=== PATIENT | female | born 1945 | race Hispanic/Latino ===

== ENCOUNTER 2019-02-17 17:47 | Emergency (ER) | payer OTHER ==
[2019-02-17] MEDS ORDERED: ALBUTEROL 2.5 MG/3 ML NEB SOL ONE (18:38)
[2019-02-17] MEDS ORDERED: IPRATROPIUM BROM 0.5MG/2.5ML ONE (18:38)
--- NOTE | 2019-02-17 19:00 | RAD REPORT ---
EXAM DESCRIPTION: RAD - Chest Single View - 02/17/2019 6:52 pm CLINICAL HISTORY: SOB Chest pain. COMPARISON: Chest Pa And Lat (2 Views) dated 06/15/2018; Chest Single View dated 06/13/2018; Chest Sin gle View dated 06/11/2018; Chest Single View dated 02/28/2017 FINDINGS: Portable technique limits examination quality. Mild interstitial pulmonary edema. The heart is moderately enlarged with a multilead pacer/defibrilla tor device present. Portion of the left lower lung field is obscured by the pacer device. IMPRESSION: Mild CHF.
[2019-02-17 19:04] LABS: Protime INR 1.02
[2019-02-17 19:06] LABS: Absolute Lymphocytes (CBC) 1.5 K/uL (0.7-4.9); Absolute Monocytes 0.5 K/uL (0.1-1.3); Absolute Neutrophil 4.6 K/uL (1.8-8.0); Basophils % 1.5 % (0-1.3); Eosinophils % 1.6 % (0-4.4); Hematocrit 36.5 % (36.0-45.0); Lymphocytes % 21.5 % (15.3-44.8); MPV 8.5 fL (7.6-11.3); Monocytes % 7.2 % (3.3-12.3); RBC Red Blood Cell Count 4.17 M/uL (3.86-4.86)
[2019-02-17 19:11] LABS: ALT/SGPT 10 U/L (12-78); AST/SGOT 17 U/L (15-37); Albumin 3.5 g/dL (3.4-5.0); Alkaline Phosphatase 69 U/L (45-117); BUN Blood Urea Nitrogen 19 mg/dL (7-18); Bicarbonate 29 mmol/L (21-32); Bilirubin Direct 0.2 mg/dL (0-0.2); Bilirubin Total 0.4 mg/dL (0.2-1.0); Glucose Level 126 mg/dL (74-106); NT PRO-BNP 19981 pg/mL (<450); Potassium 3.7 mmol/L (3.5-5.1); Protein, Total 7.3 g/dL (6.4-8.2); Sodium Level 140 mmol/L (136-145); Troponin (Emerg Dept Use Only) < 0.02 ng/mL (0.0-0.045)
[2019-02-17] MEDS ORDERED: ASPIRIN 81 MG CHEWABLE TABLET ONE (19:11)
[2019-02-17 19:13] LABS: Magnesium 1.3 mg/dL (1.8-2.4)
--- NOTE | 2019-02-17 19:22 | RAD REPORT ---
EXAM DESCRIPTION: US - Extrem Venous W Compress Charles - 02/17/2019 7:16 pm CLINICAL HISTORY: SWELLING Bilateral leg edema and swelling. COMPARISON: EXT VENOUS UNI LTD dated 10/04/2015 TECHNIQUE: Real-time sonographic interrogation of the left and right lower extremity deep venous sys tems was performed. FINDINGS: Normal compressibility, flow augmentation, phasic flow and spontaneous flow is identified in both the left and right lower extremity deep venous systems. IMPRESSION: No sonographic evidence of left or right lower extremity deep venous thrombosis.
[2019-02-17 19:41] LABS: Blood Morphology Comment NOT SEEN (NOT SEEN); Platelet Estimate ADEQ; Urine White Blood Cell Casts OK
[2019-02-17] MEDS ORDERED: KETOROLAC 30 MG/ML INJ ONE (19:41)
[2019-02-17] MEDS ORDERED: Magnesium Sulfate 2gm IVPB 2 G/50 ML BAG IV ONE (19:41)
[2019-02-17] MEDS ORDERED: FUROSEMIDE 40 MG/4 ML VIAL ONE (19:57)
--- NOTE | 2019-02-17 20:55 | EDPHYS ---
Physician Documentation [facility] Name: Leatha Galeana Age: 73 yrs Sex: Female : 1945 Arrival Date: 02/17/2019 Time: 17:50 Bed 6 Private MD: ED Physician Raymond Lyons HPI: 02/17 18:10 This 73 yrs old Female presents to ER via Ambulatory with complaints of cp Shortness Of Breath, Leg Swelling. 18:10 The patient has shortness of breath at rest, with light activity. Onset: The cp symptoms/episode began/occurred last night. Duration: The symptoms are continuous, and are steadily getting worse. 18:10 The patient's shortness of breath is aggravated by light activity. Associated signs and cp symptoms: Pertinent negatives: chest pain, productive cough, diaphoresis, dizziness, fever, hemoptysis. 18:10 Severity of symptoms: in the emergency department the symptoms are unchanged despite cp home interventions. Historical: - Allergies: 17:54 No Known Allergies; sg - PMHx: 17:54 CHF; CVA; Diabetes - NIDDM; Hypothyroidism; Myocardial infarction; sg - PSHx: 17:54 pacemaker; sg - Immunization history:: Adult Immunizations up to date. - Social history:: Smoking status: Patient/guardian denies using tobacco. - Ebola Screening: : Patient negative for fever greater than or equal to 101.5 degrees Fahrenheit, and additional compatible Ebola Virus Disease symptoms Patient denies exposure to infectious person Patient denies travel to an Ebola-affected area in the 21 days before illness onset No symptoms or risks identified at this time. ROS: 18:15 Constitutional: Negative for body aches, chills, fever, poor PO intake. cp 18:15 Eyes: Negative for injury, pain, redness, and discharge. cp 18:15 ENT: Negative for drainage from ear(s), ear pain, sore throat, difficulty swallowing, difficulty handling secretions. 18:15 Cardiovascular: Positive for edema, Negative for chest pain, palpitations. 18:15 Respiratory: Positive for shortness of breath, on exertion. Negative for hemoptysis, wheezing. 18:15 Abdomen/GI: Negative for abdominal pain, nausea, vomiting, and diarrhea, black/tarry stool, rectal bleeding. 18:15 Back: Negative for pain at rest, pain with movement. 18:15 Skin: Negative for rash. 18:15 Neuro: Negative for altered mental status, headache, syncope, weakness. 18:15 All other systems are negative. Exam: 18:20 Constitutional: The patient appears in no acute distress, alert, awake, cp non-diaphoretic, non-toxic, well developed, well nourished. 18:20 Head/Face: Normocephalic, atraumatic. cp 18:20 Eyes: Periorbital structures: appear normal, Conjunctiva: normal, no exudate, no injection, Sclera: no appreciated abnormality, Lids and lashes: appear normal, bilaterally. 18:20 ENT: External ear(s): are unremarkable, Nose: is normal, Mouth: Lips: moist, Oral mucosa: pink and intact, moist, Posterior pharynx: is normal, airway is patent, no erythema, no exudate. 18:20 Neck: ROM/movement: is normal, is supple, without pain, no range of motions limitations, no nuchal rigidity. 18:20 Chest/axilla: Inspection: normal, Palpation: is normal, no crepitus, no tenderness. 18:20 Cardiovascular: Rate: normal, Rhythm: regular, Edema: ankle edema, that is mild, JVD: is not appreciated. 18:20 Respiratory: the patient does not display signs of respiratory distress, Respirations: labored breathing, is not present, accessory muscle usage, is absent, intercostal retractions, are absent, Breath sounds: rales, that are mild, are located in both bases, decreased breath sounds, are not appreciated, stridor, is not appreciated. 18:20 Abdomen/GI: Inspection: abdomen appears normal, Palpation: abdomen is soft and non-tender, in all quadrants. 18:20 Skin: no rash present. 18:20 Neuro: Orientation: to person, place \T\ time. Mentation: is normal, Cerebellar function: is grossly normal, Motor: is normal. Vital Signs: 17:53 BP 142 / 75; Pulse 89 MON; Resp 19 S; Temp 98.7; Pulse Ox 97% on R/A; sg 19:08 BP 132 / 62; Pulse 88; Resp 17; Pulse Ox 100% on R/A; sg 19:10 BP 132 / 65; Pulse 72; Resp 17; Temp 97.5; Pulse Ox 99% on R/A; Pain 6/10; rr5 20:00 BP 129 / 70; Pulse 73; Resp 18; Pulse Ox 99% on R/A; rr5 20:30 BP 126 / 66; Pulse 67; Resp 15; Temp 97.5; Pulse Ox 99% ; rr5 21:20 BP 133 / 60; Pulse 71; Resp 17; Temp 97.7; Pulse Ox 99% on R/A; rr5 MDM: 18:04 Patient medically screened. cp 18:30 Differential diagnosis: CHF exacerbation, Chronic Obstructive Pulmonary Disease cp Myocardial Infarction pneumonia, Pneumothorax pulmonary edema, Pulmonary Embolism Sepsis Unstable Angina. 20:52 Data reviewed: vital signs, nurses notes, lab test result(s), EKG, radiologic studies, cp plain films. 20:52 Test interpretation: by ED physician or midlevel provider: ECG, plain radiologic cp studies. Counseling: I had a detailed discussion with the patient and/or guardian regarding: the historical points, exam findings, and any diagnostic results supporting the discharge/admit diagnosis, lab results, radiology results, the need for outpatient follow up, a family practitioner, to return to the emergency department if symptoms worsen or persist or if there are any questions or concerns that arise at home. Response to treatment: the patient's symptoms have markedly improved after treatment, VSS. Patient reports symptoms improved after breathing treatment and IV Lasix. No signs of respiratory distress noted. Recommend increasing Lasix to bid for five days and f/u with PCP. 02/17 18:11 Order name: Basic Metabolic Panel; Complete Time: 19:14 02/17 19:20 Interpretation: Normal except: GLUC 126; BUN 19; GFR 43. 02/17 18:11 Order name: CBC with Diff; Complete Time: 20:43 02/17 19:37 Interpretation: Normal except: HGB 11.7; BASO% 1.5. 02/17 18:11 Order name: LFT's; Complete Time: 19:14 02/17 20:42 Interpretation: Normal except: ALT 10; GLOB 3.8; A/G 0.9. 02/17 18:11 Order name: Magnesium; Complete Time: 19:14 02/17 18:11 Order name: NT PRO-BNP; Complete Time: 19:14 02/17 19:14 Interpretation: Abnormal: NT PRO-BNP . cp 02/17 18:11 Order name: PT-INR; Complete Time: 19:14 cp 02/17 18:11 Order name: Troponin (emerg Dept Use Only); Complete Time: 19:14 cp 02/17 18:11 Order name: XRAY Chest (1 view); Complete Time: 19:14 cp 02/17 18:16 Order name: US Extremity Venous W Compression Charles; Complete Time: 19:24 cp 02/17 19:24 Interpretation: Report reviewed. 02/17 19:19 Order name: CBC Smear Scan; Complete Time: 20:43 EDMS 02/17 18:11 Order name: EKG; Complete Time: 18:13 cp 02/17 18:11 Order name: Cardiac monitoring; Complete Time: 19:38 cp 02/17 18:11 Order name: EKG - Nurse/Tech; Complete Time: 19:39 cp 02/17 18:11 Order name: IV Saline Lock; Complete Time: 19:39 cp 02/17 18:11 Order name: Labs collected and sent; Complete Time: 19:39 cp 02/17 18:11 Order name: O2 Per Protocol; Complete Time: 19:39 cp 02/17 18:12 Order name: O2 Sat Monitoring; Complete Time: 19:39 cp Administered Medications: 19:30 Drug: Aspirin Chewable Tablet 324 mg Route: PO; rr5 20:30 Follow up: Response: No adverse reaction rr5 19:35 Drug: Magnesium Sulfate 2 grams Route: IVPB; Infused Over: 2 hrs; Site: left forearm; rr5 21:15 Follow up: Response: No adverse reaction; IV Status: Completed infusion; IV Intake: [id number] 19:35 Drug: TORadol - Ketorolac 15 mg Route: IVP; Site: left forearm; rr5 20:35 Follow up: Response: No adverse reaction rr5 19:36 Drug: Albuterol - atroVENT (3:1) (2.5 mg - 0.5 mg) 3 ml Route: Nebulizer; rr5 20:40 Follow up: Response: No adverse reaction rr5 19:55 Drug: Lasix 40 mg Route: IVP; Site: left forearm; rr5 21:00 Follow up: Response: No adverse reaction rr5 Disposition: 02/17/19 20:54 Discharged to Home. Impression: Unspecified combined systolic (congestive) and diastolic (congestive) heart failure, Hypomagnesemia. - Condition is Stable. - Discharge Instructions: Heart Failure, Hypomagnesemia, Pulmonary Edema, Dobd-Qd-Updr. - Prescriptions for magnesium - take 400 milligram by ORAL route once daily for 5 days; 5 tablet. - Medication Reconciliation Form, Thank You Letter, Antibiotic Education, Prescription Opioid Use form. - Follow up: Private Physician; When: 2 - 3 days; Reason: Recheck today's complaints. - Problem is an acute exacerbation. - Symptoms have improved. - Notes: Increase Lasix to 20 mg twice daily for 5 days and follow-up with primary physician Addendum: 02/20/2019 08:40 Co-signature as Attending Physician, Raymond Lyons MD I agree with the assessment and c moore plan of care. Signatures: Dispatcher [employer] EDPb Lemus, RN RN Raymond Decker MD MD cha Page, Corey, PA PA Ritchie Doherty RN RN rr5 Corrections: (The following items were deleted from the chart) 02/17 19:38 19:37 Normal except: HGB 11.7. cp cp 21:35 20:54 02/17/2019 20:54 Discharged to Home. Impression: Unspecified combined systolic rr5 (congestive) and diastolic (congestive) heart failure; Hypomagnesemia. Condition is Stable. Forms are Medication Reconciliation Form, Thank You Letter, Antibiotic Education, Prescription Opioid Use. Follow up: Private Physician; When: 2 - 3 days; Reason: Recheck today's complaints. Problem is an acute exacerbation. Symptoms have improved. cp
--- NOTE | 2019-02-17 20:55 | ER ---
Nurse's Notes [facility] Name: Leatha Galeana Age: 73 yrs Sex: Female : 1945 Arrival Date: 02/17/2019 Time: 17:50 Bed 6 Private MD: Diagnosis: Unspecified combined systolic (congestive) and diastolic (congestive) heart failure;Hypomagnesemia Presentation: 02/17 17:51 Presenting complaint: Patient states: Swelling to the BLE, reports having shortness of sg breath at home worsening with ambulation and ADL's reports having had o2 at home but has not recently needed it, so I dont use it. Transition of care: patient was not received from another setting of care. Onset of symptoms was February 17, 2019. Risk Assessment: Do you want to hurt yourself or someone else? Patient reports no desire to harm self or others. Initial Sepsis Screen: Does the patient meet any 2 criteria? No. Patient's initial sepsis screen is negative. Does the patient have a suspected source of infection? No. Patient's initial sepsis screen is negative. Care prior to arrival: None. 17:51 Method Of Arrival: Ambulatory sg 17:51 Acuity: TYRELL 3 sg Historical: - Allergies: 17:54 No Known Allergies; sg - PMHx: 17:54 CHF; CVA; Diabetes - NIDDM; Hypothyroidism; Myocardial infarction; sg - PSHx: 17:54 pacemaker; sg - Immunization history:: Adult Immunizations up to date. - Social history:: Smoking status: Patient/guardian denies using tobacco. - Ebola Screening: : Patient negative for fever greater than or equal to 101.5 degrees Fahrenheit, and additional compatible Ebola Virus Disease symptoms Patient denies exposure to infectious person Patient denies travel to an Ebola-affected area in the 21 days before illness onset No symptoms or risks identified at this time. Screenin:10 Abuse screen: Denies threats or abuse. Denies injuries from another. Nutritional sg screening: No deficits noted. Tuberculosis screening: No symptoms or risk factors identified. Never had TB. Fall Risk None identified. Assessment: 18:10 General: Appears in no apparent distress. well groomed, well developed, well nourished, sg Behavior is calm, cooperative, appropriate for age. Pain: Complains of pain in right leg. Neuro: Level of Consciousness is awake, alert, obeys commands, Oriented to person, place, time, Training Officer are equal bilaterally Moves all extremities. Full function Speech is normal, Facial symmetry appears normal, Pupils are PERRLA. Cardiovascular: Patient's skin is warm and dry. Edema is 2+ to left midcalf, left ankle, left foot, left toes, right midcalf, right ankle, right foot and right toes. Respiratory: Airway is patent Respiratory effort is even, unlabored, Respiratory pattern is regular, symmetrical. GI: Abdomen is flat, non-distended, Bowel sounds present X 4 quads. Reports tolerance of fluids, tolerance of food. : No signs and/or symptoms were reported regarding the genitourinary system. EENT: No signs and/or symptoms were reported regarding the EENT system. Derm: Skin is pale. Musculoskeletal: Circulation, motion, and sensation intact. Range of motion: intact in all extremities. 19:05 General: Appears in no apparent distress. uncomfortable, well groomed, well developed, rr5 Behavior is calm, cooperative, appropriate for age. Pain: Complains of pain in tail bone Pain does not radiate. Pain currently is 6 out of 10 on a pain scale. Quality of pain is described as aching, Pain began gradually, Is intermittent. Neuro: Level of Consciousness is awake, alert, obeys commands, Oriented to person, place, time, situation, Appropriate for age. Cardiovascular: Capillary refill < 3 seconds Patient's skin is warm and dry. edema lower extremities. Respiratory: Reports shortness of breath Airway is patent Respiratory effort is even, unlabored, Respiratory pattern is regular, symmetrical. GI: Abdomen is non-distended. : No signs and/or symptoms were reported regarding the genitourinary system. EENT: No signs and/or symptoms were reported regarding the EENT system. 19:05 Musculoskeletal: Circulation, motion, and sensation intact. Capillary refill < 3 rr5 seconds, Range of motion: intact in all extremities. 20:00 Reassessment: Patient appears in no apparent distress at this time. Patient is alert, rr5 oriented x 3, equal unlabored respirations, skin warm/dry/pink. ongoing magnesium sulfate IV no complaints made. awaiting for result. 21:00 Reassessment: Patient appears in no apparent distress at this time. Patient and/or rr5 family updated on plan of care and expected duration. Pain level reassessed. Patient is alert, oriented x 3, equal unlabored respirations, skin warm/dry/pink. 21:30 Reassessment: Patient appears in no apparent distress at this time. Patient is alert, rr5 oriented x 3, equal unlabored respirations, skin warm/dry/pink. 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 Vital Signs: 17:53 BP 142 / 75; Pulse 89 MON; Resp 19 S; Temp 98.7; Pulse Ox 97% on R/A; sg 19:08 BP 132 / 62; Pulse 88; Resp 17; Pulse Ox 100% on R/A; sg 19:10 BP 132 / 65; Pulse 72; Resp 17; Temp 97.5; Pulse Ox 99% on R/A; Pain 6/10; rr5 20:00 BP 129 / 70; Pulse 73; Resp 18; Pulse Ox 99% on R/A; rr5 20:30 BP 126 / 66; Pulse 67; Resp 15; Temp 97.5; Pulse Ox 99% ; rr5 21:20 BP 133 / 60; Pulse 71; Resp 17; Temp 97.7; Pulse Ox 99% on R/A; rr5 ED Course: 17:50 Patient arrived in ED. iw 17:53 Triage completed. sg 17:53 Arm band placed on. sg 17:56 Pb Ceja, RN is Primary Nurse. sg 18:04 Raymond Graham PA is PHCP. cp 18:04 Raymond Lyons MD is Attending Physician. cp 18:10 No provider procedures requiring assistance completed. sg 18:54 XRAY Chest (1 view) In Process Unspecified. EDMS 19:14 Ultrasound completed. Patient tolerated well. sg3 19:16 US Extremity Venous W Compression Charles In Process Unspecified. EDMS 21:30 Patient has correct armband on for positive identification. Placed in gown. Bed in low rr5 position. Call light in reach. Side rails up X2. Adult w/ patient. environmental monitoring technician on. Pulse ox on. NIBP on. 21:30 IV discontinued, intact, bleeding controlled, No redness/swelling at site. Pressure rr5 dressing applied. Administered Medications: 19:30 Drug: Aspirin Chewable Tablet 324 mg Route: PO; rr5 20:30 Follow up: Response: No adverse reaction rr5 19:35 Drug: Magnesium Sulfate 2 grams Route: IVPB; Infused Over: 2 hrs; Site: left forearm; rr5 21:15 Follow up: Response: No adverse reaction; IV Status: Completed infusion; IV Intake: [id number] 19:35 Drug: TORadol - Ketorolac 15 mg Route: IVP; Site: left forearm; rr5 20:35 Follow up: Response: No adverse reaction rr5 19:36 Drug: Albuterol - atroVENT (3:1) (2.5 mg - 0.5 mg) 3 ml Route: Nebulizer; rr5 20:40 Follow up: Response: No adverse reaction rr5 19:55 Drug: Lasix 40 mg Route: IVP; Site: left forearm; rr5 21:00 Follow up: Response: No adverse reaction rr5 Outcome: 20:54 Discharge ordered by MD. cp 21:30 Discharged to home via wheelchair, with family. rr5 21:30 Condition: stable rr5 21:30 Discharge instructions given to patient, family, Instructed on discharge instructions, follow up and referral plans. medication usage, Demonstrated understanding of instructions, follow-up care, medications, Prescriptions given X 1. 21:35 Patient left the ED. rr5 Signatures: Dispatcher [employer] EDMS Pb Ceja RN RN sg Williams, Irene RN Raymond Alexandre PA PA cp Godinez, Sarah sg3 Ritchie Wynn RN RN rr5
[2019-02-17 21:43] VITALS: O2SAT 99
[2019-02-17 21:47] VITALS: BP 133/60; TEMP 97.7
--- NOTE | 2019-02-18 10:07 | EKG ---
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
== END 2019-02-17 21:35 | disposition home or self-care (01) ==
LOC: ER 17:47
DX: I50.40 Unspecified combined systolic (congestive) and diastolic (congestive) heart failure (principal); E83.42 Hypomagnesemia; E11.9 Type 2 diabetes mellitus without complications; E03.9 Hypothyroidism, unspecified; I25.2 Old myocardial infarction; Z86.73 Personal history of transient ischemic attack (TIA), and cerebral infarction without residual deficits
CPT/HCPCS: 96365; 93005; 85025; 80048; 36415; 83735; 85610; 80076; 84484; 83880; 71045; 93970; 94640; 96375; 99285; 96366; J1940; J3475

== ENCOUNTER 2019-05-11 14:50 | Emergency (ER) | payer OTHER ==
[2019-05-11 15:21] LABS: Absolute Lymphocytes (CBC) 0.9 K/uL (0.7-4.9); Basophils % 0.9 % (0-1.3); Hematocrit 35.3 % (36.0-45.0); Lymphocytes % 16.4 % (15.3-44.8); MPV 8.1 fL (7.6-11.3); RBC Red Blood Cell Count 4.02 M/uL (3.86-4.86)
[2019-05-11 15:22] LABS: Protime INR 1.01
[2019-05-11 15:37] LABS: Magnesium 1.9 mg/dL (1.8-2.4); Potassium 3.7 mmol/L (3.5-5.1); Troponin (Emerg Dept Use Only) 0.03 ng/mL (0.0-0.045)
--- NOTE | 2019-05-11 15:39 | RAD REPORT ---
EXAM DESCRIPTION: RAD - Chest Single View - 05/11/2019 3:32 pm CLINICAL HISTORY: SWELLING Chest pain. COMPARISON: Chest Single View dated 02/17/2019; Chest Pa And Lat (2 Views) dated 06/15/2018; Chest Sin gle View dated 06/13/2018; Chest Single View dated 06/11/2018 FINDINGS: Portable technique limits examination quality. The lungs are grossly clear. The heart is moderately enlarged with multilead pacer/defibrillator jeffrey ce present. No displaced fractures. IMPRESSION: No acute intrathoracic process suspected.
--- NOTE | 2019-05-11 15:44 | RAD REPORT ---
EXAM DESCRIPTION: RAD - Pelvis - 05/11/2019 3:34 pm CLINICAL HISTORY: TRAUMA COMPARISON: Head C Spine Mpr Wo Con dated 12/18/2016Pelvis dated 06/11/2018 FINDINGS: Diffuse osteopenia is seen. Moderate degenerative changes are present along the superior m argin in both hips. No acute fracture or dislocation. Atherosclerosis is present. IMPRESSION: Moderate degenerative change without acute fracture.
--- NOTE | 2019-05-11 15:45 | RAD REPORT ---
EXAM DESCRIPTION: RAD - Sacrum And Coccyx - 05/11/2019 3:39 pm CLINICAL HISTORY: PAIN COMPARISON: No comparisons FINDINGS: 13 mm degenerative anterolisthesis is present of L4 on 5. No acute fracture or subluxation . Diffuse osteopenia. IMPRESSION: No acute fracture seen.
[2019-05-11] MEDS ORDERED: TRAMADOL HCL 50 MG TAB ONE (16:14)
[2019-05-11] MEDS ORDERED: FUROSEMIDE 40 MG/4 ML VIAL ONE (16:14)
[2019-05-11 17:25] LABS: Urine Blood TRACE (NEG); Urine Glucose NEGATIVE (NEG); Urine Protein 2+ (NEG); Urine Specific Gravity 1.015 (1.005-1.030); Urine pH 5.5 (5.0-7.0)
[2019-05-11 17:45] LABS: Urine Bacteria >50 /HPF (<20); Urine Culture Reflex Order NOT NEEDED; Urine RBC <5 /HPF (NONE SEEN)
--- NOTE | 2019-05-11 17:51 | ER ---
Nurse's Notes [facility] Name: Leatha Galeana Age: 74 yrs Sex: Female : 1945 Arrival Date: 05/11/2019 Time: 14:51 Bed 23 Private MD: Diagnosis: Fall on same level from slipping, tripping and stumbling;Urinary tract infection, site not specified;Combined systolic (congestive) and diastolic (congestive) heart failure;Low back pain Presentation: 05/11 14:52 Presenting complaint: Patient states: was using her walker, trying to sit in her chair, iw her legs gave out and she fell to her bottom, now c/o pain to lower back, had a fall earlier in the week, similar to how she fell today. Care prior to arrival: None. Mechanism of Injury: Fall from standing position. Trauma event details: Injury occurred in the [facility], Injury occurred: at home. 14:52 Acuity: TYRELL 3 iw 14:52 Method Of Arrival: EMS: [facility] iw 14:53 Transition of care: patient was not received from another setting of care. Onset of iw symptoms was May 11, 2019. Risk Assessment: Do you want to hurt yourself or someone else? Patient reports no desire to harm self or others. Initial Sepsis Screen: Does the patient meet any 2 criteria? No. Patient's initial sepsis screen is negative. Does the patient have a suspected source of infection? No. Patient's initial sepsis screen is negative. Trauma Activation: Not Applicable Physician: ED Physician; Name: ; Notified At: ; Arrived At: Physician: General Surgeon; Name: ; Notified At: ; Arrived At: Physician: Radiology; Name: ; Notified At: ; Arrived At: Physician: Respiratory; Name: ; Notified At: ; Arrived At: Physician: Lab; Name: ; Notified At: ; Arrived At: Historical: - Allergies: 14:55 No Known Allergies; iw - Home Meds: 14:55 [place] Thyroid 15 mg Oral tab daily [Active]; atorvastatin 10 mg Oral tab 1 tab once iw daily [Active]; carvedilol 12.5 mg Oral tab 1 tab 2 times per day [Active]; enalapril maleate 20 mg Oral tab 1 tab once daily [Active]; escitalopram oxalate 10 mg Oral tab 1 tab once daily [Active]; glipizide 5 mg Oral tab 1 tab once daily [Active]; Lasix 20 mg Oral tab 1 tab once daily [Active]; omeprazole 20 mg Oral cpDR 1 cap once daily [Active]; pantoprazole 40 mg Oral TbEC 1 tab once daily [Active]; - PMHx: 14:55 CHF; CVA; Diabetes - NIDDM; Hypothyroidism; Myocardial infarction; iw - PSHx: 14:55 pacemaker; iw - Immunization history:: Adult Immunizations up to date. - Social history:: Smoking status: Patient/guardian denies using tobacco. - Immunization history: Last tetanus immunization: unknown. - Ebola Screening: : Patient negative for fever greater than or equal to 101.5 degrees Fahrenheit, and additional compatible Ebola Virus Disease symptoms Patient denies exposure to infectious person Patient denies travel to an Ebola-affected area in the 21 days before illness onset No symptoms or risks identified at this time. Screenin:59 Abuse screen: Denies threats or abuse. Denies injuries from another. Tuberculosis iw screening: No symptoms or risk factors identified. 15:30 Nutritional screening: No deficits noted. Fall Risk No fall in past 12 months (0 pts). ph No secondary diagnosis (0 pts). IV access (20 points). Ambulatory Aid- Crutches/Cane/Walker (15 pts). Gait- Weak (10 pts.). Mental Status- Oriented to own ability (0 pts). Total [place] Fall Scale indicates High Risk Score (45 or more points). Fall prevention measures have been instituted. Side Rails Up X 2 Placed Close to Nursing Station Frequent Obs/Assessments Occuring Family Present and informed to notify staff if the need to leave the bedside As available patient and family educated on Fall Prevention Program and Strategies. Primary Survey: 14:59 NO uncontrolled hemorrhage observed. A: Airway: patent. Breathing/Chest: Respiratory iw pattern: regular. Circulation: Cardiac rhythm: Heart tones present. Disability Alert. Exposure/Environment: All clothing and personal items were removed. Forensic evidence collection is not deemed to be indicated at this time. Items placed in patient belonging bag. 18:00 Reassessment Airway Airway Patent Breathing/Chest Respiratory pattern Regular ph Respiratory effort Spontaneous Unlabored Circulation Disability Alert. Assessment: 15:30 General: Appears in no apparent distress. uncomfortable, Behavior is calm, cooperative, ph appropriate for age, Denies fever. Pain: Complains of pain in sacrum. Neuro: Level of Consciousness is awake, alert, obeys commands, Oriented to person, place, time, situation. Cardiovascular: Denies chest pain, nausea, shortness of breath, Capillary refill < 3 seconds in bilateral fingers Patient's skin is warm and dry. Edema is 2+ to right ankle, right foot and right toes is 3+ to left ankle and left foot. Respiratory: Airway is patent Respiratory effort is even, unlabored, Denies shortness of breath. Derm: Skin is intact, is fragile, is thin, Skin is pink, warm \T\ dry. Musculoskeletal: Circulation, motion, and sensation intact. Range of motion: intact in all extremities. 16:30 Reassessment: Patient appears in no apparent distress at this time. Patient and/or ph family updated on plan of care and expected duration. Pain level reassessed. Patient is alert, oriented x 3, equal unlabored respirations, skin warm/dry/pink. 17:30 Reassessment: Patient appears in no apparent distress at this time. Patient and/or ph family updated on plan of care and expected duration. Pain level reassessed. Patient is alert, oriented x 3, equal unlabored respirations, skin warm/dry/pink. 18:20 Reassessment: Patient appears in no apparent distress at this time. Patient and/or ph family updated on plan of care and expected duration. Pain level reassessed. Patient is alert, oriented x 3, equal unlabored respirations, skin warm/dry/pink. Pt d/c home w/ son. Vital Signs: 14:54 BP 133 / 87; Pulse 72; Resp 16; Temp 98.2; Pulse Ox 96% on R/A; iw 15:45 BP 141 / 55; Pulse 69; Resp 18; Pulse Ox 98% on R/A; ph 16:41 BP 157 / 73; Pulse 77; Resp 18; Pulse Ox 99% on R/A; ph 17:45 BP 144 / 62; Pulse 74; Resp 20; Temp 97.8; Pulse Ox 97% on R/A; ph [place] Coma Score: 15:45 Eye Response: spontaneous(4). Verbal Response: oriented(5). Motor Response: obeys commands(6). Total: 15. 16:41 Eye Response: spontaneous(4). Verbal Response: oriented(5). Motor Response: obeys ph commands(6). Total: 15. 17:45 Eye Response: spontaneous(4). Verbal Response: oriented(5). Motor Response: obeys ph commands(6). Total: 15. Trauma Score (Adult): 15:45 Eye Response: spontaneous(1); Verbal Response: oriented(1); Motor Response: obeys ph commands(2); Systolic BP: > 89 mm Hg(4); Respiratory Rate: 10 to 29 per min(4); [place] Score: 15; Trauma Score: 12 16:41 Eye Response: spontaneous(1); Verbal Response: oriented(1); Motor Response: obeys ph commands(2); Systolic BP: > 89 mm Hg(4); Respiratory Rate: 10 to 29 per min(4); [place] Score: 15; Trauma Score: 12 17:45 Eye Response: spontaneous(1); Verbal Response: oriented(1); Motor Response: obeys ph commands(2); Systolic BP: > 89 mm Hg(4); Respiratory Rate: 10 to 29 per min(4); [place] Score: 15; Trauma Score: 12 ED Course: 14:51 Patient arrived in ED. iw 14:53 Triage completed. iw 14:56 Sima Teresa FNP-C is [facility]. kb 14:56 Joselo Blanchard MD is Attending Physician. kb 14:59 Arm band placed on. iw 15:00 Patient has correct armband on for positive identification. Bed in low position. Call iw light in reach. Side rails up X2. 15:00 Patient maintains SpO2 saturation greater than 95% on room air. Thermoregulation: warm iw blanket given to patient. 15:13 Inserted saline lock: 20 gauge in left antecubital area, using aseptic technique. Blood rv collected. 15:13 Initial lab(s) drawn, by me, sent to lab. rv 15:33 XRAY Chest (1 view) In Process Unspecified. EDMS 15:34 Vika Damico, RN is Primary Nurse. ph 15:35 Sacrum And Coccyx XRAY In Process Unspecified. EDMS 15:35 Pelvis XRAY In Process Unspecified. EDMS 15:54 EKG done, by database technician. reviewed by Sima FERNANDEZ. sm3 18:20 No provider procedures requiring assistance completed. IV discontinued, intact, ph bleeding controlled, No redness/swelling at site. Pressure dressing applied. Administered Medications: 16:41 Drug: Lasix 40 mg Route: IVP; Site: left forearm; ph 17:57 Follow up: Urine output 425 ml; Response: No adverse reaction ph 16:41 Drug: traMADol 25 mg {Note: RASS 0.} Route: PO; ph 17:57 Follow up: Response: No adverse reaction; Pain is decreased ph 18:27 Drug: Bactrim (160 mg-800 mg (DS) 1 tablet Route: PO; ph Intake: 16:41 PO: 0ml; Total: 0ml. ph 17:45 PO: 0ml; Total: 0ml. ph Output: 16:41 Urine: 0ml; Total: 0ml. ph 17:45 Urine: 550ml (Voided); Total: 550ml. ph 17:57 Urine: 425ml; Total: 975ml. ph Outcome: 17:51 Discharge ordered by MD. kb 18:27 Patient left the ED. ph 18:27 Discharged to assisted into vehicle by nurse and tech ph 18:27 Condition: good 18:27 Discharge instructions given to patient, family, Instructed on discharge instructions, follow up and referral plans. medication usage, Demonstrated understanding of instructions, follow-up care, medications, Prescriptions given X 2. Addendum: 05/13/2019 12:36 Addendum: Culture Results: Positive urine culture. No further action required. Bacteria s s sensitive to prescribed antibiotic. Signatures: Dispatcher [employer] EDSima Donaldson, REBECCA LOUIEP-Katherine Diaz, ARIES CHRIS Su Pollard RN RN Vika Damico RN RN Jeanette Aragon [facility] Boby Mcguire, RN RN rv
--- NOTE | 2019-05-11 17:52 | EDPHYS ---
Physician Documentation [facility] Name: Leatha Galeana Age: 74 yrs Sex: Female : 1945 Arrival Date: 05/11/2019 Time: 14:51 Bed 23 Private MD: ED Physician Joselo Blanchard HPI: 05/11 17:49 This 74 yrs old Female presents to ER via EMS with complaints of Fall Injury. kb 17:49 Details of fall: The patient fell from an upright position. Onset: The symptoms/episode kb began/occurred just prior to arrival. Associated injuries: The patient sustained injury to the low back, pain, pain with movement. Severity of symptoms: At their worst the symptoms were moderate, in the emergency department the symptoms are unchanged. The patient has not experienced similar symptoms in the past. The patient has not recently seen a physician. Pt stood up and her feet gave out causing her to fall to her buttocks. Reports pain to coccyx. Also reports swelling to bilateral feet for 1-2 weeks and decreased appetite for 3 days. Historical: - Allergies: 14:55 No Known Allergies; iw - Home Meds: 14:55 [place] Thyroid 15 mg Oral tab daily [Active]; atorvastatin 10 mg Oral tab 1 tab once iw daily [Active]; carvedilol 12.5 mg Oral tab 1 tab 2 times per day [Active]; enalapril maleate 20 mg Oral tab 1 tab once daily [Active]; escitalopram oxalate 10 mg Oral tab 1 tab once daily [Active]; glipizide 5 mg Oral tab 1 tab once daily [Active]; Lasix 20 mg Oral tab 1 tab once daily [Active]; omeprazole 20 mg Oral cpDR 1 cap once daily [Active]; pantoprazole 40 mg Oral TbEC 1 tab once daily [Active]; - PMHx: 14:55 CHF; CVA; Diabetes - NIDDM; Hypothyroidism; Myocardial infarction; iw - PSHx: 14:55 pacemaker; iw - Immunization history:: Adult Immunizations up to date. - Social history:: Smoking status: Patient/guardian denies using tobacco. - Immunization history: Last tetanus immunization: unknown. - Ebola Screening: : Patient negative for fever greater than or equal to 101.5 degrees Fahrenheit, and additional compatible Ebola Virus Disease symptoms Patient denies exposure to infectious person Patient denies travel to an Ebola-affected area in the 21 days before illness onset No symptoms or risks identified at this time. ROS: 17:47 Constitutional: Negative for fever, chills, and weight loss, Cardiovascular: Negative kb for chest pain, palpitations. +pedal edema Respiratory: Negative for shortness of breath, cough, wheezing, and pleuritic chest pain, Abdomen/GI: Negative for abdominal pain, nausea, vomiting, diarrhea, and constipation. +decreased appetite : Negative for injury, bleeding, discharge, and swelling, MS/Extremity: Negative for injury and deformity, Skin: Negative for injury, rash, and discoloration, Neuro: Negative for headache, weakness, numbness, tingling, and seizure. 17:47 Back: Positive for pain at rest, pain with movement, of the sacrum. Exam: 17:47 Constitutional: This is a well developed, well nourished patient who is awake, alert, kb and in no acute distress. Head/Face: Normocephalic, atraumatic. ENT: Nares patent. No nasal discharge, no septal abnormalities noted. Tympanic membranes are normal and external auditory canals are clear. Oropharynx with no redness, swelling, or masses, exudates, or evidence of obstruction, uvula midline. Mucous membranes moist. Neck: Trachea midline, no thyromegaly or masses palpated, and no cervical lymphadenopathy. Supple, full range of motion without nuchal rigidity, or vertebral point tenderness. No Meningismus. Chest/axilla: Normal chest wall appearance and motion. Nontender with no deformity. No lesions are appreciated. Cardiovascular: Regular rate and rhythm with a normal S1 and S2. No gallops, murmurs, or rubs. Normal PMI, no JVD. No pulse deficits. Respiratory: Lungs have equal breath sounds bilaterally, clear to auscultation and percussion. No rales, rhonchi or wheezes noted. No increased work of breathing, no retractions or nasal flaring. Abdomen/GI: Soft, non-tender, with normal bowel sounds. No distension or tympany. No guarding or rebound. No evidence of tenderness throughout. Skin: Warm, dry with normal turgor. Normal color with no rashes, no lesions, and no evidence of cellulitis. MS/ Extremity: Pulses equal, no cyanosis. Neurovascular intact. Full, normal range of motion. Neuro: Awake and alert, GCS 15, oriented to person, place, time, and situation. Cranial nerves II-XII grossly intact. Motor strength 5/5 in all extremities. Sensory grossly intact. Cerebellar exam normal. Normal gait. 17:47 Cardiovascular: Edema: pedal edema, that is mild, that is moderate. 17:47 Back: pain, that is moderate, of the sacrum, ROM is painful, with all movement, normal spinal alignment noted. Vital Signs: 14:54 BP 133 / 87; Pulse 72; Resp 16; Temp 98.2; Pulse Ox 96% on R/A; iw 15:45 BP 141 / 55; Pulse 69; Resp 18; Pulse Ox 98% on R/A; ph 16:41 BP 157 / 73; Pulse 77; Resp 18; Pulse Ox 99% on R/A; ph 17:45 BP 144 / 62; Pulse 74; Resp 20; Temp 97.8; Pulse Ox 97% on R/A; ph [place] Coma Score: 15:45 Eye Response: spontaneous(4). Verbal Response: oriented(5). Motor Response: obeys ph commands(6). Total: 15. 16:41 Eye Response: spontaneous(4). Verbal Response: oriented(5). Motor Response: obeys ph commands(6). Total: 15. 17:45 Eye Response: spontaneous(4). Verbal Response: oriented(5). Motor Response: obeys ph commands(6). Total: 15. Trauma Score (Adult): 15:45 Eye Response: spontaneous(1); Verbal Response: oriented(1); Motor Response: obeys ph commands(2); Systolic BP: > 89 mm Hg(4); Respiratory Rate: 10 to 29 per min(4); [place] Score: 15; Trauma Score: 12 16:41 Eye Response: spontaneous(1); Verbal Response: oriented(1); Motor Response: obeys ph commands(2); Systolic BP: > 89 mm Hg(4); Respiratory Rate: 10 to 29 per min(4); [place] Score: 15; Trauma Score: 12 17:45 Eye Response: spontaneous(1); Verbal Response: oriented(1); Motor Response: obeys ph commands(2); Systolic BP: > 89 mm Hg(4); Respiratory Rate: 10 to 29 per min(4); [place] Score: 15; Trauma Score: 12 MDM: 14:57 Patient medically screened. kb 17:46 Data reviewed: vital signs, nurses notes. Data interpreted: Pulse oximetry: on room air kb is 99 %. Interpretation: normal. Counseling: I had a detailed discussion with the patient and/or guardian regarding: the historical points, exam findings, and any diagnostic results supporting the discharge/admit diagnosis, lab results, radiology results, the need for outpatient follow up, a family practitioner, to return to the emergency department if symptoms worsen or persist or if there are any questions or concerns that arise at home. 05/11 15:04 Order name: Basic Metabolic Panel; Complete Time: 15:41 kb 05/11 15:04 Order name: CBC with Diff; Complete Time: 15:26 kb 05/11 15:04 Order name: Magnesium; Complete Time: 15:41 kb 05/11 15:04 Order name: NT PRO-BNP; Complete Time: 15:41 kb 05/11 15:04 Order name: PT-INR; Complete Time: 15:39 kb 05/11 15:04 Order name: Troponin (emerg Dept Use Only); Complete Time: 15:41 kb 05/11 15:04 Order name: XRAY Chest (1 view); Complete Time: 15:41 kb 05/11 15:04 Order name: Sacrum And Coccyx XRAY; Complete Time: 15:51 kb 05/11 15:04 Order name: Pelvis XRAY; Complete Time: 15:51 kb 05/11 17:20 Order name: Urine Culture iw 05/11 17:20 Order name: Urine Microscopic Only; Complete Time: 17:46 iw 05/11 17:22 Order name: Urine Dipstick--Ancillary (enter results); Complete Time: 17:26 eb 05/11 15:04 Order name: EKG; Complete Time: 15:05 kb 05/11 15:04 Order name: Cardiac monitoring; Complete Time: 15:50 kb 05/11 15:04 Order name: EKG - Nurse/Tech; Complete Time: 15:50 kb 05/11 15:04 Order name: IV Saline Lock; Complete Time: 15:40 kb 05/11 15:04 Order name: Labs collected and sent; Complete Time: 15:40 kb 05/11 15:04 Order name: O2 Per Protocol; Complete Time: 15:41 kb 05/11 15:04 Order name: O2 Sat Monitoring; Complete Time: 15:41 kb 05/11 16:09 Order name: Urine Dipstick-Ancillary (obtain specimen); Complete Time: 17:21 kb Administered Medications: 16:41 Drug: Lasix 40 mg Route: IVP; Site: left forearm; ph 17:57 Follow up: Urine output 425 ml; Response: No adverse reaction ph 16:41 Drug: traMADol 25 mg {Note: RASS 0.} Route: PO; ph 17:57 Follow up: Response: No adverse reaction; Pain is decreased ph 18:27 Drug: Bactrim (160 mg-800 mg (DS) 1 tablet Route: PO; ph Disposition: 18:51 Co-signature as Attending Physician, Joselo Blanchard MD. rn Disposition: 05/11/19 17:51 Discharged to Home. Impression: Fall on same level from slipping, tripping and stumbling, Urinary tract infection, site not specified, Combined systolic (congestive) and diastolic (congestive) heart failure, Low back pain. - Condition is Stable. - Discharge Instructions: Urinary Tract Infection, Adult, [id number], Back Pain, Adult, [id number], Fall Prevention in the Home, [id number]. - Prescriptions for Tramadol 50 mg Oral Tablet - take 1 tablet by ORAL route every 8 hours as needed; 12 tablet. Bactrim DS 800- 160 mg Oral Tablet - take 1 tablet by ORAL route every 12 hours for 7 days; 14 tablet. - Medication Reconciliation Form, Thank You Letter, Antibiotic Education, Prescription Opioid Use form. - Follow up: Private Physician; When: 2 - 3 days; Reason: Recheck today's complaints, Continuance of care, Re-evaluation by your physician. Follow up: Emergency Department; When: As needed; Reason: Worsening of condition. Signatures: Dispatcher [employer] Sima Whitehead, REBECCA DENNY-Katherine Diaz RN RN iw Nieto, Roman, MD MD rn Hall, Patricia, RN RN ph Corrections: (The following items were deleted from the chart) 18:27 17:51 05/11/2019 17:51 Discharged to Home. Impression: Fall on same level from ph slipping, tripping and stumbling; Urinary tract infection, site not specified; Combined systolic (congestive) and diastolic (congestive) heart failure; Low back pain. Condition is Stable. Forms are Medication Reconciliation Form, Thank You Letter, Antibiotic Education, Prescription Opioid Use. Follow up: Private Physician; When: 2 - 3 days; Reason: Recheck today's complaints, Continuance of care, Re-evaluation by your physician. Follow up: Emergency Department; When: As needed; Reason: Worsening of condition. kb
[2019-05-11] MEDS ORDERED: SMZ./TMP. 800/160 MG TABLET ONE (18:02)
[2019-05-11 18:51] VITALS: TEMP 98.2
[2019-05-11 18:54] VITALS: BP 157/73; O2SAT 99
--- NOTE | 2019-05-12 09:09 | EKG ---
Test Date: 2019-05-11 Test Time: 15:48:46 Professional Advisor: KARO MEASUREMENT RESULTS: Intervals: Rate: 80 PA: 114 QRSD: 192 QT: 464 QTc: 535 [place]: P: 57 PA: 114 QRS: -50 T: 100 INTERPRETIVE STATEMENTS: Electronic ventricular pacemaker Compared to ECG 02/17/2019 17:57:28 No significant changes Electronically Signed On 05-12-19 09:07:58 CDT by Andrew Jordan
== END 2019-05-11 18:27 | disposition home or self-care (01) ==
LOC: ER 14:50
DX: N39.0 Urinary tract infection, site not specified (principal); I50.40 Unspecified combined systolic (congestive) and diastolic (congestive) heart failure; W01.0XXA Fall on same level from slipping, tripping and stumbling without subsequent striking against object, initial encounter; Y93.9 Activity, unspecified; Y92.9 Unspecified place or not applicable; Z86.73 Personal history of transient ischemic attack (TIA), and cerebral infarction without residual deficits; Z95.0 Presence of cardiac pacemaker; I25.2 Old myocardial infarction; E03.9 Hypothyroidism, unspecified; E11.9 Type 2 diabetes mellitus without complications
CPT/HCPCS: 93005; 87088; 85025; 87086; 80048; 36415; 83735; 85610; 87077; 87186; 84484; 83880; 71045; 72220; 72170; 96374; 99285; J1940; 81003; 81015

== ENCOUNTER 2019-10-19 11:44 | Inpatient (IN) | payer OTHER ==
[2019-10-19 12:26] LABS: Absolute Lymphocytes (CBC) 0.8 K/uL (0.7-4.9); Basophils % 0.9 % (0-1.3); Hematocrit 33.3 % (36.0-45.0); Lymphocytes % 12.1 % (15.3-44.8); MPV 7.8 fL (7.6-11.3); RBC Red Blood Cell Count 4.14 M/uL (3.86-4.86)
[2019-10-19 12:29] LABS: Protime INR 1.03
[2019-10-19 12:45] LABS: Troponin (Emerg Dept Use Only) 0.02 ng/mL (0.0-0.045)
[2019-10-19 12:49] LABS: Albumin 3.1 g/dL (3.4-5.0); Bilirubin Direct 0.3 mg/dL (0-0.2); Bilirubin Total 0.6 mg/dL (0.2-1.0); Magnesium 1.7 mg/dL (1.8-2.4); Potassium 3.6 mmol/L (3.5-5.1); Protein, Total 6.8 g/dL (6.4-8.2)
--- NOTE | 2019-10-19 13:03 | RAD REPORT ---
EXAM DESCRIPTION: RAD - Chest Single View - 10/19/2019 12:58 pm CLINICAL HISTORY: lower extremity edema COMPARISON: Chest Single View dated 05/11/2019; Chest Single View dated 02/17/2019 TECHNIQUE: AP portable chest image was obtained 10/19/2019 12:58 pm . FINDINGS: Lungs are underinflated. No peripheral mass or consolidation. Defibrillator battery pack o bscures a portion of the mid left lung field. Cardiomegaly is present increased over comparison. Cent ral vasculature is prominent. Interstitial pattern overall is prominent. No large pleural effusions s een. No pneumothorax. No acute bony abnormality seen. No acute aortic findings suspected. IMPRESSION: Mild CHF/volume overload pattern.
--- NOTE | 2019-10-19 13:04 | RAD REPORT ---
EXAM DESCRIPTION: RAD - Pelvis - 10/19/2019 12:58 pm CLINICAL HISTORY: fall, bilateral weakness COMPARISON: Pelvis dated 05/11/2019 TECHNIQUE: AP imaging of the pelvis was obtained. FINDINGS: Lower lumbar degenerative changes are present only partially imaged. Sacral ala are partia lly obscured by bowel and osteopenic change. Body habitus limits assessment as well. No gross abnorma lity of the sacral ala. Mild to moderate SI joint degenerative changes are present. The SI joint and sacral ala findings match the comparison. Hip joint degenerative changes are present. No dislocation is present. No fracture of either proximal femur identifiable. Arterial tree calcifications are present. IMPRESSION: Degenerative changes are present as detailed. No fracture or acute finding seen.
--- NOTE | 2019-10-19 13:05 | RAD REPORT ---
EXAM DESCRIPTION: RAD - Hip Left 2 View - 10/19/2019 12:58 pm CLINICAL HISTORY: Fall, leg weakness COMPARISON: Left hip May 2018 FINDINGS: AP and frogleg views of the left hip were obtained. There is no fracture or dislocation. N o acute or destructive process suspected. Exam has significant limitation due to the amount of overly ing soft tissue. Joint space narrowing is probably present. Arterial calcifications are seen. No acute soft tissue finding. No foreign body identified. IMPRESSION: Cm was limited by body habitus. However, no fracture or acute finding seen. Hip joint degenerative changes are present.
--- NOTE | 2019-10-19 14:10 | RAD REPORT ---
EXAM DESCRIPTION: CT - Head C Spine Cap Wo Con - 10/19/2019 1:52 pm CLINICAL HISTORY: Trauma, head and neck injury. Chest, abdomen and pelvis pain. fall, left side pain COMPARISON: No comparisons TECHNIQUE: CT head without contrast. CT cervical spine without contrast with coronal and sagittal reformatted images. CT chest, abdomen and pelvis without contrast with coronal and sagittal reformatted images of the [facility] ne. All CT scans are performed using dose optimization technique as appropriate and may include automated exposure control or mA/KV adjustment according to patient size. FINDINGS: CT HEAD WITHOUT CONTRAST: No intracranial hemorrhage, hydrocephalus or extra-axial fluid collection. Mild to moderate generaliz ed brain atrophy is present with mild periventricular and deep white matter chronic microvascular isc hemic changes. No areas of brain edema or midline shift. Near complete opacification right maxillary antrum is seen. Paranasal sinuses and mastoids are otherw ise clear. The calvarium is intact. CT CERVICAL SPINE WITHOUT CONTRAST: No fracture or subluxation. The prevertebral soft tissues are normal in thickness. CT CHEST, ABDOMEN, PELVIS WITHOUT CONTRAST: NOTE: Lack of contrast is a significant limitation in the assessment of trauma related findings. Spec ifically, solid organ, vascular and bowel evaluation is significantly limited. The lungs are emphysematous but clear.No pneumothorax or pericardial/pleural fluid. No evidence of intra-abdominal visceral injury, free fluid or free air is seen within the above detai led limitations. Chronic grade 1 anterolisthesis of L4 on 5 noted. No acute fracture is seen. IMPRESSION: Negative for acute traumatic findings within the above detailed limitations.
[2019-10-19 14:20] LABS: Urine Blood NEGATIVE (NEG); Urine Glucose NEGATIVE (NEG); Urine Protein 1+ (NEG)
--- NOTE | 2019-10-19 14:30 | EKG ---
Test Date: 2019-10-19 Test Time: 12:45:06 Warehouse Material Handler: CONCHIS MEASUREMENT RESULTS: Intervals: Rate: 77 GA: 124 QRSD: 194 QT: 478 QTc: 540 Albert: P: 55 GA: 124 QRS: -64 T: 93 INTERPRETIVE STATEMENTS: Atrial-sensed ventricular-paced rhythm tracking sinus rhythm Compared to ECG 05/11/2019 15:48:46 No significant changes Electronically Signed On 10-19-19 14:29:12 COMMUNITY HEALTH SPECIALIST by Kevin Kimbrough
--- NOTE | 2019-10-19 14:32 | ER ---
Nurse's Notes [facility] Name: Leatha Galeana Age: 74 yrs Sex: Female : 1945 Arrival Date: 10/19/2019 Time: 11:57 Bed 13 Private MD: Diagnosis: Weakness-general;Urinary tract infection, site not specified;Fall on same level from slipping, tripping and stumbling;Chronic combined systolic (congestive) and diastolic (congestive) heart failure Presentation: 10/19 11:44 Presenting complaint: EMS states: pt from home c/o weakness for over a week now, pt has tw2 fallen 3 times and remembers each time, walks normally with walker, she fell this morning, vs stable, she also is complaining of B/L LE swelling that is not normal for her, it is swollen to the point of blisters and a few blisters have popped. she does report taking her lasix yesterday. Transition of care: patient was not received from another setting of care. Onset of symptoms was October 19, 2019. Risk Assessment: Do you want to hurt yourself or someone else? Patient reports no desire to harm self or others. Initial Sepsis Screen: Does the patient meet any 2 criteria? No. Patient's initial sepsis screen is negative. Does the patient have a suspected source of infection? No. Patient's initial sepsis screen is negative. Care prior to arrival: None. 11:44 Method Of Arrival: EMS: [facility] tw2 11:44 Acuity: TYRELL 3 tw2 Triage Assessment: 12:29 General: Appears in no apparent distress. Behavior is calm, cooperative, appropriate tw2 for age. Pain: Complains of pain in right leg and left leg. Cardiovascular: Edema is 4+ to left knee, left midcalf, left ankle, left foot, right knee, right midcalf, right ankle and right foot. Historical: - Allergies: 12:37 No Known Allergies; tw2 - Home Meds: 12:37 [place] Thyroid 15 mg Oral tab daily [Active]; carvedilol 12.5 mg Oral tab 1 tab 2 times tw2 per day [Active]; escitalopram oxalate 10 mg Oral tab 1 tab once daily [Active]; pantoprazole 40 mg Oral TbEC 1 tab once daily [Active]; glipizide 5 mg Oral tab 1 tab once daily [Active]; Lasix 20 mg Oral tab 1 tab once daily, as needed [Active]; hydrocodone-acetaminophen 10-750 mg Oral tab 1 tab every 4-6 hours [Active]; aspirin 81 mg Oral chew 1 tab once daily [Active]; albuterol sulfate 2.5 mg /3 mL (0.083 %) Inhl nebu [Active]; vitamin B complex oral cap [Active]; - PMHx: 12:37 CVA; CHF; Hypothyroidism; Diabetes - NIDDM; Myocardial infarction; tw2 - PSHx: 12:37 pacemaker; tw2 - Immunization history:: Adult Immunizations. - Social history:: Smoking status: . - Ebola Screening: : Patient denies travel to an Ebola-affected area in the 21 days before illness onset. Screenin:00 Abuse screen: Denies threats or abuse. Denies injuries from another. Nutritional aj1 screening: No deficits noted. Tuberculosis screening: No symptoms or risk factors identified. Assessment: 12:00 General: Appears in no apparent distress. uncomfortable, Behavior is calm, cooperative, aj1 appropriate for age. Pain: Complains of pain in right leg and left leg. Neuro: Level of Consciousness is awake, alert, obeys commands, Oriented to person, place, time, situation, Senior Business Development Manager are weak on right Patient has right sided weakness from previous CVA. Speech is normal, Facial symmetry appears normal, Reports generalized weakness, frequent falls at home. Cardiovascular: Denies chest pain, shortness of breath, Heart tones S1 S2 present Patient's skin is warm and dry. Edema is 3+ to left midcalf, left ankle, left foot, left toes, right midcalf, right ankle, right foot and right toes Rhythm is regular. Respiratory: Airway is patent Respiratory effort is even, unlabored, Respiratory pattern is regular, symmetrical. GI: No signs and/or symptoms were reported involving the gastrointestinal system. : No signs and/or symptoms were reported regarding the genitourinary system. EENT: No signs and/or symptoms were reported regarding the EENT system. Derm: No signs and/or symptoms reported regarding the dermatologic system. Skin is pink, warm \T\ dry. normal. Musculoskeletal: No signs and/or symptoms reported regarding the musculoskeletal system. Circulation, motion, and sensation intact. 13:00 Reassessment: Patient appears in no apparent distress at this time. No changes from aj1 previously documented assessment. Patient and/or family updated on plan of care and expected duration. Pain level reassessed. Patient is alert, oriented x 3, equal unlabored respirations, skin warm/dry/pink. 14:00 Reassessment: Patient and/or family updated on plan of care and expected duration. Pain aj1 level reassessed. General: Appears in no apparent distress. uncomfortable, Behavior is calm, cooperative, appropriate for age. Pain: Complains of pain in right leg and left leg. Neuro: Level of Consciousness is awake, alert, obeys commands. Cardiovascular: Patient's skin is warm and dry. Respiratory: Airway is patent Respiratory effort is even, unlabored, Respiratory pattern is regular, symmetrical. Derm: Skin is pink, warm \T\ dry. normal. Musculoskeletal: No signs and/or symptoms reported regarding the musculoskeletal system. Circulation, motion, and sensation intact. 15:00 Reassessment: Patient appears in no apparent distress at this time. No changes from aj1 previously documented assessment. Patient and/or family updated on plan of care and expected duration. Pain level reassessed. Patient is alert, oriented x 3, equal unlabored respirations, skin warm/dry/pink. 16:10 Reassessment: Attempted to call report to floor, receiving nurse unavailable at this hb time. Vital Signs: 12:00 BP 140 / 53; Pulse 66; Resp 18; Pulse Ox 100% on R/A; aj1 12:29 BP 145 / 80; Pulse 85; Resp 17; Temp 97.9(O); Pulse Ox 99% on R/A; Weight 86.18 kg (R); tw2 Height 5 ft. 1 in. (154.94 cm); Pain 8/10; 13:45 BP 130 / 65; Pulse 79; Resp 18; Pulse Ox 100% on R/A; aj1 14:45 BP 144 / 55; Pulse 66; Resp 18; Pulse Ox 100% on R/A; aj1 15:38 BP 135 / 58; Pulse 77; Resp 24; Pulse Ox 99% on R/A; aj1 12:29 Body Mass Index 35.90 (86.18 kg, 154.94 cm) tw2 ED Course: 11:57 Patient arrived in ED. tw2 11:57 Raymond Graham PA is PHCP. cp 11:57 Prateek Christian MD is Attending Physician. cp 12:00 No provider procedures requiring assistance completed. aj1 12:00 Patient has correct armband on for positive identification. aj1 12:17 Mishel Tam, RN is Primary Nurse. aj1 12:17 Initial lab(s) drawn, by ga, sent to lab. Inserted saline lock: 20 gauge in left aj1 antecubital area, using aseptic technique. Blood collected. 12:29 Triage completed. tw2 12:29 Arm band placed on. tw2 12:57 EKG done, by chemical laboratory technician. reviewed by Prateek Christian MD. tc 12:58 XRAY Chest (1 view) In Process Unspecified. EDMS 12:58 XRAY Pelvis In Process Unspecified. EDMS 12:58 XRAY Hip LEFT 2 view In Process Unspecified. EDMS 13:30 Straight cath inserted, using sterile technique, Returned clear yellow urine. Patient dh3 tolerated well. 15Fr. 13:54 CT Traumagram (Head C Spine CAP wo con) In Process Unspecified. EDMS 14:31 Anjali Jimenez MD is Hospitalizing Provider. cp 16:22 Patient admitted, IV remains in place. hb Administered Medications: 15:42 Drug: Rocephin 1 grams Route: IV; Rate: calculated rate; Site: left antecubital; hb 15:43 Follow up: IV Status: Completed infusion; IV Intake: 10ml hb 16:11 Follow up: Response: No adverse reaction hb 15:42 Drug: Magnesium 400 mg Route: PO; hb 16:17 Follow up: Response: No adverse reaction hb 15:42 Drug: Lasix 40 mg Route: IVP; Site: left antecubital; hb 16:10 Follow up: Response: No adverse reaction hb Intake: 15:43 IV: 10ml; Total: 10ml. hb Outcome: 14:31 Decision to Hospitalize by Provider. cp 16:21 Admitted to Tele accompanied by tech, via stretcher, room 419, with chart, Report hb called to Colin CHRIS 16:21 Condition: stable 16:21 Instructed on the need for admit, Demonstrated understanding of instructions. 16:31 Patient left the ED. hb Signatures: Dispatcher [employer] EDMS Mishel Tam, RN RN aj1 Darshana Durán, hospital cleaner EKG Ttc Raymond Graham PA PA cp Baxter, Heather, RN RN hb Suzan Chappell RN RN tw2 Judy Garcia 3
[2019-10-19] MEDS ORDERED: ACETAMINOPHEN 500 MG TAB PO PRN (14:33)
[2019-10-19] MEDS ORDERED: ONDANSETRON 4 MG/2 ML VIAL IV PRN (14:33)
--- NOTE | 2019-10-19 14:33 | EDPHYS ---
Physician Documentation [facility] Name: Leatha Galeana Age: 74 yrs Sex: Female : 1945 Arrival Date: 10/19/2019 Time: 11:57 Bed 13 Private MD: ED Physician Prateek Christian HPI: 10/19 12:05 This 74 yrs old Female presents to ER via EMS with complaints of fall, general cp weakness. 12:05 Details of fall: The patient fell from an upright position, while walking. Onset: The cp symptoms/episode began/occurred today. Associated injuries: The patient sustained left abdomen and left hip, painful injury. 12:05 Patient lives at home alone and reports increasing general weakness and swelling of cp legs for over 1 week. Patient reports falling 3 times with last fall this morning. Patient reports having to crawl to phone to contact niece who called EMS. Historical: - Allergies: 12:37 No Known Allergies; tw2 - Home Meds: 12:37 [place] Thyroid 15 mg Oral tab daily [Active]; carvedilol 12.5 mg Oral tab 1 tab 2 times tw2 per day [Active]; escitalopram oxalate 10 mg Oral tab 1 tab once daily [Active]; pantoprazole 40 mg Oral TbEC 1 tab once daily [Active]; glipizide 5 mg Oral tab 1 tab once daily [Active]; Lasix 20 mg Oral tab 1 tab once daily, as needed [Active]; hydrocodone-acetaminophen 10-750 mg Oral tab 1 tab every 4-6 hours [Active]; aspirin 81 mg Oral chew 1 tab once daily [Active]; albuterol sulfate 2.5 mg /3 mL (0.083 %) Inhl nebu [Active]; vitamin B complex oral cap [Active]; - PMHx: 12:37 CVA; CHF; Hypothyroidism; Diabetes - NIDDM; Myocardial infarction; tw2 - PSHx: 12:37 pacemaker; tw2 - Immunization history:: Adult Immunizations. - Social history:: Smoking status: . - Ebola Screening: : Patient denies travel to an Ebola-affected area in the 21 days before illness onset. ROS: 12:10 Constitutional: Negative for body aches, chills, fever, poor PO intake. cp 12:10 Eyes: Negative for injury, pain, redness, and discharge. cp 12:10 ENT: Negative for drainage from ear(s), ear pain, sore throat, difficulty swallowing, difficulty handling secretions. 12:10 Cardiovascular: Positive for edema, Negative for chest pain, palpitations. 12:10 Respiratory: Negative for cough, shortness of breath, wheezing. 12:10 Abdomen/GI: Negative for abdominal pain, nausea, vomiting, and diarrhea, constipation, anorexia, black/tarry stool, rectal bleeding. 12:10 : Negative for urinary symptoms. 12:10 Skin: Negative for cellulitis, rash. 12:10 Neuro: Positive for weakness, Negative for altered mental status, headache, loss of consciousness, syncope. 12:10 All other systems are negative. Exam: 12:15 Constitutional: The patient appears in no acute distress, alert, awake, cp non-diaphoretic, non-toxic, well developed, well nourished. 12:15 Head/Face: Normocephalic, atraumatic. cp 12:15 Eyes: Periorbital structures: appear normal, Pupils: equal, round, and reactive to light and accomodation, Extraocular movements: intact throughout, Conjunctiva: normal, no exudate, no injection, Sclera: no appreciated abnormality, Lids and lashes: appear normal, bilaterally. 12:15 ENT: External ear(s): are unremarkable, Nose: is normal, Mouth: Lips: moist, Oral mucosa: pink and intact, moist, Posterior pharynx: is normal, airway is patent, no erythema, no exudate, Voice: is normal. 12:15 Neck: C-spine: vertebral tenderness, is not appreciated, crepitus, is not appreciated. 12:15 Chest/axilla: Inspection: normal, Palpation: is normal, no crepitus, no tenderness. 12:15 Cardiovascular: Rate: normal, Rhythm: regular, Edema: 4+ edema to level of left lower leg to left foot and right lower leg to right foot, JVD: is not appreciated. 12:15 Respiratory: the patient does not display signs of respiratory distress, Respirations: labored breathing, is not present, intercostal retractions, are absent, splinting, is not noted, tachypnea, is not appreciated, Breath sounds: decreased breath sounds, that are mild, are located in both bases, stridor, is not appreciated, wheezing: is not appreciated. 12:15 Abdomen/GI: Inspection: abdomen appears normal, Bowel sounds: active, all quadrants, Palpation: abdomen is soft and non-tender, in all quadrants. 12:15 Back: vertebral tenderness, is not appreciated. 12:15 Musculoskeletal/extremity: Extremities: grossly normal except: noted in the left upper pelvis and left hip: pain, tenderness. 12:15 Skin: cellulitis, is not appreciated, no rash present. 12:15 Neuro: Orientation: to person, place \T\ time. Mentation: is normal, Motor: moves all fours, general weakness w/o focal deficits, Sensation: no obvious gross deficits. Vital Signs: 12:00 BP 140 / 53; Pulse 66; Resp 18; Pulse Ox 100% on R/A; aj1 12:29 BP 145 / 80; Pulse 85; Resp 17; Temp 97.9(O); Pulse Ox 99% on R/A; Weight 86.18 kg (R); tw2 Height 5 ft. 1 in. (154.94 cm); Pain 8/10; 13:45 BP 130 / 65; Pulse 79; Resp 18; Pulse Ox 100% on R/A; aj1 14:45 BP 144 / 55; Pulse 66; Resp 18; Pulse Ox 100% on R/A; aj1 15:38 BP 135 / 58; Pulse 77; Resp 24; Pulse Ox 99% on R/A; aj1 12:29 Body Mass Index 35.90 (86.18 kg, 154.94 cm) tw2 MDM: 12:00 Patient medically screened. cp 12:40 Differential diagnosis: closed head injury, fracture, multiple trauma, sepsis, UTI, CHF cp exacerbation. 14:30 Data reviewed: vital signs, nurses notes, lab test result(s), EKG, radiologic studies, cp CT scan, plain films. 14:30 Test interpretation: by ED physician or midlevel provider: ECG, plain radiologic cp studies. Counseling: I had a detailed discussion with the patient and/or guardian regarding: the historical points, exam findings, and any diagnostic results supporting the discharge/admit diagnosis, lab results, radiology results, the need for further work-up and treatment in the hospital. Physician consultation: Anjali Jimenez MD was called at 14:25, was contacted at 14:25, regarding admission, to the telemetry unit. patient's condition. 10/19 11:59 Order name: Basic Metabolic Panel; Complete Time: 13:02 cp 10/19 13:02 Interpretation: Normal except: CL 109; GLUC 152; BUN 40; CRE 1.40; GFR 37. cp 10/19 11:59 Order name: CBC with Diff; Complete Time: 13:02 cp 10/19 13:02 Interpretation: Normal except: HGB 10.5; HCT 33.3; MCV 80.5; MCH 25.3; MCHC 31.4; RDW cp 17.6; TERRI% 75.3; LYM% 12.1. 10/19 11:59 Order name: LFT's; Complete Time: 13:02 cp 10/19 13:02 Interpretation: Normal except: BILID 0.3; ALB 3.1; GLOB 3.7; A/G 0.8. cp 10/19 11:59 Order name: Magnesium; Complete Time: 13:02 cp 10/19 11:59 Order name: NT PRO-BNP; Complete Time: 13:02 cp 10/19 11:59 Order name: PT-INR; Complete Time: 13:02 cp 10/19 11:59 Order name: Troponin (emerg Dept Use Only); Complete Time: 13:02 cp 10/19 11:59 Order name: Urine Microscopic Only 10/19 11:59 Order name: CK; Complete Time: 13:02 cp 10/19 13:47 Order name: Urine Dipstick--Ancillary (enter results); Complete Time: 14:24 eb 10/19 14:24 Order name: Urine Culture 10/19 14:41 Order name: Basic Metabolic Panel EDCT 10/19 14:41 Order name: Basic Metabolic Panel EDCT 10/19 14:41 Order name: Basic Metabolic Panel EDCT 10/19 11:59 Order name: XRAY Chest (1 view); Complete Time: 13:07 cp 10/19 13:07 Interpretation: Report review. 10/19 14:41 Order name: Basic Metabolic Panel EDMS 10/19 14:41 Order name: CBC with Automated Diff EDMS 10/19 14:41 Order name: CBC with Automated Diff EDMS 10/19 14:41 Order name: CBC with Automated Diff EDMS 10/19 14:41 Order name: CBC with Automated Diff EDMS 10/19 14:41 Order name: Lipid Profile EDMS 10/19 14:41 Order name: Lipid Profile EDMS 10/19 14:41 Order name: Magnesium EDMS 10/19 14:41 Order name: Magnesium EDMS 10/19 14:41 Order name: Magnesium EDMS 10/19 14:41 Order name: Magnesium EDMS 10/19 14:41 Order name: Troponin I EDMS 10/19 14:41 Order name: Troponin I EDCT 10/19 14:41 Order name: Troponin I EDCT 10/19 14:41 Order name: Troponin I EDCT 10/19 11:59 Order name: EKG; Complete Time: 12:00 cp 10/19 11:59 Order name: Cardiac monitoring; Complete Time: 12:18 cp 10/19 11:59 Order name: EKG - Nurse/Tech; Complete Time: 13:09 cp 10/19 11:59 Order name: IV Saline Lock; Complete Time: 12:17 cp 10/19 11:59 Order name: Labs collected and sent; Complete Time: 12:17 cp 10/19 11:59 Order name: O2 Per Protocol; Complete Time: 12:17 cp 10/19 11:59 Order name: O2 Sat Monitoring; Complete Time: 12:17 cp 10/19 11:59 Order name: Urine Dipstick-Ancillary (obtain specimen); Complete Time: 13:38 cp 10/19 11:59 Order name: Cath; Complete Time: 13:38 cp 10/19 12:01 Order name: XRAY Pelvis; Complete Time: 13:07 cp 10/19 13:07 Interpretation: Report reviewed. 10/19 12:01 Order name: XRAY Hip LEFT 2 view; Complete Time: 13:10 cp 10/19 13:23 Order name: CT Traumagram (Head C Spine CAP wo con); Complete Time: 14:24 cp 10/19 14:41 Order name: Echo with Doppler EDMS EC:04 Rate is 77 beats/min. Rhythm is regular, Paced with No ectopy. Clinical impression: No kdr evidence of ischemia and paced Rhythym. Administered Medications: 15:42 Drug: Rocephin 1 grams Route: IV; Rate: calculated rate; Site: left antecubital; hb 15:43 Follow up: IV Status: Completed infusion; IV Intake: 10ml hb 16:11 Follow up: Response: No adverse reaction hb 15:42 Drug: Magnesium 400 mg Route: PO; hb 16:17 Follow up: Response: No adverse reaction hb 15:42 Drug: Lasix 40 mg Route: IVP; Site: left antecubital; hb 16:10 Follow up: Response: No adverse reaction hb Disposition: 10/20 02:45 Co-signature as Attending Physician, Prateek Christian MD I agree with the assessment and kdr plan of care. Disposition: 10/19/19 14:31 Hospitalization ordered by Anjali Jimenez for Inpatient Admission. Preliminary diagnosis are Weakness - general, Urinary tract infection, site not specified, Fall on same level from slipping, tripping and stumbling, Chronic combined systolic (congestive) and diastolic (congestive) heart failure. - Bed requested for Telemetry/MedSurg (Inpatient). - Status is Inpatient Admission. hb - Condition is Stable. - Problem is new. - Symptoms have improved. UTI on Admission? Yes Signatures: Dispatcher [employer] [facility] Prateek Christian MD MD [facility] Raymond Graham PA PA cp Moon Giraldo RN RN Suzan Chappell RN RN 2 Maia Trujillo Corrections: (The following items were deleted from the chart) 10/19 14:33 14:31 Hospitalization Ordered by Anjali Jimenez MD for Inpatient Admission. Preliminary cp diagnosis is Weakness - general; Urinary tract infection, site not specified; Fall on same level from slipping, tripping and stumbling. Bed requested for Telemetry/MedSurg (Inpatient). Status is Inpatient Admission. Condition is Stable. Problem is new. Symptoms have improved. UTI on Admission? Yes. cp 14:44 14:41 [facility] ordered. [facility] EDCT 14:50 14:33 10/19/2019 14:31 Hospitalization Ordered by Anjali Jimenez MD for Inpatient eb Admission. Preliminary diagnosis is Weakness - general; Urinary tract infection, site not specified; Fall on same level from slipping, tripping and stumbling; Chronic combined systolic (congestive) and diastolic (congestive) heart failure. Bed requested for Telemetry/MedSurg (Inpatient). Status is Inpatient Admission. Condition is Stable. Problem is new. Symptoms have improved. UTI on Admission? Yes. cp 15:23 14:50 10/19/2019 14:31 Hospitalization Ordered by Anjali Jimenez MD for Inpatient eb Admission. Preliminary diagnosis is Weakness - general; Urinary tract infection, site not specified; Fall on same level from slipping, tripping and stumbling; Chronic combined systolic (congestive) and diastolic (congestive) heart failure. Bed requested for Telemetry/MedSurg (Inpatient). Status is Inpatient Admission. Condition is Stable. Problem is new. Symptoms have improved. UTI on Admission? Yes. 16:31 15:23 10/19/2019 14:31 Hospitalization Ordered by Anjali Jimenez MD for Inpatient hb Admission. Preliminary diagnosis is Weakness - general; Urinary tract infection, site not specified; Fall on same level from slipping, tripping and stumbling; Chronic combined systolic (congestive) and diastolic (congestive) heart failure. Bed requested for Telemetry/MedSurg (Inpatient). Status is Inpatient Admission. Condition is Stable. Problem is new. Symptoms have improved. UTI on Admission? Yes. 23:19 12:05 This 74 yrs old Female presents to ER via EMS with complaints of general cp weakness. cp
--- NOTE | 2019-10-19 14:40 | P.HP ---
Certification for Inpatient With expected LOS: >2 Midnights Patient will require the following post-hospital care: Home Health Services Practitioner: I am a practitioner with admitting privileges, knowledge of patient current condition, hospital course, and medical plan of care. Services: Services provided to patient in accordance with Admission requirements found in Title 42 Section 412.3 of the Code of Federal Regulations Patient History Date of Service: 10/19/19 Reason for admission: Fall History of Present Illness: Ms. Galeana is 74-year-old female with a history of diabetes mellitus, hypothyroidism, coronary artery disease, congestive heart failure who presented to the ER after a fall. Patient reports that her right lower extremity gave out on her as she was walking to her bathroom. She fell on her buttocks and was unable to get back all. Patient pulled herself on the floor to the telephone and called her family. She denies any pain. She reports progressive bilateral lower extremity swelling with associated shortness of breath on exertion. She reports pain to the RLE. She denies any chest pain or orthopnea. She reports compliant with her medications and fluid restrictions. Patient however has had a lot of salt intake as she eats packaged pot pie and canned soup. Allergies No Known Allergies Allergy (Verified 06/11/18 15:56) Home Medications: Atorvastatin Calcium [Lipitor*] 10 mg PO DAILY 06/11/18 Escitalopram [Lexapro*] 10 mg PO DAILY 06/11/18 Glipizide [Glipizide Xl] 5 mg PO DAILY 06/11/18 Pantoprazole Sodium 40 mg PO DAILY 06/11/18 Thyroid Tab [[place] Thyroid*] 15 mg PO DAILY 06/11/18 Aspirin [Aspirin EC 81 MG] 81 mg PO DAILY #30 tablet. 06/17/18 Furosemide [Lasix*] 20 mg PO DAILYPRN PRN #30 tab 06/17/18 Albuterol Sulfate [Proair Digihaler] 2 puff IH Q6H PRN 10/19/19 B-Complex with Vitamin C [Vitamin B-Complex with Vit C] 1 tab PO DAILY 10/19/19 Hydrocodone Bit/Acetaminophen [Hydrocodon-Acetaminophn 10-325] 1 tab PO Q6H PRN 10/19/19 Turmeric Root Extract [Turmeric] 1 tab PO DAILY 10/19/19 carvediloL [Coreg*] 12.5 mg PO BID 6AM 6PM 10/19/19 - Past Medical/Surgical History Diabetic: Yes -: Diabetes mellitus type 2 -: Hypothyroidism -: HTN -: History of CVA with residual right upper extremity weakness -: Coronary artery disease -: Obesity -: Depression with anxiety -: Hyperlipidemia -: Pacemaker -: Cholecystectomy -: Back sx -: Hysterectomy -: Cataract surgery -: pacemaker (10/01/2015) Psychosocial/ Personal History: Patient is a . She has children. She does not work. - Family History Brother -: Heart disease Mother -: Diabetes - Social History Alcohol use: No CD- Drugs: No Caffeine use: Yes Review of Systems General: Weakness, As per HPI Eyes: Unremarkable ENT: Unremarkable Respiratory: SOB with Excertion Cardiovascular: Edema, As per HPI Genitourinary: As per HPI Musculoskeletal: Leg Pain, Pedal edema Integumentary: As per HPI Neurological: As per HPI Physical Examination - Physical Exam General: Alert, In no apparent distress HEENT: Atraumatic, PERRLA, Other (Dry MMM), EOMI, Sclerae nonicteric Neck: Supple, 2+ carotid pulse no bruit, No LAD, Without JVD or thyroid abnormality Respiratory: Clear to auscultation bilaterally, Diminished, Crackles/rales (Mild ) Cardiovascular: Regular rate/rhythm, Normal S1 S2, Edema (3+ bilateral), Systolic murmur (4/6) Gastrointestinal: Normal bowel sounds, No tenderness Musculoskeletal: Swelling, Tenderness Integumentary: No rashes Neurological: Normal speech, Normal affect Lymphatics: No axilla or inguinal lymphadenopathy - Studies Laboratory Data (last 24 hrs) 10/19/19 12:16: PT 12.1, INR 1.03 10/19/19 12:16: WBC 6.3, Hgb 10.5 L, Hct 33.3 L, Plt Count 314 10/19/19 12:16: Sodium 143, Potassium 3.6, BUN 40 H, Creatinine 1.40 H, Glucose 152 H, Magnesium 1.7 L, Total Bilirubin 0.6, AST 21, ALT 13, Alkaline Phosphatase 96 Imagings Data: IMPRESSION: Mild CHF/volume overload pattern. Assessment and Plan - Plan Ms Galeana a 74-year-old female who presented after a fall. N #Fall-mechanical due to low bilateral lower extremity edema. Patient denied any prodrome. There was no loss of consciousness. -PT/OT #Acute decompensated CHF-echocardiogram in 2018 with preserved EF. Chest x-ray with mild pulmonary vascular congestion. Patient with significant Bilateral lower extremity edema. BNP also elevated. Decompensated heart failure likely secondary to increased salt intake. Will rule out other etiology. -trend troponins. EKG with paced rhythm. -low-salt diet, strict Is & Os, fluid restriction. -Lasix 40 mg IV b.i.d.. -Repeat echocardiogram. -Will consider cardiology consult pending work up # diabetes mellitus-check hemoglobin A1c. -BG AC and HS and cover with insulin sliding scale. #Acute kidney injury-creatinine currently at 1.4. Patient with no prior history of chronic kidney disease. Prerenal azotemia due to decompensated heart failure. Avoid/minimize nephrotoxins. Trend Cr closely as patient is on lasix. #UTI- symptomatic with frequent urination. UA is strongly positive. -initiated IV ceftriaxone. -follow urine culture. #Bilateral lower extremity edema-though likely secondary to decompensated heart failure, right lower extremity is very tender. Rule out DVT with venous Doppler. -patient has risk factors. #Hypertension- resume antihypertensives #H/o CAD- trend troponin. -Continue optimized medical therapy. DVT ppx- Lovenox Disposition- inpatient admission. - Advance Directives Does patient have a Living Will: No Does patient have a Durable POA for Healthcare: Yes
[2019-10-19 14:51] LABS: Urine Bacteria >50 /HPF (<20); Urine Culture Reflex Order REFLEXED; Urine RBC <5 /HPF (NONE SEEN)
--- NOTE | 2019-10-19 15:33 | ECHO ---
HEIGHT: 5 ft 0 in WEIGHT: 150 lb oz DATE OF STUDY: 10/19/[address]: Anjali Jimenez 2-DIMENSIONAL: YES M.MODE: YES DOPPLER: YES COLOR FLOW: YES TDS: NO PORTABLE: NO DEFINITY: NO BUBBLE STUDY: NO DIAGNOSIS: CONGESTIVE HEART FAILURE CARDIAC HISTORY: CATHERIZATION: NO SURGERY: NO PROSTHETIC VALVE: NO PACEMAKER: YES MEASUREMENTS (cm) DIASTOLIC (NORMALS) SYSTOLIC (NORMALS) IVSd 1.1 (0.6-1.2) LA Diam 5.1 (1.9-4.0) LVEF 30% LVIDd 6.6 (3.5-5.7) LVIDs 4.0 (2.0-3.5) %FS % LVPWd 1.3 (0.6-1.2) Ao Diam 2.7 (2.0-3.7) 2 DIMENSIONAL ASSESSMENT: RIGHT ATRIUM: DILATED LEFT ATRIUM: DILATED RIGHT VENTRICLE: DILATED, PACEMAKER CATHETER LEFT VENTRICLE: DILATED TRICUSPID VALVE: NORMAL MITRAL VALVE: NORMAL PULMONIC VALVE: NORMAL AORTIC VALVE: NORMAL PERICARDIAL EFFUSION: NONE AORTIC ROOT: NORMAL LEFT VENTRICULAR WALL MOTION: GLOBAL HYPOKINESIS. DOPPLER/COLOR FLOW: MILD TO MODERATE MITRAL AND TRICUSPID REGURGITATION. SEVERE PULMONARY HYPERTENSION, ESTIMATED RIGHT VENTRICULAR SYSTOLIC PRESSURE 60-65mmHg. COMMENTS: FOUR CHAMBER DILATATION DEPRESSED LEFT VENTRICULAR EJECTION FRACTION. MILD TO MODERATE AORTIC, MITRAL AND TRICUSPID REGURGITATION. SEVERE PULMONARY HYPERTENSION. PACEMAKER IN RIGHT VENTRICUAR APEX. TECHNOLOGIST: BRODERICK VICENTE
[2019-10-19] MEDS ORDERED: CEFTRIAXONE/SWI 1gm 1 GM/10 ML SYR ONE (15:40)
[2019-10-19] MEDS ORDERED: MAGNESIUM OXIDE 400 MG TAB ONE (15:40)
[2019-10-19] MEDS: IPRATROPIUM BROM 0.5MG/2.5ML NEB SCH ×2 (16:00→22:00)
[2019-10-19] MEDS ORDERED: D50W 25 GM/50 ML SYRINGE/VIAL IV PRN (16:20)
[2019-10-19] MEDS ORDERED: GLUCAGON 1 MG/VIAL IM PRN (16:20)
[2019-10-19] MEDS: INSULIN -REGULAR HUMAN 50 UNIT/0.5 ML ML SQ SCH ×2 (16:30→21:28)
[2019-10-19] MEDS ORDERED: FUROSEMIDE 40 MG/4 ML VIAL IV SCH (17:00)
[2019-10-19] MEDS: carvediloL 6.25 MG TAB PO SCH (18:12)
--- NOTE | 2019-10-19 20:20 | RAD REPORT ---
EXAM DESCRIPTION: US - Extremity Venous Uni Ltd - 10/19/2019 8:10 pm CLINICAL HISTORY: Right leg pain and swelling COMPARISON: None. TECHNIQUE: Real-time sonographic evaluation of the right lower extremity deep venous systems was per formed. FINDINGS: Normal compressibility, flow augmentation, phasic flow and spontaneous flow are identified in the right lower extremity common femoral, superficial femoral, popliteal and posterior tibial vei ns. No intraluminal filling defects seen. IMPRESSION: No DVT in the right lower extremity.
[2019-10-19] MEDS ORDERED: POTASSIUM CL SA 10 MEQ TAB PO ONE (21:00)
[2019-10-19] MEDS: ALBUTEROL 2.5 MG/3 ML NEB SOL NEB SCH (22:00)
[2019-10-20] MEDS: HYDROCODONE/APAP 10/325 TAB PO PRN ×4 (00:32→23:37)
[2019-10-20] MEDS: ALBUTEROL 2.5 MG/3 ML NEB SOL NEB SCH ×4 (02:30→20:30)
[2019-10-20] MEDS: IPRATROPIUM BROM 0.5MG/2.5ML NEB SCH ×3 (02:30→09:05)
[2019-10-20 04:51] LABS: Basophils % 0.9 % (0-1.3); Hematocrit 30.6 % (36.0-45.0); Lymphocytes % 18.7 % (15.3-44.8); MPV 8.1 fL (7.6-11.3); RBC Red Blood Cell Count 3.85 M/uL (3.86-4.86)
[2019-10-20 05:01] LABS: Magnesium 1.5 mg/dL (1.8-2.4); Potassium 3.8 mmol/L (3.5-5.1)
[2019-10-20] MEDS: carvediloL 6.25 MG TAB PO SCH ×2 (06:34→17:06)
[2019-10-20] MEDS: INSULIN -REGULAR HUMAN 50 UNIT/0.5 ML ML SQ SCH ×4 (07:30→19:33)
[2019-10-20] MEDS: ENOXAPARIN 30 MG/0.3 ML SQ SCH (08:50)
[2019-10-20] MEDS: ASPIRIN EC 81 MG TAB PO SCH (08:51)
[2019-10-20] MEDS: ATORVASTATIN 10 MG TAB PO SCH (08:51)
[2019-10-20] MEDS: ESCITALOPRAM 20 MG TAB PO SCH (08:51)
[2019-10-20] MEDS: FUROSEMIDE 40 MG/4 ML VIAL IV SCH ×2 (08:51→17:05)
[2019-10-20] MEDS: PANTOPRAZOLE 40MG TABLET PO SCH (08:51)
[2019-10-20] MEDS: THYROID 30 MG TAB PO SCH (08:52)
[2019-10-20] MEDS ORDERED: POTASSIUM 25 MEQ EFFERV TAB PO ONE (09:00)
[2019-10-20] MEDS ORDERED: CEFTRIAXONE/SWI 1gm 1 GM/10 ML SYR IVP SCH (09:00)
[2019-10-20] MEDS ORDERED: ENOXAPARIN 40 MG/0.4 ML SQ SCH (09:00)
[2019-10-20] MEDS ORDERED: Magnesium Sulfate 2gm IVPB 2 G/50 ML BAG IV ONE (09:00)
--- NOTE | 2019-10-20 10:24 | P.PN ---
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 no new complaints now) Review of Systems Unremarkable Physical Examination - Vital Signs Temperature: 98.8 F Blood Pressure: 143/71 Pulse: 91 Respirations: 18 Pulse Ox (%): 98 - Physical Exam General: Alert, In no apparent distress, Oriented x3 HEENT: Atraumatic Neck: Supple Respiratory: Clear to auscultation bilaterally Cardiovascular: No edema, Regular rate/rhythm - Studies Laboratory Data (last 24 hrs) 10/19/19 12:16: PT 12.1, INR 1.03 10/19/19 12:16: WBC 6.3, Hgb 10.5 L, Hct 33.3 L, Plt Count 314 10/19/19 12:16: Sodium 143, Potassium 3.6, BUN 40 H, Creatinine 1.40 H, Glucose 152 H, Magnesium 1.7 L, Total Bilirubin 0.6, AST 21, ALT 13, Alkaline Phosphatase 96 Assessment & Plan - Problems (Diagnosis) (1) CHF (congestive heart failure) Onset Date: 02/28/17 Current Visit: No Status: Acute Plan: Patient is 74 years of age admitted with shortness of breath, weakness and a fall BNP elevated chronic renal insufficiency feels that the Lasix is not adequate will increase the dose to 40 mg to ambulate vital signs satisfactory oxygenation stable patient denies any symptoms or urinary tract infection Dc antibiotics Discharge Plan: Home
--- NOTE | 2019-10-20 10:28 | P.DS ---
Admission Date: 10/19/19 Discharge Date: 10/20/19 Disposition: ROUTINE DISCHARGE Discharge Condition: GOOD Reason for Admission: Fall - Problems (1) CHF (congestive heart failure) Onset Date: 02/28/17 Current Visit: No Status: Acute Brief History of Present Illness: Patient admitted with weakness and shortness of breath elevated BNP Hospital Course: Patient did well with diuretics views in mild failure the time of discharge patient was alert oriented responsive cooperative see my progress note to be discharged on 40 mg of Lasix with fluid and salt restriction denies any symptoms of UTI Dc antibiotics to follow up with cardiology Vital Signs/Physical Exam: Temp Pulse Resp BP Pulse Ox 98.8 F 91 H 18 143/71 H 98 10/20/19 10:26 10/20/19 10:26 10/20/19 10:26 10/20/19 10:26 10/20/19 10:26 Laboratory Data at Discharge: WBC 5.6 K/uL (4.3-10.9) 10/20/19 04:34 Hgb 9.9 g/dL (12.0-15.0) L 10/20/19 04:34 Hct 30.6 % (36.0-45.0) L 10/20/19 04:34 Plt Count 293 K/uL (152-406) 10/20/19 04:34 PT 12.1 SECONDS (9.5-12.5) 10/19/19 12:16 INR 1.03 10/19/19 12:16 Sodium 145 mmol/L (136-145) 10/20/19 04:34 Potassium 3.8 mmol/L (3.5-5.1) 10/20/19 04:34 BUN 37 mg/dL (7-18) H 10/20/19 04:34 Creatinine 1.19 mg/dL (0.55-1.3) 10/20/19 04:34 Glucose 149 mg/dL (74-106) H 10/20/19 04:34 Magnesium 1.5 mg/dL (1.8-2.4) L 10/20/19 04:34 Total Bilirubin 0.6 mg/dL (0.2-1.0) 10/19/19 12:16 AST 21 U/L (15-37) 10/19/19 12:16 ALT 13 U/L (12-78) 10/19/19 12:16 Alkaline Phosphatase 96 U/L (45-117) 10/19/19 12:16 Troponin I 0.03 ng/mL (0.0-0.045) 10/20/19 04:34 Triglycerides 66 mg/dL (<150) 10/20/19 04:34 Cholesterol 121 mg/dL (<200) 10/20/19 04:34 HDL Cholesterol 57 mg/dL (40-60) 10/20/19 04:34 Cholesterol/HDL Ratio 2.12 10/20/19 04:34 Home Medications: Atorvastatin Calcium [Lipitor*] 10 mg PO DAILY 06/11/18 Escitalopram [Lexapro*] 10 mg PO DAILY 06/11/18 Glipizide [Glipizide Xl] 5 mg PO DAILY 06/11/18 Pantoprazole Sodium 40 mg PO DAILY 06/11/18 Thyroid Tab [[place] Thyroid*] 15 mg PO DAILY 06/11/18 Aspirin [Aspirin EC 81 MG] 81 mg PO DAILY #30 tablet. 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
[2019-10-21] MEDS: ALBUTEROL 2.5 MG/3 ML NEB SOL NEB SCH ×4 (01:35→20:40)
[2019-10-21] MEDS: carvediloL 6.25 MG TAB PO SCH ×2 (05:07→17:13)
[2019-10-21] MEDS: HYDROCODONE/APAP 10/325 TAB PO PRN ×3 (05:09→22:06)
[2019-10-21 06:13] LABS: Hematocrit 30.5 % (36.0-45.0); Lymphocytes % 18.5 % (15.3-44.8); MPV 8.3 fL (7.6-11.3); RBC Red Blood Cell Count 3.82 M/uL (3.86-4.86)
[2019-10-21 06:28] LABS: Magnesium 1.6 mg/dL (1.8-2.4); Potassium 3.8 mmol/L (3.5-5.1)
[2019-10-21] MEDS ORDERED: MAGNESIUM SULFATE 1 gm IVPB 1 GM/100 ML BAG IV ONE (06:29)
[2019-10-21] MEDS: INSULIN -REGULAR HUMAN 50 UNIT/0.5 ML ML SQ SCH ×4 (07:30→20:52)
[2019-10-21] MEDS: PANTOPRAZOLE 40MG TABLET PO SCH (08:25)
[2019-10-21] MEDS: ENOXAPARIN 30 MG/0.3 ML SQ SCH (08:26)
[2019-10-21] MEDS: ATORVASTATIN 10 MG TAB PO SCH (08:26)
[2019-10-21] MEDS: FUROSEMIDE 40 MG/4 ML VIAL IV SCH (08:26)
[2019-10-21] MEDS: ESCITALOPRAM 20 MG TAB PO SCH (08:26)
[2019-10-21] MEDS: THYROID 30 MG TAB PO SCH (08:27)
[2019-10-21] MEDS: ASPIRIN EC 81 MG TAB PO SCH (08:27)
[2019-10-21] MEDS ORDERED: POTASSIUM 25 MEQ EFFERV TAB PO ONE (09:00)
--- NOTE | 2019-10-21 10:37 | P.PN ---
Subjective Date of Service: 10/21/19 Chief Complaint: Weakness in EES BAL in the urine Patient is weak unable to participate in therapy recommend evaluation for a sniff unit in addition patient has ESBL in the urine asymptomatic denies any shortness of breath Review of Systems Unremarkable General: Weakness Physical Examination - Vital Signs Temperature: 97.7 F Blood Pressure: 140/70 Pulse: 69 Respirations: 18 Pulse Ox (%): 96 - Physical Exam General: Alert, In no apparent distress, Oriented x3 Respiratory: Clear to auscultation bilaterally Cardiovascular: Regular rate/rhythm, Normal S1 S2 Gastrointestinal: Normal bowel sounds Musculoskeletal: No clubbing, No swelling - Studies Microbiology Data (last 24 hrs): 10/19/19 13:30 Catheterized Urine [place] Count - Final >100,000 CFU/ML. 10/19/19 13:30 Catheterized Urine - Final Escherichia Coli Esbl Assessment & Plan - Problems (Diagnosis) (1) CHF (congestive heart failure) Onset Date: 02/28/17 Current Visit: No Status: Acute Plan: Doing well no complaints vital signs oxygenation satisfactory change to p.o. Lasix labs reviewed she problem needs to go home on Lasix 40 mg mildly anemic (2) ESBL (extended spectrum beta-lactamase) producing bacteria infection Current Visit: Yes Status: Acute Plan: Isolated in the urine denies any urinary tract symptoms no evidence of sepsis started her on meropenem [place] infectious disease
[2019-10-21] MEDS ORDERED: Meropenem 500 MG VIAL IV SCH ×2 (17:00→21:00)
[2019-10-21] MEDS: Meropenem 500 MG in NA CHLORIDE 0.9% 100 ML IV SCH (20:03)
[2019-10-21] MEDS ORDERED: Meropenem 1,000 MG in NA CHLORIDE 0.9% 100 ML IV SCH (21:00)
[2019-10-22] MEDS: ALBUTEROL 2.5 MG/3 ML NEB SOL NEB SCH ×4 (02:30→20:15)
[2019-10-22 04:31] LABS: Magnesium 1.7 mg/dL (1.8-2.4); Potassium 3.9 mmol/L (3.5-5.1)
[2019-10-22] MEDS ORDERED: POTASSIUM CL SA 10 MEQ TAB PO ONE (04:35)
[2019-10-22] MEDS ORDERED: MAGNESIUM SULFATE 1 gm IVPB 1 GM/100 ML BAG IV ONE (04:36)
[2019-10-22 04:43] LABS: Absolute Lymphocytes (CBC) 0.7 K/uL (0.7-4.9); Basophils % 0.8 % (0-1.3); Hematocrit 32.2 % (36.0-45.0); Lymphocytes % 13.7 % (15.3-44.8); MPV 8.6 fL (7.6-11.3); RBC Red Blood Cell Count 3.99 M/uL (3.86-4.86)
[2019-10-22] MEDS: HYDROCODONE/APAP 10/325 TAB PO PRN ×2 (05:03→20:54)
[2019-10-22] MEDS: carvediloL 6.25 MG TAB PO SCH ×2 (05:03→17:01)
[2019-10-22] MEDS: INSULIN -REGULAR HUMAN 50 UNIT/0.5 ML ML SQ SCH ×4 (07:19→20:48)
[2019-10-22] MEDS: ESCITALOPRAM 20 MG TAB PO SCH (07:37)
[2019-10-22] MEDS: FUROSEMIDE 40 MG TABLET PO SCH (07:37)
[2019-10-22] MEDS: Meropenem 500 MG in NA CHLORIDE 0.9% 100 ML IV SCH ×3 (07:37→21:00)
[2019-10-22] MEDS: ATORVASTATIN 10 MG TAB PO SCH (07:38)
[2019-10-22] MEDS: ASPIRIN EC 81 MG TAB PO SCH (07:38)
[2019-10-22] MEDS: PANTOPRAZOLE 40MG TABLET PO SCH (07:38)
[2019-10-22] MEDS: ENOXAPARIN 30 MG/0.3 ML SQ SCH (07:38)
[2019-10-22] MEDS: THYROID 30 MG TAB PO SCH (07:38)
[2019-10-22] MEDS: VITAMIN B COMPLEX 1 CAP PO SCH (09:52)
--- NOTE | 2019-10-22 12:03 | P.PN ---
Subjective Date of Service: 10/22/19 Primary Care Provider: unknown Chief Complaint: Weakness in EES BAL in the urine Subjective: Improving, Doing well Physical Examination - Vital Signs Temperature: 97.4 F Blood Pressure: 143/67 Pulse: 77 Respirations: 16 Pulse Ox (%): 100 - Physical Exam General: Alert, In no apparent distress HEENT: Atraumatic Neck: Supple Respiratory: Clear to auscultation bilaterally, Normal air movement Cardiovascular: Normal pulses, Regular rate/rhythm Integumentary: No tenderness/swelling Neurological: Normal speech, Normal strength at 5/5 x4 extr, Normal tone - Studies Microbiology Data (last 24 hrs): 10/19/19 13:30 Catheterized Urine [place] Count - Final >100,000 CFU/ML. 10/19/19 13:30 Catheterized Urine - Final Escherichia Coli Esbl Medications List Reviewed: Yes Assessment & Plan Discharge Plan: Other ([facility] facility) Plan to discharge in: 24 Hours Physician Review Additional Text: Impression: Acute on chronic systolic CHF UTI, urine culture positive for E coli-ESBL Hypertension Hypothyroidism Plan: Acute on chronic systolic CHF: Patient has done well. Continue with Lasix. Continue with 1500 cc per day fluid restriction and low-salt diet. Will arrange for PICC line. Will continue with IV Merrem. Social work working to get patient placed to skilled facility to continue antibiotic therapy and physical therapy. Anticipate discharge once PICC line in place and IV antibiotic therapy arranged. UTI, urine culture positive for E coli-ESBL: PICC line ordered. Patient will require meropenem 1 g IV twice daily for 7 days. Hypertension: Continue medication Hypothyroidism: Continue medication. Time Spent Managing Pts Care (In Minutes): 55
--- NOTE | 2019-10-22 18:41 | CON ---
History Of Present Illness: Patient is a 74-year-old female coming in with E coli ESBL urinary tract infection. Patient denies any headache, nausea, vomiting, chest pain, abdominal pain, constipation, diarrhea, currently being treated with IV antibiotic. Past Medical History: Includes diabetes mellitus, hypercholesterolemia, hypothyroidism, stroke, sark[place]ary artery disease, obesity, depression, hyperlipidemia, pacemaker placement, cholecystectomy, back surgery, hysterectomy, cataract surgery. Social History: Nonsmoker, nondrinker. Family History: Heart disease and diabetes. The patient grew E coli ESBL in her urine. Current Medications: Include meropenem. See MAR for other medications. Allergies: NO KNOWN DRUG ALLERGIES. Review of Systems: A 10-point review was performed. Physical Examination: General: This is a 74-year-old female, lying in bed, not in any acute cardiopulmonary distress. Vital Signs: Temperature 97, pulse 77, respirations 16, blood pressure 143/67. HEENT: Unremarkable. Neck: Supple. Lungs: Basal crackles. Heart: S1, S2. Regular. Abdomen: Soft, nontender. Bowel sounds present. Extremities: No edema. Laboratory Data: WBC 5.5, hemoglobin 10.1, platelets are 232. Chemistry shows sodium 139, potassium 3.9, chloride 103, bicarb 30, BUN 34, creatinine 1.1, glucose 168. Urinalysis shows WBC 20-50. Assessment And Plan: 74-year-old female with multiple medical problems, coming in with altered menta l status and urinary tract infection secondary to extended-spectrum beta-lactamase Escherichia coli. We will recommend to give the patient a 5-day course of IV antibiotic with meropenem. Repeat UA at the end of treatment. We will follow the patient as needed. Thank you, Dr. Marroquin, for consult. NF/MODL Voice ID: [id number] Report ID: [id number]
[2019-10-23] MEDS: ALBUTEROL 2.5 MG/3 ML NEB SOL NEB SCH ×3 (01:40→14:30)
[2019-10-23] MEDS ORDERED: HYDROCODONE/APAP 10/325 TAB PO PRN (03:38)
[2019-10-23] MEDS: carvediloL 6.25 MG TAB PO SCH (05:17)
[2019-10-23] MEDS ORDERED: Meropenem 500 MG in NA CHLORIDE 0.9% 100 ML IV SCH (06:00)
[2019-10-23 06:11] VITALS: BMI 48.9
[2019-10-23 06:31] LABS: Magnesium 1.9 mg/dL (1.8-2.4); Potassium 4.3 mmol/L (3.5-5.1)
[2019-10-23] MEDS: INSULIN -REGULAR HUMAN 50 UNIT/0.5 ML ML SQ SCH ×3 (07:30→15:54)
[2019-10-23] MEDS: PANTOPRAZOLE 40MG TABLET PO SCH (07:36)
[2019-10-23] MEDS: THYROID 30 MG TAB PO SCH (07:37)
[2019-10-23] MEDS: FUROSEMIDE 40 MG TABLET PO SCH (07:37)
[2019-10-23] MEDS: ESCITALOPRAM 20 MG TAB PO SCH (07:37)
[2019-10-23] MEDS: ATORVASTATIN 10 MG TAB PO SCH (07:38)
[2019-10-23] MEDS: VITAMIN B COMPLEX 1 CAP PO SCH (07:38)
[2019-10-23] MEDS: ASPIRIN EC 81 MG TAB PO SCH (07:38)
[2019-10-23] MEDS: ENOXAPARIN 30 MG/0.3 ML SQ SCH (07:39)
--- NOTE | 2019-10-23 10:57 | P.DS ---
Admission Date: 10/21/19 Discharge Date: 10/23/19 Primary Care Provider: unknown Disposition: TRANSFER TO PENITENTIARY Discharge Condition: GOOD Reason for Admission: Weakness Consultations: Infectious disease-Dr. Vargas Procedures: CT Scan: COMPARISON: No comparisons TECHNIQUE: CT head without contrast. CT cervical spine without contrast with coronal and sagittal reformatted images. CT chest, abdomen and pelvis without contrast with coronal and sagittal reformatted images of the spine. All CT scans are performed using dose optimization technique as appropriate and may include automated exposure control or mA/KV adjustment according to patient size. FINDINGS: CT HEAD WITHOUT CONTRAST: No intracranial hemorrhage, hydrocephalus or extra-axial fluid collection. Mild to moderate generalized brain atrophy is present with mild periventricular and deep white matter chronic microvascular ischemic changes. No areas of brain edema or midline shift. Near complete opacification right maxillary antrum is seen. Paranasal sinuses and mastoids are otherwise clear. The calvarium is intact. CT CERVICAL SPINE WITHOUT CONTRAST: No fracture or subluxation. The prevertebral soft tissues are normal in thickness. CT CHEST, ABDOMEN, PELVIS WITHOUT CONTRAST: NOTE: Lack of contrast is a significant limitation in the assessment of trauma related findings. Specifically, solid organ, vascular and bowel evaluation is significantly limited. The lungs are emphysematous but clear.No pneumothorax or pericardial/pleural fluid. No evidence of intra-abdominal visceral injury, free fluid or free air is seen within the above detailed limitations. Chronic grade 1 anterolisthesis of L4 on 5 noted. No acute fracture is seen. IMPRESSION: Negative for acute traumatic findings within the above detailed limitations. ECHO: Ejection fraction 30% LEFT VENTRICULAR WALL MOTION: GLOBAL HYPOKINESIS. DOPPLER/COLOR FLOW: MILD TO MODERATE MITRAL AND TRICUSPID REGURGITATION. SEVERE PULMONARY HYPERTENSION, ESTIMATED RIGHT VENTRICULAR SYSTOLIC PRESSURE 60- 65mmHg. COMMENTS: FOUR CHAMBER DILATATION DEPRESSED LEFT VENTRICULAR EJECTION FRACTION. MILD TO MODERATE AORTIC, MITRAL AND TRICUSPID REGURGITATION. SEVERE PULMONARY HYPERTENSION. PACEMAKER IN RIGHT VENTRICUAR APEX. Medical Problem List: Acute on chronic systolic CHF, EF 30% with severe pulmonary hypertension UTI, urine culture positive for E coli-ESBL Hypertension Hypothyroidism Diabetes mellitus type 2 [id number] Chronic renal disease stage III Anemia of chronic disease Hyperlipidemia GERD Chronic pain Brief History of Present Illness: 74-year-old female presented to the emergency room with increased weakness and shortness of breath. CT scan showed no fracture. Patient found to have acute on chronic CHF exacerbation. Patient was admitted for further evaluation. Hospital Course: Patient presented with weakness secondary to acute on chronic systolic CHF. Ejection fraction 30%. Echo also showed severe pulmonary hypertension. Patient improved with diuresis. At discharge she is without significant shortness of breath. Discharge was held as the patient was found to have UTI with ESBL. Patient treated for infection. For her CHF patient will continue with a 1500 cc per day fluid restriction and low-salt diet. Patient will continue with Lasix 40 mg daily. Recommend to monitor weight daily. If her weight increases by more than 5 lb she is to contact her PCP for further recommendation. Further adjustment in medication can be done by her PCP. Recommend to recheck his BMP in 1-2 weeks to monitor progress. Recommend follow up with cardiology and pulmonology in 1-2 weeks to follow up this hospitalization and to further address her CHF and pulmonary hypertension. Patient will return to the residential to continue treatment. As mentioned above patient was found to have UTI. Urine culture was positive for E coli-ESBL. PICC line was placed. Patient placed on meropenem. At discharge patient will continue with meropenem 1 g IV twice daily for total of 7 days. Recommend to recheck urine culture after that time to monitor resolution. If negative PICC line and IV antibiotic therapy can be discontinued. This was addressed with infectious disease who agree with plan of care. Arrangements for antibiotics to be continued at the residential. Patient with hypertension. At discharge she will continue with her medication- carvedilol 12.5 mg 1 pill twice daily. Recommend to maintain blood pressures less 150/80. Further adjustment can be done by her PCP. Patient with hypothyroidism. At discharge she will continue with her medication -[place] Thyroid 15 mg daily. Patient with diabetes mellitus type 2 [id number]. At discharge she may continue with glipizide XL 5 mg daily. Recommend to maintain blood sugars less 140 fasting and less than 200 after meals. Further adjustment can be done by her PCP. Patient will need to monitor for hypoglycemia with glipizide. Education on hypoglycemia will be provided. Patient with hyperlipidemia. At discharge she will continue with Lipitor 10 mg daily. Patient with depression. At discharge she will continue with Lexapro 20 mg daily. Patient with GERD. At discharge she will continue with Protonix 40 mg daily. Patient with chronic pain. At discharge she may continue with her pain medication as directed. Vital Signs/Physical Exam: Temp Pulse Resp BP Pulse Ox 97 F 60 16 136/61 100 10/23/19 08:00 10/23/19 08:00 10/23/19 08:00 10/23/19 08:00 10/23/19 08:00 General: Alert, In no apparent distress, Oriented x3 HEENT: Atraumatic Neck: Supple Respiratory: Clear to auscultation bilaterally, Normal air movement Cardiovascular: Normal pulses, Regular rate/rhythm Gastrointestinal: Normal bowel sounds, Soft and benign, Non-distended Musculoskeletal: No tenderness, No warmth Integumentary: No erythema, No warmth, No cyanosis Neurological: Normal speech, Normal strength at 5/5 x4 extr, Normal tone, Normal affect Laboratory Data at Discharge: WBC 5.5 K/uL (4.3-10.9) 10/22/19 03:37 Hgb 10.1 g/dL (12.0-15.0) L 10/22/19 03:37 Hct 32.2 % (36.0-45.0) L 10/22/19 03:37 Plt Count 232 K/uL (152-406) 10/22/19 03:37 PT 12.1 SECONDS (9.5-12.5) 10/19/19 12:16 INR 1.03 10/19/19 12:16 Sodium 140 mmol/L (136-145) 10/23/19 05:20 Potassium 4.3 mmol/L (3.5-5.1) 10/23/19 05:20 BUN 36 mg/dL (7-18) H 10/23/19 05:20 Creatinine 1.38 mg/dL (0.55-1.3) H 10/23/19 05:20 Glucose 133 mg/dL (74-106) H 10/23/19 05:20 Magnesium 1.9 mg/dL (1.8-2.4) 10/23/19 05:20 Total Bilirubin 0.6 mg/dL (0.2-1.0) 10/19/19 12:16 AST 21 U/L (15-37) 10/19/19 12:16 ALT 13 U/L (12-78) 10/19/19 12:16 Alkaline Phosphatase 96 U/L (45-117) 10/19/19 12:16 Troponin I 0.02 ng/mL (0.0-0.045) 10/20/19 12:26 Triglycerides 66 mg/dL (<150) 10/20/19 04:34 Cholesterol 121 mg/dL (<200) 10/20/19 04:34 HDL Cholesterol 57 mg/dL (40-60) 10/20/19 04:34 Cholesterol/HDL Ratio 2.12 10/20/19 04:34 Home Medications: Atorvastatin Calcium [Lipitor*] 10 mg PO DAILY 06/11/18 Escitalopram [Lexapro*] 10 mg PO DAILY 06/11/18 Glipizide [Glipizide Xl] 5 mg PO DAILY 06/11/18 Pantoprazole Sodium 40 mg PO DAILY 06/11/18 Thyroid Tab [[place] Thyroid*] 15 mg PO DAILY 06/11/18 Aspirin [Aspirin EC 81 MG] 81 mg PO DAILY #30 tablet. 06/17/18 Albuterol Sulfate [Proair Digihaler] 2 puff IH Q6H PRN 10/19/19 B-Complex with Vitamin C [Vitamin B-Complex with Vit C] 1 tab PO DAILY 10/19/19 Hydrocodone Bit/Acetaminophen [Hydrocodon-Acetaminophn 10-325] 1 tab PO Q6H PRN 10/19/19 Turmeric Root Extract [Turmeric] 1 tab PO DAILY 10/19/19 carvediloL [Coreg*] 12.5 mg PO BID 6AM 6PM 10/19/19 Furosemide [Lasix*] 40 mg PO DAILYPRN PRN #30 tab 10/20/19 New Medications: Furosemide [Lasix*] 40 mg PO DAILYPRN PRN #30 tab PRN Reason: edema Patient Discharge Instructions: 1. Patient to return back to residential. 2. Patient presented with weakness secondary to acute on chronic systolic CHF. Ejection fraction 30%. Echo also showed severe pulmonary hypertension. Patient improved with diuresis. At discharge she is without significant shortness of breath. Discharge was held as the patient was found to have UTI with ESBL. Patient treated for infection. For her CHF patient will continue with a 1500 cc per day fluid restriction and low-salt diet. Patient will continue with Lasix 40 mg daily. Recommend to monitor weight daily. If her weight increases by more than 5 lb she is to contact her PCP for further recommendation. Further adjustment in medication can be done by her PCP. Recommend to recheck his BMP in 1-2 weeks to monitor progress. Recommend follow up with cardiology and pulmonology in 1-2 weeks to follow up this hospitalization and to further address her CHF and pulmonary hypertension. Patient will return to the residential to continue treatment. 3. As mentioned above patient was found to have UTI. Urine culture was positive for E coli-ESBL. PICC line was placed. Patient placed on meropenem. At discharge patient will continue with meropenem 1 g IV twice daily for total of 7 days. Recommend to recheck urine culture after that time to monitor resolution. If negative PICC line and IV antibiotic therapy can be discontinued. This was addressed with infectious disease who agree with plan of care. Arrangements for antibiotics to be continued at the residential. 4. Patient with hypertension. At discharge she will continue with her medication-carvedilol 12.5 mg 1 pill twice daily. Recommend to maintain blood pressures less 150/80. Further adjustment can be done by her PCP. 5. Patient with hypothyroidism. At discharge she will continue with her medication-[place] Thyroid 15 mg daily. 6. Patient with diabetes mellitus type 2 [id number]. At discharge she may continue with glipizide XL 5 mg daily. Recommend to maintain blood sugars less 140 fasting and less than 200 after meals. Further adjustment can be done by her PCP. Patient will need to monitor for hypoglycemia with glipizide. Education on hypoglycemia will be provided. 7. Patient with hyperlipidemia. At discharge she will continue with Lipitor 10 mg daily. 8. Patient with depression. At discharge she will continue with Lexapro 20 mg daily. 9. Patient with GERD. At discharge she will continue with Protonix 40 mg daily. 10. Patient with chronic pain. At discharge she may continue with her pain medication as directed. Diet: Regular Activity: Ad lucia Time spent managing pt's care (in minutes): 55
[2019-10-23 11:53] VITALS: O2SAT 99
[2019-10-23 12:34] VITALS: BP 141/60; TEMP 97.8
--- NOTE | 2019-10-23 21:10 | PN ---
Subjective: Patient is lying in bed. Denies any headache, nausea, vomiting, chest pain, abdominal p ain, constipation, or diarrhea. Objective: Vital Signs: Temperature 97.8, pulse 57, respiration 18, blood pressure 141/60. Lungs: Clear to auscultation. Heart: S1, S2. Regular. Abdomen: Soft, nontender. Bowel sounds present. Extremities: No edema. Labs reviewed. Micro data shows E coli ESBL. Patient is on meropenem. She has completed the course. Assessment And Plan: Escherichia coli extended-spectrum beta-lactamase urinary tract infection, status post treatment. Patient is being discharged. We will follow the [facility] ient as needed. NF/MODL Voice ID: [id number] Report ID: [id number]
--- NOTE | 2019-10-24 10:39 | RAD REPORT ---
EXAM DESCRIPTION: Chest Single View CLINICAL HISTORY: The patient is 74 years old and is Female; PICC Placement TECHNIQUE: Frontal view of the chest. COMPARISON: No relevant prior studies available. FINDINGS: LUNGS: Unremarkable. No consolidation. PLEURAL SPACE: Suggestion of a small right pleural effusion is present. No pneumothorax. HEART: The cardiac silhouette is enlarged. MEDIASTINUM: Unremarkable. BONES/JOINTS: Unremarkable. VASCULATURE: Mild prominence of central vasculature is present. TUBES, LINES AND DEVICES: A right upper extremity PICC is present with the tip in the superior a spect of the SVC. Left-sided pacemaker is noted. IMPRESSION: 1. A right upper extremity PICC is present with the tip in the superior aspect of the SVC. 2. Cardiomegaly with findings suggestive of vascular congestion. Electronically signed by: Luna Durham MD 10/23/2019 3:19 AM TAX CONSULTANT Due to temporary technical issues with the PACS/Fluency reporting system, reports are being signed by the in house radiologist as a courtesy to ensure prompt reporting. The interpreting radiologist is f ully responsible for the content of the report.
== END 2019-10-23 16:08 | DRG 291 ==
LOC: ER 11:44 → ERHOLD 14:33 → INTOOBSV 14:33 → 4TH 16:21 → OBSVTOIN 10-21 14:54
PROVIDERS: ADMIT Hospitalist; ATTEND Hospitalist
PROC: 02HV33Z Insertion of Infusion Device into Superior Vena Cava, Percutaneous Approach (ICD-10-PCS; principal; 2019-10-22)
DX: I13.0 Hypertensive heart and chronic kidney disease with heart failure and stage 1 through stage 4 chronic kidney disease, or unspecified chronic kidney disease (principal); I50.23 Acute on chronic systolic (congestive) heart failure; N39.0 Urinary tract infection, site not specified; Z16.12 Extended spectrum beta lactamase (ESBL) resistance; N17.9 Acute kidney failure, unspecified; N18.3 Chronic kidney disease, stage 3 (moderate); E11.22 Type 2 diabetes mellitus with diabetic chronic kidney disease; B96.20 Unspecified Escherichia coli [E. coli] as the cause of diseases classified elsewhere; I27.20 Pulmonary hypertension, unspecified; E03.9 Hypothyroidism, unspecified; D64.9 Anemia, unspecified; E78.5 Hyperlipidemia, unspecified; K21.9 Gastro-esophageal reflux disease without esophagitis; G89.29 Other chronic pain; F32.9 Major depressive disorder, single episode, unspecified; Z95.0 Presence of cardiac pacemaker; I25.10 Atherosclerotic heart disease of native coronary artery without angina pectoris; Z86.73 Personal history of transient ischemic attack (TIA), and cerebral infarction without residual deficits
CPT/HCPCS: 36415; 51702; 70450; 71045; 71250; 72125; 72170; 80048; 80061; 80076; 81003; 81015; 82550; 82947; 83735; 83880; 84484; 85025; 85610; 87077; 87086; 87088; 87186; 93005; 93306; 93971; 96374; 96375; 97110; 97116; 97161; 97165; 97530; 99285; G0378; J0696; J1650; J1940; J2405; J3475

== ENCOUNTER 2019-10-24 11:41 | Inpatient (IN) | payer OTHER ==
--- NOTE | 2019-10-24 13:41 | R.PREADM ---
SCREENING DATE AND TIME 10/24/2019 11:49 (EMAIL PRODUCTION CONSULTANT) ANTICIPATED REHAB ADMISSION DATE 10/26/2019 REFERRING FACILITY [facility] REFERRAL DATE AND TIME 10/24/2019 11:49 (EMAIL PRODUCTION CONSULTANT) ACUTE ADMIT DATE 10/23/2019 HOSPITALIZED IN LAST 60 DAYS? Discharge from hospital 10/23/19 Previous Rehabilitation(s): No. ACUTE INSPECTOR FUEL HOSE/DC PUTTIER Sonu REFERRING PHYSICIAN Dr Bower REHAB FACILITY [facility] CLINICAL LIAISON Natalie Abad PHYSICIAN REVIEWER Dr. Aftab Leonard M.D. [facility] [id number] [id number] NAME ROBY GALEANA [address]ESS [address] [place] [place] [address] DATE OF 1945 AGE 74 SSN# [id number] GENDER female MARITAL STATUS RACE PREF. LANGUAGE (IF NON-LUXEMBOURGISH) Japanese ADMIT FROM 03 - Detention Facility (SNF) PRE-HOSPITAL LIVING SETTING 01 - Home (private home/apt. board/care, assisted living, penitentiary, transitional living) HOME TYPE AND DETAILS Type of home: mobile home # of steps to enter the residence: 6 # of levels in the residence: 1 # of steps within the residence: 0 PRE-HOSPITAL LIVING WITH Alone FAMILY SUPPORT Yes PRIMARY FAMILY CONTACT NAME Lachelle Galeana PRIMARY FAMILY CONTACT PHONE PRIMARY FAMILY CONTACT RELATIONSHIP DIL IS PRIMARY FAMILY CONTACT AUTH. REP.? no 1ST EMERGENCY CONTACT Lachelle Galeana 1ST CONTACT PHONE 1ST CONTACT RELATIONSHIP DIL IS 1ST CONTACT AUTH. REP.? no PHONE 2ND CONTACT ON ADM.? no PATIENT EMPLOYMENT STATUS Retired (for age) PATIENT EMPLOYER No Employer PAYOR INFORMATION: 1ST PAYOR NAME MEDICARE 1ST PAYOR PHONE 1ST PAYOR INJURY/ILLNESS DUE TO ACCIDENT? No ANOTHER GREEN PARTY RESPONSIBLE? No PRIMARY REHAB/ACUTE DIAGNOSIS: CHF Exacerbation ONSET DATE 10/19/2019 REHAB IMPAIRMENT CATEGORY (MARSHA): 14 Cardiac does NOT meet 60% rule PRIMARY DIAGNOSIS-RELATED SURGERIES: No surgeries related to the primary diagnosis were performed. INTERVENTIONS: - DVT/PE Monitor for extension - Heart failure Labs - Infection Labs - Hypertension VS Medications Fluid management - CAD Medications Activity management VS 02 sats - Diabetes BS's Glycohemoglobin Medications Podiatry SUMMARY OF ACUTE HOSPITALIZATION: Pt. is a 74 yo Right-handed female. On 10/19/2019 she was admitted to [facility] with diagnosis CHF Exacerbation. Her impairment category is Cardiac 09 - Cardiac Disorders (09). Pre-morbidly, Pt. was independent/mod-I in Locomotion and Self-Care; and she had good Transfers Contr ol, Safety Awareness, Social Cognition, Sphincter Control, and Communication. Currently, she has deficits of Transfers Control, Balance, Locomotion, and Safety Awareness. Pt. is now referred to [facility] for acute in-patient rehabilitation in order to maximize patient's functional independence in activities of daily living, strength, ROM, and mobi lity. Patient has realistic goal of being discharged at assistance level 6-Lashanda to reside at Home with Pt self. 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) Depression/Anxiety Hyperlipidemia Pacemaker PAST SURGICAL HISTORY: Cholecystectomy Back SX CATARACT Pacemaker 2015 MEDICATION ALLERGIES: No Known Drug Allergies (NKDA) ENVIRONMENTAL ALLERGIES: None Known - Substance Allergies None Known - Other Allergies None Known CODE STATUS: Full code WEIGHT/HEIGHT/BMI: WEIGHT 267 lbs HEIGHT 5' 2" BMI 48.8 DIET: - Diet Type Regular - Diet - Solid Texture Regular - Diet - Liquid Texture Regular - Tube Feed N/A REVIEW OF SYSTEMS: - Gen Alert and awake Lying in bed No apparent distress Oriented to: person, time, and place - Vital Signs Vital signs stable, afebrile - CVS RRR VITAL SIGNS Temperature: 97.8 F SBP/DBP: 141/60 Pulse: 57 Resp: 18 Vital signs stable, afebrile MEDICATIONS/TREATMENT: Other- See attached MAR (Medication Administration Record). CURRENT SPHINCTER CONTROL: Pre-hospital bladder status: continent # of bladder accidents in the last 7 days prior to screenin Pre-hospital bowel status: continent # of bowel accidents in the last 7 days prior to screenin Last Bowel Movement Date: 10/20/2019 CURRENT LOCOMOTION STATUS: distance walked 20 feet DETAILED CURRENT FUNCTIONAL STATUS: - Bladder accident frequency: Ind - No accidents in the past 7 days - Bowel accident frequency: Ind - No accidents in the past 7 days - Walking score based on distance walked: 1(<=50ft) QI SCORES: - Self-Care A. Eating 05-Setup or clean-up assistance B. Oral hygiene 05-Setup or clean-up assistance C. Toileting hygiene 04-Supervision or touching assistance E. Shower/bathe self 04-Supervision or touching assistance F. Upper body dressing G. Lower body dressing 04-Supervision or touching assistance H. Putting on/taking off footwear 04-Supervision or touching assistance - Mobility A. Roll left and right 04-Supervision or touching assistance B. Sit to lying 04-Supervision or touching assistance C. Lying to sitting on side of bed 04-Supervision or touching assistance D. Sit to stand 04-Supervision or touching assistance E. Chair/gaz-bi-jtxuc transfer 04-Supervision or touching assistance F. Toilet transfer 04-Supervision or touching assistance G. Car transfer 10-Not attempted due to environmental limitations I. Walk 10 feet 03-Partial/moderate assistance J. Walk 50 feet with two turns 88-Not attempted due to medical condition or safety concerns K. Walk 150 feet 88-Not attempted due to medical condition or safety concerns L. Walking 10 feet on uneven surfaces 88-Not attempted due to medical condition or safety concerns M. 1 step (curb) 88-Not attempted due to medical condition or safety concerns N. 4 steps 88-Not attempted due to medical condition or safety concerns O. 12 steps 88-Not attempted due to medical condition or safety concerns P. Picking up object 04-Supervision or touching assistance R. Wheel 50 feet with two turns 88-Not attempted due to medical condition or safety concerns S. Wheel 150 feet - Bladder and Bowel Bladder continence 0-Always continent Bowel continence 0-Always continent - Endurance Poor - Balance Poor - Safety Awareness Poor CURRENT FUNC. DEFICITS: Self-Care, Mobility, Endurance, Balance, and Safety Awareness CURRENT / PREVIOUS ASSISTIVE DEVICES: Rolling Walker Tub Bench HISTORY OF FALLS. HAS THE PATIENT HAD TWO OR MORE FALLS IN THE PAST YEAR OR ANY FALL WITH INJURY IN T HE PAST YEAR?: Yes PRIOR SURGERY. DID THE PATIENT HAVE MAJOR SURGERY DURING THE 100 DAYS PRIOR TO ADMISSION?: No THERAPY NOTES FROM ACUTE CARE: Attached. SPECIAL NEEDS: - Safety Concerns Skin breakdown precautions needed due to skin breakdown risk PATIENT NEEDS ACTIVE AND ONGOING THERAPEUTIC INTERVENTION OF MULTIPLE THERAPY DISCIPLINES, INCLUDING: - Dietary and Nutrition Adequate Nutrition. Nutritional Education. Nutritional Supplements. PATIENT NEEDS CLOSE MEDICAL SUPERVISION BY A REHABILITATION PHYSICIAN FOR: Coordination of Treatment Team PATIENT REQUIRES 24X7 REHAB NURSING FOR MEDICAL AND FUNCTIONAL MGT. OF THE FOLLOWING DEFICITS: Disease Management Medication Management Patient/Family Education Providing Safe Environment PATIENT REQUIRES INTENSIVE, COORDINATED INTERDISCIPLINARY APPROACH TO REHAB: Arranging Home Equipment/Services Discharge Planning Family Intervention/Training Electrical Engineering Manager/Case Management PATIENT REHAB POTENTIAL: Cici GALEANA is able and expected to receive 3 hours of individualized therapy daily on at least 5 of monica ry 7 days Cici Clancy prognosis for significant practical improvement within a reasonable period of time appears Good Expected level of measurable improvement will be of a practical value to Cici ASHBYs functional capaci ty or adaptations to impairments Has a viable Discharge Plan Medically appropriate; condition is sufficiently stable to participate in intensive rehab program DISCHARGE PLAN: - Estimated Length of Stay (days) 10. - Consensus on plan Discharge plan has been discussed with primary caregiver. Patient/Family is in agreement with the martinez n. Primary caregiver is in agreement with the plan. - Patient/Family Goals Return home with assistance. - Planned Living Setting Upon Discharge Home, to live alone. Primary caregiver: Pt self. RECOMMENDED CARE LEVEL: IRF RECOMMENDATION DETAILS: Recommended Admission to Comprehensive Rehabilitation Program to Increase Functional [place] SCREENER'S COMPLETENESS CONFIRMATION: - Screening Confirmation The patient data collection on this preadmission screening form is finished PHYSICIANS REVIEW AND ADMISSION DETERMINATION Admit - Based on my review of the Pre-Admission Screening results, in my medical judgment and experie nce, I concur with the findings and recommend admission to [facility], as this patient requires an IRF level of care. SIGNATURE PANEL: Clinical Liaison - [electronically] signed by Valeria Castillo Fountain Waitress/Waiter on 10/24/2019 at 13:22 (C ST) Clinical Liaison - [electronically] signed by Natalie Kirk RN on 10/24/2019 at 13:31 (EMAIL PRODUCTION CONSULTANT) Physician Reviewer - [electronically] signed by Dr. Aftab Leonard M.D. on 10/24/2019 at 13:40 (EMAIL PRODUCTION CONSULTANT )
[2019-10-24] MEDS: SODIUM CHLORIDE 0.9% 10ML INJ IV SCH (20:50)
[2019-10-24] MEDS: carvediloL 12.5 MG TAB PO SCH (20:50)
[2019-10-24] MEDS: ATORVASTATIN 10 MG TAB PO SCH (20:51)
[2019-10-24] MEDS: ACETAMINOPHEN 500 MG TAB PO PRN (20:51)
[2019-10-24] MEDS: MELATONIN 5 MG TABLET PO SCH (20:51)
[2019-10-25] MEDS: THYROID 30 MG TAB PO SCH (05:05)
[2019-10-25] MEDS: ACETAMINOPHEN 500 MG TAB PO PRN ×2 (05:05→20:13)
[2019-10-25] MEDS: carvediloL 12.5 MG TAB PO SCH ×2 (05:06→17:12)
[2019-10-25 06:06] LABS: Basophils % 0.9 % (0-1.3); Hematocrit 29.9 % (36.0-45.0); Lymphocytes % 17.9 % (15.3-44.8); MPV 8.3 fL (7.6-11.3)
[2019-10-25] MEDS: PANTOPRAZOLE 40MG TABLET PO SCH (06:26)
[2019-10-25 07:16] LABS: Albumin 2.3 g/dL (3.4-5.0); Magnesium 1.7 mg/dL (1.8-2.4); Potassium 4.3 mmol/L (3.5-5.1); Prealbumin 12.3 mg/dL (20-40)
[2019-10-25] MEDS ORDERED: Meropenem 1,000 MG in NA CHLORIDE 0.9% 100 ML IV SCH (08:00)
[2019-10-25] MEDS ORDERED: Meropenem 1000 MG/VIAL IV SCH (08:00)
[2019-10-25] MEDS: VITAMIN B COMPLEX 1 CAP PO SCH (08:31)
[2019-10-25] MEDS: SODIUM CHLORIDE 0.9% 10ML INJ IV SCH ×2 (08:31→20:13)
[2019-10-25] MEDS: glipiZIDE 5 MG TAB PO SCH (08:31)
[2019-10-25] MEDS: ESCITALOPRAM 20 MG TAB PO SCH (08:32)
[2019-10-25] MEDS: ASPIRIN 81 MG CHEWABLE TABLET PO SCH (08:32)
[2019-10-25] MEDS: SOD CHLORIDE 0.65% NASAL SPRAY NAS SCH ×2 (08:33→20:12)
[2019-10-25] MEDS: CRANBERRY FRUIT EXTRACT 200 MG CAP PO SCH ×2 (14:00→20:12)
--- NOTE | 2019-10-25 15:04 | FAST ---
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 Aftab Leonard M.D. ADMISSION DIAGNOSIS: - Cardiac 09 - Cardiac Disorders () CHF Exacerbation. ROLL LEFT AND RIGHT: ROLL LEFT AND RIGHT - STEP 1: Does the patient complete the activity by him/herself with no assistance (physical, verbal/nonverbal cueing, setup/clean-up)? No. ROLL LEFT AND RIGHT - STEP 2: Does the patient need only setup/clean-up assistance from one helper? No. ROLL LEFT AND RIGHT - STEP 3: Does the patient need only verbal/nonverbal cueing or touching/steadying/contact guard assistance fro m one helper? No. ROLL LEFT AND RIGHT - STEP 4: Does the patient need physical assistance - for example lifting or trunk support from one helper - wi th the helper providing less than half of the effort? Yes. 1. [id number] ADMISSION PERFORMANCE: Partial/moderate assistance CODE: 03 SIT TO LYING: SIT TO LYING - STEP 1: Does the patient complete the activity by him/herself with no assistance (physical, verbal/nonverbal cueing, setup/clean-up)? No. SIT TO LYING - STEP 2: Does the patient need only setup/clean-up assistance from one helper? No. SIT TO LYING - STEP 3: Does the patient need only verbal/nonverbal cueing or touching/steadying/contact guard assistance fro m one helper? No. SIT TO LYING - STEP 4: Does the patient need physical assistance - for example lifting or trunk support from one helper - wi th the helper providing less than half of the effort? Yes. 1. [id number] ADMISSION PERFORMANCE: Partial/moderate assistance CODE: 03 LYING TO SITTING: LYING TO SITTING ON SIDE OF BED - STEP 1: Does the patient complete the activity by him/herself with no assistance (physical, verbal/nonverbal cueing, setup/clean-up)? No. LYING TO SITTING ON SIDE OF BED - STEP 2: Does the patient need only setup/clean-up assistance from one helper? No. LYING TO SITTING ON SIDE OF BED - STEP 3: Does the patient need only verbal/nonverbal cueing or touching/steadying/contact guard assistance fro m one helper? No. LYING TO SITTING ON SIDE OF BED - STEP 4: Does the patient need physical assistance - for example lifting or trunk support from one helper - wi th the helper providing less than half of the effort? Yes. 1. [id number] ADMISSION PERFORMANCE: Partial/moderate assistance CODE: 03 SIT TO STAND: SIT TO STAND - STEP 1: Does the patient complete the activity by him/herself with no assistance (physical, verbal/nonverbal cueing, setup/clean-up)? No. SIT TO STAND - STEP 2: Does the patient need only setup/clean-up assistance from one helper? No. SIT TO STAND - STEP 3: Does the patient need only verbal/nonverbal cueing or touching/steadying/contact guard assistance fro m one helper? No. SIT TO STAND - STEP 4: Does the patient need physical assistance - for example lifting or trunk support from one helper - wi th the helper providing less than half of the effort? Yes. 1. [id number] ADMISSION PERFORMANCE: Partial/moderate assistance CODE: 03 TRANSFERS: BED, CHAIR: CHAIR/[id number] TRANSFER - STEP 1: Does the patient complete the activity by him/herself with no assistance (physical, verbal/nonverbal cueing, setup/clean-up)? No. CHAIR/[id number] TRANSFER - STEP 2: Does the patient need only setup/clean-up assistance from one helper? No. CHAIR/[id number] TRANSFER - STEP 3: Does the patient need only verbal/nonverbal cueing or touching/steadying/contact guard assistance fro m one helper? No. CHAIR/[id number] TRANSFER - STEP 4: Does the patient need physical assistance - for example lifting or trunk support from one helper - wi th the helper providing less than half of the effort? Yes. 1. [id number] ADMISSION PERFORMANCE: Partial/moderate assistance CODE: 03 TRANSFER TOILET: TOILET TRANSFER - STEP 1: Does the patient complete the activity by him/herself with no assistance (physical, verbal/nonverbal cueing, setup/clean-up)? No. TOILET TRANSFER - STEP 2: Does the patient need only setup/clean-up assistance from one helper? No. TOILET TRANSFER - STEP 3: Does the patient need only verbal/nonverbal cueing or touching/steadying/contact guard assistance fro m one helper? No. TOILET TRANSFER - STEP 4: Does the patient need physical assistance - for example lifting or trunk support from one helper - wi th the helper providing less than half of the effort? Yes. 1. [id number] ADMISSION PERFORMANCE: Partial/moderate assistance CODE: 03 TRANSFERS: CAR: Not attempted due to medical condition or safety concerns CODE: 88 WALK 10 FEET: WALK 10 FEET - STEP 1: Does the patient complete the activity by him/herself with no assistance (physical, verbal/nonverbal cueing, setup/clean-up)? No. WALK 10 FEET - STEP 2: Does the patient need only setup/clean-up assistance from one helper? No. WALK 10 FEET - STEP 3: Does the patient need only verbal/nonverbal cueing or touching/steadying/contact guard assistance fro m one helper? No. WALK 10 FEET - STEP 4: Does the patient need physical assistance - for example lifting or trunk support from one helper - wi th the helper providing less than half of the effort? Yes. 1. [id number] ADMISSION PERFORMANCE: Partial/moderate assistance CODE: 03 WALK 50 FEET: Not attempted due to medical condition or safety concerns CODE: 88 WALK 150 FEET: Not attempted due to medical condition or safety concerns CODE: 88 WALK 10 FEET UNEVEN: Not attempted due to medical condition or safety concerns CODE: 88 1 STEP (CURB): Not attempted due to medical condition or safety concerns CODE: 88 PICKING UP OBJECT: Not attempted due to medical condition or safety concerns CODE: 88 DOES THE PATIENT USE A WHEELCHAIR/SCOOTER? Q1. DOES THE PATIENT USE A WHEELCHAIR/SCOOTER?: Yes CODE: 1 WHEEL 50 FEET WITH TWO TURNS: Not attempted due to medical condition or safety concerns CODE: 88 INDICATE THE TYPE OF WHEELCHAIR/SCOOTER USED: RR1. INDICATE THE TYPE OF WHEELCHAIR/SCOOTER USED.: Manual CODE: 1 WHEEL 150 FEET: Not attempted due to medical condition or safety concerns CODE: 88 INDICATE THE TYPE OF WHEELCHAIR/SCOOTER USED: SS1. INDICATE THE TYPE OF WHEELCHAIR/SCOOTER USED.: Manual CODE: 1 BLADDER AND BOWEL: CODE: EXPR CODE: EXPR SIGNATURE PANEL: The following modified sections: 1. [id number] Admission Performance, 1. [id number] Admission Performance, 1. [id number] Admission Performance, 1. [id number] Admission Performance, 1. [id number] Admission Performance, 1. [id number] Admission Performance, 1. [id number] Admission Performance, Q1. Does the patient use a wheel chair/scooter?, RR1. Indicate the type of wheelchair/scooter used., Code, SS1. Indicate the type of w heelchair/scooter used. were [electronically] signed by Joaquín Cole PT on TueOct 25 2019 15:03 :08 GMT-0600 (Central Standard Time)
--- NOTE | 2019-10-25 15:10 | FAST ---
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 Aftab Leonard M.D. ADMISSION DIAGNOSIS: - Cardiac 09 - Cardiac Disorders () CHF Exacerbation. EATING: EATING - STEP 1: Does the patient complete the activity by him/herself with no assistance (physical, verbal/nonverbal cueing, setup/clean-up)? No. EATING - STEP 2: Does the patient need only setup/clean-up assistance from one helper? Yes. 1. [id number] ADMISSION PERFORMANCE: Setup or clean-up assistance CODE: 05 ORAL HYGIENE: Not assessed/no information CODE: - TOILETING HYGIENE: TOILETING HYGIENE - STEP 1: Does the patient complete the activity by him/herself with no assistance (physical, verbal/nonverbal cueing, setup/clean-up)? No. TOILETING HYGIENE - STEP 2: Does the patient need only setup/clean-up assistance from one helper? No. TOILETING HYGIENE - STEP 3: Does the patient need only verbal/nonverbal cueing or touching/steadying/contact guard assistance fro m one helper? Yes. 1. [id number] ADMISSION PERFORMANCE: Supervision or touching assistance CODE: 04 BATHING: Not assessed/no information CODE: - DRESSING - UPPER BODY: Not assessed/no information CODE: - DRESSING - LOWER BODY: Not assessed/no information CODE: - PUTTING ON/TAKING OFF FOOTWEAR: Not assessed/no information CODE: - ROLL LEFT AND RIGHT: ROLL LEFT AND RIGHT - STEP 1: Does the patient complete the activity by him/herself with no assistance (physical, verbal/nonverbal cueing, setup/clean-up)? No. ROLL LEFT AND RIGHT - STEP 2: Does the patient need only setup/clean-up assistance from one helper? No. ROLL LEFT AND RIGHT - STEP 3: Does the patient need only verbal/nonverbal cueing or touching/steadying/contact guard assistance fro m one helper? Yes. 1. [id number] ADMISSION PERFORMANCE: Supervision or touching assistance CODE: 04 SIT TO LYING: SIT TO LYING - STEP 1: Does the patient complete the activity by him/herself with no assistance (physical, verbal/nonverbal cueing, setup/clean-up)? No. SIT TO LYING - STEP 2: Does the patient need only setup/clean-up assistance from one helper? No. SIT TO LYING - STEP 3: Does the patient need only verbal/nonverbal cueing or touching/steadying/contact guard assistance fro m one helper? Yes. 1. [id number] ADMISSION PERFORMANCE: Supervision or touching assistance CODE: 04 LYING TO SITTING: LYING TO SITTING ON SIDE OF BED - STEP 1: Does the patient complete the activity by him/herself with no assistance (physical, verbal/nonverbal cueing, setup/clean-up)? No. LYING TO SITTING ON SIDE OF BED - STEP 2: Does the patient need only setup/clean-up assistance from one helper? No. LYING TO SITTING ON SIDE OF BED - STEP 3: Does the patient need only verbal/nonverbal cueing or touching/steadying/contact guard assistance fro m one helper? Yes. 1. [id number] ADMISSION PERFORMANCE: Supervision or touching assistance CODE: 04 SIT TO STAND: SIT TO STAND - STEP 1: Does the patient complete the activity by him/herself with no assistance (physical, verbal/nonverbal cueing, setup/clean-up)? No. SIT TO STAND - STEP 2: Does the patient need only setup/clean-up assistance from one helper? No. SIT TO STAND - STEP 3: Does the patient need only verbal/nonverbal cueing or touching/steadying/contact guard assistance fro m one helper? Yes. 1. [id number] ADMISSION PERFORMANCE: Supervision or touching assistance CODE: 04 TRANSFERS: BED, CHAIR: CHAIR/DVE-AV-BOSOF TRANSFER - STEP 1: Does the patient complete the activity by him/herself with no assistance (physical, verbal/nonverbal cueing, setup/clean-up)? No. CHAIR/[id number] TRANSFER - STEP 2: Does the patient need only setup/clean-up assistance from one helper? No. CHAIR/PLF-RG-[id number] TRANSFER - STEP 3: Does the patient need only verbal/nonverbal cueing or touching/steadying/contact guard assistance fro m one helper? Yes. 1. [id number] ADMISSION PERFORMANCE: Supervision or touching assistance CODE: 04 TRANSFER TOILET: TOILET TRANSFER - STEP 1: Does the patient complete the activity by him/herself with no assistance (physical, verbal/nonverbal cueing, setup/clean-up)? No. TOILET TRANSFER - STEP 2: Does the patient need only setup/clean-up assistance from one helper? No. TOILET TRANSFER - STEP 3: Does the patient need only verbal/nonverbal cueing or touching/steadying/contact guard assistance fro m one helper? Yes. 1. [id number] ADMISSION PERFORMANCE: Supervision or touching assistance CODE: 04 TRANSFERS: CAR: Not assessed/no information CODE: - WALK 10 FEET: Not assessed/no information CODE: - 1 STEP (CURB): Not assessed/no information CODE: - PICKING UP OBJECT: Not assessed/no information CODE: - DOES THE PATIENT USE A WHEELCHAIR/SCOOTER? Q1. DOES THE PATIENT USE A WHEELCHAIR/SCOOTER?: Yes CODE: 1 WHEEL 50 FEET WITH TWO TURNS: Not assessed/no information CODE: - INDICATE THE TYPE OF WHEELCHAIR/SCOOTER USED: RR1. INDICATE THE TYPE OF WHEELCHAIR/SCOOTER USED.: Manual CODE: 1 WHEEL 150 FEET: Not assessed/no information CODE: - INDICATE THE TYPE OF WHEELCHAIR/SCOOTER USED: SS1. INDICATE THE TYPE OF WHEELCHAIR/SCOOTER USED.: Manual CODE: 1 BLADDER AND BOWEL: H350. BLADDER CONTINENCE (3-DAY ASSESSMENT PERIOD): Always incontinent CODE: 4 H400. BOWEL CONTINENCE (3-DAY ASSESSMENT PERIOD): Occasionally incontinent (one episode of bowel incontinence) CODE: 1 SIGNATURE PANEL: The following modified sections: 1. [id number] Admission Performance, 1. [id number] Admission Performance, 1. SU7671D Admission Performance, 1. DC0803W Admission Performance, 1. AX2350S Admission Performance, 1. [id number] Admission Performance, 1. OS1443P Admission Performance, 1. WS4189R Admission Performance , 1. [id number] Admission Performance, 1. JN0806T Admission Performance, Q1. Does the patient use a whee lchair/scooter?, 1. BT7549U Admission Performance, RR1. Indicate the type of wheelchair/scooter used. , Code, SS1. Indicate the type of wheelchair/scooter used., H350. Bladder Continence (3-day assessmen t period), H400. Bowel Continence (3-day assessment period) were [electronically] signed by Pretty daniel C.N.AValdez on TueOct 25 2019 15:09:46 GMT-0600 (Central Standard Time)
--- NOTE | 2019-10-25 17:41 | PAPE ---
PATIENT: [facility] MR# [id number] REFERRING DOCTOR Dr Bower EVALUATION DATE AND TIME 10/25/2019 17:40 (THERAPIST OCCUPATIONAL) NAME ROBY COLON DATE OF 1945 AGE 74 PHONE SSN# [id number] GENDER female EVALUATING PHYSICIAN Dr. Aftab Leonard M.D. ADMISSION DIAGNOSIS: CHF Exacerbation ONSET DATE 10/19/2019 POST-ADMISSION FUNCTIONAL/MEDICAL STATUS: - Bladder Same accident frequency: Ind - No accidents in the past 7 days - Bowel Same accident frequency: Ind - No accidents in the past 7 days - Walking Same score based on distance walked: 1(<=50ft) STATUS CHANGE EVALUATION: No change in Functional or Medical Status is identified compared with Pre-Admission screening. PATIENT NEEDS CLOSE MEDICAL SUPERVISION BY A REHABILITATION PHYSICIAN FOR: Coordination of Treatment Team PATIENT REQUIRES 24X7 REHAB NURSING FOR MEDICAL AND FUNCTIONAL MGT. OF THE FOLLOWING DEFICITS: Disease Management Medication Management Patient/Family Education Providing Safe Environment PATIENT REQUIRES INTENSIVE, COORDINATED INTERDISCIPLINARY APPROACH TO REHAB: Arranging Home Equipment/Services Discharge Planning Family Intervention/Training Cell Reliner/Case Management LIST OF IDENTIFIED AND POTENTIAL PROBLEMS: Alteration in leisure activities Bladder, Incontinence Bowel, Incontinence Infection, Actual or Potential Mobility Impaired Pain, Alteration in Comfort Self Care Deficit Skin Integrity, Actual or Potential Urinary Tract Infection (UTI), Actual or Potential INTERVENTIONS - DVT/PE Monitor for extension. - Heart failure Labs. - Infection Labs. - Hypertension VS. Medications. Fluid management. - CAD Medications. Activity management. VS. 02 sats. - Diabetes BS's. Glycohemoglobin. Medications. Podiatry. PATIENT COULD BE AT RISK FOR COMPLICATIONS FROM ADVERSE MEDICAL CONDITIONS DUE TO HIS/HER COMORBIDITI ES AND THE RIGORS OF THE INTENSIVE REHABILLITATION PROGRAM. METHODS OR INTERVENTIONS TO AVOID COMPLIC ATIONS INCLUDE: - Infection Clinical staff to assess and manage the signs and symptoms of infection including fever, redness, war mth, etc. - Urinary Tract Infection - Falls Patient will be evaluated for Fall Precautions and will be placed on Fall Precautions as indicated pe r protocol. - Skin Breakdown Nursing will assess skin daily using assessment tool and will place on Skin Breakdown Precautions as indicated per protocol. - Pain Clinical staff may employ non-medication methods such as massage, distraction, decrease stimulus, etc . as needed. Clinical staff will assess patient's pain level every shift per protocol to assess and e nsure pain management effectiveness. Medications will be given and the pain level re-assessed. PRELIMINARY PLAN OF CARE: - Physical Therapy Patient needs Physical Therapy for a daily minimum of 1.5 hours at least 5 out of 7 days, to improve: Mobility, Strengthening, Transfers, Stretching, ROM, Endurance, Ability to manage stairs, Gait, and Balance. - Rehabilitation Nursing Patient requires 24x7 Rehabilitation Nursing for: Pain Issues, Identifying and preventing risk factor s, Monitoring and reporting current medical conditions, Assisting with ambulation and transfer, Mukul ting with all ADL-s, Teaching patients about disease process and medications, Family teaching, Provid ing safe environment, Bowel and Bladder Issues, Skin Integrity, and Medication Management. Patient needs Cell Reliner and/or Case Management for: Discharge Planning, Arranging Home Equipmen t or Services, and Family Interventions. - Dietary and Nutrition Services Patient needs Dietary and Nutrition Services for: Adequate Nutrition, Nutritional Supplements, and Nu tritional Education. - Occupational Therapy Patient needs Occupational Therapy for a daily minimum of 1.5 hours at least 5 out of 7 days, to impr ove Activities of Daily Living, including: Eating, Grooming, Bathing, Dressing, Toileting, Toilet Tra nsfers, Community Reintegration, Higher functional activities, Adaptive Equipment, Splinting, Househo ld Tasks, and Other activities as determined. QI SCORES: - Self-Care A. Eating 05-Setup or clean-up assistance B. Oral hygiene 05-Setup or clean-up assistance C. Toileting hygiene 04-Supervision or touching assistance E. Shower/bathe self 04-Supervision or touching assistance F. Upper body dressing G. Lower body dressing 04-Supervision or touching assistance H. Putting on/taking off footwear 04-Supervision or touching assistance - Mobility A. Roll left and right 04-Supervision or touching assistance B. Sit to lying 04-Supervision or touching assistance C. Lying to sitting on side of bed 04-Supervision or touching assistance D. Sit to stand 04-Supervision or touching assistance E. Chair/aiq-ap-yojku transfer 04-Supervision or touching assistance F. Toilet transfer 04-Supervision or touching assistance G. Car transfer 10-Not attempted due to environmental limitations I. Walk 10 feet 03-Partial/moderate assistance J. Walk 50 feet with two turns 88-Not attempted due to medical condition or safety concerns K. Walk 150 feet 88-Not attempted due to medical condition or safety concerns L. Walking 10 feet on uneven surfaces 88-Not attempted due to medical condition or safety concerns M. 1 step (curb) 88-Not attempted due to medical condition or safety concerns N. 4 steps 88-Not attempted due to medical condition or safety concerns O. 12 steps 88-Not attempted due to medical condition or safety concerns P. Picking up object 04-Supervision or touching assistance R. Wheel 50 feet with two turns 88-Not attempted due to medical condition or safety concerns S. Wheel 150 feet - Bladder and Bowel Bladder continence 0-Always continent Bowel continence 0-Always continent - Endurance Poor - Balance Poor - Safety Awareness Poor POTENTIAL FUNCTIONAL GOALS FOR PATIENT TO ACHIEVE BY DISCHARGE: - Safety Precaution Patient will remain free from falls or injury at time of discharge. - Bed Mobility Patient will perform bed mobility at 4-Nayan level of assistance. - Transfers Patient will complete transfers from bed to chair at 4-Nayan level of assistance. - Mobility Patient will ambulate 150 ft with 4-Nayan level of assistance with RW. PATIENT REHAB POTENTIAL Cici COLON is able and expected to receive 3 hours of individualized therapy daily on at least 5 of monica 7 days Cici ASHBYs prognosis for significant practical improvement within a reasonable period of time appears Good Expected level of measurable improvement will be of a practical value to Cici COLON's functional capaci ty or adaptations to impairments Has a viable Discharge Plan Medically appropriate; condition is sufficiently stable to participate in intensive rehab program DISCHARGE PLAN: - Estimated Length of Stay (days) 10. - Consensus on plan Discharge plan has been discussed with primary caregiver. Patient/Family is in agreement with the martinez n. Primary caregiver is in agreement with the plan. - Patient/Family Goals Return home with assistance. - Planned Living Setting Upon Discharge Home, to live alone. Primary caregiver: Pt self. CONCLUSION ON REHABILITATION NECESSITY: I have evaluated patient's pre-admission functional status and, comparing it to the patient's post-ad mission functional status now, I conclude that the pre-admission assessment was accurate. Patient's c ondition on admission supports the medical necessity of admission to IR[facility]. It is safe to proceed with patient's therapy program. SIGNATURE PANEL: ([facility])
--- NOTE | 2019-10-25 17:42 | R.HP ---
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 board/care, assisted living, residential, transitional living) PRE-HOSPITAL LIVING WITH Alone ENCOUNTER PHYSICIAN: Dr. Aftab Leonard M.D. REFERRING DOCTOR: Dr Bower DATE OF ADMISSION: 10/24/2019 17:32 (PIPE CLEANING MACHINE OPERATOR) REFERRING FACILITY [facility] HOME TYPE AND DETAILS: Type of home: mobile home # of steps to enter the residence: 6 # of levels in the residence: 1 # of steps within the residence: 0 ADMISSION DIAGNOSIS: CHF Exacerbation ONSET DATE: 10/19/2019 PRIMARY DIAGNOSIS-RELATED SURGERIES: No surgeries related to the primary diagnosis were performed. HISTORY OF PRESENT ILLNESS (HPI): Pt. is a 74 yo Right-handed female. On 10/19/2019 she was admitted to [facility] with diagnosis CHF Exacerbation. Her impairment category is Cardiac 09 - Cardiac Disorders (09). Pre-morbidly, Pt. was independent/mod-I in Locomotion and Self-Care; and she had good Transfers Contr ol, Safety Awareness, Social Cognition, Sphincter Control, and Communication. Currently, she has deficits of Transfers Control, Balance, Locomotion, and Safety Awareness. Pt. is now referred to [facility] for acute in-patient rehabilitation in order to maximize patient's functional independence in activities of daily living, strength, ROM, and mobi lity. Patient has realistic goal of being discharged at assistance level 6-Lashanda to reside at Home with Pt self. 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 SOCIAL HISTORY: - Home Living Alone REVIEW OF SYSTEMS: - Gen No Chills Fatigue No Fever - Eyes No Double Vision No itchiness - ENMT No Difficulty Swallowing - CVS No Chest Discomfort No Chest Pain Fatigue No Weight Gain - Resp No Cough No Shortness of Breath - GI Continent No Abdominal Pain Constipation No Diarrhea - Continent No Kidney Pain No Painful Urination No Urinary Urgency - MSK Joint Pain Muscle Cramps Stiffness - Skin No Itching No Rash No Suspicious Lesions - Neuro Coordination Difficulty No Difficulty with Concentration No Memory Loss No Seizures Weakness - Psych No Anxiety No Depression No HIV Exposure No Persistent Infections No Seasonal Allergies - Endo No Cold/Heat Intolerance No Excessive Hunger No Excessive Thirst No Excessive Urination PHYSICAL EXAM - Gen Alert and awake Lying in bed No apparent distress Oriented to: person, time, and place - Vital Signs Vital signs stable, afebrile - Skin No skin breakdown. Normacephalic - Eyes No abnormalities - Neck No abnormalities - CVS RRR - Chest No abnormalities - Resp Clear to auscultation - Abd Soft - GI Non distended Deferred - No abnormalities - Ext Mild bilateral lower extremity edema. - MSK 4+/5 weakness in both lower extremities. - Neuro 4/5 strength bilaterally upper and lower extremities. - Psych No abnormalities VITAL SIGNS Temperature: 97.2 F SBP/DBP: 137/74 Pulse: 59 Resp: 16 NURSING: - Shower allowing shower ACTIVITIES OOB only with supervision QI SCORES: - Self-Care A. Eating 05-Setup or clean-up assistance B. Oral hygiene 05-Setup or clean-up assistance C. Toileting hygiene 04-Supervision or touching assistance E. Shower/bathe self 04-Supervision or touching assistance F. Upper body dressing G. Lower body dressing 04-Supervision or touching assistance H. Putting on/taking off footwear 04-Supervision or touching assistance - Mobility A. Roll left and right 04-Supervision or touching assistance B. Sit to lying 04-Supervision or touching assistance C. Lying to sitting on side of bed 04-Supervision or touching assistance D. Sit to stand 04-Supervision or touching assistance E. Chair/rbz-[id number] transfer 04-Supervision or touching assistance F. Toilet transfer 04-Supervision or touching assistance G. Car transfer 10-Not attempted due to environmental limitations I. Walk 10 feet 03-Partial/moderate assistance J. Walk 50 feet with two turns 88-Not attempted due to medical condition or safety concerns K. Walk 150 feet 88-Not attempted due to medical condition or safety concerns L. Walking 10 feet on uneven surfaces 88-Not attempted due to medical condition or safety concerns M. 1 step (curb) 88-Not attempted due to medical condition or safety concerns N. 4 steps 88-Not attempted due to medical condition or safety concerns O. 12 steps 88-Not attempted due to medical condition or safety concerns P. Picking up object 04-Supervision or touching assistance R. Wheel 50 feet with two turns 88-Not attempted due to medical condition or safety concerns S. Wheel 150 feet - Bladder and Bowel Bladder continence 0-Always continent Bowel continence 0-Always continent - Endurance Poor - Balance Poor - Safety Awareness Poor CURRENT FUNC. DEFICITS: Self-Care, Mobility, Endurance, Balance, and Safety Awareness MEDICATIONS: - Other See attached MAR (Medication Administration Record) ASSESSMENT: Pt. is a 74 yo Right-handed female.On 10/19/2019 she was admitted to [facility] with diagno sis CHF Exacerbation.Her impairment category is Cardiac 09 - Cardiac Disorders (09).Pre-morbidly, Pt . was independent/mod-I in Locomotion and Self-Care; and she had good Transfers Control, Safety Aware ness, Social Cognition, Sphincter Control, and Communication.Currently, she has deficits of Transfers Control, Balance, Locomotion, and Safety Awareness.Pt. is now referred to [facility] for acute in-patient rehabilitation in order to maximize patient's functional independence in activities of daily living, strength, ROM, and mobility.- Rehab Goal Patient has realistic goal of being discharged at assistance level 6-Lashanda to reside at Home with Pt self. REHAB PLAN: - Physical Therapy Gait dysfunction - to improve, our physical therapists will perform initial evaluation of pt's status upon admission and devise an individualized program for Gait Training, and Wheel Chair mobility Inability to transfer - to improve, our physical therapists will perform initial evaluation of pt's s tatus upon admission and devise an individualized program for Bed mobility Need for home safety evaluation - to improve, our physical therapists will perform initial evaluation of pt's status upon admission and devise an individualized program for Home Evaluation Need in caregiver upon discharge - to improve, our physical therapists will perform initial evaluatio n of pt's status upon admission and devise an individualized program for Caregiver Training Edema - to improve, our physical therapists will perform initial evaluation of pt's status upon admi ssion and devise an individualized program for Elevation Training, and Lymphedema Therapy New precaution - to improve, our physical therapists will perform initial evaluation of pt's status u katie admission and devise an individualized program for Patient precaution education Poor balance - to improve, our physical therapists will perform initial evaluation of pt's status upo n admission and devise an individualized program for Balance Training Weakness - to improve, our physical therapists will perform initial evaluation of pt's status upon ad mission and devise an individualized program for Aquatic Therapy, Neuromuscular Reeducation, and Stre ngthening Achieving independence - to improve, our physical therapists will perform initial evaluation of pt's status upon admission and devise an individualized program for Community Reintegration Activities - Occupational Therapy Need for geriatric personal care aide - to improve, our occupation therapists will perform initial evaluation of pt's s tatus upon admission and devise an individualized program for Caregiver Training Weakness - to improve, our occupation therapists will perform initial evaluation of pt's status upon admission and devise an individualized program for Aquatic Therapy, Balance, Endurance, UE ROM, and U E strengthening MEDICAL PLAN: - Diet Type Start Regular - Diet - Liquid Texture Start Regular - Tube Feed Start N/A - Other See attached MAR (Medication Administration Record) - Diet - Solid Texture Regular - Shower shower DISCHARGE PLAN: - Estimated Length of Stay (days) 10. - Consensus on plan Discharge plan has been discussed with primary caregiver. Patient/Family is in agreement with the martinez n. Primary caregiver is in agreement with the plan. - Patient/Family Goals Return home with assistance. - Planned Living Setting Upon Discharge Home, to live alone. Primary caregiver: Pt self. 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
[2019-10-25] MEDS: ATORVASTATIN 10 MG TAB PO SCH (20:13)
[2019-10-25] MEDS: MELATONIN 5 MG TABLET PO SCH (20:13)
[2019-10-26] MEDS: carvediloL 12.5 MG TAB PO SCH ×2 (05:05→17:24)
[2019-10-26] MEDS: THYROID 30 MG TAB PO SCH (05:06)
[2019-10-26] MEDS: ACETAMINOPHEN 500 MG TAB PO PRN ×3 (05:09→19:48)
[2019-10-26] MEDS: PANTOPRAZOLE 40MG TABLET PO SCH (06:42)
[2019-10-26] MEDS: SODIUM CHLORIDE 0.9% 10ML INJ IV SCH ×2 (06:46→19:49)
[2019-10-26] MEDS: ALBUTEROL INHALER 60 PUFF/8 GM IH PRN (07:34)
[2019-10-26] MEDS ORDERED: LIDOCAINE 4% PATCH TOP SCH (08:00)
[2019-10-26] MEDS: SOD CHLORIDE 0.65% NASAL SPRAY NAS SCH ×2 (08:19→20:00)
[2019-10-26] MEDS: VITAMIN B COMPLEX 1 CAP PO SCH (08:20)
[2019-10-26] MEDS: glipiZIDE 5 MG TAB PO SCH (08:20)
[2019-10-26] MEDS: CRANBERRY FRUIT EXTRACT 200 MG CAP PO SCH ×2 (08:20→19:45)
[2019-10-26] MEDS: ESCITALOPRAM 20 MG TAB PO SCH (08:20)
[2019-10-26] MEDS: ASPIRIN 81 MG CHEWABLE TABLET PO SCH (08:21)
[2019-10-26] MEDS: APIXABAN 2.5 MG TABLET PO SCH ×2 (09:08→19:46)
--- NOTE | 2019-10-26 09:42 | P.RH.PN ---
Estimated Length of Stay: 14 Expected Discharge Date: 10/07/19 Discharge Disposition Plan: Home Family Support: Yes Mcfp Goal: Mobility, Transfers, Self Care Vital Signs: Last Vital Signs Temp 97.4 F 10/26/19 08:41 Pulse 73 10/26/19 08:41 Resp 18 10/26/19 08:41 BP 135/65 10/26/19 08:41 Pulse Ox 97 10/26/19 08:41 Laboratory: Laboratory Last Values WBC 5.4 K/uL (4.3-10.9) 10/25/19 05:50 RBC 3.70 M/uL (3.86-4.86) L 10/25/19 05:50 Hgb 9.7 g/dL (12.0-15.0) L 10/25/19 05:50 Hct 29.9 % (36.0-45.0) L 10/25/19 05:50 MCV 80.7 fL (80-100) 10/25/19 05:50 MCH 26.1 pg (27.0-35.0) L 10/25/19 05:50 MCHC 32.3 g/dL (32.0-36.0) 10/25/19 05:50 RDW 17.6 % (12.1-15.2) H 10/25/19 05:50 Plt Count 238 K/uL (152-406) 10/25/19 05:50 MPV 8.3 fL (7.6-11.3) 10/25/19 05:50 Neutrophils % 67.3 % (41.7-73.7) 10/25/19 05:50 Lymphocytes % 17.9 % (15.3-44.8) 10/25/19 05:50 Monocytes % 9.0 % (3.3-12.3) 10/25/19 05:50 Eosinophils % 4.9 % (0-4.4) H 10/25/19 05:50 Basophils % 0.9 % (0-1.3) 10/25/19 05:50 Absolute Neutrophils 3.7 K/uL (1.8-8.0) 10/25/19 05:50 Absolute Lymphocytes 1.0 K/uL (0.7-4.9) 10/25/19 05:50 Absolute Monocytes 0.5 K/uL (0.1-1.3) 10/25/19 05:50 Absolute Eosinophils 0.3 K/uL (0-0.5) 10/25/19 05:50 Absolute Basophils 0.0 K/uL (0-0.5) 10/25/19 05:50 Sodium 142 mmol/L (136-145) 10/25/19 05:50 Potassium 4.3 mmol/L (3.5-5.1) 10/25/19 05:50 Chloride 105 mmol/L (98-107) 10/25/19 05:50 Carbon Dioxide 32 mmol/L (21-32) 10/25/19 05:50 BUN 32 mg/dL (7-18) H 10/25/19 05:50 Creatinine 1.25 mg/dL (0.55-1.3) 10/25/19 05:50 Estimated GFR 42 mL/min (=/>90) L 10/25/19 05:50 Glucose 136 mg/dL (74-106) H 10/25/19 05:50 POC Glucose 163 mg/dl (65-120) H 10/26/19 06:52 Calcium 9.0 mg/dL (8.5-10.1) 10/25/19 05:50 Magnesium 1.7 mg/dL (1.8-2.4) L 10/25/19 05:50 Albumin 2.3 g/dL (3.4-5.0) L 10/25/19 05:50 Prealbumin 12.3 mg/dL (20-40) L 10/25/19 05:50 Weight: 267 lb Wound Present: No Closed Surgical Incision Present: No Physician Update: Her labs were reviewed. Her Hgb is mildly low at 9.7, prealbumin low at 12.3 and blood sugars elevated 136 to 209. She is on hemocyte plus and promod. She is weak but making fair progress with occupational therpy. She walked 20' and transfers with minumum assistance. She has stairs at home and will likely require help while continuing therapy after discharge. Medical Issues: Patient is always incontinent with bladder and always continent with bowel. Pain Issues: Patient is taking Tylenol 500mg Q4H PO PRN for pain Functional Improvement: pt presents with severe generalized weakness. pt exhibits poor balance and stability during ambulation and functional transfers. pt demonstrates limited trunk strength. She is slow to process at times, but seems to provide accurate information. Further investigation required if pt may have a need for SCHOOL BUS DRIVER. pt experiences poor tolerance to functional activity due to pain, fatigue, and weakness. Skilled PT services are necessary to address the above mentioned impairments and functional limitations. Speech Therapy Update: BIMS. Pending Cognitive Evaluation due to hx of CVA and slow processing speed. Summary: Patient's care plan and intermediate goals have been reviewed and revised as necessary. Please see the Rehabilitation Signature page for all necessary signatures.
--- NOTE | 2019-10-26 15:41 | FAST ---
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 Aftab Leonard M.D. ADMISSION DIAGNOSIS: - Cardiac 09 - Cardiac Disorders () CHF Exacerbation. EATING: Not assessed/no information CODE: - ORAL HYGIENE: ORAL HYGIENE - STEP 1: Does the patient complete the activity by him/herself with no assistance (physical, verbal/nonverbal cueing, setup/clean-up)? No. ORAL HYGIENE - STEP 2: Does the patient need only setup/clean-up assistance from one helper? Yes. 1. [id number] ADMISSION PERFORMANCE: Setup or clean-up assistance CODE: 05 TOILETING HYGIENE: TOILETING HYGIENE - STEP 1: Does the patient complete the activity by him/herself with no assistance (physical, verbal/nonverbal cueing, setup/clean-up)? No. TOILETING HYGIENE - STEP 2: Does the patient need only setup/clean-up assistance from one helper? No. TOILETING HYGIENE - STEP 3: Does the patient need only verbal/nonverbal cueing or touching/steadying/contact guard assistance fro m one helper? No. TOILETING HYGIENE - STEP 4: Does the patient need physical assistance - for example lifting or trunk support from one helper - wi th the helper providing less than half of the effort? Yes. 1. [id number] ADMISSION PERFORMANCE: Partial/moderate assistance CODE: 03 BATHING: Not assessed/no information CODE: - DRESSING - UPPER BODY: Not assessed/no information CODE: - DRESSING - LOWER BODY: Not assessed/no information CODE: - PUTTING ON/TAKING OFF FOOTWEAR: Not assessed/no information CODE: - DOES THE PATIENT USE A WHEELCHAIR/SCOOTER? CODE: EXPR INDICATE THE TYPE OF WHEELCHAIR/SCOOTER USED: CODE: EXPR INDICATE THE TYPE OF WHEELCHAIR/SCOOTER USED: CODE: EXPR BLADDER AND BOWEL: CODE: EXPR CODE: EXPR SIGNATURE PANEL: The following modified sections: 1. [id number] Admission Performance, 1. [id number] Admission Performance w ere [electronically] signed by GLORIA Alvarez on TueOct 26 2019 15:39:39 GMT-0600 (Central Standard Time)
[2019-10-26] MEDS: DOCUSATE NA/SENNA CONC 1 TAB PO PRN (19:42)
[2019-10-26] MEDS: ATORVASTATIN 10 MG TAB PO SCH (22:00)
[2019-10-26] MEDS: MELATONIN 5 MG TABLET PO SCH (22:00)
[2019-10-26] MEDS: HYDROCODONE/APAP 10/325 TAB PO PRN (22:50)
[2019-10-27] MEDS: THYROID 30 MG TAB PO SCH (05:13)
[2019-10-27] MEDS: carvediloL 12.5 MG TAB PO SCH ×2 (05:13→17:26)
[2019-10-27] MEDS: PANTOPRAZOLE 40MG TABLET PO SCH (06:43)
[2019-10-27] MEDS: SODIUM CHLORIDE 0.9% 10ML INJ IV SCH ×2 (08:50→20:06)
[2019-10-27] MEDS: LIDOCAINE 4% PATCH TOP SCH (08:51)
[2019-10-27] MEDS: ASPIRIN 81 MG CHEWABLE TABLET PO SCH (08:52)
[2019-10-27] MEDS: CRANBERRY FRUIT EXTRACT 200 MG CAP PO SCH ×2 (08:52→21:06)
[2019-10-27] MEDS: VITAMIN B COMPLEX 1 CAP PO SCH (08:52)
[2019-10-27] MEDS: APIXABAN 2.5 MG TABLET PO SCH ×2 (08:52→21:06)
[2019-10-27] MEDS: glipiZIDE 5 MG TAB PO SCH (08:53)
[2019-10-27] MEDS: HYDROCODONE/APAP 10/325 TAB PO PRN ×2 (08:53→23:13)
[2019-10-27] MEDS: SOD CHLORIDE 0.65% NASAL SPRAY NAS SCH ×2 (08:53→21:05)
[2019-10-27] MEDS: ESCITALOPRAM 20 MG TAB PO SCH (08:53)
--- NOTE | 2019-10-27 16:18 | FAST ---
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 Aftab Leonard M.D. ADMISSION DIAGNOSIS: - Cardiac 09 - Cardiac Disorders () CHF Exacerbation. EATING: Not assessed/no information CODE: - ORAL HYGIENE: Not assessed/no information CODE: - TOILETING HYGIENE: Not assessed/no information CODE: - BATHING: SHOWER/BATHE SELF - STEP 1: Does the patient complete the activity by him/herself with no assistance (physical, verbal/nonverbal cueing, setup/clean-up)? No. SHOWER/BATHE SELF - STEP 2: Does the patient need only setup/clean-up assistance from one helper? No. SHOWER/BATHE SELF - STEP 3: Does the patient need only verbal/nonverbal cueing or touching/steadying/contact guard assistance fro m one helper? No. SHOWER/BATHE SELF - STEP 4: Does the patient need physical assistance - for example lifting or trunk support from one helper - wi th the helper providing less than half of the effort? Yes. 1. [id number] ADMISSION PERFORMANCE: Partial/moderate assistance CODE: 03 DRESSING - UPPER BODY: DRESSING - UPPER BODY - STEP 1: Does the patient complete the activity by him/herself with no assistance (physical, verbal/nonverbal cueing, setup/clean-up)? No. DRESSING - UPPER BODY - STEP 2: Does the patient need only setup/clean-up assistance from one helper? No. DRESSING - UPPER BODY - STEP 3: Does the patient need only verbal/nonverbal cueing or touching/steadying/contact guard assistance fro m one helper? No. DRESSING - UPPER BODY - STEP 4: Does the patient need physical assistance - for example lifting or trunk support from one helper - wi th the helper providing less than half of the effort? Yes. 1. [id number] ADMISSION PERFORMANCE: Partial/moderate assistance CODE: 03 DRESSING - LOWER BODY: DRESSING - LOWER BODY - STEP 1: Does the patient complete the activity by him/herself with no assistance (physical, verbal/nonverbal cueing, setup/clean-up)? No. DRESSING - LOWER BODY - STEP 2: Does the patient need only setup/clean-up assistance from one helper? No. DRESSING - LOWER BODY - STEP 3: Does the patient need only verbal/nonverbal cueing or touching/steadying/contact guard assistance fro m one helper? No. DRESSING - LOWER BODY - STEP 4: Does the patient need physical assistance - for example lifting or trunk support from one helper - wi th the helper providing less than half of the effort? No. DRESSING - LOWER BODY - STEP 5: Does the patient need physical assistance - for example lifting or trunk support from one helper - wi th the helper providing more than half of the effort? Yes. 1. [id number] ADMISSION PERFORMANCE: Substantial/maximal assistance CODE: 02 PUTTING ON/TAKING OFF FOOTWEAR: FOOTWEAR - STEP 1: Does the patient complete the activity by him/herself with no assistance (physical, verbal/nonverbal cueing, setup/clean-up)? No. FOOTWEAR - STEP 2: Does the patient need only setup/clean-up assistance from one helper? No. FOOTWEAR - STEP 3: Does the patient need only verbal/nonverbal cueing or touching/steadying/contact guard assistance fro m one helper? No. FOOTWEAR - STEP 4: Does the patient need physical assistance - for example lifting or trunk support from one helper - wi th the helper providing less than half of the effort? No. FOOTWEAR - STEP 5: Does the patient need physical assistance - for example lifting or trunk support from one helper - wi th the helper providing more than half of the effort? Yes. 1. [id number] ADMISSION PERFORMANCE: Substantial/maximal assistance CODE: 02 DOES THE PATIENT USE A WHEELCHAIR/SCOOTER? CODE: EXPR INDICATE THE TYPE OF WHEELCHAIR/SCOOTER USED: CODE: EXPR INDICATE THE TYPE OF WHEELCHAIR/SCOOTER USED: CODE: EXPR BLADDER AND BOWEL: CODE: EXPR CODE: EXPR SIGNATURE PANEL: The following modified sections: 1. [id number] Admission Performance, 1. [id number] Admission Performance, 1. [id number] Admission Performance, 1. [id number] Admission Performance were [electronically] signed by Coy Schwab OT on Sat Oct 27 2019 16:17:58 GMT-0600 (Central Standard Time)
[2019-10-27] MEDS: MELATONIN 5 MG TABLET PO SCH (21:06)
[2019-10-27] MEDS: ATORVASTATIN 10 MG TAB PO SCH (21:06)
[2019-10-28] MEDS: THYROID 30 MG TAB PO SCH (05:22)
[2019-10-28] MEDS: carvediloL 12.5 MG TAB PO SCH ×2 (05:23→16:37)
[2019-10-28] MEDS: PANTOPRAZOLE 40MG TABLET PO SCH (06:29)
[2019-10-28] MEDS ORDERED: ONDANSETRON 4 MG (ODT) TAB PO PRN (07:27)
[2019-10-28] MEDS: SOD CHLORIDE 0.65% NASAL SPRAY NAS SCH ×2 (08:27→20:52)
[2019-10-28] MEDS: HYDROCODONE/APAP 10/325 TAB PO PRN ×2 (08:28→17:47)
[2019-10-28] MEDS: CRANBERRY FRUIT EXTRACT 200 MG CAP PO SCH ×2 (08:29→20:51)
[2019-10-28] MEDS: VITAMIN B COMPLEX 1 CAP PO SCH (08:29)
[2019-10-28] MEDS: ESCITALOPRAM 20 MG TAB PO SCH (08:29)
[2019-10-28] MEDS: SODIUM CHLORIDE 0.9% 10ML INJ IV SCH ×2 (08:30→20:53)
[2019-10-28] MEDS: ASPIRIN 81 MG CHEWABLE TABLET PO SCH (08:30)
[2019-10-28] MEDS: glipiZIDE 5 MG TAB PO SCH (08:30)
[2019-10-28] MEDS: APIXABAN 2.5 MG TABLET PO SCH ×2 (08:30→20:52)
[2019-10-28] MEDS: LIDOCAINE 4% PATCH TOP SCH (08:30)
[2019-10-28] MEDS: ATORVASTATIN 10 MG TAB PO SCH (20:52)
[2019-10-28] MEDS: MELATONIN 5 MG TABLET PO SCH (20:52)
[2019-10-29] MEDS: HYDROCODONE/APAP 10/325 TAB PO PRN ×3 (00:38→20:35)
[2019-10-29] MEDS: THYROID 30 MG TAB PO SCH (05:28)
[2019-10-29] MEDS: carvediloL 12.5 MG TAB PO SCH ×2 (05:29→17:25)
[2019-10-29] MEDS: PANTOPRAZOLE 40MG TABLET PO SCH (07:09)
[2019-10-29] MEDS: SODIUM CHLORIDE 0.9% 10ML INJ IV SCH ×2 (08:00→20:34)
[2019-10-29] MEDS: CRANBERRY FRUIT EXTRACT 200 MG CAP PO SCH ×2 (08:57→20:33)
[2019-10-29] MEDS: VITAMIN B COMPLEX 1 CAP PO SCH (08:57)
[2019-10-29] MEDS: APIXABAN 2.5 MG TABLET PO SCH ×2 (08:58→20:33)
[2019-10-29] MEDS: SOD CHLORIDE 0.65% NASAL SPRAY NAS SCH ×2 (08:58→20:34)
[2019-10-29] MEDS: glipiZIDE 5 MG TAB PO SCH (08:58)
[2019-10-29] MEDS: ASPIRIN 81 MG CHEWABLE TABLET PO SCH (08:58)
[2019-10-29] MEDS: ESCITALOPRAM 20 MG TAB PO SCH (08:58)
[2019-10-29] MEDS: LIDOCAINE 4% PATCH TOP SCH (10:48)
[2019-10-29] MEDS ORDERED: D50W 25 GM/50 ML SYRINGE/VIAL IV PRN (13:25)
[2019-10-29] MEDS ORDERED: GLUCAGON 1 MG/VIAL IM PRN (13:25)
--- NOTE | 2019-10-29 14:02 | FAST ---
SHIFT START DATE/TIME: 10/29/2019 07:00 (COMPUTER INSTALLER) SHIFT END DATE/TIME: 10/29/2019 19:00 (COMPUTER INSTALLER) NAME ROBY COLON DATE OF : 1945 DATE OF ADMISSION: 10/24/2019 17:32 (COMPUTER INSTALLER) PHONE: AGE: 74 N# [id number] GENDER: Female ENCOUNTER PHYSICIAN: Dr. Aftab Leonard M.D. ADMISSION DIAGNOSIS: - Cardiac 09 - Cardiac Disorders () CHF Exacerbation. EATING: EATING - STEP 1: Does the patient complete the activity by him/herself with no assistance (physical, verbal/nonverbal cueing, setup/clean-up)? No. EATING - STEP 2: Does the patient need only setup/clean-up assistance from one helper? Yes. 1. [id number] ADMISSION PERFORMANCE: Setup or clean-up assistance CODE: 05 ORAL HYGIENE: ORAL HYGIENE - STEP 1: Does the patient complete the activity by him/herself with no assistance (physical, verbal/nonverbal cueing, setup/clean-up)? No. ORAL HYGIENE - STEP 2: Does the patient need only setup/clean-up assistance from one helper? Yes. 1. [id number] ADMISSION PERFORMANCE: Setup or clean-up assistance CODE: 05 TOILETING HYGIENE: TOILETING HYGIENE - STEP 1: Does the patient complete the activity by him/herself with no assistance (physical, verbal/nonverbal cueing, setup/clean-up)? No. TOILETING HYGIENE - STEP 2: Does the patient need only setup/clean-up assistance from one helper? No. TOILETING HYGIENE - STEP 3: Does the patient need only verbal/nonverbal cueing or touching/steadying/contact guard assistance fro m one helper? No. TOILETING HYGIENE - STEP 4: Does the patient need physical assistance - for example lifting or trunk support from one helper - wi th the helper providing less than half of the effort? Yes. 1. [id number] ADMISSION PERFORMANCE: Partial/moderate assistance CODE: 03 BATHING: Not assessed/no information CODE: - DRESSING - UPPER BODY: DRESSING - UPPER BODY - STEP 1: Does the patient complete the activity by him/herself with no assistance (physical, verbal/nonverbal cueing, setup/clean-up)? No. DRESSING - UPPER BODY - STEP 2: Does the patient need only setup/clean-up assistance from one helper? No. DRESSING - UPPER BODY - STEP 3: Does the patient need only verbal/nonverbal cueing or touching/steadying/contact guard assistance fro m one helper? No. DRESSING - UPPER BODY - STEP 4: Does the patient need physical assistance - for example lifting or trunk support from one helper - wi th the helper providing less than half of the effort? Yes. 1. [id number] ADMISSION PERFORMANCE: Partial/moderate assistance CODE: 03 DRESSING - LOWER BODY: DRESSING - LOWER BODY - STEP 1: Does the patient complete the activity by him/herself with no assistance (physical, verbal/nonverbal cueing, setup/clean-up)? No. DRESSING - LOWER BODY - STEP 2: Does the patient need only setup/clean-up assistance from one helper? No. DRESSING - LOWER BODY - STEP 3: Does the patient need only verbal/nonverbal cueing or touching/steadying/contact guard assistance fro m one helper? No. DRESSING - LOWER BODY - STEP 4: Does the patient need physical assistance - for example lifting or trunk support from one helper - wi th the helper providing less than half of the effort? Yes. 1. [id number] ADMISSION PERFORMANCE: Partial/moderate assistance CODE: 03 PUTTING ON/TAKING OFF FOOTWEAR: FOOTWEAR - STEP 1: Does the patient complete the activity by him/herself with no assistance (physical, verbal/nonverbal cueing, setup/clean-up)? No. FOOTWEAR - STEP 2: Does the patient need only setup/clean-up assistance from one helper? No. FOOTWEAR - STEP 3: Does the patient need only verbal/nonverbal cueing or touching/steadying/contact guard assistance fro m one helper? No. FOOTWEAR - STEP 4: Does the patient need physical assistance - for example lifting or trunk support from one helper - wi th the helper providing less than half of the effort? No. FOOTWEAR - STEP 5: Does the patient need physical assistance - for example lifting or trunk support from one helper - wi th the helper providing more than half of the effort? Yes. 1. [id number] ADMISSION PERFORMANCE: Substantial/maximal assistance CODE: 02 ROLL LEFT AND RIGHT: ROLL LEFT AND RIGHT - STEP 1: Does the patient complete the activity by him/herself with no assistance (physical, verbal/nonverbal cueing, setup/clean-up)? No. ROLL LEFT AND RIGHT - STEP 2: Does the patient need only setup/clean-up assistance from one helper? No. ROLL LEFT AND RIGHT - STEP 3: Does the patient need only verbal/nonverbal cueing or touching/steadying/contact guard assistance fro m one helper? No. ROLL LEFT AND RIGHT - STEP 4: Does the patient need physical assistance - for example lifting or trunk support from one helper - wi th the helper providing less than half of the effort? Yes. 1. [id number] ADMISSION PERFORMANCE: Partial/moderate assistance CODE: 03 SIT TO LYING: SIT TO LYING - STEP 1: Does the patient complete the activity by him/herself with no assistance (physical, verbal/nonverbal cueing, setup/clean-up)? No. SIT TO LYING - STEP 2: Does the patient need only setup/clean-up assistance from one helper? No. SIT TO LYING - STEP 3: Does the patient need only verbal/nonverbal cueing or touching/steadying/contact guard assistance fro m one helper? No. SIT TO LYING - STEP 4: Does the patient need physical assistance - for example lifting or trunk support from one helper - wi th the helper providing less than half of the effort? Yes. 1. [id number] ADMISSION PERFORMANCE: Partial/moderate assistance CODE: 03 LYING TO SITTING: LYING TO SITTING ON SIDE OF BED - STEP 1: Does the patient complete the activity by him/herself with no assistance (physical, verbal/nonverbal cueing, setup/clean-up)? No. LYING TO SITTING ON SIDE OF BED - STEP 2: Does the patient need only setup/clean-up assistance from one helper? No. LYING TO SITTING ON SIDE OF BED - STEP 3: Does the patient need only verbal/nonverbal cueing or touching/steadying/contact guard assistance fro m one helper? No. LYING TO SITTING ON SIDE OF BED - STEP 4: Does the patient need physical assistance - for example lifting or trunk support from one helper - wi th the helper providing less than half of the effort? Yes. 1. [id number] ADMISSION PERFORMANCE: Partial/moderate assistance CODE: 03 SIT TO STAND: SIT TO STAND - STEP 1: Does the patient complete the activity by him/herself with no assistance (physical, verbal/nonverbal cueing, setup/clean-up)? No. SIT TO STAND - STEP 2: Does the patient need only setup/clean-up assistance from one helper? No. SIT TO STAND - STEP 3: Does the patient need only verbal/nonverbal cueing or touching/steadying/contact guard assistance fro m one helper? No. SIT TO STAND - STEP 4: Does the patient need physical assistance - for example lifting or trunk support from one helper - wi th the helper providing less than half of the effort? Yes. 1. [id number] ADMISSION PERFORMANCE: Partial/moderate assistance CODE: 03 TRANSFERS: BED, CHAIR: CHAIR/[id number] TRANSFER - STEP 1: Does the patient complete the activity by him/herself with no assistance (physical, verbal/nonverbal cueing, setup/clean-up)? No. CHAIR/[id number] TRANSFER - STEP 2: Does the patient need only setup/clean-up assistance from one helper? No. CHAIR/[id number] TRANSFER - STEP 3: Does the patient need only verbal/nonverbal cueing or touching/steadying/contact guard assistance fro m one helper? No. CHAIR/[id number] TRANSFER - STEP 4: Does the patient need physical assistance - for example lifting or trunk support from one helper - wi th the helper providing less than half of the effort? Yes. 1. [id number] ADMISSION PERFORMANCE: Partial/moderate assistance CODE: 03 TRANSFER TOILET: TOILET TRANSFER - STEP 1: Does the patient complete the activity by him/herself with no assistance (physical, verbal/nonverbal cueing, setup/clean-up)? No. TOILET TRANSFER - STEP 2: Does the patient need only setup/clean-up assistance from one helper? No. TOILET TRANSFER - STEP 3: Does the patient need only verbal/nonverbal cueing or touching/steadying/contact guard assistance fro m one helper? No. TOILET TRANSFER - STEP 4: Does the patient need physical assistance - for example lifting or trunk support from one helper - wi th the helper providing less than half of the effort? Yes. 1. [id number] ADMISSION PERFORMANCE: Partial/moderate assistance CODE: 03 TRANSFERS: CAR: Not assessed/no information CODE: - WALK 10 FEET: Not assessed/no information CODE: - 4 STEPS: Not assessed/no information CODE: - 12 STEPS: PICKING UP OBJECT: Not assessed/no information CODE: - DOES THE PATIENT USE A WHEELCHAIR/SCOOTER? CODE: EXPR WHEEL 50 FEET WITH TWO TURNS: Not assessed/no information CODE: - INDICATE THE TYPE OF WHEELCHAIR/SCOOTER USED: RR1. INDICATE THE TYPE OF WHEELCHAIR/SCOOTER USED.: Manual CODE: 1 WHEEL 150 FEET: Not assessed/no information CODE: - INDICATE THE TYPE OF WHEELCHAIR/SCOOTER USED: SS1. INDICATE THE TYPE OF WHEELCHAIR/SCOOTER USED.: Manual CODE: 1 BLADDER AND BOWEL: H350. BLADDER CONTINENCE (3-DAY ASSESSMENT PERIOD): Always incontinent CODE: 4 H400. BOWEL CONTINENCE (3-DAY ASSESSMENT PERIOD): Always continent CODE: 0 SIGNATURE PANEL: The following modified sections: 1. [id number] Admission Performance, 1. OP0930T Admission Performance, 1. VB2211M Admission Performance, 1. UO2641g Admission Performance, 1. AX6161j Admission Performance, 1. RZ7280k Admission Performance, 1. JI0282r Admission Performance, 1. IX0819q Admission Performance , 1. WM0499r Admission Performance, 1. [id number] Admission Performance, 1. JL5235V Admission Performanc e, 1. BD4039N Admission Performance, 1. RV8916S Admission Performance, 1. RS2565W Admission Performan ce, 1. GE2683U Admission Performance, 1. PM4480S Admission Performance, 1. AP7118D Admission Performa nce, 1. BQ0752S Admission Performance, RR1. Indicate the type of wheelchair/scooter used., Code, SS1. Indicate the type of wheelchair/scooter used., H400. Bowel Continence (3-day assessment period), H35 0. Bladder Continence (3-day assessment period) were [electronically] signed by [email or web address] [email or web address] on TueOct 29 2019 14:01:37 GMT-0600 (Central Standard Time)
[2019-10-29] MEDS: INSULIN -REGULAR HUMAN 50 UNIT/0.5 ML ML SQ SCH ×2 (16:30→21:34)
--- NOTE | 2019-10-29 18:01 | R.PN ---
ENCOUNTER DATE AND TIME: 10/29/2019 17:46 (REFINERY OPERATOR) NAME ROBY COLON DATE OF : 1945 DATE OF ADMISSION: 10/24/2019 17:32 (REFINERY OPERATOR) CHF ExacerbationSUBJECTIVE: Pt denied any depression. Pt denied any Shortness of Breath. WBC 5.4, Hgb 9.7, glucose 140 to 168. ADLs done with moderate assistance. VITAL SIGNS Temperature: 97.5 F SBP/DBP: 120/59 Pulse: 62 Resp: 16 MEDICATION ALLERGIES: No Known Drug Allergies (NKDA) ENVIRONMENTAL ALLERGIES: None Known - Substance Allergies None Known - Other Allergies None Known NURSING: - Shower allowing shower ACTIVITIES OOB only with supervision THERAPIES: - Dietary and Nutrition Adequate Nutrition. Nutritional Education. Nutritional Supplements. PHYSICAL EXAM - Gen Alert and awake Lying in bed No apparent distress Oriented to: person, time, and place - Vital Signs Vital signs stable, afebrile - Skin No skin breakdown. Normacephalic - Eyes No abnormalities - Neck No abnormalities - CVS RRR - Chest No abnormalities - Resp Clear to auscultation - Abd Soft - GI Non distended Deferred - No abnormalities - Ext Mild bilateral lower extremity edema. - MSK 4+/5 weakness in both lower extremities. - Neuro 4/5 strength bilaterally upper and lower extremities. - Psych No abnormalities ASSESSMENT: Pt. is a 74 yo Right-handed female.On 10/19/2019 she was admitted to [facility] with diagno sis CHF Exacerbation.Her impairment category is Cardiac 09 - Cardiac Disorders (09).Pre-morbidly, Pt . was independent/mod-I in Locomotion and Self-Care; and she had good Transfers Control, Safety Aware ness, Social Cognition, Sphincter Control, and Communication.Currently, she has deficits of Transfers Control, Balance, Locomotion, and Safety Awareness.Pt. is now referred to [facility] for acute in-patient rehabilitation in order to maximize patient's functional independence in activities of daily living, strength, ROM, and mobility.- Rehab Goal Patient has realistic goal of being discharged at assistance level 6-Lashanda to reside at Home with Pt self. MDM/PLAN: - Physical Therapy Gait dysfunction - to improve, our physical therapists will perform initial evaluation of pt's statu s upon admission and devise an individualized program for Gait Training, and Wheel Chair mobility Inability to transfer - to improve, our physical therapists will perform initial evaluation of pt's status upon admission and devise an individualized program for Bed mobility Need for home safety evaluation - to improve, our physical therapists will perform initial evaluatio n of pt's status upon admission and devise an individualized program for Home Evaluation Need in caregiver upon discharge - to improve, our physical therapists will perform initial evaluati on of pt's status upon admission and devise an individualized program for Caregiver Training Edema - to improve, our physical therapists will perform initial evaluation of pt's status upon admis mitul and devise an individualized program for Elevation Training, and Lymphedema Therapy New precaution - to improve, our physical therapists will perform initial evaluation of pt's status upon admission and devise an individualized program for Patient precaution education Poor balance - to improve, our physical therapists will perform initial evaluation of pt's status up on admission and devise an individualized program for Balance Training Weakness - to improve, our physical therapists will perform initial evaluation of pt's status upon a dmission and devise an individualized program for Aquatic Therapy, Neuromuscular Reeducation, and Str engthening Achieving independence - to improve, our physical therapists will perform initial evaluation of pt's status upon admission and devise an individualized program for Community Reintegration Activities - Occupational Therapy Need for grounds caretaker - to improve, our occupation therapists will perform initial evaluation of pt's status upon admission and devise an individualized program for Caregiver Training Weakness - to improve, our occupation therapists will perform initial evaluation of pt's status upon admission and devise an individualized program for Aquatic Therapy, Balance, Endurance, UE ROM, and UE strengthening - Other See attached MAR (Medication Administration Record) - Diet Type Continue Regular - Diet - Liquid Texture Continue Regular - Tube Feed Continue N/A - Diet - Solid Texture Continue Regular - Shower allowing shower FUNCTIONAL STATUS: UPDATED AT WEEKLY TEAM CONFERENCE - Bladder Same accident frequency: 7-Ind - No accidents in the past 7 days - Bowel Same accident frequency: 7-Ind - No accidents in the past 7 days - Walking Same score based on distance walked: 1(<=50ft) FUNCTIONAL STATUS: - Self-Care A. Eating Lashanda B. Grooming sup C. Bathing modA D. Dressing - Upper sup E. Dressing - Lower modA F. Toileting sup - Sphincter Control G. Bladder control sup H. Bowel control sup - Transfers Control I. Bed/Chair/Wheelchair modA J. Toilet modA K. Tub/Shower modA - Locomotion L. Walk/Wheelchair (B) modA M. Stairs ADNO - Communication N. Comprehension (B) sup O. Expression (B) sup - Social Cognition P. Social Interaction sup Q. Problem Solving sup R. Memory Lashanda - Endurance Good - Balance Good - Safety Awareness Good QI SCORES: - Self-Care A. Eating 05-Setup or clean-up assistance B. Oral hygiene 05-Setup or clean-up assistance C. Toileting hygiene 04-Supervision or touching assistance E. Shower/bathe self 04-Supervision or touching assistance F. Upper body dressing G. Lower body dressing 04-Supervision or touching assistance H. Putting on/taking off footwear 04-Supervision or touching assistance - Mobility A. Roll left and right 04-Supervision or touching assistance B. Sit to lying 04-Supervision or touching assistance C. Lying to sitting on side of bed 04-Supervision or touching assistance D. Sit to stand 04-Supervision or touching assistance E. Chair/[id number] transfer 04-Supervision or touching assistance F. Toilet transfer 04-Supervision or touching assistance G. Car transfer 10-Not attempted due to environmental limitations I. Walk 10 feet 03-Partial/moderate assistance J. Walk 50 feet with two turns 88-Not attempted due to medical condition or safety concerns K. Walk 150 feet 88-Not attempted due to medical condition or safety concerns L. Walking 10 feet on uneven surfaces 88-Not attempted due to medical condition or safety concerns M. 1 step (curb) 88-Not attempted due to medical condition or safety concerns N. 4 steps 88-Not attempted due to medical condition or safety concerns O. 12 steps 88-Not attempted due to medical condition or safety concerns P. Picking up object 04-Supervision or touching assistance R. Wheel 50 feet with two turns 88-Not attempted due to medical condition or safety concerns S. Wheel 150 feet - Bladder and Bowel Bladder continence 0-Always continent Bowel continence 0-Always continent - Endurance Poor - Balance Poor - Safety Awareness Poor CURRENT FUNC. DEFICITS: Self-Care, Mobility, Endurance, Balance, and Safety Awareness SIGNATURE PANEL: ([facility])
[2019-10-29] MEDS: ATORVASTATIN 10 MG TAB PO SCH (20:33)
[2019-10-29] MEDS: MELATONIN 5 MG TABLET PO SCH (20:33)
[2019-10-29] MEDS ORDERED: INSULIN -REGULAR HUMAN 50 UNIT/0.5 ML ML ONE (21:31)
[2019-10-30] MEDS: carvediloL 12.5 MG TAB PO SCH ×2 (05:13→16:49)
[2019-10-30] MEDS: THYROID 30 MG TAB PO SCH (05:14)
[2019-10-30] MEDS: PANTOPRAZOLE 40MG TABLET PO SCH (06:29)
[2019-10-30] MEDS: INSULIN -REGULAR HUMAN 50 UNIT/0.5 ML ML SQ SCH ×4 (07:30→19:59)
[2019-10-30] MEDS: SODIUM CHLORIDE 0.9% 10ML INJ IV SCH ×2 (08:00→19:57)
[2019-10-30] MEDS: SOD CHLORIDE 0.65% NASAL SPRAY NAS SCH ×2 (08:00→19:53)
--- NOTE | 2019-10-30 08:14 | P.CNS ---
Date of Consult: 10/30/19 Reason for Consult: Painful toenails Requesting Physician: Aftab Leonard Chief Complaint: Painful elongated toenails Allergies No Known Allergies Allergy (Verified 06/11/18 15:56) Home Medications: Atorvastatin Calcium [Lipitor*] 10 mg PO DAILY 06/11/18 Escitalopram [Lexapro*] 10 mg PO DAILY 06/11/18 Glipizide [Glipizide Xl] 5 mg PO DAILY 06/11/18 Pantoprazole Sodium 40 mg PO DAILY 06/11/18 Thyroid Tab [[place] Thyroid*] 15 mg PO DAILY 06/11/18 Aspirin [Aspirin EC 81 MG] 81 mg PO DAILY #30 tablet. 06/17/18 Albuterol Sulfate [Proair Digihaler] 2 puff IH Q6H PRN 10/19/19 B-Complex with Vitamin C [Vitamin B-Complex with Vit C] 1 tab PO DAILY 10/19/19 Turmeric Root Extract [Turmeric] 1 tab PO DAILY 10/19/19 carvediloL [Coreg*] 12.5 mg PO BID 6AM 6PM 10/19/19 Furosemide [Lasix*] 40 mg PO DAILYPRN PRN #30 tab 10/20/19 Meropenem [Merrem] 1 gm IV BID 7 Days #14 vial 10/23/19 - Past Medical/Surgical History Diabetic: Yes -: Diabetes mellitus type 2 -: Hypothyroidism -: HTN -: History of CVA with residual right upper extremity weakness -: Coronary artery disease -: Obesity -: Depression with anxiety -: Hyperlipidemia -: Pacemaker -: Cholecystectomy -: Back sx -: Hysterectomy -: Cataract surgery -: pacemaker (10/01/2015) Psychosocial/ Personal History: Patient is a . She has children. She does not work. - Family History Brother Medical History: Heart disease Mother Medical History: Diabetes - Social History Alcohol use: No CD- Drugs: No Caffeine use: Yes Place of Residence: [facility] Review of Systems 10-point ROS is otherwise unremarkable Physical Examination Temp Pulse Resp BP Pulse Ox 97.4 F 65 16 123/55 L 95 10/30/19 07:07 10/30/19 07:07 10/30/19 07:07 10/30/19 07:07 02/04/20 07:07 General: Alert, In no apparent distress, Oriented x3 Cardiovascular: Edema (+1 pitting edema bilateral lower extremities), Abnormal pulses (1/4 dorsalis pedis, 0/4 posterior tibial pulse bilateral) Capillary refill: <2 Seconds Musculoskeletal: No clubbing, No swelling, No contractures, No erythema, No tenderness, No warmth Integumentary: No rashes, No breakdown, No significant lesion, No tenderness/ swelling, No erythema, No warmth, No cyanosis, Other (Thickened hypertrophic left second, fourth, fifth, and right hallux nails with subungual debris. Remaining nails are elongated and discolored. Multiple abrasion lower extremity that appear to be healing well) Neurological: Sensation intact - Problems (1) Generalized atherosclerosis Current Visit: Yes Status: Acute (2) Tinea unguium Current Visit: Yes Status: Acute (3) Onychogryphosis Current Visit: Yes Status: Acute Conclusions/Impression: Mechanical debridement of nails at bedside. Physician Review: Patient Assessed, Agree with Above Assessment and Plan Critical Care: No Time Spent Managing Pts care (In Minutes): 20
[2019-10-30] MEDS: VITAMIN B COMPLEX 1 CAP PO SCH (08:49)
[2019-10-30] MEDS: LIDOCAINE 4% PATCH TOP SCH (08:49)
[2019-10-30] MEDS: CRANBERRY FRUIT EXTRACT 200 MG CAP PO SCH ×2 (08:49→19:53)
[2019-10-30] MEDS: APIXABAN 2.5 MG TABLET PO SCH ×2 (08:50→19:54)
[2019-10-30] MEDS: ASPIRIN 81 MG CHEWABLE TABLET PO SCH (08:50)
[2019-10-30] MEDS: ESCITALOPRAM 20 MG TAB PO SCH (08:50)
[2019-10-30] MEDS: glipiZIDE 5 MG TAB PO SCH (08:50)
[2019-10-30] MEDS: HYDROCODONE/APAP 10/325 TAB PO PRN ×2 (08:53→19:54)
[2019-10-30] MEDS: ACETAMINOPHEN 500 MG TAB PO PRN (12:32)
--- NOTE | 2019-10-30 18:16 | R.PN ---
ENCOUNTER DATE AND TIME: 10/30/2019 18:13 (RETAIL BAKERY MANAGER) NAME ROBY COLON DATE OF : 1945 DATE OF ADMISSION: 10/24/2019 17:32 (RETAIL BAKERY MANAGER) CHF ExacerbationCHIEF COMPLAINT: CHF exacerbation with debility SUBJECTIVE: Pt denied any depression. Pt denied any Shortness of Breath. WBC 5.4, Hgb 9.7, glucose 89 to 150. ADLs done with moderate assistance. Ambulated 85' with rolling walker and partial assistance. VITAL SIGNS Temperature: 97.5 F SBP/DBP: 128/69 Pulse: 68 Resp: 16 MEDICATION ALLERGIES: No Known Drug Allergies (NKDA) ENVIRONMENTAL ALLERGIES: None Known - Substance Allergies None Known - Other Allergies None Known NURSING: - Shower allowing shower ACTIVITIES OOB only with supervision THERAPIES: - Dietary and Nutrition Adequate Nutrition. Nutritional Education. Nutritional Supplements. PHYSICAL EXAM - Gen Alert and awake Lying in bed No apparent distress Oriented to: person, time, and place - Vital Signs Vital signs stable, afebrile - Skin No skin breakdown. Normacephalic - Eyes No abnormalities - Neck No abnormalities - CVS RRR - Chest No abnormalities - Resp Clear to auscultation - Abd Soft - GI Non distended Deferred - No abnormalities - Ext Mild bilateral lower extremity edema. - MSK 4+/5 weakness in both lower extremities. - Neuro 4/5 strength bilaterally upper and lower extremities. - Psych No abnormalities ASSESSMENT: Pt. is a 74 yo Right-handed female.On 10/19/2019 she was admitted to [facility] with diagno sis CHF Exacerbation.Her impairment category is Cardiac 09 - Cardiac Disorders (09).Pre-morbidly, Pt . was independent/mod-I in Locomotion and Self-Care; and she had good Transfers Control, Safety Aware ness, Social Cognition, Sphincter Control, and Communication.Currently, she has deficits of Transfers Control, Balance, Locomotion, and Safety Awareness.Pt. is now referred to [facility] for acute in-patient rehabilitation in order to maximize patient's functional independence in activities of daily living, strength, ROM, and mobility.- Rehab Goal Patient has realistic goal of being discharged at assistance level 6-Lashanda to reside at Home with Pt self. MDM/PLAN: - Physical Therapy Gait dysfunction - to improve, our physical therapists will perform initial evaluation of pt's statu s upon admission and devise an individualized program for Gait Training, and Wheel Chair mobility Inability to transfer - to improve, our physical therapists will perform initial evaluation of pt's status upon admission and devise an individualized program for Bed mobility Need for home safety evaluation - to improve, our physical therapists will perform initial evaluatio n of pt's status upon admission and devise an individualized program for Home Evaluation Need in caregiver upon discharge - to improve, our physical therapists will perform initial evaluati on of pt's status upon admission and devise an individualized program for Caregiver Training Edema - to improve, our physical therapists will perform initial evaluation of pt's status upon admi ssion and devise an individualized program for Elevation Training, and Lymphedema Therapy New precaution - to improve, our physical therapists will perform initial evaluation of pt's status upon admission and devise an individualized program for Patient precaution education Poor balance - to improve, our physical therapists will perform initial evaluation of pt's status up on admission and devise an individualized program for Balance Training Weakness - to improve, our physical therapists will perform initial evaluation of pt's status upon a dmission and devise an individualized program for Aquatic Therapy, Neuromuscular Reeducation, and Str engthening Achieving independence - to improve, our physical therapists will perform initial evaluation of pt's status upon admission and devise an individualized program for Community Reintegration Activities - Occupational Therapy Need for care technician - to improve, our occupation therapists will perform initial evaluation of pt's status upon admission and devise an individualized program for Caregiver Training Weakness - to improve, our occupation therapists will perform initial evaluation of pt's status upon admission and devise an individualized program for Aquatic Therapy, Balance, Endurance, UE ROM, and UE strengthening - Other See attached MAR (Medication Administration Record) - Diet Type Continue Regular - Diet - Liquid Texture Continue Regular - Tube Feed Continue N/A - Diet - Solid Texture Continue Regular - Shower allowing shower FUNCTIONAL STATUS: UPDATED AT WEEKLY TEAM CONFERENCE - Bladder Same accident frequency: 7-Ind - No accidents in the past 7 days - Bowel Same accident frequency: 7-Ind - No accidents in the past 7 days - Walking Same score based on distance walked: 1(<=50ft) FUNCTIONAL STATUS: - Self-Care A. Eating Lashanda B. Grooming sup C. Bathing modA D. Dressing - Upper sup E. Dressing - Lower modA F. Toileting sup - Sphincter Control G. Bladder control sup H. Bowel control sup - Transfers Control I. Bed/Chair/Wheelchair modA J. Toilet modA K. Tub/Shower modA - Locomotion L. Walk/Wheelchair (B) modA M. Stairs ADNO - Communication N. Comprehension (B) sup O. Expression (B) sup - Social Cognition P. Social Interaction sup Q. Problem Solving sup R. Memory Lashanda - Endurance Good - Balance Good - Safety Awareness Good QI SCORES: - Self-Care A. Eating 05-Setup or clean-up assistance B. Oral hygiene 05-Setup or clean-up assistance C. Toileting hygiene 04-Supervision or touching assistance E. Shower/bathe self 04-Supervision or touching assistance F. Upper body dressing G. Lower body dressing 04-Supervision or touching assistance H. Putting on/taking off footwear 04-Supervision or touching assistance - Mobility A. Roll left and right 04-Supervision or touching assistance B. Sit to lying 04-Supervision or touching assistance C. Lying to sitting on side of bed 04-Supervision or touching assistance D. Sit to stand 04-Supervision or touching assistance E. Chair/enr-nj-pbpul transfer 04-Supervision or touching assistance F. Toilet transfer 04-Supervision or touching assistance G. Car transfer 10-Not attempted due to environmental limitations I. Walk 10 feet 03-Partial/moderate assistance J. Walk 50 feet with two turns 88-Not attempted due to medical condition or safety concerns K. Walk 150 feet 88-Not attempted due to medical condition or safety concerns L. Walking 10 feet on uneven surfaces 88-Not attempted due to medical condition or safety concerns M. 1 step (curb) 88-Not attempted due to medical condition or safety concerns N. 4 steps 88-Not attempted due to medical condition or safety concerns O. 12 steps 88-Not attempted due to medical condition or safety concerns P. Picking up object 04-Supervision or touching assistance R. Wheel 50 feet with two turns 88-Not attempted due to medical condition or safety concerns S. Wheel 150 feet - Bladder and Bowel Bladder continence 0-Always continent Bowel continence 0-Always continent - Endurance Poor - Balance Poor - Safety Awareness Poor CURRENT FUNC. DEFICITS: Self-Care, Mobility, Endurance, Balance, and Safety Awareness SIGNATURE PANEL: ([facility])
[2019-10-30] MEDS: DOCUSATE NA/SENNA CONC 1 TAB PO PRN (19:57)
[2019-10-30] MEDS: MELATONIN 5 MG TABLET PO SCH (19:59)
[2019-10-30] MEDS: ATORVASTATIN 10 MG TAB PO SCH (19:59)
[2019-10-31] MEDS: THYROID 30 MG TAB PO SCH (05:33)
[2019-10-31] MEDS: carvediloL 12.5 MG TAB PO SCH ×2 (05:34→17:02)
[2019-10-31] MEDS: PANTOPRAZOLE 40MG TABLET PO SCH (05:34)
[2019-10-31] MEDS: HYDROCODONE/APAP 10/325 TAB PO PRN ×2 (05:39→20:41)
[2019-10-31] MEDS: INSULIN -REGULAR HUMAN 50 UNIT/0.5 ML ML SQ SCH ×4 (07:30→20:42)
[2019-10-31] MEDS: SODIUM CHLORIDE 0.9% 10ML INJ IV SCH ×2 (08:00→20:41)
[2019-10-31] MEDS: VITAMIN B COMPLEX 1 CAP PO SCH (08:44)
[2019-10-31] MEDS: CRANBERRY FRUIT EXTRACT 200 MG CAP PO SCH ×2 (08:44→20:41)
[2019-10-31] MEDS: LIDOCAINE 4% PATCH TOP SCH (08:44)
[2019-10-31] MEDS: ESCITALOPRAM 20 MG TAB PO SCH (08:44)
[2019-10-31] MEDS: ASPIRIN 81 MG CHEWABLE TABLET PO SCH (08:45)
[2019-10-31] MEDS: APIXABAN 2.5 MG TABLET PO SCH ×2 (08:45→20:41)
[2019-10-31] MEDS: glipiZIDE 5 MG TAB PO SCH (08:45)
[2019-10-31] MEDS: SOD CHLORIDE 0.65% NASAL SPRAY NAS SCH ×2 (08:45→20:40)
[2019-10-31] MEDS: ACETAMINOPHEN 500 MG TAB PO PRN (08:47)
--- NOTE | 2019-10-31 18:28 | R.PN ---
ENCOUNTER DATE AND TIME: 10/31/2019 18:26 (BOAT HOP) NAME ROBY COLON DATE OF : 1945 DATE OF ADMISSION: 10/24/2019 17:32 (BOAT HOP) CHF ExacerbationCHIEF COMPLAINT: CHF exacerbation with debility SUBJECTIVE: Pt denied any depression. Pt denied any Shortness of Breath. WBC 5.4, Hgb 9.7, glucose 153 to 219. ADLs done with moderate assistance. Ambulated 85' with rolling walker and partial assistance. VITAL SIGNS Temperature: 97.5 F SBP/DBP: 132/68 Pulse: 74 Resp: 16 MEDICATION ALLERGIES: No Known Drug Allergies (NKDA) ENVIRONMENTAL ALLERGIES: None Known - Substance Allergies None Known - Other Allergies None Known NURSING: - Shower allowing shower ACTIVITIES OOB only with supervision THERAPIES: - Dietary and Nutrition Adequate Nutrition. Nutritional Education. Nutritional Supplements. PHYSICAL EXAM - Gen Alert and awake Lying in bed No apparent distress Oriented to: person, time, and place - Vital Signs Vital signs stable, afebrile - Skin No skin breakdown. Normacephalic - Eyes No abnormalities - Neck No abnormalities - CVS RRR - Chest No abnormalities - Resp Clear to auscultation - Abd Soft - GI Non distended Deferred - No abnormalities - Ext Mild bilateral lower extremity edema. - MSK 4+/5 weakness in both lower extremities. - Neuro 4/5 strength bilaterally upper and lower extremities. - Psych No abnormalities ASSESSMENT: Pt. is a 74 yo Right-handed female.On 10/19/2019 she was admitted to [facility] with diagno sis CHF Exacerbation.Her impairment category is Cardiac 09 - Cardiac Disorders (09).Pre-morbidly, Pt . was independent/mod-I in Locomotion and Self-Care; and she had good Transfers Control, Safety Aware ness, Social Cognition, Sphincter Control, and Communication.Currently, she has deficits of Transfers Control, Balance, Locomotion, and Safety Awareness.Pt. is now referred to [facility] for acute in-patient rehabilitation in order to maximize patient's functional independence in activities of daily living, strength, ROM, and mobility.- Rehab Goal Patient has realistic goal of being discharged at assistance level 6-Lashanda to reside at Home with Pt self. MDM/PLAN: - Physical Therapy Gait dysfunction - to improve, our physical therapists will perform initial evaluation of pt's statu s upon admission and devise an individualized program for Gait Training, and Wheel Chair mobility Inability to transfer - to improve, our physical therapists will perform initial evaluation of pt's status upon admission and devise an individualized program for Bed mobility Need for home safety evaluation - to improve, our physical therapists will perform initial evaluatio n of pt's status upon admission and devise an individualized program for Home Evaluation Need in caregiver upon discharge - to improve, our physical therapists will perform initial evaluati on of pt's status upon admission and devise an individualized program for Caregiver Training Edema - to improve, our physical therapists will perform initial evaluation of pt's status upon admi ssion and devise an individualized program for Elevation Training, and Lymphedema Therapy New precaution - to improve, our physical therapists will perform initial evaluation of pt's status upon admission and devise an individualized program for Patient precaution education Poor balance - to improve, our physical therapists will perform initial evaluation of pt's status up on admission and devise an individualized program for Balance Training Weakness - to improve, our physical therapists will perform initial evaluation of pt's status upon a dmission and devise an individualized program for Aquatic Therapy, Neuromuscular Reeducation, and Str engthening Achieving independence - to improve, our physical therapists will perform initial evaluation of pt's status upon admission and devise an individualized program for Community Reintegration Activities - Occupational Therapy Need for care management specialist - to improve, our occupation therapists will perform initial evaluation of pt's status upon admission and devise an individualized program for Caregiver Training Weakness - to improve, our occupation therapists will perform initial evaluation of pt's status upon admission and devise an individualized program for Aquatic Therapy, Balance, Endurance, UE ROM, and UE strengthening - Other See attached MAR (Medication Administration Record) - Diet Type Continue Regular - Diet - Liquid Texture Continue Regular - Tube Feed Continue N/A - Diet - Solid Texture Continue Regular - Shower allowing shower FUNCTIONAL STATUS: UPDATED AT WEEKLY TEAM CONFERENCE - Bladder Same accident frequency: 7-Ind - No accidents in the past 7 days - Bowel Same accident frequency: 7-Ind - No accidents in the past 7 days - Walking Same score based on distance walked: 1(<=50ft) FUNCTIONAL STATUS: - Self-Care A. Eating Lashanda B. Grooming sup C. Bathing modA D. Dressing - Upper sup E. Dressing - Lower modA F. Toileting sup - Sphincter Control G. Bladder control sup H. Bowel control sup - Transfers Control I. Bed/Chair/Wheelchair modA J. Toilet modA K. Tub/Shower modA - Locomotion L. Walk/Wheelchair (B) modA M. Stairs ADNO - Communication N. Comprehension (B) sup O. Expression (B) sup - Social Cognition P. Social Interaction sup Q. Problem Solving sup R. Memory Lashanda - Endurance Good - Balance Good - Safety Awareness Good QI SCORES: - Self-Care A. Eating 05-Setup or clean-up assistance B. Oral hygiene 05-Setup or clean-up assistance C. Toileting hygiene 04-Supervision or touching assistance E. Shower/bathe self 04-Supervision or touching assistance F. Upper body dressing G. Lower body dressing 04-Supervision or touching assistance H. Putting on/taking off footwear 04-Supervision or touching assistance - Mobility A. Roll left and right 04-Supervision or touching assistance B. Sit to lying 04-Supervision or touching assistance C. Lying to sitting on side of bed 04-Supervision or touching assistance D. Sit to stand 04-Supervision or touching assistance E. Chair/jhe-rp-[id number] transfer 04-Supervision or touching assistance F. Toilet transfer 04-Supervision or touching assistance G. Car transfer 10-Not attempted due to environmental limitations I. Walk 10 feet 03-Partial/moderate assistance J. Walk 50 feet with two turns 88-Not attempted due to medical condition or safety concerns K. Walk 150 feet 88-Not attempted due to medical condition or safety concerns L. Walking 10 feet on uneven surfaces 88-Not attempted due to medical condition or safety concerns M. 1 step (curb) 88-Not attempted due to medical condition or safety concerns N. 4 steps 88-Not attempted due to medical condition or safety concerns O. 12 steps 88-Not attempted due to medical condition or safety concerns P. Picking up object 04-Supervision or touching assistance R. Wheel 50 feet with two turns 88-Not attempted due to medical condition or safety concerns S. Wheel 150 feet - Bladder and Bowel Bladder continence 0-Always continent Bowel continence 0-Always continent - Endurance Poor - Balance Poor - Safety Awareness Poor CURRENT FUNC. DEFICITS: Self-Care, Mobility, Endurance, Balance, and Safety Awareness SIGNATURE PANEL: ([facility])
[2019-10-31] MEDS: MELATONIN 5 MG TABLET PO SCH (20:40)
[2019-10-31] MEDS: PROMOD 30 ML DOSE PO SCH (20:41)
[2019-10-31] MEDS: ATORVASTATIN 10 MG TAB PO SCH (20:41)
[2019-10-31] MEDS: DOCUSATE NA/SENNA CONC 1 TAB PO PRN (20:43)
[2019-11-01] MEDS: HYDROCODONE/APAP 10/325 TAB PO PRN ×3 (03:25→19:35)
[2019-11-01] MEDS: carvediloL 12.5 MG TAB PO SCH ×2 (05:27→17:37)
[2019-11-01] MEDS: THYROID 30 MG TAB PO SCH (05:28)
[2019-11-01 06:30] LABS: Absolute Lymphocytes (CBC) 0.9 K/uL (0.7-4.9); Basophils % 0.9 % (0-1.3); Hematocrit 30.6 % (36.0-45.0); RBC Red Blood Cell Count 3.85 M/uL (3.86-4.86)
[2019-11-01] MEDS: PANTOPRAZOLE 40MG TABLET PO SCH (07:02)
[2019-11-01 07:04] LABS: Albumin 2.5 g/dL (3.4-5.0); Magnesium 1.9 mg/dL (1.8-2.4); Prealbumin 9.4 mg/dL (20-40)
[2019-11-01] MEDS: INSULIN -REGULAR HUMAN 50 UNIT/0.5 ML ML SQ SCH ×4 (07:30→19:38)
[2019-11-01] MEDS: LIDOCAINE 4% PATCH TOP SCH (07:47)
[2019-11-01] MEDS: SODIUM CHLORIDE 0.9% 10ML INJ IV SCH ×2 (08:00→19:37)
[2019-11-01] MEDS: PROMOD 30 ML DOSE PO SCH ×2 (08:00→19:36)
[2019-11-01] MEDS: SOD CHLORIDE 0.65% NASAL SPRAY NAS SCH ×2 (08:22→19:34)
[2019-11-01] MEDS: glipiZIDE 5 MG TAB PO SCH (08:23)
[2019-11-01] MEDS: FE SULF/FA/VIT B COMP & C TAB PO SCH (08:23)
[2019-11-01] MEDS: APIXABAN 2.5 MG TABLET PO SCH ×2 (08:23→19:35)
[2019-11-01] MEDS: ESCITALOPRAM 20 MG TAB PO SCH (08:23)
[2019-11-01] MEDS: CRANBERRY FRUIT EXTRACT 200 MG CAP PO SCH ×2 (08:23→19:35)
[2019-11-01] MEDS: VITAMIN B COMPLEX 1 CAP PO SCH (08:23)
[2019-11-01] MEDS: ASPIRIN 81 MG CHEWABLE TABLET PO SCH (08:23)
--- NOTE | 2019-11-01 11:00 | FAST ---
SHIFT START DATE/TIME: 11/01/2019 07:00 (POOL LIFEGUARD) SHIFT END DATE/TIME: 11/01/2019 19:00 (POOL LIFEGUARD) NAME ROBY COLON DATE OF : 1945 DATE OF ADMISSION: 10/24/2019 17:32 (POOL LIFEGUARD) PHONE: AGE: 74 N# [id number] GENDER: Female ENCOUNTER PHYSICIAN: Dr. Aftab Leonard M.D. ADMISSION DIAGNOSIS: - Cardiac 09 - Cardiac Disorders () CHF Exacerbation. EATING: EATING - STEP 1: Does the patient complete the activity by him/herself with no assistance (physical, verbal/nonverbal cueing, setup/clean-up)? No. EATING - STEP 2: Does the patient need only setup/clean-up assistance from one helper? No. EATING - STEP 3: Does the patient need only verbal/nonverbal cueing or touching/steadying/contact guard assistance fro m one helper? Yes. 1. [id number] ADMISSION PERFORMANCE: Supervision or touching assistance CODE: 04 ORAL HYGIENE: ORAL HYGIENE - STEP 1: Does the patient complete the activity by him/herself with no assistance (physical, verbal/nonverbal cueing, setup/clean-up)? No. ORAL HYGIENE - STEP 2: Does the patient need only setup/clean-up assistance from one helper? Yes. 1. [id number] ADMISSION PERFORMANCE: Setup or clean-up assistance CODE: 05 TOILETING HYGIENE: TOILETING HYGIENE - STEP 1: Does the patient complete the activity by him/herself with no assistance (physical, verbal/nonverbal cueing, setup/clean-up)? No. TOILETING HYGIENE - STEP 2: Does the patient need only setup/clean-up assistance from one helper? No. TOILETING HYGIENE - STEP 3: Does the patient need only verbal/nonverbal cueing or touching/steadying/contact guard assistance fro m one helper? No. TOILETING HYGIENE - STEP 4: Does the patient need physical assistance - for example lifting or trunk support from one helper - wi th the helper providing less than half of the effort? Yes. 1. [id number] ADMISSION PERFORMANCE: Partial/moderate assistance CODE: 03 BATHING: Not assessed/no information CODE: - DRESSING - UPPER BODY: Not assessed/no information CODE: - DRESSING - LOWER BODY: Not assessed/no information CODE: - PUTTING ON/TAKING OFF FOOTWEAR: Not assessed/no information CODE: - ROLL LEFT AND RIGHT: Not assessed/no information CODE: - SIT TO LYING: Not assessed/no information CODE: - LYING TO SITTING: Not assessed/no information CODE: - SIT TO STAND: Not assessed/no information CODE: - TRANSFERS: BED, CHAIR: [id number] TRANSFER - STEP 1: Does the patient complete the activity by him/herself with no assistance (physical, verbal/nonverbal cueing, setup/clean-up)? No. CHAIR/[id number] TRANSFER - STEP 2: Does the patient need only setup/clean-up assistance from one helper? No. CHAIR/[id number] TRANSFER - STEP 3: Does the patient need only verbal/nonverbal cueing or touching/steadying/contact guard assistance fro m one helper? No. CHAIR/[id number] TRANSFER - STEP 4: Does the patient need physical assistance - for example lifting or trunk support from one helper - wi th the helper providing less than half of the effort? Yes. 1. [id number] ADMISSION PERFORMANCE: Partial/moderate assistance CODE: 03 TRANSFER TOILET: TOILET TRANSFER - STEP 1: Does the patient complete the activity by him/herself with no assistance (physical, verbal/nonverbal cueing, setup/clean-up)? No. TOILET TRANSFER - STEP 2: Does the patient need only setup/clean-up assistance from one helper? No. TOILET TRANSFER - STEP 3: Does the patient need only verbal/nonverbal cueing or touching/steadying/contact guard assistance fro m one helper? No. TOILET TRANSFER - STEP 4: Does the patient need physical assistance - for example lifting or trunk support from one helper - wi th the helper providing less than half of the effort? Yes. 1. [id number] ADMISSION PERFORMANCE: Partial/moderate assistance CODE: 03 TRANSFERS: CAR: Not assessed/no information CODE: - WALK 10 FEET: Not assessed/no information CODE: - 1 STEP (CURB): Not assessed/no information CODE: - DOES THE PATIENT USE A WHEELCHAIR/SCOOTER? CODE: EXPR WHEEL 50 FEET WITH TWO TURNS: Not assessed/no information CODE: - INDICATE THE TYPE OF WHEELCHAIR/SCOOTER USED: CODE: EXPR WHEEL 150 FEET: Not assessed/no information CODE: - INDICATE THE TYPE OF WHEELCHAIR/SCOOTER USED: CODE: EXPR BLADDER AND BOWEL: H350. BLADDER CONTINENCE (3-DAY ASSESSMENT PERIOD): Incontinent less than daily (e.g., once or twice during the 3-day assessment period) CODE: 2 H400. BOWEL CONTINENCE (3-DAY ASSESSMENT PERIOD): Occasionally incontinent (one episode of bowel incontinence) CODE: 1 SIGNATURE PANEL: The following modified sections: 1. [id number] Admission Performance, 1. [id number] Admission Performance, 1. [id number] Admission Performance, 1. [id number] Admission Performance, 1. [id number] Admission Performance, Code, H350. Bladder Continence (3-day assessment period), H350. Bladder Continence (3-day assessment period), H400. Bowel Continence (3-day assessment period) were [electronically] signed by Tyson Delacruz on TueNov 01 2019 10:59:42 T-0600 (Central Standard Time)
--- NOTE | 2019-11-01 17:28 | R.PN ---
ENCOUNTER DATE AND TIME: 11/01/2019 17:23 (MANAGER CRITICAL CARE UNIT) NAME ROBY COLON DATE OF : 1945 DATE OF ADMISSION: 10/24/2019 17:32 (MANAGER CRITICAL CARE UNIT) CHF ExacerbationCHIEF COMPLAINT: CHF exacerbation with debility SUBJECTIVE: Pt denied any depression. Pt denied any Shortness of Breath. WBC 7.3, Hgb 9.6, glucose 129 to 181. ADLs done with moderate assistance. Ambulated 164' with rolling walker and partial assistance. VITAL SIGNS Temperature: 97.4 F SBP/DBP: 147/74 Pulse: 67 Resp: 14 MEDICATION ALLERGIES: No Known Drug Allergies (NKDA) ENVIRONMENTAL ALLERGIES: None Known - Substance Allergies None Known - Other Allergies None Known NURSING: - Shower allowing shower ACTIVITIES OOB only with supervision THERAPIES: - Dietary and Nutrition Adequate Nutrition. Nutritional Education. Nutritional Supplements. PHYSICAL EXAM - Gen Alert and awake Lying in bed No apparent distress Oriented to: person, time, and place - Vital Signs Vital signs stable, afebrile - Skin No skin breakdown. Normacephalic - Eyes No abnormalities - Neck No abnormalities - CVS RRR - Chest No abnormalities - Resp Clear to auscultation - Abd Soft - GI Non distended Deferred - No abnormalities - Ext Mild bilateral lower extremity edema. - MSK 4+/5 weakness in both lower extremities. - Neuro 4/5 strength bilaterally upper and lower extremities. - Psych No abnormalities ASSESSMENT: Pt. is a 74 yo Right-handed female.On 10/19/2019 she was admitted to [facility] with diagno sis CHF Exacerbation.Her impairment category is Cardiac 09 - Cardiac Disorders (09).Pre-morbidly, Pt . was independent/mod-I in Locomotion and Self-Care; and she had good Transfers Control, Safety Aware ness, Social Cognition, Sphincter Control, and Communication.Currently, she has deficits of Transfers Control, Balance, Locomotion, and Safety Awareness.Pt. is now referred to [facility] for acute in-patient rehabilitation in order to maximize patient's functional independence in activities of daily living, strength, ROM, and mobility.- Rehab Goal Patient has realistic goal of being discharged at assistance level 6-Lashanda to reside at Home with Pt self. MDM/PLAN: - Physical Therapy Gait dysfunction - to improve, our physical therapists will perform initial evaluation of pt's statu s upon admission and devise an individualized program for Gait Training, and Wheel Chair mobility Inability to transfer - to improve, our physical therapists will perform initial evaluation of pt's status upon admission and devise an individualized program for Bed mobility Need for home safety evaluation - to improve, our physical therapists will perform initial evaluatio n of pt's status upon admission and devise an individualized program for Home Evaluation Need in caregiver upon discharge - to improve, our physical therapists will perform initial evaluati on of pt's status upon admission and devise an individualized program for Caregiver Training Edema - to improve, our physical therapists will perform initial evaluation of pt's status upon admi ssion and devise an individualized program for Elevation Training, and Lymphedema Therapy New precaution - to improve, our physical therapists will perform initial evaluation of pt's status upon admission and devise an individualized program for Patient precaution education Poor balance - to improve, our physical therapists will perform initial evaluation of pt's status up on admission and devise an individualized program for Balance Training Weakness - to improve, our physical therapists will perform initial evaluation of pt's status upon a dmission and devise an individualized program for Aquatic Therapy, Neuromuscular Reeducation, and Str engthening Achieving independence - to improve, our physical therapists will perform initial evaluation of pt's status upon admission and devise an individualized program for Community Reintegration Activities - Occupational Therapy Need for hospice home care coordinator - to improve, our occupation therapists will perform initial evaluation of pt's status upon admission and devise an individualized program for Caregiver Training Weakness - to improve, our occupation therapists will perform initial evaluation of pt's status upon admission and devise an individualized program for Aquatic Therapy, Balance, Endurance, UE ROM, and UE strengthening - Other See attached MAR (Medication Administration Record) - Diet Type Continue Regular - Diet - Liquid Texture Continue Regular - Tube Feed Continue N/A - Diet - Solid Texture Continue Regular - Shower allowing shower FUNCTIONAL STATUS: UPDATED AT WEEKLY TEAM CONFERENCE - Bladder Same accident frequency: 7-Ind - No accidents in the past 7 days - Bowel Same accident frequency: 7-Ind - No accidents in the past 7 days - Walking Same score based on distance walked: 1(<=50ft) FUNCTIONAL STATUS: - Self-Care A. Eating Lashanda B. Grooming sup C. Bathing modA D. Dressing - Upper sup E. Dressing - Lower modA F. Toileting sup - Sphincter Control G. Bladder control sup H. Bowel control sup - Transfers Control I. Bed/Chair/Wheelchair modA J. Toilet modA K. Tub/Shower modA - Locomotion L. Walk/Wheelchair (B) modA M. Stairs ADNO - Communication N. Comprehension (B) sup O. Expression (B) sup - Social Cognition P. Social Interaction sup Q. Problem Solving sup R. Memory Lashanda - Endurance Good - Balance Good - Safety Awareness Good QI SCORES: - Self-Care A. Eating 05-Setup or clean-up assistance B. Oral hygiene 05-Setup or clean-up assistance C. Toileting hygiene 04-Supervision or touching assistance E. Shower/bathe self 04-Supervision or touching assistance F. Upper body dressing G. Lower body dressing 04-Supervision or touching assistance H. Putting on/taking off footwear 04-Supervision or touching assistance - Mobility A. Roll left and right 04-Supervision or touching assistance B. Sit to lying 04-Supervision or touching assistance C. Lying to sitting on side of bed 04-Supervision or touching assistance D. Sit to stand 04-Supervision or touching assistance E. Chair/sdo-kj-wzfhj transfer 04-Supervision or touching assistance F. Toilet transfer 04-Supervision or touching assistance G. Car transfer 10-Not attempted due to environmental limitations I. Walk 10 feet 03-Partial/moderate assistance J. Walk 50 feet with two turns 88-Not attempted due to medical condition or safety concerns K. Walk 150 feet 88-Not attempted due to medical condition or safety concerns L. Walking 10 feet on uneven surfaces 88-Not attempted due to medical condition or safety concerns M. 1 step (curb) 88-Not attempted due to medical condition or safety concerns N. 4 steps 88-Not attempted due to medical condition or safety concerns O. 12 steps 88-Not attempted due to medical condition or safety concerns P. Picking up object 04-Supervision or touching assistance R. Wheel 50 feet with two turns 88-Not attempted due to medical condition or safety concerns S. Wheel 150 feet - Bladder and Bowel Bladder continence 0-Always continent Bowel continence 0-Always continent - Endurance Poor - Balance Poor - Safety Awareness Poor CURRENT FUNC. DEFICITS: Self-Care, Mobility, Endurance, Balance, and Safety Awareness SIGNATURE PANEL: ([facility])
[2019-11-01] MEDS: MELATONIN 5 MG TABLET PO SCH (19:35)
[2019-11-01] MEDS: ATORVASTATIN 10 MG TAB PO SCH (19:37)
[2019-11-02] MEDS: HYDROCODONE/APAP 10/325 TAB PO PRN ×2 (03:12→08:16)
[2019-11-02] MEDS: THYROID 30 MG TAB PO SCH (05:21)
[2019-11-02] MEDS: carvediloL 12.5 MG TAB PO SCH ×2 (05:22→17:44)
[2019-11-02] MEDS: ACETAMINOPHEN 500 MG TAB PO PRN ×2 (05:22→20:00)
[2019-11-02] MEDS: PANTOPRAZOLE 40MG TABLET PO SCH (06:39)
[2019-11-02] MEDS: INSULIN -REGULAR HUMAN 50 UNIT/0.5 ML ML SQ SCH ×4 (07:30→20:10)
[2019-11-02] MEDS: CRANBERRY FRUIT EXTRACT 200 MG CAP PO SCH ×2 (08:17→19:58)
[2019-11-02] MEDS: SODIUM CHLORIDE 0.9% 10ML INJ IV SCH ×2 (08:17→19:58)
[2019-11-02] MEDS: FE SULF/FA/VIT B COMP & C TAB PO SCH (08:17)
[2019-11-02] MEDS: SOD CHLORIDE 0.65% NASAL SPRAY NAS SCH ×2 (08:17→20:09)
[2019-11-02] MEDS: ESCITALOPRAM 20 MG TAB PO SCH (08:18)
[2019-11-02] MEDS: VITAMIN B COMPLEX 1 CAP PO SCH (08:18)
[2019-11-02] MEDS: FERROUS SULFATE 325 MG TAB PO SCH (08:18)
[2019-11-02] MEDS: APIXABAN 2.5 MG TABLET PO SCH ×2 (08:18→19:58)
[2019-11-02] MEDS: glipiZIDE 5 MG TAB PO SCH (08:18)
[2019-11-02] MEDS: ASPIRIN 81 MG CHEWABLE TABLET PO SCH (08:19)
[2019-11-02] MEDS: PROMOD 30 ML DOSE PO SCH ×2 (08:19→19:58)
--- NOTE | 2019-11-02 09:50 | P.RH.PN ---
Estimated Length of Stay: 15 Expected Discharge Date: 11/07/19 Discharge Disposition Plan: Home Vital Signs: Last Vital Signs Temp 97.4 F 11/02/19 07:45 Pulse 65 11/02/19 07:45 Resp 16 11/02/19 08:16 BP 133/71 11/02/19 07:45 Pulse Ox 94 11/02/19 08:16 Laboratory: Laboratory Last Values WBC 7.3 K/uL (4.3-10.9) D 11/01/19 06:00 RBC 3.85 M/uL (3.86-4.86) L 11/01/19 06:00 Hgb 9.6 g/dL (12.0-15.0) L 11/01/19 06:00 Hct 30.6 % (36.0-45.0) L 11/01/19 06:00 MCV 79.5 fL (80-100) L 11/01/19 06:00 MCH 24.9 pg (27.0-35.0) L 11/01/19 06:00 MCHC 31.4 g/dL (32.0-36.0) L 11/01/19 06:00 RDW 17.7 % (12.1-15.2) H 11/01/19 06:00 Plt Count 375 K/uL (152-406) D 11/01/19 06:00 MPV 8.0 fL (7.6-11.3) 11/01/19 06:00 Neutrophils % 72.0 % (41.7-73.7) 11/01/19 06:00 Lymphocytes % 13.0 % (15.3-44.8) L 11/01/19 06:00 Monocytes % 9.2 % (3.3-12.3) 11/01/19 06:00 Eosinophils % 4.9 % (0-4.4) H 11/01/19 06:00 Basophils % 0.9 % (0-1.3) 11/01/19 06:00 Absolute Neutrophils 5.2 K/uL (1.8-8.0) 11/01/19 06:00 Absolute Lymphocytes 0.9 K/uL (0.7-4.9) 11/01/19 06:00 Absolute Monocytes 0.7 K/uL (0.1-1.3) 11/01/19 06:00 Absolute Eosinophils 0.4 K/uL (0-0.5) 11/01/19 06:00 Absolute Basophils 0.1 K/uL (0-0.5) 11/01/19 06:00 Sodium 141 mmol/L (136-145) 11/01/19 06:00 Potassium 4.0 mmol/L (3.5-5.1) 11/01/19 06:00 Chloride 108 mmol/L (98-107) H 11/01/19 06:00 Carbon Dioxide 25 mmol/L (21-32) 11/01/19 06:00 BUN 25 mg/dL (7-18) H 11/01/19 06:00 Creatinine 1.13 mg/dL (0.55-1.3) 11/01/19 06:00 Estimated GFR 47 mL/min (=/>90) L 11/01/19 06:00 Glucose 129 mg/dL (74-106) H 11/01/19 06:00 POC Glucose 157 mg/dl (65-120) H 11/02/19 07:35 Calcium 9.0 mg/dL (8.5-10.1) 11/01/19 06:00 Magnesium 1.9 mg/dL (1.8-2.4) 11/01/19 06:00 Albumin 2.5 g/dL (3.4-5.0) L 11/01/19 06:00 Prealbumin 9.4 mg/dL (20-40) L 11/01/19 06:00 Weight: 148 lb 3.2 oz Wound Present: No Closed Surgical Incision Present: No Negative Pressure Wound Therapy Present: No Physician Update: Labs reviewed and are stable. She is doing well with ADLs but she does not want to get out of bed. She is on Lexapro for depression. Her lower back pain improved with pain a patch. Partial assistance with transfers. Walking 50' with partial assistance. Medical Issues: Patient is incontinent daily with and always continent with bowel. Pain Issues: Patient is taking Tylenol 500mg Q$H PO PRN for pain. Comment: long thick toenails- DR Upton has been consulted and saw patient 10/30 Functional Improvement: Patient currently still working toward short-term goals. Patient's overall strength, technique, and endurance is improving. Patient presents w/ good attitude, however does require VC for motivation at times. Speech Therapy Update: Patient cont to present with mild cognitive impairments characterized by decreased STM, insight, and problem solving. Patient requires min to mod A to perform verbal problem solving and to demonstrate generation of solutions to problems as well as flexibility in her thinking. She responds well to demonstration of strategies as well as verbal cues and encouragement. She benefits from being given extra time to process and respond. Summary: Patient's care plan and superintendent [employer] goals have been reviewed and revised as necessary. Please see the Rehabilitation Signature page for all necessary signatures.
[2019-11-02] MEDS: LIDOCAINE 4% PATCH TOP SCH (12:22)
[2019-11-02] MEDS: FUROSEMIDE 20 MG TABLET PO SCH (12:47)
--- NOTE | 2019-11-02 12:59 | RAD REPORT ---
EXAM DESCRIPTION: RAD - Chest Single View - 11/02/2019 12:52 pm CLINICAL HISTORY: Rule out pneumonia Chest pain. COMPARISON: Chest Single View dated 10/23/2019; Chest Single View dated 10/19/2019; Chest Single View dated 05/11/2019; Chest Single View dated 02/17/2019 FINDINGS: Portable technique limits examination quality. Mild interstitial pulmonary edema suspected. Portion of the inferior left lung is obscured by the pac er pack. No focal infiltrate typical of pneumonia seen. The heart is moderately enlarged with a multi lead pacer/defibrillator device present. Right PICC line is present with its tip in the SVC. IMPRESSION: Mild CHF.
--- NOTE | 2019-11-02 15:09 | FAST ---
ENCOUNTER DATE AND TIME: 11/01/2019 08:00 (BREWING DIRECTOR) NAME ROBY COLON DATE OF : 1945 DATE OF ADMISSION: 10/24/2019 17:32 (BREWING DIRECTOR) PHONE: AGE: 74 N# [id number] GENDER: Female ENCOUNTER PHYSICIAN: Dr. Aftab Leonard M.D. ADMISSION DIAGNOSIS: - Cardiac 09 - Cardiac Disorders () CHF Exacerbation. ROLL LEFT AND RIGHT: ROLL LEFT AND RIGHT - STEP 1: Does the patient complete the activity by him/herself with no assistance (physical, verbal/nonverbal cueing, setup/clean-up)? No. ROLL LEFT AND RIGHT - STEP 2: Does the patient need only setup/clean-up assistance from one helper? Yes. 1. [id number] ADMISSION PERFORMANCE: Setup or clean-up assistance CODE: 05 SIT TO LYING: SIT TO LYING - STEP 1: Does the patient complete the activity by him/herself with no assistance (physical, verbal/nonverbal cueing, setup/clean-up)? No. SIT TO LYING - STEP 2: Does the patient need only setup/clean-up assistance from one helper? Yes. 1. [id number] ADMISSION PERFORMANCE: Setup or clean-up assistance CODE: 05 LYING TO SITTING: LYING TO SITTING ON SIDE OF BED - STEP 1: Does the patient complete the activity by him/herself with no assistance (physical, verbal/nonverbal cueing, setup/clean-up)? No. LYING TO SITTING ON SIDE OF BED - STEP 2: Does the patient need only setup/clean-up assistance from one helper? Yes. 1. [id number] ADMISSION PERFORMANCE: Setup or clean-up assistance CODE: 05 SIT TO STAND: SIT TO STAND - STEP 1: Does the patient complete the activity by him/herself with no assistance (physical, verbal/nonverbal cueing, setup/clean-up)? No. SIT TO STAND - STEP 2: Does the patient need only setup/clean-up assistance from one helper? No. SIT TO STAND - STEP 3: Does the patient need only verbal/nonverbal cueing or touching/steadying/contact guard assistance fro m one helper? Yes. 1. [id number] ADMISSION PERFORMANCE: Supervision or touching assistance CODE: 04 TRANSFERS: BED, CHAIR: CHAIR/[id number] TRANSFER - STEP 1: Does the patient complete the activity by him/herself with no assistance (physical, verbal/nonverbal cueing, setup/clean-up)? No. CHAIR/[id number] TRANSFER - STEP 2: Does the patient need only setup/clean-up assistance from one helper? No. CHAIR/[id number] TRANSFER - STEP 3: Does the patient need only verbal/nonverbal cueing or touching/steadying/contact guard assistance fro m one helper? Yes. 1. [id number] ADMISSION PERFORMANCE: Supervision or touching assistance CODE: 04 TRANSFER TOILET: TOILET TRANSFER - STEP 1: Does the patient complete the activity by him/herself with no assistance (physical, verbal/nonverbal cueing, setup/clean-up)? No. TOILET TRANSFER - STEP 2: Does the patient need only setup/clean-up assistance from one helper? No. TOILET TRANSFER - STEP 3: Does the patient need only verbal/nonverbal cueing or touching/steadying/contact guard assistance fro m one helper? Yes. 1. [id number] ADMISSION PERFORMANCE: Supervision or touching assistance CODE: 04 TRANSFERS: CAR: Not attempted due to environmental limitations (e.g., lack of equipment, weather constraints) CODE: 10 WALK 10 FEET: WALK 10 FEET - STEP 1: Does the patient complete the activity by him/herself with no assistance (physical, verbal/nonverbal cueing, setup/clean-up)? No. WALK 10 FEET - STEP 2: Does the patient need only setup/clean-up assistance from one helper? No. WALK 10 FEET - STEP 3: Does the patient need only verbal/nonverbal cueing or touching/steadying/contact guard assistance fro m one helper? Yes. 1. [id number] ADMISSION PERFORMANCE: Supervision or touching assistance CODE: 04 WALK 50 FEET: WALK 50 FEET - STEP 1: Does the patient complete the activity by him/herself with no assistance (physical, verbal/nonverbal cueing, setup/clean-up)? No. WALK 50 FEET - STEP 2: Does the patient need only setup/clean-up assistance from one helper? No. WALK 50 FEET - STEP 3: Does the patient need only verbal/nonverbal cueing or touching/steadying/contact guard assistance fro m one helper? Yes. 1. [id number] ADMISSION PERFORMANCE: Supervision or touching assistance CODE: 04 WALK 150 FEET: Not attempted due to medical condition or safety concerns CODE: 88 WALK 10 FEET UNEVEN: Not attempted due to medical condition or safety concerns CODE: 88 1 STEP (CURB): Not attempted due to medical condition or safety concerns CODE: 88 PICKING UP OBJECT: Not attempted due to medical condition or safety concerns CODE: 88 DOES THE PATIENT USE A WHEELCHAIR/SCOOTER? Q1. DOES THE PATIENT USE A WHEELCHAIR/SCOOTER?: Yes CODE: 1 WHEEL 50 FEET WITH TWO TURNS: WHEEL 50 FEET WITH TWO TURNS - STEP 1: Does the patient complete the activity by him/herself with no assistance (physical, verbal/nonverbal cueing, setup/clean-up)? No. WHEEL 50 FEET WITH TWO TURNS - STEP 2: Does the patient need only setup/clean-up assistance from one helper? Yes. 1. [id number] ADMISSION PERFORMANCE: Setup or clean-up assistance CODE: 05 INDICATE THE TYPE OF WHEELCHAIR/SCOOTER USED: RR1. INDICATE THE TYPE OF WHEELCHAIR/SCOOTER USED.: Manual CODE: 1 WHEEL 150 FEET: WHEEL 150 FEET - STEP 1: Does the patient complete the activity by him/herself with no assistance (physical, verbal/nonverbal cueing, setup/clean-up)? No. WHEEL 150 FEET - STEP 2: Does the patient need only setup/clean-up assistance from one helper? Yes. 1. [id number] ADMISSION PERFORMANCE: Setup or clean-up assistance CODE: 05 INDICATE THE TYPE OF WHEELCHAIR/SCOOTER USED: SS1. INDICATE THE TYPE OF WHEELCHAIR/SCOOTER USED.: Manual CODE: 1 BLADDER AND BOWEL: CODE: EXPR CODE: EXPR SIGNATURE PANEL: The following modified sections: 1. [id number] Admission Performance, 1. [id number] Admission Performance, 1. [id number] Admission Performance, 1. [id number] Admission Performance, 1. [id number] Admission Performance, 1. [id number] Admission Performance, 1. [id number] Admission Performance, 1. [id number] Admission Performance , 1. [id number] Admission Performance, 1. [id number] Admission Performance, Q1. Does the patient use a whee lchair/scooter?, 1. [id number] Admission Performance, RR1. Indicate the type of wheelchair/scooter used. , 1. [id number] Admission Performance, Code, SS1. Indicate the type of wheelchair/scooter used. were [el ectronically] signed by Ish Dodge PTA on TueNov 02 2019 15:08:12 GMT-0600 (Central Standard Time)
[2019-11-02] MEDS: DOCUSATE NA/SENNA CONC 1 TAB PO PRN (20:01)
[2019-11-02] MEDS: ATORVASTATIN 10 MG TAB PO SCH (21:36)
[2019-11-02] MEDS: MELATONIN 5 MG TABLET PO SCH (21:37)
[2019-11-03] MEDS: HYDROCODONE/APAP 10/325 TAB PO PRN ×3 (00:45→19:46)
--- NOTE | 2019-11-03 02:31 | FAST ---
SHIFT START DATE/TIME: 11/02/2019 19:00 (MUSIC COPYIST) SHIFT END DATE/TIME: 11/03/2019 07:00 (MUSIC COPYIST) NAME ROBY COLON DATE OF : 1945 DATE OF ADMISSION: 10/24/2019 17:32 (MUSIC COPYIST) PHONE: AGE: 74 N# [id number] GENDER: Female ENCOUNTER PHYSICIAN: Dr. Aftab Leonard M.D. ADMISSION DIAGNOSIS: - Cardiac 09 - Cardiac Disorders () CHF Exacerbation. EATING: Not assessed/no information CODE: - ORAL HYGIENE: Not assessed/no information CODE: - TOILETING HYGIENE: TOILETING HYGIENE - STEP 1: Does the patient complete the activity by him/herself with no assistance (physical, verbal/nonverbal cueing, setup/clean-up)? No. TOILETING HYGIENE - STEP 2: Does the patient need only setup/clean-up assistance from one helper? No. TOILETING HYGIENE - STEP 3: Does the patient need only verbal/nonverbal cueing or touching/steadying/contact guard assistance fro m one helper? No. TOILETING HYGIENE - STEP 4: Does the patient need physical assistance - for example lifting or trunk support from one helper - wi th the helper providing less than half of the effort? Yes. 1. [id number] ADMISSION PERFORMANCE: Partial/moderate assistance CODE: 03 BATHING: Not assessed/no information CODE: - DRESSING - UPPER BODY: Not assessed/no information CODE: - DRESSING - LOWER BODY: Not assessed/no information CODE: - PUTTING ON/TAKING OFF FOOTWEAR: Not assessed/no information CODE: - ROLL LEFT AND RIGHT: ROLL LEFT AND RIGHT - STEP 1: Does the patient complete the activity by him/herself with no assistance (physical, verbal/nonverbal cueing, setup/clean-up)? No. ROLL LEFT AND RIGHT - STEP 2: Does the patient need only setup/clean-up assistance from one helper? No. ROLL LEFT AND RIGHT - STEP 3: Does the patient need only verbal/nonverbal cueing or touching/steadying/contact guard assistance fro m one helper? No. ROLL LEFT AND RIGHT - STEP 4: Does the patient need physical assistance - for example lifting or trunk support from one helper - wi th the helper providing less than half of the effort? Yes. 1. [id number] ADMISSION PERFORMANCE: Partial/moderate assistance CODE: 03 SIT TO LYING: SIT TO LYING - STEP 1: Does the patient complete the activity by him/herself with no assistance (physical, verbal/nonverbal cueing, setup/clean-up)? No. SIT TO LYING - STEP 2: Does the patient need only setup/clean-up assistance from one helper? No. SIT TO LYING - STEP 3: Does the patient need only verbal/nonverbal cueing or touching/steadying/contact guard assistance fro m one helper? No. SIT TO LYING - STEP 4: Does the patient need physical assistance - for example lifting or trunk support from one helper - wi th the helper providing less than half of the effort? Yes. 1. [id number] ADMISSION PERFORMANCE: Partial/moderate assistance CODE: 03 LYING TO SITTING: LYING TO SITTING ON SIDE OF BED - STEP 1: Does the patient complete the activity by him/herself with no assistance (physical, verbal/nonverbal cueing, setup/clean-up)? No. LYING TO SITTING ON SIDE OF BED - STEP 2: Does the patient need only setup/clean-up assistance from one helper? No. LYING TO SITTING ON SIDE OF BED - STEP 3: Does the patient need only verbal/nonverbal cueing or touching/steadying/contact guard assistance fro m one helper? No. LYING TO SITTING ON SIDE OF BED - STEP 4: Does the patient need physical assistance - for example lifting or trunk support from one helper - wi th the helper providing less than half of the effort? Yes. 1. [id number] ADMISSION PERFORMANCE: Partial/moderate assistance CODE: 03 SIT TO STAND: SIT TO STAND - STEP 1: Does the patient complete the activity by him/herself with no assistance (physical, verbal/nonverbal cueing, setup/clean-up)? No. SIT TO STAND - STEP 2: Does the patient need only setup/clean-up assistance from one helper? No. SIT TO STAND - STEP 3: Does the patient need only verbal/nonverbal cueing or touching/steadying/contact guard assistance fro m one helper? No. SIT TO STAND - STEP 4: Does the patient need physical assistance - for example lifting or trunk support from one helper - wi th the helper providing less than half of the effort? Yes. 1. [id number] ADMISSION PERFORMANCE: Partial/moderate assistance CODE: 03 TRANSFERS: BED, CHAIR: CHAIR/[id number] TRANSFER - STEP 1: Does the patient complete the activity by him/herself with no assistance (physical, verbal/nonverbal cueing, setup/clean-up)? No. CHAIR/[id number] TRANSFER - STEP 2: Does the patient need only setup/clean-up assistance from one helper? No. CHAIR/[id number] TRANSFER - STEP 3: Does the patient need only verbal/nonverbal cueing or touching/steadying/contact guard assistance fro m one helper? No. CHAIR/[id number] TRANSFER - STEP 4: Does the patient need physical assistance - for example lifting or trunk support from one helper - wi th the helper providing less than half of the effort? Yes. 1. [id number] ADMISSION PERFORMANCE: Partial/moderate assistance CODE: 03 TRANSFER TOILET: TOILET TRANSFER - STEP 1: Does the patient complete the activity by him/herself with no assistance (physical, verbal/nonverbal cueing, setup/clean-up)? No. TOILET TRANSFER - STEP 2: Does the patient need only setup/clean-up assistance from one helper? No. TOILET TRANSFER - STEP 3: Does the patient need only verbal/nonverbal cueing or touching/steadying/contact guard assistance fro m one helper? No. TOILET TRANSFER - STEP 4: Does the patient need physical assistance - for example lifting or trunk support from one helper - wi th the helper providing less than half of the effort? Yes. 1. [id number] ADMISSION PERFORMANCE: Partial/moderate assistance CODE: 03 TRANSFERS: CAR: Not assessed/no information CODE: - WALK 10 FEET: Not assessed/no information CODE: - 1 STEP (CURB): Not assessed/no information CODE: - PICKING UP OBJECT: Not assessed/no information CODE: - DOES THE PATIENT USE A WHEELCHAIR/SCOOTER? CODE: EXPR WHEEL 50 FEET WITH TWO TURNS: Not assessed/no information CODE: - INDICATE THE TYPE OF WHEELCHAIR/SCOOTER USED: CODE: EXPR WHEEL 150 FEET: Not assessed/no information CODE: - INDICATE THE TYPE OF WHEELCHAIR/SCOOTER USED: CODE: EXPR BLADDER AND BOWEL: H350. BLADDER CONTINENCE (3-DAY ASSESSMENT PERIOD): Stress incontinence only CODE: 1 H400. BOWEL CONTINENCE (3-DAY ASSESSMENT PERIOD): Always continent CODE: 0
[2019-11-03] MEDS: THYROID 30 MG TAB PO SCH (05:23)
[2019-11-03] MEDS: carvediloL 12.5 MG TAB PO SCH ×2 (05:23→16:30)
[2019-11-03] MEDS: PANTOPRAZOLE 40MG TABLET PO SCH (06:24)
[2019-11-03] MEDS: INSULIN -REGULAR HUMAN 50 UNIT/0.5 ML ML SQ SCH ×5 (07:30→21:00)
[2019-11-03] MEDS: LIDOCAINE 4% PATCH TOP SCH (07:37)
[2019-11-03] MEDS: SOD CHLORIDE 0.65% NASAL SPRAY NAS SCH ×2 (07:37→19:44)
[2019-11-03] MEDS: SODIUM CHLORIDE 0.9% 10ML INJ IV SCH ×2 (07:37→19:45)
[2019-11-03] MEDS: VITAMIN B COMPLEX 1 CAP PO SCH (08:54)
[2019-11-03] MEDS: CRANBERRY FRUIT EXTRACT 200 MG CAP PO SCH ×2 (08:54→19:44)
[2019-11-03] MEDS: glipiZIDE 5 MG TAB PO SCH (08:54)
[2019-11-03] MEDS: ESCITALOPRAM 20 MG TAB PO SCH (08:54)
[2019-11-03] MEDS: APIXABAN 2.5 MG TABLET PO SCH ×2 (08:54→19:44)
[2019-11-03] MEDS: FERROUS SULFATE 325 MG TAB PO SCH (08:55)
[2019-11-03] MEDS: FE SULF/FA/VIT B COMP & C TAB PO SCH (08:55)
[2019-11-03] MEDS: ASPIRIN 81 MG CHEWABLE TABLET PO SCH (08:55)
[2019-11-03] MEDS: FUROSEMIDE 20 MG TABLET PO SCH (08:55)
[2019-11-03] MEDS: PROMOD 30 ML DOSE PO SCH ×2 (08:56→19:44)
[2019-11-03] MEDS: MELATONIN 5 MG TABLET PO SCH (19:45)
[2019-11-03] MEDS: ATORVASTATIN 10 MG TAB PO SCH (19:45)
[2019-11-04] MEDS: HYDROCODONE/APAP 10/325 TAB PO PRN ×3 (04:19→16:03)
[2019-11-04] MEDS: THYROID 30 MG TAB PO SCH (05:15)
[2019-11-04] MEDS: carvediloL 12.5 MG TAB PO SCH ×2 (05:16→16:52)
[2019-11-04] MEDS: PANTOPRAZOLE 40MG TABLET PO SCH (06:31)
[2019-11-04] MEDS: SOD CHLORIDE 0.65% NASAL SPRAY NAS SCH ×2 (07:03→20:11)
[2019-11-04] MEDS: SODIUM CHLORIDE 0.9% 10ML INJ IV SCH ×2 (07:03→20:14)
[2019-11-04] MEDS: INSULIN -REGULAR HUMAN 50 UNIT/0.5 ML ML SQ SCH ×4 (07:23→20:14)
[2019-11-04] MEDS: PROMOD 30 ML DOSE PO SCH ×3 (08:00→20:00)
[2019-11-04] MEDS: LIDOCAINE 4% PATCH TOP SCH (08:25)
[2019-11-04] MEDS: FUROSEMIDE 20 MG TABLET PO SCH (08:27)
[2019-11-04] MEDS: ASPIRIN 81 MG CHEWABLE TABLET PO SCH (08:27)
[2019-11-04] MEDS: CRANBERRY FRUIT EXTRACT 200 MG CAP PO SCH ×2 (08:27→20:13)
[2019-11-04] MEDS: APIXABAN 2.5 MG TABLET PO SCH ×2 (08:27→20:13)
[2019-11-04] MEDS: VITAMIN B COMPLEX 1 CAP PO SCH (08:27)
[2019-11-04] MEDS: glipiZIDE 5 MG TAB PO SCH (08:27)
[2019-11-04] MEDS: FERROUS SULFATE 325 MG TAB PO SCH (08:27)
[2019-11-04] MEDS: FE SULF/FA/VIT B COMP & C TAB PO SCH (08:27)
[2019-11-04] MEDS: ESCITALOPRAM 20 MG TAB PO SCH (08:27)
[2019-11-04] MEDS: ATORVASTATIN 10 MG TAB PO SCH (20:12)
[2019-11-04] MEDS: MELATONIN 5 MG TABLET PO SCH (20:13)
[2019-11-05] MEDS: HYDROCODONE/APAP 10/325 TAB PO PRN ×3 (02:30→21:41)
[2019-11-05] MEDS: carvediloL 12.5 MG TAB PO SCH ×2 (05:30→17:35)
[2019-11-05] MEDS: THYROID 30 MG TAB PO SCH (05:30)
[2019-11-05] MEDS: INSULIN -REGULAR HUMAN 50 UNIT/0.5 ML ML SQ SCH ×4 (07:30→21:42)
[2019-11-05] MEDS: PANTOPRAZOLE 40MG TABLET PO SCH (07:39)
[2019-11-05] MEDS: SODIUM CHLORIDE 0.9% 10ML INJ IV SCH ×2 (08:00→20:55)
[2019-11-05] MEDS: PROMOD 30 ML DOSE PO SCH ×2 (08:00→20:00)
[2019-11-05] MEDS: LIDOCAINE 4% PATCH TOP SCH (08:17)
[2019-11-05] MEDS: SOD CHLORIDE 0.65% NASAL SPRAY NAS SCH ×2 (08:17→20:54)
[2019-11-05] MEDS: ESCITALOPRAM 20 MG TAB PO SCH (08:18)
[2019-11-05] MEDS: APIXABAN 2.5 MG TABLET PO SCH ×2 (08:18→20:54)
[2019-11-05] MEDS: ASPIRIN 81 MG CHEWABLE TABLET PO SCH (08:18)
[2019-11-05] MEDS: VITAMIN B COMPLEX 1 CAP PO SCH (08:18)
[2019-11-05] MEDS: FERROUS SULFATE 325 MG TAB PO SCH (08:18)
[2019-11-05] MEDS: glipiZIDE 5 MG TAB PO SCH (08:18)
[2019-11-05] MEDS: CRANBERRY FRUIT EXTRACT 200 MG CAP PO SCH ×2 (08:18→20:54)
[2019-11-05] MEDS: FE SULF/FA/VIT B COMP & C TAB PO SCH (08:18)
[2019-11-05] MEDS: FUROSEMIDE 20 MG TABLET PO SCH (08:19)
--- NOTE | 2019-11-05 14:59 | FAST ---
ENCOUNTER DATE AND TIME: 11/05/2019 08:00 (FLAT CLOTHIER) NAME ROBY COLON DATE OF : 1945 DATE OF ADMISSION: 10/24/2019 17:32 (FLAT CLOTHIER) PHONE: AGE: 74 N# [id number] GENDER: Female ENCOUNTER PHYSICIAN: Dr. Aftab Leonard M.D. ADMISSION DIAGNOSIS: - Cardiac 09 - Cardiac Disorders () CHF Exacerbation. EATING: Not assessed/no information CODE: - ORAL HYGIENE: ORAL HYGIENE - STEP 1: Does the patient complete the activity by him/herself with no assistance (physical, verbal/nonverbal cueing, setup/clean-up)? No. ORAL HYGIENE - STEP 2: Does the patient need only setup/clean-up assistance from one helper? No. ORAL HYGIENE - STEP 3: Does the patient need only verbal/nonverbal cueing or touching/steadying/contact guard assistance fro m one helper? Yes. 1. [id number] ADMISSION PERFORMANCE: Supervision or touching assistance CODE: 04 TOILETING HYGIENE: Not assessed/no information CODE: - BATHING: SHOWER/BATHE SELF - STEP 1: Does the patient complete the activity by him/herself with no assistance (physical, verbal/nonverbal cueing, setup/clean-up)? No. SHOWER/BATHE SELF - STEP 2: Does the patient need only setup/clean-up assistance from one helper? No. SHOWER/BATHE SELF - STEP 3: Does the patient need only verbal/nonverbal cueing or touching/steadying/contact guard assistance fro m one helper? Yes. 1. [id number] ADMISSION PERFORMANCE: Supervision or touching assistance CODE: 04 DRESSING - UPPER BODY: DRESSING - UPPER BODY - STEP 1: Does the patient complete the activity by him/herself with no assistance (physical, verbal/nonverbal cueing, setup/clean-up)? No. DRESSING - UPPER BODY - STEP 2: Does the patient need only setup/clean-up assistance from one helper? No. DRESSING - UPPER BODY - STEP 3: Does the patient need only verbal/nonverbal cueing or touching/steadying/contact guard assistance fro m one helper? No. DRESSING - UPPER BODY - STEP 4: Does the patient need physical assistance - for example lifting or trunk support from one helper - wi th the helper providing less than half of the effort? Yes. 1. [id number] ADMISSION PERFORMANCE: Partial/moderate assistance CODE: 03 DRESSING - LOWER BODY: DRESSING - LOWER BODY - STEP 1: Does the patient complete the activity by him/herself with no assistance (physical, verbal/nonverbal cueing, setup/clean-up)? No. DRESSING - LOWER BODY - STEP 2: Does the patient need only setup/clean-up assistance from one helper? No. DRESSING - LOWER BODY - STEP 3: Does the patient need only verbal/nonverbal cueing or touching/steadying/contact guard assistance fro m one helper? Yes. 1. [id number] ADMISSION PERFORMANCE: Supervision or touching assistance CODE: 04 PUTTING ON/TAKING OFF FOOTWEAR: FOOTWEAR - STEP 1: Does the patient complete the activity by him/herself with no assistance (physical, verbal/nonverbal cueing, setup/clean-up)? No. FOOTWEAR - STEP 2: Does the patient need only setup/clean-up assistance from one helper? No. FOOTWEAR - STEP 3: Does the patient need only verbal/nonverbal cueing or touching/steadying/contact guard assistance fro m one helper? Yes. 1. [id number] ADMISSION PERFORMANCE: Supervision or touching assistance CODE: 04 DOES THE PATIENT USE A WHEELCHAIR/SCOOTER? CODE: EXPR INDICATE THE TYPE OF WHEELCHAIR/SCOOTER USED: CODE: EXPR INDICATE THE TYPE OF WHEELCHAIR/SCOOTER USED: CODE: EXPR BLADDER AND BOWEL: CODE: EXPR CODE: EXPR SIGNATURE PANEL: The following modified sections: 1. [id number] Admission Performance, 1. [id number] Admission Performance, 1. [id number] Admission Performance, 1. [id number] Admission Performance, 1. [id number] Admission Performance were [electronically] signed by GLORIA Alvarez on TueNov 05 2019 14:58:54 GMT-0600 (Central Standard Time)
--- NOTE | 2019-11-05 15:48 | FAST ---
SHIFT START DATE/TIME: 11/05/2019 07:00 (CLINICAL TRIALS DATA COORDINATOR) SHIFT END DATE/TIME: 11/05/2019 19:00 (CLINICAL TRIALS DATA COORDINATOR) NAME ROBY COLON DATE OF : 1945 DATE OF ADMISSION: 10/24/2019 17:32 (CLINICAL TRIALS DATA COORDINATOR) PHONE: AGE: 74 N# [id number] GENDER: Female ENCOUNTER PHYSICIAN: Dr. Aftab Leonard M.D. ADMISSION DIAGNOSIS: - Cardiac 09 - Cardiac Disorders () CHF Exacerbation. EATING: EATING - STEP 1: Does the patient complete the activity by him/herself with no assistance (physical, verbal/nonverbal cueing, setup/clean-up)? No. EATING - STEP 2: Does the patient need only setup/clean-up assistance from one helper? Yes. 1. [id number] ADMISSION PERFORMANCE: Setup or clean-up assistance CODE: 05 ORAL HYGIENE: ORAL HYGIENE - STEP 1: Does the patient complete the activity by him/herself with no assistance (physical, verbal/nonverbal cueing, setup/clean-up)? No. ORAL HYGIENE - STEP 2: Does the patient need only setup/clean-up assistance from one helper? No. ORAL HYGIENE - STEP 3: Does the patient need only verbal/nonverbal cueing or touching/steadying/contact guard assistance fro m one helper? No. ORAL HYGIENE - STEP 4: Does the patient need physical assistance - for example lifting or trunk support from one helper - wi th the helper providing less than half of the effort? Yes. 1. [id number] ADMISSION PERFORMANCE: Partial/moderate assistance CODE: 03 TOILETING HYGIENE: TOILETING HYGIENE - STEP 1: Does the patient complete the activity by him/herself with no assistance (physical, verbal/nonverbal cueing, setup/clean-up)? No. TOILETING HYGIENE - STEP 2: Does the patient need only setup/clean-up assistance from one helper? No. TOILETING HYGIENE - STEP 3: Does the patient need only verbal/nonverbal cueing or touching/steadying/contact guard assistance fro m one helper? Yes. 1. [id number] ADMISSION PERFORMANCE: Supervision or touching assistance CODE: 04 BATHING: Not assessed/no information CODE: - DRESSING - UPPER BODY: DRESSING - UPPER BODY - STEP 1: Does the patient complete the activity by him/herself with no assistance (physical, verbal/nonverbal cueing, setup/clean-up)? No. DRESSING - UPPER BODY - STEP 2: Does the patient need only setup/clean-up assistance from one helper? No. DRESSING - UPPER BODY - STEP 3: Does the patient need only verbal/nonverbal cueing or touching/steadying/contact guard assistance fro m one helper? No. DRESSING - UPPER BODY - STEP 4: Does the patient need physical assistance - for example lifting or trunk support from one helper - wi th the helper providing less than half of the effort? Yes. 1. [id number] ADMISSION PERFORMANCE: Partial/moderate assistance CODE: 03 DRESSING - LOWER BODY: DRESSING - LOWER BODY - STEP 1: Does the patient complete the activity by him/herself with no assistance (physical, verbal/nonverbal cueing, setup/clean-up)? No. DRESSING - LOWER BODY - STEP 2: Does the patient need only setup/clean-up assistance from one helper? No. DRESSING - LOWER BODY - STEP 3: Does the patient need only verbal/nonverbal cueing or touching/steadying/contact guard assistance fro m one helper? Yes. 1. [id number] ADMISSION PERFORMANCE: Supervision or touching assistance CODE: 04 PUTTING ON/TAKING OFF FOOTWEAR: FOOTWEAR - STEP 1: Does the patient complete the activity by him/herself with no assistance (physical, verbal/nonverbal cueing, setup/clean-up)? No. FOOTWEAR - STEP 2: Does the patient need only setup/clean-up assistance from one helper? No. FOOTWEAR - STEP 3: Does the patient need only verbal/nonverbal cueing or touching/steadying/contact guard assistance fro m one helper? Yes. 1. [id number] ADMISSION PERFORMANCE: Supervision or touching assistance CODE: 04 ROLL LEFT AND RIGHT: ROLL LEFT AND RIGHT - STEP 1: Does the patient complete the activity by him/herself with no assistance (physical, verbal/nonverbal cueing, setup/clean-up)? No. ROLL LEFT AND RIGHT - STEP 2: Does the patient need only setup/clean-up assistance from one helper? No. ROLL LEFT AND RIGHT - STEP 3: Does the patient need only verbal/nonverbal cueing or touching/steadying/contact guard assistance fro m one helper? Yes. 1. [id number] ADMISSION PERFORMANCE: Supervision or touching assistance CODE: 04 SIT TO LYING: SIT TO LYING - STEP 1: Does the patient complete the activity by him/herself with no assistance (physical, verbal/nonverbal cueing, setup/clean-up)? No. SIT TO LYING - STEP 2: Does the patient need only setup/clean-up assistance from one helper? No. SIT TO LYING - STEP 3: Does the patient need only verbal/nonverbal cueing or touching/steadying/contact guard assistance fro m one helper? No. SIT TO LYING - STEP 4: Does the patient need physical assistance - for example lifting or trunk support from one helper - wi th the helper providing less than half of the effort? Yes. 1. [id number] ADMISSION PERFORMANCE: Partial/moderate assistance CODE: 03 LYING TO SITTING: LYING TO SITTING ON SIDE OF BED - STEP 1: Does the patient complete the activity by him/herself with no assistance (physical, verbal/nonverbal cueing, setup/clean-up)? No. LYING TO SITTING ON SIDE OF BED - STEP 2: Does the patient need only setup/clean-up assistance from one helper? No. LYING TO SITTING ON SIDE OF BED - STEP 3: Does the patient need only verbal/nonverbal cueing or touching/steadying/contact guard assistance fro m one helper? Yes. 1. [id number] ADMISSION PERFORMANCE: Supervision or touching assistance CODE: 04 SIT TO STAND: SIT TO STAND - STEP 1: Does the patient complete the activity by him/herself with no assistance (physical, verbal/nonverbal cueing, setup/clean-up)? No. SIT TO STAND - STEP 2: Does the patient need only setup/clean-up assistance from one helper? No. SIT TO STAND - STEP 3: Does the patient need only verbal/nonverbal cueing or touching/steadying/contact guard assistance fro m one helper? No. SIT TO STAND - STEP 4: Does the patient need physical assistance - for example lifting or trunk support from one helper - wi th the helper providing less than half of the effort? Yes. 1. [id number] ADMISSION PERFORMANCE: Partial/moderate assistance CODE: 03 TRANSFERS: BED, CHAIR: CHAIR/[id number] TRANSFER - STEP 1: Does the patient complete the activity by him/herself with no assistance (physical, verbal/nonverbal cueing, setup/clean-up)? No. CHAIR/[id number] TRANSFER - STEP 2: Does the patient need only setup/clean-up assistance from one helper? No. CHAIR/[id number] TRANSFER - STEP 3: Does the patient need only verbal/nonverbal cueing or touching/steadying/contact guard assistance fro m one helper? No. CHAIR/[id number] TRANSFER - STEP 4: Does the patient need physical assistance - for example lifting or trunk support from one helper - wi th the helper providing less than half of the effort? Yes. 1. [id number] ADMISSION PERFORMANCE: Partial/moderate assistance CODE: 03 TRANSFER TOILET: TOILET TRANSFER - STEP 1: Does the patient complete the activity by him/herself with no assistance (physical, verbal/nonverbal cueing, setup/clean-up)? No. TOILET TRANSFER - STEP 2: Does the patient need only setup/clean-up assistance from one helper? No. TOILET TRANSFER - STEP 3: Does the patient need only verbal/nonverbal cueing or touching/steadying/contact guard assistance fro m one helper? Yes. 1. [id number] ADMISSION PERFORMANCE: Supervision or touching assistance CODE: 04 TRANSFERS: CAR: Not assessed/no information CODE: - WALK 10 FEET: Not assessed/no information CODE: - 1 STEP (CURB): Not assessed/no information CODE: - PICKING UP OBJECT: Not assessed/no information CODE: - DOES THE PATIENT USE A WHEELCHAIR/SCOOTER? Q1. DOES THE PATIENT USE A WHEELCHAIR/SCOOTER?: Yes CODE: 1 WHEEL 50 FEET WITH TWO TURNS: Not assessed/no information CODE: - INDICATE THE TYPE OF WHEELCHAIR/SCOOTER USED: RR1. INDICATE THE TYPE OF WHEELCHAIR/SCOOTER USED.: Manual CODE: 1 WHEEL 150 FEET: Not assessed/no information CODE: - INDICATE THE TYPE OF WHEELCHAIR/SCOOTER USED: SS1. INDICATE THE TYPE OF WHEELCHAIR/SCOOTER USED.: Manual CODE: 1 BLADDER AND BOWEL: H350. BLADDER CONTINENCE (3-DAY ASSESSMENT PERIOD): Always continent (no documented incontinence) CODE: 0 H400. BOWEL CONTINENCE (3-DAY ASSESSMENT PERIOD): Always continent CODE: 0 SIGNATURE PANEL: The following modified sections: 1. [id number] Admission Performance, 1. [id number] Admission Performance, 1. VS0233H Admission Performance, 1. [id number] Admission Performance, 1. [id number] Admission Performance, 1. CQ5206e Admission Performance, 1. ST4971n Admission Performance, 1. DM0750z Admission Performance , 1. PF7416j Admission Performance, 1. [id number] Admission Performance, 1. US7902O Admission Performanc e, 1. EE2940E Admission Performance, 1. VG1778N Admission Performance, 1. [id number] Admission Performan ce, 1. [id number] Admission Performance, 1. WQ7725T Admission Performance, 1. TN9347V Admission Performa nce, Q1. Does the patient use a wheelchair/scooter?, RR1. Indicate the type of wheelchair/scooter use d., Code, SS1. Indicate the type of wheelchair/scooter used., H350. Bladder Continence (3-day assessm ent period), H400. Bowel Continence (3-day assessment period) were [electronically] signed by Abhijeet [email or web address] on TueNov 05 2019 15:47:26 GMT-0600 (Central Standard Time)
--- NOTE | 2019-11-05 17:56 | R.PN ---
ENCOUNTER DATE AND TIME: 11/05/2019 17:53 (DISTRIBUTION COORDINATOR) NAME ROBY COLON DATE OF : 1945 DATE OF ADMISSION: 10/24/2019 17:32 (DISTRIBUTION COORDINATOR) CHF ExacerbationCHIEF COMPLAINT: CHF exacerbation with debility SUBJECTIVE: Pt denied any depression. Pt denied any Shortness of Breath. WBC 7.3, Hgb 9.6, glucose 129 to 181. ADLs done with moderate assistance. Ambulated 200' with rolling walker and partial assistance. VITAL SIGNS Temperature: 97.4 F SBP/DBP: 136/78 Pulse: 68 Resp: 16 MEDICATION ALLERGIES: No Known Drug Allergies (NKDA) ENVIRONMENTAL ALLERGIES: None Known - Substance Allergies None Known - Other Allergies None Known NURSING: - Shower allowing shower ACTIVITIES OOB only with supervision THERAPIES: - Dietary and Nutrition Adequate Nutrition. Nutritional Education. Nutritional Supplements. PHYSICAL EXAM - Gen Alert and awake Lying in bed No apparent distress Oriented to: person, time, and place - Vital Signs Vital signs stable, afebrile - Skin No skin breakdown. Normacephalic - Eyes No abnormalities - Neck No abnormalities - CVS RRR - Chest No abnormalities - Resp Clear to auscultation - Abd Soft - GI Non distended Deferred - No abnormalities - Ext Mild bilateral lower extremity edema. - MSK 4+/5 weakness in both lower extremities. - Neuro 4/5 strength bilaterally upper and lower extremities. - Psych No abnormalities ASSESSMENT: Pt. is a 74 yo Right-handed female.On 10/19/2019 she was admitted to [facility] with diagno sis CHF Exacerbation.Her impairment category is Cardiac 09 - Cardiac Disorders (09).Pre-morbidly, Pt . was independent/mod-I in Locomotion and Self-Care; and she had good Transfers Control, Safety Aware ness, Social Cognition, Sphincter Control, and Communication.Currently, she has deficits of Transfers Control, Balance, Locomotion, and Safety Awareness.Pt. is now referred to [facility] for acute in-patient rehabilitation in order to maximize patient's functional independence in activities of daily living, strength, ROM, and mobility.- Rehab Goal Patient has realistic goal of being discharged at assistance level 6-Lashanda to reside at Home with Pt self. MDM/PLAN: - Physical Therapy Gait dysfunction - to improve, our physical therapists will perform initial evaluation of pt's statu s upon admission and devise an individualized program for Gait Training, and Wheel Chair mobility Inability to transfer - to improve, our physical therapists will perform initial evaluation of pt's status upon admission and devise an individualized program for Bed mobility Need for home safety evaluation - to improve, our physical therapists will perform initial evaluatio n of pt's status upon admission and devise an individualized program for Home Evaluation Need in caregiver upon discharge - to improve, our physical therapists will perform initial evaluati on of pt's status upon admission and devise an individualized program for Caregiver Training Edema - to improve, our physical therapists will perform initial evaluation of pt's status upon admi ssion and devise an individualized program for Elevation Training, and Lymphedema Therapy New precaution - to improve, our physical therapists will perform initial evaluation of pt's status upon admission and devise an individualized program for Patient precaution education Poor balance - to improve, our physical therapists will perform initial evaluation of pt's status up on admission and devise an individualized program for Balance Training Weakness - to improve, our physical therapists will perform initial evaluation of pt's status upon a dmission and devise an individualized program for Aquatic Therapy, Neuromuscular Reeducation, and Str engthening Achieving independence - to improve, our physical therapists will perform initial evaluation of pt's status upon admission and devise an individualized program for Community Reintegration Activities - Occupational Therapy Need for hospice care sales consultant - to improve, our occupation therapists will perform initial evaluation of pt's status upon admission and devise an individualized program for Caregiver Training Weakness - to improve, our occupation therapists will perform initial evaluation of pt's status upon admission and devise an individualized program for Aquatic Therapy, Balance, Endurance, UE ROM, and UE strengthening - Other See attached MAR (Medication Administration Record) - Diet Type Continue Regular - Diet - Liquid Texture Continue Regular - Tube Feed Continue N/A - Diet - Solid Texture Continue Regular - Shower allowing shower FUNCTIONAL STATUS: UPDATED AT WEEKLY TEAM CONFERENCE - Bladder Same accident frequency: 7-Ind - No accidents in the past 7 days - Bowel Same accident frequency: 7-Ind - No accidents in the past 7 days - Walking Same score based on distance walked: 1(<=50ft) FUNCTIONAL STATUS: - Self-Care A. Eating Lashanda B. Grooming sup C. Bathing modA D. Dressing - Upper sup E. Dressing - Lower modA F. Toileting sup - Sphincter Control G. Bladder control sup H. Bowel control sup - Transfers Control I. Bed/Chair/Wheelchair modA J. Toilet modA K. Tub/Shower modA - Locomotion L. Walk/Wheelchair (B) modA M. Stairs ADNO - Communication N. Comprehension (B) sup O. Expression (B) sup - Social Cognition P. Social Interaction sup Q. Problem Solving sup R. Memory Lashanda - Endurance Good - Balance Good - Safety Awareness Good QI SCORES: - Self-Care A. Eating 05-Setup or clean-up assistance B. Oral hygiene 05-Setup or clean-up assistance C. Toileting hygiene 04-Supervision or touching assistance E. Shower/bathe self 04-Supervision or touching assistance F. Upper body dressing G. Lower body dressing 04-Supervision or touching assistance H. Putting on/taking off footwear 04-Supervision or touching assistance - Mobility A. Roll left and right 04-Supervision or touching assistance B. Sit to lying 04-Supervision or touching assistance C. Lying to sitting on side of bed 04-Supervision or touching assistance D. Sit to stand 04-Supervision or touching assistance E. Chair/kmz-ep-teuox transfer 04-Supervision or touching assistance F. Toilet transfer 04-Supervision or touching assistance G. Car transfer 10-Not attempted due to environmental limitations I. Walk 10 feet 03-Partial/moderate assistance J. Walk 50 feet with two turns 88-Not attempted due to medical condition or safety concerns K. Walk 150 feet 88-Not attempted due to medical condition or safety concerns L. Walking 10 feet on uneven surfaces 88-Not attempted due to medical condition or safety concerns M. 1 step (curb) 88-Not attempted due to medical condition or safety concerns N. 4 steps 88-Not attempted due to medical condition or safety concerns O. 12 steps 88-Not attempted due to medical condition or safety concerns P. Picking up object 04-Supervision or touching assistance R. Wheel 50 feet with two turns 88-Not attempted due to medical condition or safety concerns S. Wheel 150 feet - Bladder and Bowel Bladder continence 0-Always continent Bowel continence 0-Always continent - Endurance Poor - Balance Poor - Safety Awareness Poor CURRENT FUNC. DEFICITS: Self-Care, Mobility, Endurance, Balance, and Safety Awareness SIGNATURE PANEL: ([facility])
[2019-11-05] MEDS: ATORVASTATIN 10 MG TAB PO SCH (21:41)
[2019-11-05] MEDS: MELATONIN 5 MG TABLET PO SCH (21:41)
[2019-11-06] MEDS: THYROID 30 MG TAB PO SCH (05:21)
[2019-11-06] MEDS: carvediloL 12.5 MG TAB PO SCH ×2 (05:22→17:23)
[2019-11-06] MEDS: HYDROCODONE/APAP 10/325 TAB PO PRN ×2 (05:27→18:58)
[2019-11-06] MEDS: PANTOPRAZOLE 40MG TABLET PO SCH (07:04)
[2019-11-06] MEDS: INSULIN -REGULAR HUMAN 50 UNIT/0.5 ML ML SQ SCH ×4 (07:30→19:19)
[2019-11-06] MEDS: PROMOD 30 ML DOSE PO SCH ×2 (08:00→18:59)
[2019-11-06] MEDS: SODIUM CHLORIDE 0.9% 10ML INJ IV SCH ×2 (08:00→18:59)
[2019-11-06] MEDS: SOD CHLORIDE 0.65% NASAL SPRAY NAS SCH ×2 (08:00→18:58)
[2019-11-06] MEDS: ESCITALOPRAM 20 MG TAB PO SCH (08:30)
[2019-11-06] MEDS: CRANBERRY FRUIT EXTRACT 200 MG CAP PO SCH ×2 (08:39→18:58)
[2019-11-06] MEDS: FE SULF/FA/VIT B COMP & C TAB PO SCH (08:40)
[2019-11-06] MEDS: VITAMIN B COMPLEX 1 CAP PO SCH (08:40)
[2019-11-06] MEDS: glipiZIDE 5 MG TAB PO SCH (08:40)
[2019-11-06] MEDS: ASPIRIN 81 MG CHEWABLE TABLET PO SCH (08:41)
[2019-11-06] MEDS: APIXABAN 2.5 MG TABLET PO SCH ×2 (08:41→18:58)
[2019-11-06] MEDS: FUROSEMIDE 20 MG TABLET PO SCH (08:41)
[2019-11-06] MEDS: ACETAMINOPHEN 500 MG TAB PO PRN ×3 (08:42→22:39)
[2019-11-06] MEDS: FERROUS SULFATE 325 MG TAB PO SCH (08:42)
[2019-11-06] MEDS: LIDOCAINE 4% PATCH TOP SCH (08:42)
[2019-11-06] MEDS: MELATONIN 5 MG TABLET PO SCH (18:58)
[2019-11-06] MEDS: ATORVASTATIN 10 MG TAB PO SCH (18:58)
[2019-11-07] MEDS: HYDROCODONE/APAP 10/325 TAB PO PRN ×2 (05:21→19:35)
[2019-11-07] MEDS: THYROID 30 MG TAB PO SCH (05:21)
[2019-11-07] MEDS: carvediloL 12.5 MG TAB PO SCH ×2 (05:21→17:18)
[2019-11-07] MEDS: INSULIN -REGULAR HUMAN 50 UNIT/0.5 ML ML SQ SCH ×4 (07:30→19:36)
[2019-11-07] MEDS: LIDOCAINE 4% PATCH TOP SCH (08:00)
[2019-11-07] MEDS: SODIUM CHLORIDE 0.9% 10ML INJ IV SCH ×2 (08:00→19:35)
[2019-11-07] MEDS: SOD CHLORIDE 0.65% NASAL SPRAY NAS SCH ×2 (08:00→19:34)
[2019-11-07] MEDS: CRANBERRY FRUIT EXTRACT 200 MG CAP PO SCH ×2 (08:21→19:35)
[2019-11-07] MEDS: VITAMIN B COMPLEX 1 CAP PO SCH (08:22)
[2019-11-07] MEDS: FUROSEMIDE 20 MG TABLET PO SCH (08:22)
[2019-11-07] MEDS: ASPIRIN 81 MG CHEWABLE TABLET PO SCH (08:22)
[2019-11-07] MEDS: ESCITALOPRAM 20 MG TAB PO SCH (08:22)
[2019-11-07] MEDS: glipiZIDE 5 MG TAB PO SCH (08:22)
[2019-11-07] MEDS: FERROUS SULFATE 325 MG TAB PO SCH (08:23)
[2019-11-07] MEDS: APIXABAN 2.5 MG TABLET PO SCH ×2 (08:23→19:35)
[2019-11-07] MEDS: PANTOPRAZOLE 40MG TABLET PO SCH (08:23)
[2019-11-07] MEDS: FE SULF/FA/VIT B COMP & C TAB PO SCH (08:23)
[2019-11-07] MEDS: PROMOD 30 ML DOSE PO SCH ×2 (08:24→19:35)
[2019-11-07] MEDS: ACETAMINOPHEN 500 MG TAB PO PRN ×2 (08:27→23:17)
[2019-11-07] MEDS: MELATONIN 5 MG TABLET PO SCH (19:35)
[2019-11-07] MEDS: ATORVASTATIN 10 MG TAB PO SCH (19:35)
[2019-11-08] MEDS: ACETAMINOPHEN 500 MG TAB PO PRN (05:14)
[2019-11-08] MEDS: carvediloL 12.5 MG TAB PO SCH ×2 (05:14→17:15)
[2019-11-08] MEDS: THYROID 30 MG TAB PO SCH (05:14)
[2019-11-08 06:17] LABS: Absolute Lymphocytes (CBC) 1.1 K/uL (0.7-4.9); Basophils % 1.2 % (0-1.3); Hematocrit 30.8 % (36.0-45.0); Lymphocytes % 22.1 % (15.3-44.8); MPV 7.8 fL (7.6-11.3); RBC Red Blood Cell Count 3.85 M/uL (3.86-4.86)
[2019-11-08 06:19] LABS: Albumin 2.5 g/dL (3.4-5.0); Magnesium 1.5 mg/dL (1.8-2.4); Potassium 3.4 mmol/L (3.5-5.1); Prealbumin 12.4 mg/dL (20-40)
[2019-11-08] MEDS: HYDROCODONE/APAP 10/325 TAB PO PRN ×3 (06:24→18:55)
[2019-11-08] MEDS: INSULIN -REGULAR HUMAN 50 UNIT/0.5 ML ML SQ SCH ×4 (07:30→19:25)
[2019-11-08] MEDS: SODIUM CHLORIDE 0.9% 10ML INJ IV SCH ×2 (08:00→18:56)
[2019-11-08] MEDS: PROMOD 30 ML DOSE PO SCH ×2 (08:00→18:55)
[2019-11-08] MEDS: ALBUTEROL INHALER 60 PUFF/8 GM IH PRN (08:58)
[2019-11-08] MEDS: ESCITALOPRAM 20 MG TAB PO SCH (08:59)
[2019-11-08] MEDS: VITAMIN B COMPLEX 1 CAP PO SCH (08:59)
[2019-11-08] MEDS: FERROUS SULFATE 325 MG TAB PO SCH (08:59)
[2019-11-08] MEDS: SOD CHLORIDE 0.65% NASAL SPRAY NAS SCH ×2 (08:59→18:55)
[2019-11-08] MEDS: CRANBERRY FRUIT EXTRACT 200 MG CAP PO SCH ×2 (08:59→18:54)
[2019-11-08] MEDS: glipiZIDE 5 MG TAB PO SCH (08:59)
[2019-11-08] MEDS: PANTOPRAZOLE 40MG TABLET PO SCH (09:00)
[2019-11-08] MEDS: FE SULF/FA/VIT B COMP & C TAB PO SCH (09:00)
[2019-11-08] MEDS: FUROSEMIDE 20 MG TABLET PO SCH (09:00)
[2019-11-08] MEDS: ASPIRIN 81 MG CHEWABLE TABLET PO SCH (09:00)
[2019-11-08] MEDS: APIXABAN 2.5 MG TABLET PO SCH ×2 (09:00→18:55)
[2019-11-08] MEDS: LIDOCAINE 4% PATCH TOP SCH (09:38)
--- NOTE | 2019-11-08 09:38 | FAST ---
SHIFT START DATE/TIME: 11/08/2019 07:00 (DEAF TEACHER) SHIFT END DATE/TIME: 11/08/2019 19:00 (DEAF TEACHER) NAME ROBY COLON DATE OF : 1945 DATE OF ADMISSION: 10/24/2019 17:32 (DEAF TEACHER) PHONE: AGE: 74 N# [id number] GENDER: Female ENCOUNTER PHYSICIAN: Dr. Aftab Leonard M.D. ADMISSION DIAGNOSIS: - Cardiac 09 - Cardiac Disorders () CHF Exacerbation. EATING: EATING - STEP 1: Does the patient complete the activity by him/herself with no assistance (physical, verbal/nonverbal cueing, setup/clean-up)? No. EATING - STEP 2: Does the patient need only setup/clean-up assistance from one helper? No. EATING - STEP 3: Does the patient need only verbal/nonverbal cueing or touching/steadying/contact guard assistance fro m one helper? Yes. 1. [id number] ADMISSION PERFORMANCE: Supervision or touching assistance CODE: 04 ORAL HYGIENE: ORAL HYGIENE - STEP 1: Does the patient complete the activity by him/herself with no assistance (physical, verbal/nonverbal cueing, setup/clean-up)? No. ORAL HYGIENE - STEP 2: Does the patient need only setup/clean-up assistance from one helper? No. ORAL HYGIENE - STEP 3: Does the patient need only verbal/nonverbal cueing or touching/steadying/contact guard assistance fro m one helper? Yes. 1. [id number] ADMISSION PERFORMANCE: Supervision or touching assistance CODE: 04 TOILETING HYGIENE: TOILETING HYGIENE - STEP 1: Does the patient complete the activity by him/herself with no assistance (physical, verbal/nonverbal cueing, setup/clean-up)? No. TOILETING HYGIENE - STEP 2: Does the patient need only setup/clean-up assistance from one helper? No. TOILETING HYGIENE - STEP 3: Does the patient need only verbal/nonverbal cueing or touching/steadying/contact guard assistance fro m one helper? No. TOILETING HYGIENE - STEP 4: Does the patient need physical assistance - for example lifting or trunk support from one helper - wi th the helper providing less than half of the effort? Yes. 1. [id number] ADMISSION PERFORMANCE: Partial/moderate assistance CODE: 03 BATHING: Not assessed/no information CODE: - DRESSING - UPPER BODY: DRESSING - UPPER BODY - STEP 1: Does the patient complete the activity by him/herself with no assistance (physical, verbal/nonverbal cueing, setup/clean-up)? No. DRESSING - UPPER BODY - STEP 2: Does the patient need only setup/clean-up assistance from one helper? No. DRESSING - UPPER BODY - STEP 3: Does the patient need only verbal/nonverbal cueing or touching/steadying/contact guard assistance fro m one helper? Yes. 1. [id number] ADMISSION PERFORMANCE: Supervision or touching assistance CODE: 04 DRESSING - LOWER BODY: DRESSING - LOWER BODY - STEP 1: Does the patient complete the activity by him/herself with no assistance (physical, verbal/nonverbal cueing, setup/clean-up)? No. DRESSING - LOWER BODY - STEP 2: Does the patient need only setup/clean-up assistance from one helper? No. DRESSING - LOWER BODY - STEP 3: Does the patient need only verbal/nonverbal cueing or touching/steadying/contact guard assistance fro m one helper? Yes. 1. [id number] ADMISSION PERFORMANCE: Supervision or touching assistance CODE: 04 PUTTING ON/TAKING OFF FOOTWEAR: Not assessed/no information CODE: - ROLL LEFT AND RIGHT: Not assessed/no information CODE: - SIT TO LYING: Not assessed/no information CODE: - LYING TO SITTING: LYING TO SITTING ON SIDE OF BED - STEP 1: Does the patient complete the activity by him/herself with no assistance (physical, verbal/nonverbal cueing, setup/clean-up)? No. LYING TO SITTING ON SIDE OF BED - STEP 2: Does the patient need only setup/clean-up assistance from one helper? No. LYING TO SITTING ON SIDE OF BED - STEP 3: Does the patient need only verbal/nonverbal cueing or touching/steadying/contact guard assistance fro m one helper? Yes. 1. [id number] ADMISSION PERFORMANCE: Supervision or touching assistance CODE: 04 SIT TO STAND: SIT TO STAND - STEP 1: Does the patient complete the activity by him/herself with no assistance (physical, verbal/nonverbal cueing, setup/clean-up)? No. SIT TO STAND - STEP 2: Does the patient need only setup/clean-up assistance from one helper? No. SIT TO STAND - STEP 3: Does the patient need only verbal/nonverbal cueing or touching/steadying/contact guard assistance fro m one helper? Yes. 1. [id number] ADMISSION PERFORMANCE: Supervision or touching assistance CODE: 04 TRANSFERS: BED, CHAIR: CHAIR/[id number] TRANSFER - STEP 1: Does the patient complete the activity by him/herself with no assistance (physical, verbal/nonverbal cueing, setup/clean-up)? No. CHAIR/[id number] TRANSFER - STEP 2: Does the patient need only setup/clean-up assistance from one helper? No. CHAIR/[id number]-XL-NPROA TRANSFER - STEP 3: Does the patient need only verbal/nonverbal cueing or touching/steadying/contact guard assistance fro m one helper? No. CHAIR/[id number] TRANSFER - STEP 4: Does the patient need physical assistance - for example lifting or trunk support from one helper - wi th the helper providing less than half of the effort? Yes. 1. [id number] ADMISSION PERFORMANCE: Partial/moderate assistance CODE: 03 TRANSFER TOILET: TOILET TRANSFER - STEP 1: Does the patient complete the activity by him/herself with no assistance (physical, verbal/nonverbal cueing, setup/clean-up)? No. TOILET TRANSFER - STEP 2: Does the patient need only setup/clean-up assistance from one helper? No. TOILET TRANSFER - STEP 3: Does the patient need only verbal/nonverbal cueing or touching/steadying/contact guard assistance fro m one helper? No. TOILET TRANSFER - STEP 4: Does the patient need physical assistance - for example lifting or trunk support from one helper - wi th the helper providing less than half of the effort? Yes. 1. [id number] ADMISSION PERFORMANCE: Partial/moderate assistance CODE: 03 TRANSFERS: CAR: Not assessed/no information CODE: - WALK 10 FEET: Not assessed/no information CODE: - 1 STEP (CURB): Not assessed/no information CODE: - PICKING UP OBJECT: Not assessed/no information CODE: - DOES THE PATIENT USE A WHEELCHAIR/SCOOTER? CODE: EXPR WHEEL 50 FEET WITH TWO TURNS: Not assessed/no information CODE: - INDICATE THE TYPE OF WHEELCHAIR/SCOOTER USED: CODE: EXPR WHEEL 150 FEET: Not assessed/no information CODE: - INDICATE THE TYPE OF WHEELCHAIR/SCOOTER USED: CODE: EXPR BLADDER AND BOWEL: H350. BLADDER CONTINENCE (3-DAY ASSESSMENT PERIOD): Stress incontinence only CODE: 1 H400. BOWEL CONTINENCE (3-DAY ASSESSMENT PERIOD): Always continent CODE: 0 SIGNATURE PANEL: The following modified sections: 1. [id number] Admission Performance, 1. [id number] Admission Performance, 1. [id number] Admission Performance, 1. [id number] Admission Performance, 1. [id number] Admission Performance, 1. [id number] Admission Performance, 1. [id number] Admission Performance, 1. [id number] Admission Performance , 1. [id number] Admission Performance, Code, H350. Bladder Continence (3-day assessment period), H400. B owel Continence (3-day assessment period), H350. Bladder Continence (3-day assessment period) were [e lectronically] signed by Tyson Delacruz on TueNov 08 2019 09:37:47 T-0600 (Central Standard Time)
--- NOTE | 2019-11-08 17:37 | R.PN ---
ENCOUNTER DATE AND TIME: 11/08/2019 17:31 (ASSISTED LIVING COORDINATOR) NAME ROBY COLON DATE OF : 1945 DATE OF ADMISSION: 10/24/2019 17:32 (ASSISTED LIVING COORDINATOR) CHF ExacerbationCHIEF COMPLAINT: CHF exacerbation with debility SUBJECTIVE: Pt denied any depression. Pt denied any Shortness of Breath. WBC 5.2, Hgb 9.7, glucose 69 to 214, prealbumin 12.4. She is on ferrous sulfate 325 mg daily and prom od 30 ml twice daily. ADLs done with partial assistance. Ambulated 102' with rolling walker, partial assistance and 3 rest breaks. VITAL SIGNS Temperature: 97.6 F SBP/DBP: 137/67 Pulse: 59 Resp: 16 MEDICATION ALLERGIES: No Known Drug Allergies (NKDA) ENVIRONMENTAL ALLERGIES: None Known - Substance Allergies None Known - Other Allergies None Known NURSING: - Shower allowing shower ACTIVITIES OOB only with supervision THERAPIES: - Dietary and Nutrition Adequate Nutrition. Nutritional Education. Nutritional Supplements. PHYSICAL EXAM - Gen Alert and awake Lying in bed No apparent distress Oriented to: person, time, and place - Vital Signs Vital signs stable, afebrile - Skin No skin breakdown. Normacephalic - Eyes No abnormalities - Neck No abnormalities - CVS RRR - Chest No abnormalities - Resp Clear to auscultation - Abd Soft - GI Non distended Deferred - No abnormalities - Ext Mild bilateral lower extremity edema. - MSK 4+/5 weakness in both lower extremities. - Neuro 4/5 strength bilaterally upper and lower extremities. - Psych No abnormalities ASSESSMENT: Pt. is a 74 yo Right-handed female.On 10/19/[address] [facility] with diagno sis CHF Exacerbation.Her impairment category is Cardiac 09 - Cardiac Disorders (09).Pre-morbidly, Pt . was independent/mod-I in Locomotion and Self-Care; and she had good Transfers Control, Safety Aware ness, Social Cognition, Sphincter Control, and Communication.Currently, she has deficits of Transfers Control, Balance, Locomotion, and Safety Awareness.Pt. is now referred to [facility] for acute in-patient rehabilitation in order to maximize patient's functional independence in activities of daily living, strength, ROM, and mobility.- Rehab Goal Patient has realistic goal of being discharged at assistance level 6-Lashanda to reside at Home with Pt self. MDM/PLAN: - Physical Therapy Gait dysfunction - to improve, our physical therapists will perform initial evaluation of pt's statu s upon admission and devise an individualized program for Gait Training, and Wheel Chair mobility Inability to transfer - to improve, our physical therapists will perform initial evaluation of pt's status upon admission and devise an individualized program for Bed mobility Need for home safety evaluation - to improve, our physical therapists will perform initial evaluatio n of pt's status upon admission and devise an individualized program for Home Evaluation Need in caregiver upon discharge - to improve, our physical therapists will perform initial evaluati on of pt's status upon admission and devise an individualized program for Caregiver Training Edema - to improve, our physical therapists will perform initial evaluation of pt's status upon admi ssion and devise an individualized program for Elevation Training, and Lymphedema Therapy New precaution - to improve, our physical therapists will perform initial evaluation of pt's status upon admission and devise an individualized program for Patient precaution education Poor balance - to improve, our physical therapists will perform initial evaluation of pt's status up on admission and devise an individualized program for Balance Training Weakness - to improve, our physical therapists will perform initial evaluation of pt's status upon a dmission and devise an individualized program for Aquatic Therapy, Neuromuscular Reeducation, and Str engthening Achieving independence - to improve, our physical therapists will perform initial evaluation of pt's status upon admission and devise an individualized program for Community Reintegration Activities - Occupational Therapy Need for caregiver services home - to improve, our occupation therapists will perform initial evaluation of pt's status upon admission and devise an individualized program for Caregiver Training Weakness - to improve, our occupation therapists will perform initial evaluation of pt's status upon admission and devise an individualized program for Aquatic Therapy, Balance, Endurance, UE ROM, and UE strengthening - Other See attached MAR (Medication Administration Record) - Diet Type Continue Regular - Diet - Liquid Texture Continue Regular - Tube Feed Continue N/A - Diet - Solid Texture Continue Regular - Shower allowing shower FUNCTIONAL STATUS: UPDATED AT WEEKLY TEAM CONFERENCE - Bladder Same accident frequency: 7-Ind - No accidents in the past 7 days - Bowel Same accident frequency: 7-Ind - No accidents in the past 7 days - Walking Same score based on distance walked: 1(<=50ft) FUNCTIONAL STATUS: - Self-Care A. Eating Lashanda B. Grooming sup C. Bathing modA D. Dressing - Upper sup E. Dressing - Lower modA F. Toileting sup - Sphincter Control G. Bladder control sup H. Bowel control sup - Transfers Control I. Bed/Chair/Wheelchair modA J. Toilet modA K. Tub/Shower modA - Locomotion L. Walk/Wheelchair (B) modA M. Stairs ADNO - Communication N. Comprehension (B) sup O. Expression (B) sup - Social Cognition P. Social Interaction sup Q. Problem Solving sup R. Memory Lashanda - Endurance Good - Balance Good - Safety Awareness Good QI SCORES: - Self-Care A. Eating 05-Setup or clean-up assistance B. Oral hygiene 05-Setup or clean-up assistance C. Toileting hygiene 04-Supervision or touching assistance E. Shower/bathe self 04-Supervision or touching assistance F. Upper body dressing G. Lower body dressing 04-Supervision or touching assistance H. Putting on/taking off footwear 04-Supervision or touching assistance - Mobility A. Roll left and right 04-Supervision or touching assistance B. Sit to lying 04-Supervision or touching assistance C. Lying to sitting on side of bed 04-Supervision or touching assistance D. Sit to stand 04-Supervision or touching assistance E. Chair/saq-ed-wedut transfer 04-Supervision or touching assistance F. Toilet transfer 04-Supervision or touching assistance G. Car transfer 10-Not attempted due to environmental limitations I. Walk 10 feet 03-Partial/moderate assistance J. Walk 50 feet with two turns 88-Not attempted due to medical condition or safety concerns K. Walk 150 feet 88-Not attempted due to medical condition or safety concerns L. Walking 10 feet on uneven surfaces 88-Not attempted due to medical condition or safety concerns M. 1 step (curb) 88-Not attempted due to medical condition or safety concerns N. 4 steps 88-Not attempted due to medical condition or safety concerns O. 12 steps 88-Not attempted due to medical condition or safety concerns P. Picking up object 04-Supervision or touching assistance R. Wheel 50 feet with two turns 88-Not attempted due to medical condition or safety concerns S. Wheel 150 feet - Bladder and Bowel Bladder continence 0-Always continent Bowel continence 0-Always continent - Endurance Poor - Balance Poor - Safety Awareness Poor CURRENT FUNC. DEFICITS: Self-Care, Mobility, Endurance, Balance, and Safety Awareness SIGNATURE PANEL: (ASSISTED LIVING COORDINATOR)
[2019-11-08] MEDS: DOCUSATE NA/SENNA CONC 1 TAB PO PRN (18:54)
[2019-11-08] MEDS: ATORVASTATIN 10 MG TAB PO SCH (18:54)
[2019-11-08] MEDS: MELATONIN 5 MG TABLET PO SCH (18:55)
[2019-11-08] MEDS: GABAPENTIN 100 MG CAP PO SCH (18:55)
[2019-11-09] MEDS: THYROID 30 MG TAB PO SCH (05:39)
[2019-11-09] MEDS: carvediloL 12.5 MG TAB PO SCH ×2 (05:39→17:17)
[2019-11-09] MEDS: HYDROCODONE/APAP 10/325 TAB PO PRN ×3 (05:39→21:19)
[2019-11-09] MEDS: SOD CHLORIDE 0.65% NASAL SPRAY NAS SCH ×2 (06:33→20:00)
[2019-11-09] MEDS: PANTOPRAZOLE 40MG TABLET PO SCH (06:33)
[2019-11-09] MEDS: SODIUM CHLORIDE 0.9% 10ML INJ IV SCH ×2 (06:36→21:06)
[2019-11-09] MEDS: INSULIN -REGULAR HUMAN 50 UNIT/0.5 ML ML SQ SCH ×4 (07:26→21:07)
[2019-11-09] MEDS: CRANBERRY FRUIT EXTRACT 200 MG CAP PO SCH ×2 (07:50→21:05)
[2019-11-09] MEDS: glipiZIDE 5 MG TAB PO SCH (07:50)
[2019-11-09] MEDS: VITAMIN B COMPLEX 1 CAP PO SCH (07:50)
[2019-11-09] MEDS: ASPIRIN 81 MG CHEWABLE TABLET PO SCH (07:50)
[2019-11-09] MEDS: ESCITALOPRAM 20 MG TAB PO SCH (07:50)
[2019-11-09] MEDS: APIXABAN 2.5 MG TABLET PO SCH ×2 (07:51→21:05)
[2019-11-09] MEDS: FUROSEMIDE 20 MG TABLET PO SCH (07:51)
[2019-11-09] MEDS: GABAPENTIN 100 MG CAP PO SCH ×2 (07:51→21:05)
[2019-11-09] MEDS: FERROUS SULFATE 325 MG TAB PO SCH (07:51)
[2019-11-09] MEDS: PROMOD 30 ML DOSE PO SCH ×2 (07:52→20:00)
[2019-11-09] MEDS: FE SULF/FA/VIT B COMP & C TAB PO SCH (07:52)
[2019-11-09] MEDS: LIDOCAINE 4% PATCH TOP SCH ×2 (08:00→08:45)
--- NOTE | 2019-11-09 09:24 | P.RH.PN ---
Estimated Length of Stay: 22 Expected Discharge Date: 11/14/19 Vital Signs: Last Vital Signs Temp 98.4 F 11/09/19 06:51 Pulse 66 11/09/19 07:51 Resp 16 11/09/19 06:51 BP 148/67 H 11/09/19 07:51 Pulse Ox 94 11/09/19 06:51 Laboratory: Laboratory Last Values WBC 5.2 K/uL (4.3-10.9) D 11/08/19 05:30 RBC 3.85 M/uL (3.86-4.86) L 11/08/19 05:30 Hgb 9.7 g/dL (12.0-15.0) L 11/08/19 05:30 Hct 30.8 % (36.0-45.0) L 11/08/19 05:30 MCV 79.9 fL (80-100) L 11/08/19 05:30 MCH 25.1 pg (27.0-35.0) L 11/08/19 05:30 MCHC 31.4 g/dL (32.0-36.0) L 11/08/19 05:30 RDW 17.8 % (12.1-15.2) H 11/08/19 05:30 Plt Count 359 K/uL (152-406) 11/08/19 05:30 MPV 7.8 fL (7.6-11.3) 11/08/19 05:30 Neutrophils % 61.6 % (41.7-73.7) 11/08/19 05:30 Lymphocytes % 22.1 % (15.3-44.8) 11/08/19 05:30 Monocytes % 8.7 % (3.3-12.3) 11/08/19 05:30 Eosinophils % 6.4 % (0-4.4) H 11/08/19 05:30 Basophils % 1.2 % (0-1.3) 11/08/19 05:30 Absolute Neutrophils 3.2 K/uL (1.8-8.0) 11/08/19 05:30 Absolute Lymphocytes 1.1 K/uL (0.7-4.9) 11/08/19 05:30 Absolute Monocytes 0.5 K/uL (0.1-1.3) 11/08/19 05:30 Absolute Eosinophils 0.3 K/uL (0-0.5) 11/08/19 05:30 Absolute Basophils 0.1 K/uL (0-0.5) 11/08/19 05:30 Sodium 142 mmol/L (136-145) 11/08/19 05:30 Potassium 3.4 mmol/L (3.5-5.1) L 11/08/19 05:30 Chloride 106 mmol/L (98-107) 11/08/19 05:30 Carbon Dioxide 27 mmol/L (21-32) 11/08/19 05:30 BUN 21 mg/dL (7-18) H 11/08/19 05:30 Creatinine 1.19 mg/dL (0.55-1.3) 11/08/19 05:30 Estimated GFR 44 mL/min (=/>90) L 11/08/19 05:30 Glucose 116 mg/dL (74-106) H 11/08/19 05:30 POC Glucose 141 mg/dl (65-120) H 11/09/19 07:23 Calcium 8.5 mg/dL (8.5-10.1) 11/08/19 05:30 Magnesium 1.5 mg/dL (1.8-2.4) L 11/08/19 05:30 Albumin 2.5 g/dL (3.4-5.0) L 11/08/19 05:30 Prealbumin 12.4 mg/dL (20-40) L 11/08/19 05:30 Weight: 151 lb 6.4 oz Wound Present: No Closed Surgical Incision Present: No Negative Pressure Wound Therapy Present: No Physician Update: She appears depressed and is not participating full this week compared to last week. She has moderate edema in the legs with mild shortness of breath with ambulation. She gained 3 lbs in the last week. Her weight will be done after her shower today. She has moderate left knee pain as another limitation. However, she will have 24 hour care at home. Medical Issues: Patient is incontinent daily with and always continent with bowel. Pain Issues: Patient is taking Tylenol 500mg Q4H PO PRN for pain. Comment: long thick toenails- DR Upton has been consulted and saw patient 10/30 Functional Improvement: Patient has not met short-term or long-term goals at this time. Patient presents w/ good overall work ethic, however does c/o of B knee pain on a regular basis. Patient's technique w/ transfers and gait has improved over her stay. Speech Therapy Update: Patient cont to present with mild cognitive impairments characterized by decreased STM, insight, and problem solving. Patient requires min to mod A to perform verbal problem solving and to demonstrate generation of solutions to problems as well as flexibility in her thinking. She responds well to demonstration of strategies as well as verbal cues and encouragement. She benefits from being given extra time to process and respond. Summary: Patient's care plan and application development team lead goals have been reviewed and revised as necessary. Please see the Rehabilitation Signature page for all necessary signatures.
--- NOTE | 2019-11-09 15:27 | FAST ---
ENCOUNTER DATE AND TIME: 11/09/2019 08:00 (INFORMATION ASSURANCE MANAGER) NAME ROBY COLON DATE OF : 1945 DATE OF ADMISSION: 10/24/2019 17:32 (INFORMATION ASSURANCE MANAGER) PHONE: AGE: 74 N# [id number] GENDER: Female ENCOUNTER PHYSICIAN: Dr. Aftab Leonard M.D. ADMISSION DIAGNOSIS: - Cardiac 09 - Cardiac Disorders () CHF Exacerbation. EATING: Not assessed/no information CODE: - ORAL HYGIENE: ORAL HYGIENE - STEP 1: Does the patient complete the activity by him/herself with no assistance (physical, verbal/nonverbal cueing, setup/clean-up)? Yes. 1. [id number] ADMISSION PERFORMANCE: Independent CODE: 06 TOILETING HYGIENE: Not assessed/no information CODE: - BATHING: SHOWER/BATHE SELF - STEP 1: Does the patient complete the activity by him/herself with no assistance (physical, verbal/nonverbal cueing, setup/clean-up)? No. SHOWER/BATHE SELF - STEP 2: Does the patient need only setup/clean-up assistance from one helper? No. SHOWER/BATHE SELF - STEP 3: Does the patient need only verbal/nonverbal cueing or touching/steadying/contact guard assistance fro m one helper? Yes. 1. [id number] ADMISSION PERFORMANCE: Supervision or touching assistance CODE: 04 DRESSING - UPPER BODY: DRESSING - UPPER BODY - STEP 1: Does the patient complete the activity by him/herself with no assistance (physical, verbal/nonverbal cueing, setup/clean-up)? No. DRESSING - UPPER BODY - STEP 2: Does the patient need only setup/clean-up assistance from one helper? No. DRESSING - UPPER BODY - STEP 3: Does the patient need only verbal/nonverbal cueing or touching/steadying/contact guard assistance fro m one helper? Yes. 1. [id number] ADMISSION PERFORMANCE: Supervision or touching assistance CODE: 04 DRESSING - LOWER BODY: DRESSING - LOWER BODY - STEP 1: Does the patient complete the activity by him/herself with no assistance (physical, verbal/nonverbal cueing, setup/clean-up)? No. DRESSING - LOWER BODY - STEP 2: Does the patient need only setup/clean-up assistance from one helper? No. DRESSING - LOWER BODY - STEP 3: Does the patient need only verbal/nonverbal cueing or touching/steadying/contact guard assistance fro m one helper? Yes. 1. [id number] ADMISSION PERFORMANCE: Supervision or touching assistance CODE: 04 PUTTING ON/TAKING OFF FOOTWEAR: FOOTWEAR - STEP 1: Does the patient complete the activity by him/herself with no assistance (physical, verbal/nonverbal cueing, setup/clean-up)? No. FOOTWEAR - STEP 2: Does the patient need only setup/clean-up assistance from one helper? No. FOOTWEAR - STEP 3: Does the patient need only verbal/nonverbal cueing or touching/steadying/contact guard assistance fro m one helper? Yes. 1. [id number] ADMISSION PERFORMANCE: Supervision or touching assistance CODE: 04 DOES THE PATIENT USE A WHEELCHAIR/SCOOTER? CODE: EXPR INDICATE THE TYPE OF WHEELCHAIR/SCOOTER USED: CODE: EXPR INDICATE THE TYPE OF WHEELCHAIR/SCOOTER USED: CODE: EXPR BLADDER AND BOWEL: CODE: EXPR CODE: EXPR SIGNATURE PANEL: The following modified sections: 1. [id number] Admission Performance, 1. [id number] Admission Performance, 1. [id number] Admission Performance, 1. [id number] Admission Performance, 1. [id number] Admission Performance were [electronically] signed by GLORIA Alvarez on TueNov 09 2019 15:26:48 GMT-0600 (Central Standard Time)
[2019-11-09] MEDS: ATORVASTATIN 10 MG TAB PO SCH (21:06)
[2019-11-09] MEDS: DOCUSATE NA/SENNA CONC 1 TAB PO SCH (21:06)
[2019-11-09] MEDS: MELATONIN 5 MG TABLET PO SCH (21:06)
[2019-11-10] MEDS: carvediloL 12.5 MG TAB PO SCH ×2 (05:26→16:52)
[2019-11-10] MEDS: THYROID 30 MG TAB PO SCH (05:26)
[2019-11-10] MEDS: PANTOPRAZOLE 40MG TABLET PO SCH (06:43)
[2019-11-10] MEDS: SODIUM CHLORIDE 0.9% 10ML INJ IV SCH ×2 (06:43→20:26)
[2019-11-10] MEDS: SOD CHLORIDE 0.65% NASAL SPRAY NAS SCH ×2 (06:44→20:27)
[2019-11-10] MEDS: HYDROCODONE/APAP 10/325 TAB PO PRN ×3 (06:58→23:06)
[2019-11-10] MEDS: INSULIN -REGULAR HUMAN 50 UNIT/0.5 ML ML SQ SCH ×4 (07:30→20:28)
[2019-11-10] MEDS: LIDOCAINE 4% PATCH TOP SCH (08:00)
[2019-11-10] MEDS: PROMOD 30 ML DOSE PO SCH ×2 (08:00→20:00)
[2019-11-10] MEDS: ASPIRIN 81 MG CHEWABLE TABLET PO SCH (08:24)
[2019-11-10] MEDS: FUROSEMIDE 20 MG TABLET PO SCH (08:24)
[2019-11-10] MEDS: APIXABAN 2.5 MG TABLET PO SCH ×2 (08:24→20:26)
[2019-11-10] MEDS: FERROUS SULFATE 325 MG TAB PO SCH (08:24)
[2019-11-10] MEDS: FE SULF/FA/VIT B COMP & C TAB PO SCH (08:24)
[2019-11-10] MEDS: ESCITALOPRAM 20 MG TAB PO SCH (08:25)
[2019-11-10] MEDS: GABAPENTIN 100 MG CAP PO SCH ×2 (08:25→20:26)
[2019-11-10] MEDS: CRANBERRY FRUIT EXTRACT 200 MG CAP PO SCH ×2 (08:25→20:25)
[2019-11-10] MEDS: glipiZIDE 5 MG TAB PO SCH (08:25)
[2019-11-10] MEDS: VITAMIN B COMPLEX 1 CAP PO SCH (08:25)
[2019-11-10] MEDS: DOCUSATE NA/SENNA CONC 1 TAB PO SCH (20:26)
[2019-11-10] MEDS: MELATONIN 5 MG TABLET PO SCH (20:26)
[2019-11-10] MEDS: ATORVASTATIN 10 MG TAB PO SCH (20:26)
[2019-11-11] MEDS: THYROID 30 MG TAB PO SCH (05:11)
[2019-11-11] MEDS: carvediloL 12.5 MG TAB PO SCH ×2 (05:11→16:59)
[2019-11-11] MEDS: PANTOPRAZOLE 40MG TABLET PO SCH (06:41)
[2019-11-11] MEDS: SOD CHLORIDE 0.65% NASAL SPRAY NAS SCH ×2 (06:41→20:22)
[2019-11-11] MEDS: SODIUM CHLORIDE 0.9% 10ML INJ IV SCH ×2 (06:41→20:24)
[2019-11-11] MEDS: INSULIN -REGULAR HUMAN 50 UNIT/0.5 ML ML SQ SCH ×4 (07:21→20:23)
[2019-11-11] MEDS: PROMOD 30 ML DOSE PO SCH ×2 (08:00→20:00)
[2019-11-11] MEDS: LIDOCAINE 4% PATCH TOP SCH (08:00)
[2019-11-11] MEDS: FUROSEMIDE 20 MG TABLET PO SCH (08:04)
[2019-11-11] MEDS: glipiZIDE 5 MG TAB PO SCH (08:04)
[2019-11-11] MEDS: VITAMIN B COMPLEX 1 CAP PO SCH (08:04)
[2019-11-11] MEDS: APIXABAN 2.5 MG TABLET PO SCH ×2 (08:04→20:22)
[2019-11-11] MEDS: FE SULF/FA/VIT B COMP & C TAB PO SCH (08:04)
[2019-11-11] MEDS: CRANBERRY FRUIT EXTRACT 200 MG CAP PO SCH ×2 (08:05→20:22)
[2019-11-11] MEDS: FERROUS SULFATE 325 MG TAB PO SCH (08:07)
[2019-11-11] MEDS: ASPIRIN 81 MG CHEWABLE TABLET PO SCH (08:07)
[2019-11-11] MEDS: ESCITALOPRAM 20 MG TAB PO SCH (08:07)
[2019-11-11] MEDS: GABAPENTIN 100 MG CAP PO SCH ×2 (08:07→20:22)
[2019-11-11] MEDS: HYDROCODONE/APAP 10/325 TAB PO PRN ×2 (16:01→23:11)
[2019-11-11] MEDS: ATORVASTATIN 10 MG TAB PO SCH (20:22)
[2019-11-11] MEDS: MELATONIN 5 MG TABLET PO SCH (20:23)
[2019-11-11] MEDS: DOCUSATE NA/SENNA CONC 1 TAB PO SCH (20:23)
[2019-11-12] MEDS: THYROID 30 MG TAB PO SCH (05:19)
[2019-11-12] MEDS: carvediloL 12.5 MG TAB PO SCH ×2 (05:19→17:23)
[2019-11-12 05:26] VITALS: BMI 27.1
[2019-11-12] MEDS: INSULIN -REGULAR HUMAN 50 UNIT/0.5 ML ML SQ SCH ×4 (07:18→21:00)
[2019-11-12] MEDS: HYDROCODONE/APAP 10/325 TAB PO PRN ×3 (07:28→17:38)
[2019-11-12] MEDS: PANTOPRAZOLE 40MG TABLET PO SCH (07:28)
[2019-11-12] MEDS: LIDOCAINE 4% PATCH TOP SCH (08:00)
[2019-11-12] MEDS: SODIUM CHLORIDE 0.9% 10ML INJ IV SCH ×2 (08:00→18:58)
[2019-11-12] MEDS: PROMOD 30 ML DOSE PO SCH ×2 (08:00→18:58)
[2019-11-12] MEDS: CRANBERRY FRUIT EXTRACT 200 MG CAP PO SCH ×2 (08:21→18:57)
[2019-11-12] MEDS: SOD CHLORIDE 0.65% NASAL SPRAY NAS SCH ×2 (08:21→18:58)
[2019-11-12] MEDS: FUROSEMIDE 20 MG TABLET PO SCH (08:22)
[2019-11-12] MEDS: FERROUS SULFATE 325 MG TAB PO SCH (08:22)
[2019-11-12] MEDS: glipiZIDE 5 MG TAB PO SCH (08:22)
[2019-11-12] MEDS: ASPIRIN 81 MG CHEWABLE TABLET PO SCH (08:22)
[2019-11-12] MEDS: ESCITALOPRAM 20 MG TAB PO SCH (08:22)
[2019-11-12] MEDS: VITAMIN B COMPLEX 1 CAP PO SCH (08:22)
[2019-11-12] MEDS: FE SULF/FA/VIT B COMP & C TAB PO SCH (08:22)
[2019-11-12] MEDS: GABAPENTIN 100 MG CAP PO SCH ×2 (08:22→18:57)
[2019-11-12] MEDS: APIXABAN 2.5 MG TABLET PO SCH ×2 (08:22→18:57)
[2019-11-12] MEDS: MELATONIN 5 MG TABLET PO SCH (18:57)
[2019-11-12] MEDS: ATORVASTATIN 10 MG TAB PO SCH (18:57)
[2019-11-12] MEDS: DOCUSATE NA/SENNA CONC 1 TAB PO SCH (18:59)
[2019-11-13] MEDS: carvediloL 12.5 MG TAB PO SCH ×2 (05:14→17:03)
[2019-11-13] MEDS: THYROID 30 MG TAB PO SCH (05:14)
[2019-11-13] MEDS: PANTOPRAZOLE 40MG TABLET PO SCH (06:57)
[2019-11-13] MEDS: SOD CHLORIDE 0.65% NASAL SPRAY NAS SCH ×2 (06:57→19:16)
[2019-11-13] MEDS: SODIUM CHLORIDE 0.9% 10ML INJ IV SCH ×2 (06:58→19:16)
[2019-11-13] MEDS: INSULIN -REGULAR HUMAN 50 UNIT/0.5 ML ML SQ SCH ×4 (07:23→19:17)
[2019-11-13] MEDS: LIDOCAINE 4% PATCH TOP SCH (08:00)
[2019-11-13] MEDS: PROMOD 30 ML DOSE PO SCH ×2 (08:00→19:17)
[2019-11-13] MEDS: HYDROCODONE/APAP 10/325 TAB PO PRN ×3 (08:09→23:59)
[2019-11-13] MEDS: FE SULF/FA/VIT B COMP & C TAB PO SCH (08:11)
[2019-11-13] MEDS: CRANBERRY FRUIT EXTRACT 200 MG CAP PO SCH ×2 (08:11→19:16)
[2019-11-13] MEDS: FERROUS SULFATE 325 MG TAB PO SCH (08:11)
[2019-11-13] MEDS: GABAPENTIN 100 MG CAP PO SCH ×2 (08:11→19:16)
[2019-11-13] MEDS: ESCITALOPRAM 20 MG TAB PO SCH (08:11)
[2019-11-13] MEDS: VITAMIN B COMPLEX 1 CAP PO SCH (08:11)
[2019-11-13] MEDS: glipiZIDE 5 MG TAB PO SCH (08:11)
[2019-11-13] MEDS: FUROSEMIDE 20 MG TABLET PO SCH (08:11)
[2019-11-13] MEDS: ASPIRIN 81 MG CHEWABLE TABLET PO SCH (08:11)
[2019-11-13] MEDS: APIXABAN 2.5 MG TABLET PO SCH ×2 (08:11→19:16)
--- NOTE | 2019-11-13 14:49 | FAST ---
SHIFT START DATE/TIME: 11/12/2019 07:00 (ANATOMY AND PHYSIOLOGY INSTRUCTOR) SHIFT END DATE/TIME: 11/12/2019 19:00 (ANATOMY AND PHYSIOLOGY INSTRUCTOR) NAME ROBY COLON DATE OF : 1945 DATE OF ADMISSION: 10/24/2019 17:32 (ANATOMY AND PHYSIOLOGY INSTRUCTOR) PHONE: AGE: 74 N# [id number] GENDER: Female ENCOUNTER PHYSICIAN: Dr. Aftab Leonard M.D. ADMISSION DIAGNOSIS: - Cardiac 09 - Cardiac Disorders () CHF Exacerbation. EATING: EATING - STEP 1: Does the patient complete the activity by him/herself with no assistance (physical, verbal/nonverbal cueing, setup/clean-up)? No. EATING - STEP 2: Does the patient need only setup/clean-up assistance from one helper? Yes. 1. [id number] ADMISSION PERFORMANCE: Setup or clean-up assistance CODE: 05 ORAL HYGIENE: Patient refused CODE: 07 [id number] - COMMENTS: No teeth- no dentures TOILETING HYGIENE: TOILETING HYGIENE - STEP 1: Does the patient complete the activity by him/herself with no assistance (physical, verbal/nonverbal cueing, setup/clean-up)? No. TOILETING HYGIENE - STEP 2: Does the patient need only setup/clean-up assistance from one helper? No. TOILETING HYGIENE - STEP 3: Does the patient need only verbal/nonverbal cueing or touching/steadying/contact guard assistance fro m one helper? Yes. 1. [id number] ADMISSION PERFORMANCE: Supervision or touching assistance CODE: 04 BATHING: Not assessed/no information CODE: - DRESSING - UPPER BODY: DRESSING - UPPER BODY - STEP 1: Does the patient complete the activity by him/herself with no assistance (physical, verbal/nonverbal cueing, setup/clean-up)? No. DRESSING - UPPER BODY - STEP 2: Does the patient need only setup/clean-up assistance from one helper? No. DRESSING - UPPER BODY - STEP 3: Does the patient need only verbal/nonverbal cueing or touching/steadying/contact guard assistance fro m one helper? Yes. 1. [id number] ADMISSION PERFORMANCE: Supervision or touching assistance CODE: 04 DRESSING - LOWER BODY: DRESSING - LOWER BODY - STEP 1: Does the patient complete the activity by him/herself with no assistance (physical, verbal/nonverbal cueing, setup/clean-up)? No. DRESSING - LOWER BODY - STEP 2: Does the patient need only setup/clean-up assistance from one helper? Yes. 1. [id number] ADMISSION PERFORMANCE: Setup or clean-up assistance CODE: 05 PUTTING ON/TAKING OFF FOOTWEAR: FOOTWEAR - STEP 1: Does the patient complete the activity by him/herself with no assistance (physical, verbal/nonverbal cueing, setup/clean-up)? No. FOOTWEAR - STEP 2: Does the patient need only setup/clean-up assistance from one helper? Yes. 1. [id number] ADMISSION PERFORMANCE: Setup or clean-up assistance CODE: 05 DOES THE PATIENT USE A WHEELCHAIR/SCOOTER? CODE: EXPR INDICATE THE TYPE OF WHEELCHAIR/SCOOTER USED: CODE: EXPR INDICATE THE TYPE OF WHEELCHAIR/SCOOTER USED: CODE: EXPR BLADDER AND BOWEL: H350. BLADDER CONTINENCE (3-DAY ASSESSMENT PERIOD): Always continent (no documented incontinence) CODE: 0 H400. BOWEL CONTINENCE (3-DAY ASSESSMENT PERIOD): Always continent CODE: 0 SIGNATURE PANEL: The following modified sections: 1. [id number] Admission Performance, [id number] - Comments:, 1. [id number] Ad mission Performance, 1. [id number] Admission Performance, 1. [id number] Admission Performance, 1. [id number] A dmission Performance, H350. Bladder Continence (3-day assessment period), H400. Bowel Continence (3-d ay assessment period) were [electronically] signed by Pretty Maria C.N.AValdez on TueNov 13 2019 14:47:5 8 GMT-0600 (Central Standard Time)
--- NOTE | 2019-11-13 16:02 | FAST ---
ENCOUNTER DATE AND TIME: 11/13/2019 08:00 (DIRECTOR TRADE) NAME ROBY COLON DATE OF : 1945 DATE OF ADMISSION: 10/24/2019 17:32 (DIRECTOR TRADE) PHONE: AGE: 74 N# [id number] GENDER: Female ENCOUNTER PHYSICIAN: Dr. Aftab Leonard M.D. ADMISSION DIAGNOSIS: - Cardiac 09 - Cardiac Disorders () CHF Exacerbation. EATING: Not assessed/no information CODE: - ORAL HYGIENE: ORAL HYGIENE - STEP 1: Does the patient complete the activity by him/herself with no assistance (physical, verbal/nonverbal cueing, setup/clean-up)? Yes. 1. [id number] ADMISSION PERFORMANCE: Independent CODE: 06 TOILETING HYGIENE: Not assessed/no information CODE: - BATHING: SHOWER/BATHE SELF - STEP 1: Does the patient complete the activity by him/herself with no assistance (physical, verbal/nonverbal cueing, setup/clean-up)? No. SHOWER/BATHE SELF - STEP 2: Does the patient need only setup/clean-up assistance from one helper? No. SHOWER/BATHE SELF - STEP 3: Does the patient need only verbal/nonverbal cueing or touching/steadying/contact guard assistance fro m one helper? Yes. 1. [id number] ADMISSION PERFORMANCE: Supervision or touching assistance CODE: 04 DRESSING - UPPER BODY: DRESSING - UPPER BODY - STEP 1: Does the patient complete the activity by him/herself with no assistance (physical, verbal/nonverbal cueing, setup/clean-up)? No. DRESSING - UPPER BODY - STEP 2: Does the patient need only setup/clean-up assistance from one helper? Yes. 1. [id number] ADMISSION PERFORMANCE: Setup or clean-up assistance CODE: 05 DRESSING - LOWER BODY: DRESSING - LOWER BODY - STEP 1: Does the patient complete the activity by him/herself with no assistance (physical, verbal/nonverbal cueing, setup/clean-up)? No. DRESSING - LOWER BODY - STEP 2: Does the patient need only setup/clean-up assistance from one helper? No. DRESSING - LOWER BODY - STEP 3: Does the patient need only verbal/nonverbal cueing or touching/steadying/contact guard assistance fro m one helper? No. DRESSING - LOWER BODY - STEP 4: Does the patient need physical assistance - for example lifting or trunk support from one helper - wi th the helper providing less than half of the effort? No. DRESSING - LOWER BODY - STEP 5: Does the patient need physical assistance - for example lifting or trunk support from one helper - wi th the helper providing more than half of the effort? Yes. 1. [id number] ADMISSION PERFORMANCE: Substantial/maximal assistance CODE: 02 PUTTING ON/TAKING OFF FOOTWEAR: FOOTWEAR - STEP 1: Does the patient complete the activity by him/herself with no assistance (physical, verbal/nonverbal cueing, setup/clean-up)? No. FOOTWEAR - STEP 2: Does the patient need only setup/clean-up assistance from one helper? No. FOOTWEAR - STEP 3: Does the patient need only verbal/nonverbal cueing or touching/steadying/contact guard assistance fro m one helper? Yes. 1. [id number] ADMISSION PERFORMANCE: Supervision or touching assistance CODE: 04 DOES THE PATIENT USE A WHEELCHAIR/SCOOTER? CODE: EXPR INDICATE THE TYPE OF WHEELCHAIR/SCOOTER USED: CODE: EXPR INDICATE THE TYPE OF WHEELCHAIR/SCOOTER USED: CODE: EXPR BLADDER AND BOWEL: CODE: EXPR CODE: EXPR SIGNATURE PANEL: The following modified sections: 1. [id number] Admission Performance, 1. [id number] Admission Performance, 1. [id number] Admission Performance, 1. [id number] Admission Performance, 1. [id number] Admission Performance were [electronically] signed by GLORIA Alvarez on TueNov 13 2019 16:01:03 GMT-0600 (Central Standard Time)
--- NOTE | 2019-11-13 18:02 | R.PN ---
ENCOUNTER DATE AND TIME: 11/13/2019 17:56 (PLEATER) NAME ROBY COLON DATE OF : 1945 DATE OF ADMISSION: 10/24/2019 17:32 (PLEATER) CHF ExacerbationCHIEF COMPLAINT: CHF exacerbation with debility SUBJECTIVE: Pt denied any depression. Pt denied any Shortness of Breath. WBC 5.2, Hgb 9.7, glucose 69 to 214, prealbumin 12.4. She is on ferrous sulfate 325 mg daily and prom od 30 ml twice daily. ADLs done with partial assistance. Ambulated 150' with rolling walker, partial assistance and 3 rest breaks. VITAL SIGNS Temperature: 97.6 F SBP/DBP: 135/63 Pulse: 62 Resp: 16 MEDICATION ALLERGIES: No Known Drug Allergies (NKDA) ENVIRONMENTAL ALLERGIES: None Known - Substance Allergies None Known - Other Allergies None Known NURSING: - Shower allowing shower ACTIVITIES OOB only with supervision THERAPIES: - Dietary and Nutrition Adequate Nutrition. Nutritional Education. Nutritional Supplements. PHYSICAL EXAM - Gen Alert and awake Lying in bed No apparent distress Oriented to: person, time, and place - Vital Signs Vital signs stable, afebrile - Skin No skin breakdown. Normacephalic - Eyes No abnormalities - Neck No abnormalities - CVS RRR - Chest No abnormalities - Resp Clear to auscultation - Abd Soft - GI Non distended Deferred - No abnormalities - Ext Mild bilateral lower extremity edema. - MSK 4+/5 weakness in both lower extremities. - Neuro 4/5 strength bilaterally upper and lower extremities. - Psych No abnormalities ASSESSMENT: Pt. is a 74 yo Right-handed female.On 10/19/[address] [facility] with diagno sis CHF Exacerbation.Her impairment category is Cardiac 09 - Cardiac Disorders (09).Pre-morbidly, Pt . was independent/mod-I in Locomotion and Self-Care; and she had good Transfers Control, Safety Aware ness, Social Cognition, Sphincter Control, and Communication.Currently, she has deficits of Transfers Control, Balance, Locomotion, and Safety Awareness.Pt. is now referred to [facility] for acute in-patient rehabilitation in order to maximize patient's functional independence in activities of daily living, strength, ROM, and mobility.- Rehab Goal Patient has realistic goal of being discharged at assistance level 6-Lashanda to reside at Home with Pt self. MDM/PLAN: - Physical Therapy Gait dysfunction - to improve, our physical therapists will perform initial evaluation of pt's statu s upon admission and devise an individualized program for Gait Training, and Wheel Chair mobility Inability to transfer - to improve, our physical therapists will perform initial evaluation of pt's status upon admission and devise an individualized program for Bed mobility Need for home safety evaluation - to improve, our physical therapists will perform initial evaluatio n of pt's status upon admission and devise an individualized program for Home Evaluation Need in caregiver upon discharge - to improve, our physical therapists will perform initial evaluati on of pt's status upon admission and devise an individualized program for Caregiver Training Edema - to improve, our physical therapists will perform initial evaluation of pt's status upon admi ssion and devise an individualized program for Elevation Training, and Lymphedema Therapy New precaution - to improve, our physical therapists will perform initial evaluation of pt's status upon admission and devise an individualized program for Patient precaution education Poor balance - to improve, our physical therapists will perform initial evaluation of pt's status up on admission and devise an individualized program for Balance Training Weakness - to improve, our physical therapists will perform initial evaluation of pt's status upon a dmission and devise an individualized program for Aquatic Therapy, Neuromuscular Reeducation, and Str engthening Achieving independence - to improve, our physical therapists will perform initial evaluation of pt's status upon admission and devise an individualized program for Community Reintegration Activities - Occupational Therapy Need for home health caregiver - to improve, our occupation therapists will perform initial evaluation of pt's status upon admission and devise an individualized program for Caregiver Training Weakness - to improve, our occupation therapists will perform initial evaluation of pt's status upon admission and devise an individualized program for Aquatic Therapy, Balance, Endurance, UE ROM, and UE strengthening - Other See attached MAR (Medication Administration Record) - Diet Type Continue Regular - Diet - Liquid Texture Continue Regular - Tube Feed Continue N/A - Diet - Solid Texture Continue Regular - Shower allowing shower FUNCTIONAL STATUS: UPDATED AT WEEKLY TEAM CONFERENCE - Bladder Same accident frequency: 7-Ind - No accidents in the past 7 days - Bowel Same accident frequency: 7-Ind - No accidents in the past 7 days - Walking Same score based on distance walked: 1(<=50ft) FUNCTIONAL STATUS: - Self-Care A. Eating Lashanda B. Grooming sup C. Bathing modA D. Dressing - Upper sup E. Dressing - Lower modA F. Toileting sup - Sphincter Control G. Bladder control sup H. Bowel control sup - Transfers Control I. Bed/Chair/Wheelchair modA J. Toilet modA K. Tub/Shower modA - Locomotion L. Walk/Wheelchair (B) modA M. Stairs ADNO - Communication N. Comprehension (B) sup O. Expression (B) sup - Social Cognition P. Social Interaction sup Q. Problem Solving sup R. Memory Lashanda - Endurance Good - Balance Good - Safety Awareness Good QI SCORES: - Self-Care A. Eating 05-Setup or clean-up assistance B. Oral hygiene 05-Setup or clean-up assistance C. Toileting hygiene 04-Supervision or touching assistance E. Shower/bathe self 04-Supervision or touching assistance F. Upper body dressing G. Lower body dressing 04-Supervision or touching assistance H. Putting on/taking off footwear 04-Supervision or touching assistance - Mobility A. Roll left and right 04-Supervision or touching assistance B. Sit to lying 04-Supervision or touching assistance C. Lying to sitting on side of bed 04-Supervision or touching assistance D. Sit to stand 04-Supervision or touching assistance E. Chair/[id number] transfer 04-Supervision or touching assistance F. Toilet transfer 04-Supervision or touching assistance G. Car transfer 10-Not attempted due to environmental limitations I. Walk 10 feet 03-Partial/moderate assistance J. Walk 50 feet with two turns 88-Not attempted due to medical condition or safety concerns K. Walk 150 feet 88-Not attempted due to medical condition or safety concerns L. Walking 10 feet on uneven surfaces 88-Not attempted due to medical condition or safety concerns M. 1 step (curb) 88-Not attempted due to medical condition or safety concerns N. 4 steps 88-Not attempted due to medical condition or safety concerns O. 12 steps 88-Not attempted due to medical condition or safety concerns P. Picking up object 04-Supervision or touching assistance R. Wheel 50 feet with two turns 88-Not attempted due to medical condition or safety concerns S. Wheel 150 feet - Bladder and Bowel Bladder continence 0-Always continent Bowel continence 0-Always continent - Endurance Poor - Balance Poor - Safety Awareness Poor CURRENT FUNC. DEFICITS: Self-Care, Mobility, Endurance, Balance, and Safety Awareness SIGNATURE PANEL: (PLEATER)
[2019-11-13] MEDS: ACETAMINOPHEN 500 MG TAB PO PRN (19:16)
[2019-11-13] MEDS: ATORVASTATIN 10 MG TAB PO SCH (19:17)
[2019-11-13] MEDS: DOCUSATE NA/SENNA CONC 1 TAB PO SCH (19:17)
[2019-11-13] MEDS: MELATONIN 5 MG TABLET PO SCH (19:17)
[2019-11-14] MEDS: carvediloL 12.5 MG TAB PO SCH (05:19)
[2019-11-14] MEDS: THYROID 30 MG TAB PO SCH (05:19)
[2019-11-14] MEDS: ACETAMINOPHEN 500 MG TAB PO PRN (05:20)
[2019-11-14] MEDS: INSULIN -REGULAR HUMAN 50 UNIT/0.5 ML ML SQ SCH ×2 (07:28→11:30)
[2019-11-14 07:34] VITALS: BP 122/60; TEMP 98.6
[2019-11-14] MEDS: PANTOPRAZOLE 40MG TABLET PO SCH (07:50)
[2019-11-14] MEDS: SOD CHLORIDE 0.65% NASAL SPRAY NAS SCH (07:50)
[2019-11-14] MEDS: CRANBERRY FRUIT EXTRACT 200 MG CAP PO SCH (07:50)
[2019-11-14] MEDS: glipiZIDE 5 MG TAB PO SCH (07:50)
[2019-11-14] MEDS: ASPIRIN 81 MG CHEWABLE TABLET PO SCH (07:50)
[2019-11-14] MEDS: APIXABAN 2.5 MG TABLET PO SCH (07:50)
[2019-11-14] MEDS: ESCITALOPRAM 20 MG TAB PO SCH (07:51)
[2019-11-14] MEDS: HYDROCODONE/APAP 10/325 TAB PO PRN (07:51)
[2019-11-14] MEDS: VITAMIN B COMPLEX 1 CAP PO SCH (07:51)
[2019-11-14] MEDS: FERROUS SULFATE 325 MG TAB PO SCH (07:51)
[2019-11-14] MEDS: GABAPENTIN 100 MG CAP PO SCH (07:51)
[2019-11-14] MEDS: FUROSEMIDE 20 MG TABLET PO SCH (07:51)
[2019-11-14] MEDS: FE SULF/FA/VIT B COMP & C TAB PO SCH (07:51)
[2019-11-14] MEDS: LIDOCAINE 4% PATCH TOP SCH (07:52)
[2019-11-14] MEDS: PROMOD 30 ML DOSE PO SCH (07:53)
[2019-11-14] MEDS: SODIUM CHLORIDE 0.9% 10ML INJ IV SCH (07:53)
--- NOTE | 2019-11-14 17:12 | R.PN ---
ENCOUNTER DATE AND TIME: 11/14/2019 17:08 (LOCOMOTIVE OPERATOR) NAME ROBY COLON DATE OF : 1945 DATE OF ADMISSION: 10/24/2019 17:32 (LOCOMOTIVE OPERATOR) CHF ExacerbationCHIEF COMPLAINT: CHF exacerbation with debility SUBJECTIVE: Pt denied any depression. Pt denied any Shortness of Breath. WBC 5.2, Hgb 9.7, glucose 69 to 214, prealbumin 12.4. She is on ferrous sulfate 325 mg daily and prom od 30 ml twice daily. ADLs done with partial assistance. Ambulated 120' with rolling walker, partial assistance and 2 rest breaks. Up and down 5 steps with bi lateral handrails. VITAL SIGNS Temperature: 97.6 F SBP/DBP: 122/60 Pulse: 74 Resp: 16 MEDICATION ALLERGIES: No Known Drug Allergies (NKDA) ENVIRONMENTAL ALLERGIES: None Known - Substance Allergies None Known - Other Allergies None Known NURSING: - Shower allowing shower ACTIVITIES OOB only with supervision THERAPIES: - Dietary and Nutrition Adequate Nutrition. Nutritional Education. Nutritional Supplements. PHYSICAL EXAM - Gen Alert and awake Lying in bed No apparent distress Oriented to: person, time, and place - Vital Signs Vital signs stable, afebrile - Skin No skin breakdown. Normacephalic - Eyes No abnormalities - Neck No abnormalities - CVS RRR - Chest No abnormalities - Resp Clear to auscultation - Abd Soft - GI Non distended Deferred - No abnormalities - Ext Mild bilateral lower extremity edema. - MSK 4+/5 weakness in both lower extremities. - Neuro 4/5 strength bilaterally upper and lower extremities. - Psych No abnormalities ASSESSMENT: Pt. is a 74 yo Right-handed female.On 10/19/2019 she was admitted to [facility] with diagno sis CHF Exacerbation.Her impairment category is Cardiac 09 - Cardiac Disorders (09).Pre-morbidly, Pt . was independent/mod-I in Locomotion and Self-Care; and she had good Transfers Control, Safety Aware ness, Social Cognition, Sphincter Control, and Communication.Currently, she has deficits of Transfers Control, Balance, Locomotion, and Safety Awareness.Pt. is now referred to [facility] for acute in-patient rehabilitation in order to maximize patient's functional independence in activities of daily living, strength, ROM, and mobility.- Rehab Goal Patient has realistic goal of being discharged at assistance level 6-Lashanda to reside at Home with Pt self. MDM/PLAN: - Physical Therapy Gait dysfunction - to improve, our physical therapists will perform initial evaluation of pt's statu s upon admission and devise an individualized program for Gait Training, and Wheel Chair mobility Inability to transfer - to improve, our physical therapists will perform initial evaluation of pt's status upon admission and devise an individualized program for Bed mobility Need for home safety evaluation - to improve, our physical therapists will perform initial evaluatio n of pt's status upon admission and devise an individualized program for Home Evaluation Need in caregiver upon discharge - to improve, our physical therapists will perform initial evaluati on of pt's status upon admission and devise an individualized program for Caregiver Training Edema - to improve, our physical therapists will perform initial evaluation of pt's status upon admi ssion and devise an individualized program for Elevation Training, and Lymphedema Therapy New precaution - to improve, our physical therapists will perform initial evaluation of pt's status upon admission and devise an individualized program for Patient precaution education Poor balance - to improve, our physical therapists will perform initial evaluation of pt's status up on admission and devise an individualized program for Balance Training Weakness - to improve, our physical therapists will perform initial evaluation of pt's status upon a dmission and devise an individualized program for Aquatic Therapy, Neuromuscular Reeducation, and Str engthening Achieving independence - to improve, our physical therapists will perform initial evaluation of pt's status upon admission and devise an individualized program for Community Reintegration Activities - Occupational Therapy Need for career services representative - to improve, our occupation therapists will perform initial evaluation of pt's status upon admission and devise an individualized program for Caregiver Training Weakness - to improve, our occupation therapists will perform initial evaluation of pt's status upon admission and devise an individualized program for Aquatic Therapy, Balance, Endurance, UE ROM, and UE strengthening - Other See attached MAR (Medication Administration Record) - Diet Type Continue Regular - Diet - Liquid Texture Continue Regular - Tube Feed Continue N/A - Diet - Solid Texture Continue Regular - Shower allowing shower FUNCTIONAL STATUS: UPDATED AT WEEKLY TEAM CONFERENCE - Bladder Same accident frequency: 7-Ind - No accidents in the past 7 days - Bowel Same accident frequency: 7-Ind - No accidents in the past 7 days - Walking Same score based on distance walked: 1(<=50ft) FUNCTIONAL STATUS: - Self-Care A. Eating Lashanda B. Grooming sup C. Bathing modA D. Dressing - Upper sup E. Dressing - Lower modA F. Toileting sup - Sphincter Control G. Bladder control sup H. Bowel control sup - Transfers Control I. Bed/Chair/Wheelchair modA J. Toilet modA K. Tub/Shower modA - Locomotion L. Walk/Wheelchair (B) modA M. Stairs ADNO - Communication N. Comprehension (B) sup O. Expression (B) sup - Social Cognition P. Social Interaction sup Q. Problem Solving sup R. Memory Lashanda - Endurance Good - Balance Good - Safety Awareness Good QI SCORES: - Self-Care A. Eating 05-Setup or clean-up assistance B. Oral hygiene 05-Setup or clean-up assistance C. Toileting hygiene 04-Supervision or touching assistance E. Shower/bathe self 04-Supervision or touching assistance F. Upper body dressing G. Lower body dressing 04-Supervision or touching assistance H. Putting on/taking off footwear 04-Supervision or touching assistance - Mobility A. Roll left and right 04-Supervision or touching assistance B. Sit to lying 04-Supervision or touching assistance C. Lying to sitting on side of bed 04-Supervision or touching assistance D. Sit to stand 04-Supervision or touching assistance E. Chair/zgs-cp-sjqad transfer 04-Supervision or touching assistance F. Toilet transfer 04-Supervision or touching assistance G. Car transfer 10-Not attempted due to environmental limitations I. Walk 10 feet 03-Partial/moderate assistance J. Walk 50 feet with two turns 88-Not attempted due to medical condition or safety concerns K. Walk 150 feet 88-Not attempted due to medical condition or safety concerns L. Walking 10 feet on uneven surfaces 88-Not attempted due to medical condition or safety concerns M. 1 step (curb) 88-Not attempted due to medical condition or safety concerns N. 4 steps 88-Not attempted due to medical condition or safety concerns O. 12 steps 88-Not attempted due to medical condition or safety concerns P. Picking up object 04-Supervision or touching assistance R. Wheel 50 feet with two turns 88-Not attempted due to medical condition or safety concerns S. Wheel 150 feet - Bladder and Bowel Bladder continence 0-Always continent Bowel continence 0-Always continent - Endurance Poor - Balance Poor - Safety Awareness Poor CURRENT FUNC. DEFICITS: Self-Care, Mobility, Endurance, Balance, and Safety Awareness SIGNATURE PANEL: (LOCOMOTIVE OPERATOR)
== END 2019-11-14 14:50 | disposition home or self-care (01) | DRG 292 ==
LOC: 5TH 17:32
PROVIDERS: ADMIT Psychiatry & Neurology Neurology with Special Qualifications in Child Neurology; ATTEND Psychiatry & Neurology Neurology with Special Qualifications in Child Neurology
DX: I50.23 Acute on chronic systolic (congestive) heart failure (principal); E66.2 Morbid (severe) obesity with alveolar hypoventilation; E11.9 Type 2 diabetes mellitus without complications; E03.9 Hypothyroidism, unspecified; I25.10 Atherosclerotic heart disease of native coronary artery without angina pectoris; E78.5 Hyperlipidemia, unspecified; B35.1 Tinea unguium; L60.2 Onychogryphosis; Z86.73 Personal history of transient ischemic attack (TIA), and cerebral infarction without residual deficits; Z95.0 Presence of cardiac pacemaker; Z68.27 Body mass index [BMI] 27.0-27.9, adult
CPT/HCPCS: 36415; 71045; 80048; 82040; 82947; 83735; 84134; 85025; 92507; 92523; 97110; 97116; 97127; 97161; 97530; 97542

== ENCOUNTER 2019-11-21 17:08 | Emergency (ER) | payer OTHER ==
[2019-11-21] MEDS ORDERED: NA CHLORIDE 0.9% 500 ML ONE (17:57)
[2019-11-21 18:09] LABS: Protime INR 1.13
[2019-11-21 18:32] LABS: Absolute Lymphocytes (CBC) 0.9 K/uL (0.7-4.9); Lymphocytes % 16.1 % (15.3-44.8); MPV 8.1 fL (7.6-11.3); RBC Red Blood Cell Count 4.73 M/uL (3.86-4.86)
[2019-11-21 18:33] LABS: Albumin 3.1 g/dL (3.4-5.0); Bilirubin Direct 0.8 mg/dL (0-0.2); Bilirubin Total 1.5 mg/dL (0.2-1.0); Magnesium 1.5 mg/dL (1.8-2.4); Potassium 3.9 mmol/L (3.5-5.1); Protein, Total 6.9 g/dL (6.4-8.2)
[2019-11-21 18:36] LABS: Anisocytosis 2+; Blood Morphology Comment NOTED (NOT SEEN); Platelet Estimate ADEQ; White Blood Cell Scan OK
[2019-11-21] MEDS ORDERED: MAGNESIUM SULFATE 1 gm IVPB 1 GM/100 ML BAG IV ONE (18:57)
[2019-11-21] MEDS ORDERED: ACETAMINOPHEN 325 MG TABLET ONE (20:10)
--- NOTE | 2019-11-21 20:36 | EDPHYS ---
Physician Documentation [facility] Name: Leatha Galeana Age: 74 yrs Sex: Female : 1945 Arrival Date: 11/21/2019 Time: 17:14 Bed 25 Private MD: ED Physician Prateek Christian HPI: 11/21 18:23 This 74 yrs old Female presents to ER via EMS with complaints of Fall Injury. la1 18:23 Details of fall: The patient fell from seated position. Onset: The symptoms/episode la1 began/occurred yesterday. Associated injuries: The patient sustained injury to the low back, pain, left tricep, laceration, 4 cm(s), palmar aspect of left forearm, skin tear. Severity of symptoms: At their worst the symptoms were mild. The patient has experienced similar episodes in the past. pt reports falling yesterday from a sitting position and not being able to get up off the floor all night until this afternoon. Pt reports pain in lateral neck from the position she was laying in and pain in the lower back area. . Historical: - Allergies: 17:27 No Known Allergies; vc - Home Meds: 17:27 vitamin B complex Oral cap [Active]; melatonin 5 mg Oral cap nightly [Active]; vc lidocaine patch [Active]; Iron CR Oral [Active]; hydrocodone-acetaminophen 10-750 mg Oral tab 1 tab every 4-6 hours [Active]; gabapentin 100 mg oral cap twice a day [Active]; escitalopram oxalate 20 mg oral tab [Active]; docusate calcium 240 mg Oral cap 1 cap once daily [Active]; albuterol sulfate 2.5 mg /3 mL (0.083 %) Inhl nebu [Active]; atorvastatin 10 mg oral tab 1 tab once daily [Active]; aspirin 81 mg Oral chew 1 tab once daily [Active]; Lasix 20 mg Oral tab 1 tab once daily, as needed [Active]; glipizide 5 mg Oral tab 1 tab once daily [Active]; pantoprazole 40 mg Oral TbEC 1 tab once daily [Active]; carvedilol 12.5 mg Oral tab 1 tab 2 times per day [Active]; Daggett Thyroid 15 mg Oral tab daily [Active]; - PMHx: 17:27 Diabetes - NIDDM; CHF; CVA; Hypothyroidism; Myocardial infarction; CAD; vc - PSHx: 17:27 pacemaker; vc - Immunization history:: Adult Immunizations up to date, Flu vaccine is not up to date. - Coronavirus screen:: The patient has NOT traveled to [place] in the past 14 days. Proceed with normal triage process as indicated. - Social history:: Smoking status: Patient denies any tobacco usage or history of. - Ebola Screening: : No symptoms or risks identified at this time. ROS: 18:26 Constitutional: Negative for fever, chills, and weight loss, Eyes: Negative for injury, la1 pain, redness, and discharge, ENT: Negative for injury, pain, and discharge, Neck: Negative for injury, pain, and swelling, Cardiovascular: Negative for chest pain, palpitations, and edema, Respiratory: Negative for shortness of breath, cough, wheezing, and pleuritic chest pain, Abdomen/GI: Negative for abdominal pain, nausea, vomiting, diarrhea, and constipation. 18:26 : Negative for injury, bleeding, discharge, and swelling. 18:26 Neuro: Negative for headache 18:26 Back: Positive for pain at rest, of the lumbar area and sacrum. 18:26 MS/extremity: Positive for laceration, of the palmar aspect of left forearm and left tricep. Exam: 18:27 Constitutional: This is a well developed, well nourished patient who is awake, alert, la1 and in no acute distress. Head/Face: Normocephalic, atraumatic. Eyes: Pupils equal round and reactive to light, extra-ocular motions intact ENT: Mucous membranes moist. Neck: Trachea midline, no cervical lymphadenopathy. Supple, full range of motion without nuchal rigidity, or vertebral point tenderness. No Meningismus. Chest/axilla: Normal chest wall appearance and motion. Nontender with no deformity. No lesions are appreciated. Respiratory: Lungs have equal breath sounds bilaterally, clear to auscultation Abdomen/GI: Soft, non-tender, with normal bowel sounds. No distension or tympany. No guarding or rebound. No evidence of tenderness throughout. Back: No spinal tenderness. No costovertebral tenderness. Full range of motion. 18:27 MS/ Extremity: Pulses equal, no cyanosis. Neurovascular intact. 18:27 Cardiovascular: Rate: normal, Rhythm: regular, Heart sounds: murmur, grade 3 over 6, heard in the aortic area, Edema: 2+ edema to level of left ankle, left foot, right ankle and right foot. 20:30 Skin: injury, laceration(s), the wound is approximately 4 cm(s), with a depth of 1 la1 cm(s), of the left tricep, the second wound is approximately 2 cm(s), with a depth of 0.25 cm(s), of the palmar aspect of left forearm, bruising in sacral area with no overlying laceration or abrasion. Vital Signs: 17:14 BP 148 / 84; Pulse 78; Resp 20; Temp 98.6; Pulse Ox 100% ; lt1 18:00 BP 159 / 89; Pulse 83; Resp 19; Pulse Ox 100% on R/A; vc 19:00 BP 145 / 87; Pulse 81; Resp 20; Pulse Ox 99% on R/A; vc 20:00 BP 138 / 95; Pulse 78; Resp 19; Pulse Ox 98% on R/A; vc 21:00 BP 129 / 91; Pulse 72; Resp 18; Pulse Ox 97% on R/A; vc Procedures: 20:28 Performed wound dressing placed by nursing staff to left upper arm and left forearm. la1 Tissue was too dry and shriveled to benefit from suturing wound close, no damage to adipose tissue. neurovascularly intact to left extremity.. MDM: 17:15 Patient medically screened. la1 18:28 Refusal of service: The patient/guardian displays adequate decision making capability la1 and despite a detailed discussion of alternatives, benefits, risks, and consequences refuses: CT Scan, all X-rays. 20:31 Data reviewed: vital signs, nurses notes, lab test result(s), I have discussed the la1 patient's presentation/case with the attending Emergency Department Physician; and as a result, I will discharge patient. Data interpreted: Pulse oximetry: on room air is 100 %. Interpretation: normal. Counseling: I had a detailed discussion with the patient and/or guardian regarding: the historical points, exam findings, and any diagnostic results supporting the discharge/admit diagnosis, lab results, the need for outpatient follow up, a family practitioner, to return to the emergency department if symptoms worsen or persist or if there are any questions or concerns that arise at home. ED course: Had prolonged discussion with pt who was oriented x4 and son at bedside, son states he will stay with her until she can get adequate follow up. Pt states she feels okay, just achy. Refused imaging of head/neck/left elbow/lumbar spine after being offered and educated on risks and concerns. Pt educated on need to follow instructions given to her by her rehab group and therapist about in home restrictions. . 11/21 17:27 Order name: Basic Metabolic Panel 11/21 17:27 Order name: CBC with Diff 11/21 17:27 Order name: LFT's 11/21 17:27 Order name: Magnesium 11/21 17:27 Order name: NT PRO-BNP 11/21 17:27 Order name: PT-INR 11/21 17:27 Order name: Troponin (emerg Dept Use Only) 11/21 17:27 Order name: CPK 11/21 18:11 Order name: Protime (+INR); Complete Time: 18:45 EDMS 11/21 18:34 Order name: CBC with Automated Diff; Complete Time: 18:45 EDMS 11/21 18:36 Order name: CBC Smear Scan; Complete Time: 18:45 EDMS 11/21 18:40 Order name: Basic Metabolic Panel; Complete Time: 19:48 EDMS 11/21 18:40 Order name: Liver (Hepatic) Function; Complete Time: 19:48 ED11/21 18:40 Order name: NT PRO-BNP; Complete Time: 19:48 EDMS 11/21 17:27 Order name: Elbow Left 3 View XRAY 11/21 17:27 Order name: XRAY Chest (1 view) 11/21 17:27 Order name: EKG; Complete Time: 17:55 11/21 17:27 Order name: Cardiac monitoring; Complete Time: 17:33 11/21 17:27 Order name: EKG - Nurse/Tech; Complete Time: 17:46 11/21 17:27 Order name: IV Saline Lock; Complete Time: 17:46 11/21 17:27 Order name: Labs collected and sent; Complete Time: 17:46 11/21 17:27 Order name: O2 Per Protocol; Complete Time: 17:47 11/21 17:27 Order name: O2 Sat Monitoring; Complete Time: 17:47 la1 11/21 17:27 Order name: Lumbar Spine (3 Views) XRAY 11/21 17:37 Order name: Wound Care; Complete Time: 18:34 la1 11/21 18:40 Order name: Magnesium; Complete Time: 19:48 EDMS 11/21 19:03 Order name: Creatine Phosphokinase; Complete Time: 19:37 EDMS Administered Medications: 17:56 Drug: NS 0.9% 500 ml Route: IV; Rate: bolus; Site: right antecubital; vc 18:55 Drug: Magnesium Sulfate 1 grams Route: IVPB; Infused Over: 1 hrs; Site: right vc antecubital; 20:08 Drug: Tylenol 650 mg Route: PO; vc 21:00 Follow up: Response: No adverse reaction; Pain is decreased vc Disposition: 11/22 08:26 Co-signature as Attending Physician, Prateek Christian MD I agree with the assessment and kdr plan of care. Disposition: 11/21/19 20:35 Discharged to Home. Impression: Fall on same level from slipping, tripping and stumbling, Laceration without foreign body of left upper arm, Laceration without foreign body of left forearm, Low back pain. - Condition is Stable. - Discharge Instructions: Back Pain, Adult, Fall Prevention in the Home, Skin Tear Care, Fall Prevention in the Home, [id number]. - Medication Reconciliation Form, Thank You Letter form. - Follow up: Private Physician; When: 2 - 3 days; Reason: Recheck today's complaints, Re-evaluation by your physician. - Problem is new. - Symptoms have improved. Signatures: Dispatcher [employer] EDPrateek Esposito MD MD [facility] Joselo Blanchard MD MD rn Abiodun Correa, WAREHOUSE ADMINISTRATIVE ASSISTANT-C WAREHOUSE ADMINISTRATIVE ASSISTANT-Cla1 Floresita Mixon RN RN vc Corrections: (The following items were deleted from the chart) 11/21 21:47 20:35 11/21/2019 20:35 Discharged to Home. Impression: Fall on same level from vc slipping, tripping and stumbling; Laceration without foreign body of left upper arm; Laceration without foreign body of left forearm; Low back pain. Condition is Stable. Forms are Medication Reconciliation Form, Thank You Letter, Antibiotic Education, Prescription Opioid Use. Follow up: Private Physician; When: 2 - 3 days; Reason: Recheck today's complaints, Re-evaluation by your physician. Problem is new. Symptoms have improved. la1
--- NOTE | 2019-11-21 20:36 | ER ---
Nurse's Notes [facility] Name: Leatha Galeana Age: 74 yrs Sex: Female : 1945 Arrival Date: 11/21/2019 Time: 17:14 Bed 25 Private MD: Diagnosis: Fall on same level from slipping, tripping and stumbling;Laceration without foreign body of left upper arm;Laceration without foreign body of left forearm;Low back pain Presentation: 11/21 17:15 Presenting complaint: EMS states: "Patient was found on the floor by her niece before vc we brought her in today. Patient states that she fell out of her wheelchair yesterday evening around 1730. There was no LOC. Skin tears noted to left forearm and left inner arm.". Transition of care: patient was not received from another setting of care. Onset of symptoms was November 20, 2019. Risk Assessment: Do you want to hurt yourself or someone else? Patient reports no desire to harm self or others. Initial Sepsis Screen: Does the patient meet any 2 criteria? No. Patient's initial sepsis screen is negative. Does the patient have a suspected source of infection? No. Patient's initial sepsis screen is negative. Care prior to arrival: None. 17:15 Method Of Arrival: EMS: [facility] vc 17:15 Acuity: TYRELL 3 vc Triage Assessment: 17:29 General: Appears in no apparent distress. uncomfortable, Behavior is calm, cooperative, vc appropriate for age. Pain: Complains of pain in tail bone. Historical: - Allergies: 17:27 No Known Allergies; vc - Home Meds: 17:27 vitamin B complex Oral cap [Active]; melatonin 5 mg Oral cap nightly [Active]; vc lidocaine patch [Active]; Iron CR Oral [Active]; hydrocodone-acetaminophen 10-750 mg Oral tab 1 tab every 4-6 hours [Active]; gabapentin 100 mg oral cap twice a day [Active]; escitalopram oxalate 20 mg oral tab [Active]; docusate calcium 240 mg Oral cap 1 cap once daily [Active]; albuterol sulfate 2.5 mg /3 mL (0.083 %) Inhl nebu [Active]; atorvastatin 10 mg oral tab 1 tab once daily [Active]; aspirin 81 mg Oral chew 1 tab once daily [Active]; Lasix 20 mg Oral tab 1 tab once daily, as needed [Active]; glipizide 5 mg Oral tab 1 tab once daily [Active]; pantoprazole 40 mg Oral TbEC 1 tab once daily [Active]; carvedilol 12.5 mg Oral tab 1 tab 2 times per day [Active]; [place]erg[place] Thyroid 15 mg Oral tab daily [Active]; - PMHx: 17:27 Diabetes - NIDDM; CHF; CVA; Hypothyroidism; Myocardial infarction; CAD; vc - PSHx: 17:27 pacemaker; vc - Immunization history:: Adult Immunizations up to date, Flu vaccine is not up to date. - Coronavirus screen:: The patient has NOT traveled to [place] in the past 14 days. Proceed with normal triage process as indicated. - Social history:: Smoking status: Patient denies any tobacco usage or history of. - Ebola Screening: : No symptoms or risks identified at this time. Screenin:28 Abuse screen: Denies threats or abuse. Nutritional screening: No deficits noted. vc Tuberculosis screening: No symptoms or risk factors identified. Fall Risk Fall in past 12 months (25 points). Secondary diagnosis (15 points) impaired mobility, CVA, IV access (20 points). Ambulatory Aid- None/Bed Rest/Nurse Assist (0 pts). Gait- Impaired (20 pts.). Total Sibley Fall Scale indicates High Risk Score (45 or more points). Assessment: 16:00 General: Appears in no apparent distress. uncomfortable, ill, malnourished, Behavior is vc calm, cooperative, crying. Pain: Complains of pain in sacrum and lumbar area. Neuro: Level of Consciousness is awake, alert, obeys commands, lethargic. Cardiovascular:. Respiratory: Respiratory effort is even, unlabored, Respiratory pattern is regular, symmetrical. GI: No signs and/or symptoms were reported involving the gastrointestinal system. : No signs and/or symptoms were reported regarding the genitourinary system. EENT: No signs and/or symptoms were reported regarding the EENT system. Derm: Skin is pale, Skin temperature is cool Wound noted palmar aspect of left forearm and left tricep. Musculoskeletal: Range of motion: limited in left hip, right elbow and right hip. 17:00 Reassessment: Patient and/or family updated on plan of care and expected duration. Pain vc level reassessed. Patient is alert, oriented x 3, equal unlabored respirations, skin warm/dry/pink. 18:00 Reassessment: Patient and/or family updated on plan of care and expected duration. Pain vc level reassessed. Patient is alert, oriented x 3, equal unlabored respirations, skin warm/dry/pink. Xray to bedside, patient refuses xray, Provider notified. 20:00 Reassessment: Patient and/or family updated on plan of care and expected duration. Pain vc level reassessed. Patient placed on bedpan, brief changed at this time. Reassessment: Patient and/or family updated on plan of care and expected duration. Pain level reassessed. Patient is alert, oriented x 3, equal unlabored respirations, skin warm/dry/pink. Patient states feeling better. 21:00 Reassessment: Patient and/or family updated on plan of care and expected duration. Pain vc level reassessed. Patient is alert, oriented x 3, equal unlabored respirations, skin warm/dry/pink. WAITING ON PATIENTS SON TO RETURN FOR TRANSPORTATION HOME. Patient states feeling better. Vital Signs: 17:14 BP 148 / 84; Pulse 78; Resp 20; Temp 98.6; Pulse Ox 100% ; lt1 18:00 BP 159 / 89; Pulse 83; Resp 19; Pulse Ox 100% on R/A; vc 19:00 BP 145 / 87; Pulse 81; Resp 20; Pulse Ox 99% on R/A; vc 20:00 BP 138 / 95; Pulse 78; Resp 19; Pulse Ox 98% on R/A; vc 21:00 BP 129 / 91; Pulse 72; Resp 18; Pulse Ox 97% on R/A; vc ED Course: 17:14 Patient arrived in ED. iw 17:15 Floresita Mixon, RN is Primary Nurse. vc 17:15 Abiodun Correa FNP-C [facility]. la1 17:15 Prateek Christian MD is Attending Physician. la1 17:18 Triage completed. vc 17:30 Arm band placed on. vc 17:30 Patient has correct armband on for positive identification. Bed in low position. Call vc light in reach. Side rails up X2. manufacturing finance manager on. Pulse ox on. NIBP on. 17:46 Initial lab(s) drawn, by me, sent to lab. Inserted saline lock: 22 gauge in right iw antecubital area, using aseptic technique. Blood collected. 21:45 No provider procedures requiring assistance completed. IV discontinued, intact, vc bleeding controlled, No redness/swelling at site. Pressure dressing applied. Administered Medications: 17:56 Drug: NS 0.9% 500 ml Route: IV; Rate: bolus; Site: right antecubital; vc 18:55 Drug: Magnesium Sulfate 1 grams Route: IVPB; Infused Over: 1 hrs; Site: right vc antecubital; 20:08 Drug: Tylenol 650 mg Route: PO; vc 21:00 Follow up: Response: No adverse reaction; Pain is decreased vc Outcome: 20:35 Discharge ordered by . laLucy 21:45 Discharged to home via wheelchair, with family. vc 21:45 Condition: good 21:45 Discharge instructions given to patient, Instructed on discharge instructions, follow up and referral plans. Demonstrated understanding of instructions, follow-up care. 21:47 Patient left the ED. vc Signatures: Katherine Moseley RN RN iw Attema, Lee, BLACK OXIDE COATING EQUIPMENT TENDER-C BLACK OXIDE COATING EQUIPMENT TENDER-Cla1 Polina Murray 1 Floresita Mixon RN RN vc
[2019-11-21 21:52] VITALS: BP 148/84; TEMP 98.6; O2SAT 100
--- NOTE | 2019-11-22 10:10 | EKG ---
Test Date: 2019-11-21 Test Time: 17:46:10 Bag Loader Machine Operator: KYRA MEASUREMENT RESULTS: Intervals: Rate: 76 VT: 118 QRSD: 184 QT: 484 QTc: 544 [place]: P: 45 VT: 118 QRS: -71 T: 97 INTERPRETIVE STATEMENTS: Electronic ventricular pacemaker Compared to ECG 10/19/2019 12:45:06 Atrial-sensed ventricular-paced complex(es) or rhythm no longer present Sinus rhythm no longer present Electronically Signed On 11-22-19 10:08:49 TUBE MAKER by Andrew Jordan
== END 2019-11-21 21:47 | disposition home or self-care (01) ==
LOC: ER 17:08
DX: S41.112A Laceration without foreign body of left upper arm, initial encounter (principal); S51.812A Laceration without foreign body of left forearm, initial encounter; W01.0XXA Fall on same level from slipping, tripping and stumbling without subsequent striking against object, initial encounter; Y93.9 Activity, unspecified; Y92.9 Unspecified place or not applicable; Z79.82 Long term (current) use of aspirin; Z95.0 Presence of cardiac pacemaker; E11.9 Type 2 diabetes mellitus without complications; E03.9 Hypothyroidism, unspecified; I50.9 Heart failure, unspecified
CPT/HCPCS: 93005; 85025; 80048; 36415; 83735; 82550; 85610; 80076; 83880; 96374; 99284; J3475; J7040

== ENCOUNTER 2019-12-11 22:22 | Emergency (ER) | payer OTHER ==
[2019-12-11] MEDS ORDERED: ACETAMINOPHEN 500 MG TAB ONE (22:48)
--- NOTE | 2019-12-11 23:48 | ER ---
Nurse's Notes [facility] Name: Leatha Galeana Age: 74 yrs Sex: Female : 1945 Arrival Date: 12/11/2019 Time: 22:23 Bed 26 Private MD: Diagnosis: Unspecified occipital condyle fracture;Concussion without loss of consciousness;Laceration without foreign body of scalp Presentation: 12/10 22:23 Chief complaint: EMS states: Called for patient who was attempting to get into lift lp1 chair and fell, hitting head on floor; Denies any LOC; Per EMS, laceration to back of head; Patient denies any other pain, injuries; Patient states she does take blood thinners. Initial Sepsis Screen: Does the patient meet any 2 criteria? No. Patient's initial sepsis screen is negative. Does the patient have a suspected source of infection? No. Patient's initial sepsis screen is negative. Risk Assessment: Do you want to hurt yourself or someone else? Patient reports no desire to harm self or others. 22:23 Method Of Arrival: EMS: [facility] lp1 22:23 Acuity: TYRELL 2 lp1 22:23 Care prior to arrival: Bleeding of injury controlled. Mechanism of Injury: Fall from iw standing position. Trauma event details: Injury occurred in the [facility]. 22:23 Coronavirus screen: The patient has NOT traveled to a country currently being monitored iw by the [facility] within the last 14 days. Proceed with normal triage procedures. The patient has NOT had contact with any known and/or suspected case of coronavirus. Proceed with normal triage procedures. Ebola Screen: Patient negative for fever greater than or equal to 101.5 degrees Fahrenheit, and additional compatible Ebola Virus Disease symptoms Patient denies exposure to infectious person. Patient denies travel to an Ebola-affected area in the 21 days before illness onset. No symptoms or risks identified at this time. Triage Assessment: 23:00 Pain: Denies pain. iw Trauma Activation: Alert Physician: ED Physician; Name: Dr. Hu; Notified At: 22:21; Arrived At: 22:21 Physician: General Surgeon; Name: N/A; Notified At: 22:21; Arrived At: Specialty not needed Physician: Radiology; Name: Ryan; Notified At: 22:21; Arrived At: 22:21 Physician: Respiratory; Name: N/A; Notified At: 22:21; Arrived At: Specialty not needed Physician: Lab; Name: N/A; Notified At: 22:21; Arrived At: Specialty not needed Historical: - Allergies: 22:27 No Known Allergies; lp1 - Home Meds: 22:27 albuterol sulfate 2.5 mg /3 mL (0.083 %) Inhl nebu [Active]; [place] Thyroid 15 mg Oral lp1 tab daily [Active]; aspirin 81 mg Oral chew 1 tab once daily [Active]; atorvastatin 10 mg Oral tab 1 tab once daily [Active]; carvedilol 12.5 mg Oral tab 1 tab 2 times per day [Active]; docusate calcium 240 mg Oral cap 1 cap once daily [Active]; escitalopram oxalate 20 mg Oral tab [Active]; gabapentin 100 mg Oral cap twice a day [Active]; glipizide 5 mg Oral tab 1 tab once daily [Active]; hydrocodone-acetaminophen 10-750 mg Oral tab 1 tab every 4-6 hours [Active]; Iron CR Oral [Active]; Lasix 20 mg Oral tab 1 tab once daily, as needed [Active]; lidocaine patch [Active]; melatonin 5 mg Oral cap nightly [Active]; pantoprazole 40 mg Oral TbEC 1 tab once daily [Active]; vitamin B complex Oral cap [Active]; - PMHx: 22:27 CAD; CHF; CVA; Diabetes - NIDDM; Hypothyroidism; Myocardial infarction; lp1 - Immunization history:: Last tetanus immunization: unknown. - Social history:: Smoking status: Patient denies any tobacco usage or history of. Screenin:35 Abuse screen: Denies threats or abuse. Denies injuries from another. Tuberculosis iw screening: No symptoms or risk factors identified. 22:45 Nutritional screening: No deficits noted. Fall Risk Fall in past 12 months (25 points). iw Primary Survey: 22:35 NO uncontrolled hemorrhage observed. A: The patient is alert. Airway: patent. iw Breathing/Chest: Respiratory pattern: regular, Respiratory effort: spontaneous, Breath sounds: clear, bilaterally. Circulation: Pulses: palpable right radial artery, left radial artery, left carotid pulse and right carotid pulse. Disability Alert. Exposure/Environment: All clothing and personal items were removed. Forensic evidence collection is not deemed to be indicated at this time. Items placed in patient belonging bag. 22:40 Reassessment Breathing/Chest Respiratory pattern Regular Respiratory effort Spontaneous iw Breath sounds Clear Chest inspection Symmetrical. Secondary Survey: 22:50 HEENT: No deficits noted. Gastrointestinal: Abdomen is soft, flat. : No signs and/or iw symptoms were reported regarding the genitourinary system. Musculoskeletal: Range of motion: limited in right shoulder, right elbow, right wrist and right hip. Injury Description: Laceration sustained to scalp is full thickness, jagged, was sustained 30-60 minutes ago. Assessment: 22:34 General: Appears in no apparent distress. Behavior is calm, cooperative. Neuro: Level iw of Consciousness is awake, alert, obeys commands, Oriented to person, place, time, situation. Cardiovascular: Patient's skin is warm and dry. Derm: Skin is fragile, is thin, with poor turgor. Injury Description: Laceration sustained to scalp is full thickness, 0.5 to 2.5 cm long, was sustained 30-60 minutes ago. a small amount of bleeding noted at this time. 23:32 Reassessment: Patient appears in no apparent distress at this time. Patient and/or iw family updated on plan of care and expected duration. Pain level reassessed. Patient is alert, oriented x 3, equal unlabored respirations, skin warm/dry/pink. 23:45 Reassessment: pt log rolled for laceration repair, pt placed in C-collar, pt cleaned of iw incontinence, linens changed, warm blankets given, family at bedside, updated on POC, pt will be transferred to [facility]. Vital Signs: 22:23 BP 126 / 71; Pulse 96; Resp 18; Pulse Ox 99% on R/A; Weight 71.67 kg (R); lp1 23:15 BP 123 / 71; Pulse 89; Resp 16; Temp 98.0; Pulse Ox 97% on R/A; Pain 0/10; iw [place] Coma Score: 22:29 Eye Response: spontaneous(4). Verbal Response: oriented(5). Motor Response: obeys commands(6). Total: 15. Trauma Score (Adult): 22:29 Eye Response: spontaneous(1); Verbal Response: oriented(1); Motor Response: obeys iw commands(2); Systolic BP: > 89 mm Hg(4); Respiratory Rate: 10 to 29 per min(4); [place] Score: 15; Trauma Score: 12 23:15 Eye Response: spontaneous(1); Verbal Response: oriented(1); Motor Response: obeys iw commands(2); Systolic BP: > 89 mm Hg(4); Respiratory Rate: 10 to 29 per min(4); Yovanny Score: 15; Trauma Score: 12 ED Course: 22:23 Patient arrived in ED. ds1 22:23 Patient maintains SpO2 saturation greater than 95% on room air. Thermoregulation: warm iw blanket given to patient. 22:24 Faustino Hu MD is Attending Physician. tw4 22:25 Triage completed. lp1 22:27 Katherine Moseley, ARIES is Primary Nurse. iw 22:35 Patient has correct armband on for positive identification. iw 22:35 Arm band placed on. iw 23:04 CT Head C Spine In Process Unspecified. EDUT 23:45 Assist provider with laceration repair on back of head that was 2.5 cm. or less using iw clemente. Set up tray. Performed by Faustino Hu MD Patient tolerated well. 03 00:40 Patient did not have IV access during this emergency room visit. iw Administered Medications: 03 23:06 Drug: Tylenol 1000 mg Route: PO; iw 12/11 00:00 Follow up: Response: No adverse reaction iw Intake: 00:40 PO: 0ml; Total: 0ml. iw Output: 00:40 Urine: 250ml (Voided); Total: 250ml. iw Outcome: 03 23:47 ER care complete, transfer ordered by . tw4 03 00:40 Patient's length of stay in the Emergency Department was greater than 2 hours. iw 00:42 Transferred by ground EMS to [facility], Transfer form completed. X-rays sent iw w/ patient. 00:42 Condition: good 00:42 Discharge instructions given to patient, family, Instructed on the need for transfer. 00:43 Patient left the ED. iw Signatures: Dispatcher [employer] EDUT Aditi Castañeda ds1 Katherine Moseley, ARIES RN iw Liudmila Bolaños RN RN lp1 Faustino Hu MD MD tw4
--- NOTE | 2019-12-11 23:49 | EDPHYS ---
Physician Documentation [facility] Name: Leatha Galeana Age: 74 yrs Sex: Female : 1945 Arrival Date: 12/11/2019 Time: 22:23 Bed 26 Private MD: ED Physician Faustino Hu HPI: 12/11 04:36 This 74 yrs old Female presents to ER via EMS with complaints of Fall Injury. tw4 04:36 Details of fall: The patient fell from an upright position. Onset: The symptoms/episode tw4 began/occurred today. Associated injuries: The patient sustained injury to the head, contusion. Severity of symptoms: At their worst the symptoms were moderate, in the emergency department the symptoms are unchanged. The patient has not experienced similar symptoms in the past. Historical: - Allergies: 12/10 22:27 No Known Allergies; lp1 - Home Meds: 22:27 albuterol sulfate 2.5 mg /3 mL (0.083 %) Inhl nebu [Active]; [place] Thyroid 15 mg Oral lp1 tab daily [Active]; aspirin 81 mg Oral chew 1 tab once daily [Active]; atorvastatin 10 mg Oral tab 1 tab once daily [Active]; carvedilol 12.5 mg Oral tab 1 tab 2 times per day [Active]; docusate calcium 240 mg Oral cap 1 cap once daily [Active]; escitalopram oxalate 20 mg Oral tab [Active]; gabapentin 100 mg Oral cap twice a day [Active]; glipizide 5 mg Oral tab 1 tab once daily [Active]; hydrocodone-acetaminophen 10-750 mg Oral tab 1 tab every 4-6 hours [Active]; Iron CR Oral [Active]; Lasix 20 mg Oral tab 1 tab once daily, as needed [Active]; lidocaine patch [Active]; melatonin 5 mg Oral cap nightly [Active]; pantoprazole 40 mg Oral TbEC 1 tab once daily [Active]; vitamin B complex Oral cap [Active]; - PMHx: 22:27 CAD; CHF; CVA; Diabetes - NIDDM; Hypothyroidism; Myocardial infarction; lp1 - Immunization history:: Last tetanus immunization: unknown. - Social history:: Smoking status: Patient denies any tobacco usage or history of. ROS: 12/11 04:36 Constitutional: Negative for fever, chills, and weight loss, Eyes: Negative for injury, tw4 pain, redness, and discharge, Cardiovascular: Negative for chest pain, palpitations, and edema, Respiratory: Negative for shortness of breath, cough, wheezing, and pleuritic chest pain, Abdomen/GI: Negative for abdominal pain, nausea, vomiting, diarrhea, and constipation, Back: Negative for injury and pain, MS/Extremity: Negative for injury and deformity, Skin: Negative for injury, rash, and discoloration, Neuro: Negative for headache, weakness, numbness, tingling, and seizure. Exam: 04:38 Eyes: Pupils equal round and reactive to light, extra-ocular motions intact. Lids and tw4 lashes normal. Conjunctiva and sclera are non-icteric and not injected. Cornea within normal limits. Periorbital areas with no swelling, redness, or edema. ENT: Nares patent. No nasal discharge, no septal abnormalities noted. Tympanic membranes are normal and external auditory canals are clear. Oropharynx with no redness, swelling, or masses, exudates, or evidence of obstruction, uvula midline. Mucous membranes moist. 04:38 Head/face: Noted is contusion, that is superficial, of the right occipital area, a laceration(s), that is superficial, that is linear, 3 cm(s). 04:38 Neck: External neck: is normal, C-spine: C-collar placed in ED. Vital Signs: 12/10 22:23 BP 126 / 71; Pulse 96; Resp 18; Pulse Ox 99% on R/A; Weight 71.67 kg (R); lp1 23:15 BP 123 / 71; Pulse 89; Resp 16; Temp 98.0; Pulse Ox 97% on R/A; Pain 0/10; iw [place] Coma Score: 22:29 Eye Response: spontaneous(4). Verbal Response: oriented(5). Motor Response: obeys iw commands(6). Total: 15. Trauma Score (Adult): 22:29 Eye Response: spontaneous(1); Verbal Response: oriented(1); Motor Response: obeys iw commands(2); Systolic BP: > 89 mm Hg(4); Respiratory Rate: 10 to 29 per min(4); [place] Score: 15; Trauma Score: 12 23:15 Eye Response: spontaneous(1); Verbal Response: oriented(1); Motor Response: obeys iw commands(2); Systolic BP: > 89 mm Hg(4); Respiratory Rate: 10 to 29 per min(4); [place] Score: 15; Trauma Score: 12 MDM: 22:24 Patient medically screened. tw4 12/11 04:36 Differential diagnosis: abrasion, contusion. Data reviewed: vital signs, nurses notes. tw4 Data reviewed: radiologic studies, CT scan. Data interpreted: Pulse oximetry: Interpretation:. Counseling: I had a detailed discussion with the patient and/or guardian regarding: the historical points, exam findings, and any diagnostic results supporting the discharge/admit diagnosis. Awaiting: transfer to another facility. Special discussion: Based on the history and exam findings, there is no indication for further emergent testing or inpatient evaluation. I discussed with the patient/guardian the need to see the neurologist for further evaluation of the symptoms. ED course: [facility] accepts under Dr Reyes. 12/10 22:39 Order name: CT Head C Spine tw4 Administered Medications: 12/10 23:06 Drug: Tylenol 1000 mg Route: PO; iw 12/11 00:00 Follow up: Response: No adverse reaction iw Disposition: 12/11/19 23:47 Transfer ordered to [facility]. Diagnosis are Unspecified occipital condyle fracture, Concussion without loss of consciousness, Laceration without foreign body of scalp. - Reason for transfer: Higher level of care. - Accepting physician is Dr Reyes. - Condition is Stable. - Problem is new. - Symptoms are unchanged. Signatures: Dispatcher [employer] EDMS Katherine Moseley RN RN Liudmila Bolaños RN RN lp1 Faustino Hu MD MD tw4 Corrections: (The following items were deleted from the chart) 00:43 12/10 23:47 12/11/2019 23:47 Transfer ordered to [facility]. Diagnosis is Unspecified occipital condyle fracture; Concussion without loss of consciousness; Laceration without foreign body of scalp. Reason for transfer: Higher level of care. Accepting physician is Dr Reyes. Condition is Stable. Problem is new. Symptoms are unchanged. tw4
[2019-12-12 00:51] VITALS: BP 123/71; TEMP 98; O2SAT 97
--- NOTE | 2019-12-12 12:56 | RAD REPORT ---
EXAM DESCRIPTION: Head C Spine Mpr Wo Con CLINICAL HISTORY: 74-year-old female status post fall hitting head TECHNIQUE: Multiple axial CT images of the brain and cervical spine were performed followed by sagit sonia and coronal reconstructed images. The CT study is performed according to ALARA (as low as reasona jeff achievable) or ALARA/IMAGE GENTLY, with automatic adjustment of mA and/or kV according to patient size. Performed on: 12/11/2019 at 10:50 PM Comparisons: None. FINDINGS: CT HEAD: There is no evidence of mass, acute mass effect or midline shift. There are no acute extra-axial flui d collections. There is no evidence of acute intracranial hemorrhage. The cerebral sulci and ventricles are prominent consistent with mild cerebral volume loss. There are scattered areas of decreased attenuation within the subcortical and periventricular white m atter most likely due to mild chronic microangiopathy. There is complete opacification of the visualized right maxillary sinus and anterior right ethmoid ai r cells. The mastoid air cells are clear. The orbital contents are grossly unremarkable. No acute osseous abnormalities are identified. There is minimal subcutaneous emphysema over the right occipital scalp soft tissues. CT CERVICAL SPINE: The cervical vertebrae are normal in height. There is normal alignment of the vertebrae. There is mod erate disc space narrowing at C6-C7 and mild disc space narrowing at C5-C6. Bone mineralization is within normal limits. The atlantoaxial articulation is preserved. There is a small osseous fragment a djacent to the right occipital condyle (series 303, image 34 and series 304, image 33) which may repr esent a small avulsion fracture. There is normal alignment of the facet joints on the parasagittal images. There are mild degenerative changes of the cervical spine. There is no evidence of subluxation. There is no significant canal stenosis. There are disc osteophyt e complexes throughout the cervical spine. There is no significant neural foraminal stenosis. The p aravertebral and paraspinal soft tissues are unremarkable. There are carotid artery calcifications. The lung apices are clear. IMPRESSION: CT HEAD: 1. There is no evidence of acute intracranial pathology. 2. 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 3. Complete opacification of the visualized right maxillary sinus and anterior right ethmoid air cell s. 4. Minimal subcutaneous emphysema over the right occipital scalp soft tissues. CT CERVICAL SPINE: 1. Suspect small avulsion fracture arising from the right occipital condyle. 2. Mild degenerative changes along the cervical spine as described above. These findings were discussed with Dr. Hu on 12/11/2019 at 11:26 PM Central time. Electronically signed by: Estela Soto DO 12/11/2019 11:27 PM CDT Due to temporary technical issues with the PACS/Fluency reporting system, reports are being signed by the in house radiologist as a courtesy to ensure prompt reporting. The interpreting radiologist is f ully responsible for the content of the report.
== END 2019-12-12 00:43 | disposition short-term general hospital (02) ==
LOC: ER 22:22
DX: S06.0X0A Concussion without loss of consciousness, initial encounter (principal); S02.113A Unspecified occipital condyle fracture, initial encounter for closed fracture; E11.9 Type 2 diabetes mellitus without complications; E03.9 Hypothyroidism, unspecified; I50.9 Heart failure, unspecified; I25.2 Old myocardial infarction; Z79.82 Long term (current) use of aspirin; W19.XXXA Unspecified fall, initial encounter; Y93.9 Activity, unspecified; Y92.9 Unspecified place or not applicable
CPT/HCPCS: 70450; 72125; 99285

== ENCOUNTER 2020-01-30 10:48 | Inpatient (IN) | payer OTHER ==
--- OUTSIDE RECORDS SUMMARY | 2020-01-30 10:50 | XMS REPORT ---
:1945 Author Organization [facility] t Address [address] [place] [address] Care Team Providers Name Role Phone Unavailable Unavailable Unavailable Problems This patient has no known problems. Allergies, Adverse Reactions, Alerts This patient has no known allergies or adverse reactions. Medications This patient has no known medications. Encounters Start End Encounter Admission Attending Care Care Encounter Date/Time Date/Time Type Type Clinicians Facility Department ID 2019-12-12 2019-12-12 Emergency E [facility] [id number] 00:35:00 00:35:00
[2020-01-30 11:30] LABS: Absolute Lymphocytes (CBC) 0.9 K/uL (0.7-4.9); Basophils % 1.3 % (0-1.3); Hematocrit 35.3 % (36.0-45.0); Lymphocytes % 14.5 % (15.3-44.8); MPV 7.5 fL (7.6-11.3); RBC Red Blood Cell Count 4.21 M/uL (3.86-4.86)
[2020-01-30 11:33] LABS: Protime INR 1.01
--- NOTE | 2020-01-30 11:36 | RAD REPORT ---
EXAM DESCRIPTION: CT - Head Brain Wo Cont - 01/30/2020 11:03 am CLINICAL HISTORY: AMS, weakness COMPARISON: Head C Spine Mpr Wo Con dated 12/11/2019; Chest Single View dated 01/30/2020 TECHNIQUE: Axial 5 mm thick images of the head were obtained without IV contrast. All CT scans are performed using dose optimization technique as appropriate and may include automated exposure control or mA/KV adjustment according to patient size. FINDINGS: No intracranial hemorrhage is present. No acute cortical based infarction seen. No cortica l edema or sulcal effacement. No mass effect, edema or shift of midline structures. Patient has advan mariluz atrophy and chronic ischemic change. Ventricles are in proportion to the volume loss. Patient has a probable old lacunar type infarction involving the posterior limb left internal capsule. Mastoid air cells are clear. Chronic right maxillary sinusitis. No acute bony findings. Arterial tree calcifications are present. Exam was requested as a stroke protocol report. Preliminary findings were telephoned to the referring clinician 11:05 a.m.. This verbal report was provided without availability of comparison imaging. IMPRESSION: No hemorrhage and no acute intracranial finding identifiable. Patient has prominent atrophy and chronic ischemic change. Chronic ischemic change can mask nonhemor rhagic infarction.
--- NOTE | 2020-01-30 11:53 | RAD REPORT ---
EXAM DESCRIPTION: RAD - Chest Single View - 01/30/2020 11:36 am CLINICAL HISTORY: AMS COMPARISON: November 02, 2019 portable TECHNIQUE: AP portable chest image was obtained 01/30/2020 11:36 am . FINDINGS: Lung volumes are low compared to the prior study. Interstitial opacification is present th roughout the lung tolentino with some patchy alveolar opacity. No focal dense consolidation seen. Prominent cardiomegaly is present similar to comparison. Vasculature is increased. Pacemaker/defibri llator overlies the chest. No measurable pleural effusion and no pneumothorax. No acute bony abnormality seen. No acute aortic findings suspected. IMPRESSION: Cardiomegaly and vascular engorgement are present similar to comparison. Interstitial opacification is present throughout the lung tolentino with some valvular opacity. Mild CHF/volume overload favored. Findings are accentuated by the low lung volumes.
[2020-01-30 11:57] LABS: Bilirubin Direct 0.4 mg/dL (0-0.2); Bilirubin Total 0.9 mg/dL (0.2-1.0); Magnesium 1.8 mg/dL (1.8-2.4); Potassium 5.3 mmol/L (3.5-5.1); Protein, Total 7.2 g/dL (6.4-8.2)
[2020-01-30 12:01] LABS: Troponin (Emerg Dept Use Only) 1.19 ng/mL (0.0-0.045)
[2020-01-30 13:38] LABS: Anisocytosis 1+; Blood Morphology Comment NOTED (NOT SEEN); Platelet Estimate ADEQ; Poikilocytosis 1+; Urine White Blood Cell Casts OK
[2020-01-30 14:11] LABS: Thyroid Stimulating Hormone 5.15 uIU/mL (0.360-3.740)
--- NOTE | 2020-01-30 14:23 | EDPHYS ---
Physician Documentation [facility] Name: Leatha Galeana Age: 74 yrs Sex: Female : 1945 Arrival Date: 01/30/2020 Time: 10:56 Bed 5 Private MD: ED Physician Prateek Christian HPI: 01/29 14:06 This 74 yrs old Female presents to ER via EMS with complaints of Altered jr8 Mental Status. 14:06 The patient presents with confusion, decreased mental status, decreased responsiveness. jr8 Onset: The symptoms/episode began/occurred acutely, today. Possible causes: CVA or TIA, also reports dysphasia. Current symptoms: In the emergency department the patient's symptoms are unchanged from the initial presentation. Patient's baseline: Neuro: alert and fully oriented, Motor: right-sided weakness, Ambulation: unable to walk, uses wheelchair, Speech: normal. It is unknown whether or not the patient has had similar symptoms in the past. The patient has not recently seen a physician. Patients family stated that she was normal last night. Went to check on her this morning and would not respond or follow commands for them. History of CVA in past . Historical: - Allergies: 11:23 No Known Allergies; hb 11:27 No Known Allergies; ph - Home Meds: 17:15 albuterol sulfate 2.5 mg /3 mL (0.083 %) Inhl nebu [Active]; [place] Thyroid 15 mg Oral ph tab daily [Active]; aspirin 81 mg Oral chew 1 tab once daily [Active]; atorvastatin 10 mg Oral tab 1 tab once daily [Active]; carvedilol 12.5 mg Oral tab 1 tab 2 times per day [Active]; docusate calcium 240 mg Oral cap 1 cap once daily [Active]; escitalopram oxalate 20 mg Oral tab [Active]; gabapentin 100 mg Oral cap twice a day [Active]; glipizide 5 mg Oral tab 1 tab once daily [Active]; hydrocodone-acetaminophen 10-750 mg Oral tab 1 tab every 4-6 hours [Active]; Iron CR Oral [Active]; Lasix 20 mg Oral tab 1 tab once daily, as needed [Active]; lidocaine patch [Active]; melatonin 5 mg Oral cap nightly [Active]; pantoprazole 40 mg Oral TbEC 1 tab once daily [Active]; vitamin B complex Oral cap [Active]; - PMHx: 11:23 CAD; CVA; CHF; Diabetes - NIDDM; Hypothyroidism; Myocardial infarction; hb 11:27 CAD; CHF; CVA; Diabetes - NIDDM; Hypothyroidism; Myocardial infarction; ph - Immunization history:: Adult Immunizations up to date, Adult Immunizations unknown. - Social history:: Smoking status: Patient denies any tobacco usage or history of. Smoking status: unknown. ROS: 14:06 Unable to obtain ROS due to altered mental status. jr8 Exam: 14:06 Eyes: Pupils equal round and reactive to light, extra-ocular motions intact. Lids and jr8 lashes normal. Conjunctiva and sclera are non-icteric and not injected. Cornea within normal limits. Periorbital areas with no swelling, redness, or edema. ENT: Nares patent. No nasal discharge, no septal abnormalities noted. Tympanic membranes are normal and external auditory canals are clear. Oropharynx with no redness, swelling, or masses, exudates, or evidence of obstruction, uvula midline. Mucous membranes dry Cardiovascular: Regular rate and rhythm with a normal S1 and S2. No gallops, murmurs, or rubs. Normal PMI, no JVD. No pulse deficits. Respiratory: Lungs have equal breath sounds bilaterally, clear to auscultation and percussion. No rales, rhonchi or wheezes noted. No increased work of breathing, no retractions or nasal flaring. Abdomen/GI: Soft with normal bowel sounds. No distension or tympany. No guarding or rebound. No gimace with palpation. Skin: Warm, dry with normal turgor. Normal color with no rashes, no lesions, and no evidence of cellulitis. MS/ Extremity: Pulses equal, no cyanosis. Neurovascular intact. Full, normal range of motion on left side. Decreased on right side which is baseline for patient 14:06 ECG was reviewed by the Attending Physician. Vital Signs: 10:54 BP 122 / 78; Pulse 81; Resp 16; Temp 98.1; Pulse Ox 93% on R/A; hb 11:20 BP 122 / 78; Pulse 64; Resp 16; Pulse Ox 95% on R/A; ph 11:52 BP 131 / 62; Pulse 77; Resp 16; Pulse Ox 99% on R/A; ph 12:50 BP 119 / 87; Pulse 62; Resp 16; Pulse Ox 98% on R/A; ph 14:00 BP 120 / 76; Pulse 75; Resp 22; Pulse Ox 98% on R/A; ph 15:30 BP 119 / 68; Pulse 82; Resp 26; Temp 97.8(TE); Pulse Ox 100% on Nebulizer Mask; ph 16:45 BP 123 / 62; Pulse 76; Resp 28; Temp 97.8; Pulse Ox 97% on R/A; ph NIH Stroke Scale Scores: 14:06 NIHSS Score: 11 8 MDM: 10:57 Patient medically screened. 8 14:06 Data reviewed: vital signs, nurses notes, lab test result(s), EKG, radiologic studies, jr8 CT scan, plain films. Data interpreted: Pulse oximetry: on room air is 98 %. Interpretation: normal. Counseling: I had a detailed discussion with the patient and/or guardian regarding: the historical points, exam findings, and any diagnostic results supporting the discharge/admit diagnosis, lab results, radiology results, the need for further work-up and treatment in the hospital. Physician consultation: Aftab Leonard MD was called at 14:20, was contacted at 14:20, regarding consult, patient's condition, and will see patient in inpatient room. ED course: Dr. Marroquin admitting patient and has been contacted and aware of patient . 01/29 10:58 Order name: Basic Metabolic Panel; Complete Time: 12:55 8 01/29 10:58 Order name: CBC with Diff; Complete Time: 14:02 8 01/29 10:58 Order name: LFT's; Complete Time: 12:55 8 01/29 10:58 Order name: Magnesium; Complete Time: 12:55 8 01/29 10:58 Order name: NT PRO-BNP; Complete Time: 12:55 8 01/29 10:58 Order name: PT-INR; Complete Time: 12:55 8 01/29 10:58 Order name: Troponin (emerg Dept Use Only); Complete Time: 12:55 8 01/29 10:58 Order name: XRAY Chest (1 view); Complete Time: 12:55 jr8 01/29 11:29 Order name: Glucose, Ancillary Testing; Complete Time: 12:55 EDNE 01/29 13:15 Order name: UDS; Complete Time: 15:43 jr8 01/29 13:15 Order name: Urine Microscopic Only; Complete Time: 15:58 jr8 01/29 13:17 Order name: TSH; Complete Time: 14:22 jr8 01/29 13:17 Order name: T4 Free; Complete Time: 14:22 jr8 01/29 13:39 Order name: CBC Smear Scan; Complete Time: 14:02 EDMS 01/29 10:58 Order name: EKG; Complete Time: 10:59 jr8 01/29 10:58 Order name: Cardiac monitoring; Complete Time: 11:19 jr8 01/29 10:58 Order name: EKG - Nurse/Tech; Complete Time: 11:19 jr8 01/29 10:58 Order name: IV Saline Lock; Complete Time: 11:20 jr8 01/29 10:58 Order name: Labs collected and sent; Complete Time: 11:20 jr8 01/29 10:58 Order name: O2 Per Protocol; Complete Time: 11:20 jr8 01/29 10:58 Order name: O2 Sat Monitoring; Complete Time: 11:20 jr8 01/29 10:58 Order name: CT Head Brain wo Cont; Complete Time: 12:55 jr8 01/29 10:58 Order name: Glucose Level; Complete Time: 11:19 jr8 01/29 13:15 Order name: Urine Dipstick-Ancillary (obtain specimen); Complete Time: 15:24 jr8 01/29 13:15 Order name: Straight Cath; Complete Time: 15:24 jr8 EC:06 Rate is 81 beats/min. Rhythm is regular, Normal Sinus Rhythm. Left axis deviation jr8 noted. RI interval is normal at 158 msec. QRS interval is normal at 176 msec. QT interval is prolonged at 515 msec. No Q waves. T waves are Inverted in leads I, aVL, V5, V6. T waves are Flattened in lead II. No ST changes noted. Clinical impression: Abnormal EKG without significant change. Interpreted by me. Reviewed by me. Administered Medications: 14:00 Drug: Aspirin Suppository 300 mg Route: RI; ph 16:09 Follow up: Response: No adverse reaction ph 15:23 Drug: Lasix 40 mg Route: IVP; Site: left antecubital; ph 16:10 Follow up: Response: No adverse reaction ph 15:24 Drug: Albuterol 2.5 mg Route: Inhalation; ph 15:30 Drug: foLIC Acid 1 mg Route: IVPB; Site: left antecubital; ph 16:09 Follow up: Response: No adverse reaction; IV Status: Completed infusion ph 15:44 Drug: Albuterol 2.5 mg Route: Inhalation; ph 16:09 Drug: Albuterol 2.5 mg Route: Inhalation; ph 17:07 Drug: Rocephin 1 grams Route: IV; Rate: calculated rate; Site: left antecubital; ph 17:23 Follow up: Response: No adverse reaction; IV Status: Completed infusion ph Disposition: 01/30 08:18 Co-signature as Attending Physician, Prateek Christian MD I agree with the assessment and kdr plan of care. Disposition: 01/30/20 14:22 Hospitalization ordered by Walter Marroquin for Inpatient Admission. Preliminary diagnosis are Altered mental status, unspecified, Cerebral infarction. - Bed requested for Telemetry/MedSurg (Inpatient). - Status is Inpatient Admission. ph - Condition is Fair. - Problem is new. - Symptoms are unchanged. NIH Stroke Scale - NIH Stroke Score Date: 01/30/2020 Time: 14:06 Total Score = 11 1a. Level of Consciousness (LOC) - 0(Alert) 1b. Level of Consciousness (LOC) (Year \T\ Age) - 2(Neither) 1c. LOC Commands (Open \T\ Closes Eyes/[employer]koog Patching Machine Operator) - 2(Neither) 2. Best Gaze (Lateral Gaze Paresis) - 0(Normal) 3. Visual Field Loss - 1(Partial hemianopia) 4. Facial Palsy - 0(Normal) 5a. Left Arm: Motor (10-second hold) - 0(No drift) 5b. Right Arm: Motor (10-second hold) - 1(Drift) 6a. Left Leg: Motor (5-second hold - always test supine) - 0(No drift) 6b. Right Leg: Motor (5-second hold - always test supine) - 1(Drift) 7. Limb Ataxia (finger/nose \T\ heel/ignacio - test with eyes open) - 0(Absent) 8. Sensory Loss (pinprick arms/legs/face) - 0(Normal) 9. Best Language: Aphasia (description/naming/reading) - 2(Severe aphasia) 10. Dysarthria (speech clarity - read or repeat words) - 2(Severe) 11. Extinction and Inattention (visual/tactile/auditory/spatial/personal) - 0(No abnormality) Initials: jr8 Signatures: Dispatcher [employer] EDPrateek Esposito MD MD [facility] Bora Carrillo PA PA jr8 Mirian Whitt RN RN tl1 Vika Damico RN RN Moon Giraldo RN RN Corrections: (The following items were deleted from the chart) 01/29 14:51 14:22 [facility]. tl1 Preliminary diagnosis is Altered mental status, unspecified; Cerebral infarction. Bed requested for Telemetry/MedSurg (Inpatient). Status is Inpatient Admission. Condition is Fair. Problem is new. Symptoms are unchanged. jr8 14:54 14:51 01/30/2020 14:22 Hospitalization Ordered by [place] Cara BOYKIN for tl1 Inpatient Admission. Preliminary diagnosis is Altered mental status, unspecified; Cerebral infarction. Bed requested for Telemetry/MedSurg (Inpatient). Status is Inpatient Admission. Condition is Fair. Problem is new. Symptoms are unchanged. tl1 17:24 14:54 01/30/2020 14:22 [facility]. Preliminary diagnosis is Altered mental status, unspecified; Cerebral infarction. Bed requested for Telemetry/MedSurg (Inpatient). Status is Inpatient Admission. Condition is Fair. Problem is new. Symptoms are unchanged. tl1
--- NOTE | 2020-01-30 14:23 | ER ---
Nurse's Notes [facility] Name: Leatha Galeana Age: 74 yrs Sex: Female : 1945 Arrival Date: 01/30/2020 Time: 10:56 Bed 5 Private MD: Diagnosis: Altered mental status, unspecified;Cerebral infarction Presentation: 01/29 10:54 Chief complaint: EMS states: Difficulty speaking and profound right sided weakness upon hb waking today per family on scene. Last known normal was last night at 2200. Hx of CVA with right sided weakness, baseline AOx4. Coronavirus screen: Proceed with normal triage. Ebola Screen: No symptoms or risks identified at this time. Initial Sepsis Screen: Does the patient meet any 2 criteria? Altered Mental Status. No. Patient's initial sepsis screen is negative. Does the patient have a suspected source of infection? No. Patient's initial sepsis screen is negative. Risk Assessment: Do you want to hurt yourself or someone else? Patient reports no desire to harm self or others. Onset of symptoms was January 30, 2020. 10:54 Method Of Arrival: EMS: [facility] 10:54 Acuity: TYRELL 2 hb Triage Assessment: 11:15 General: Appears in no apparent distress. Behavior is calm, cooperative. Pain: Unable hb to use pain scale. FLACC scale score is 0 out of 10. EENT: No signs and/or symptoms were reported regarding the EENT system. Neuro: Level of Consciousness is awake, alert, Oriented to person, place, time, situation. Cardiovascular: Capillary refill < 3 seconds Patient's skin is warm and dry. Respiratory: Airway is patent Respiratory effort is even, unlabored, Respiratory pattern is regular, symmetrical. GI: No signs and/or symptoms were reported involving the gastrointestinal system. : No signs and/or symptoms were reported regarding the genitourinary system. Derm: Skin is pink, warm \T\ dry. Musculoskeletal: Swelling BLE swelling. Historical: - Allergies: 11:23 No Known Allergies; hb 11:27 No Known Allergies; ph - Home Meds: 17:15 albuterol sulfate 2.5 mg /3 mL (0.083 %) Inhl nebu [Active]; [place] Thyroid 15 mg Oral ph tab daily [Active]; aspirin 81 mg Oral chew 1 tab once daily [Active]; atorvastatin 10 mg Oral tab 1 tab once daily [Active]; carvedilol 12.5 mg Oral tab 1 tab 2 times per day [Active]; docusate calcium 240 mg Oral cap 1 cap once daily [Active]; escitalopram oxalate 20 mg Oral tab [Active]; gabapentin 100 mg Oral cap twice a day [Active]; glipizide 5 mg Oral tab 1 tab once daily [Active]; hydrocodone-acetaminophen 10-750 mg Oral tab 1 tab every 4-6 hours [Active]; Iron CR Oral [Active]; Lasix 20 mg Oral tab 1 tab once daily, as needed [Active]; lidocaine patch [Active]; melatonin 5 mg Oral cap nightly [Active]; pantoprazole 40 mg Oral TbEC 1 tab once daily [Active]; vitamin B complex Oral cap [Active]; - PMHx: 11:23 CAD; CVA; CHF; Diabetes - NIDDM; Hypothyroidism; Myocardial infarction; hb 11:27 CAD; CHF; CVA; Diabetes - NIDDM; Hypothyroidism; Myocardial infarction; ph - Immunization history:: Adult Immunizations up to date, Adult Immunizations unknown. - Social history:: Smoking status: Patient denies any tobacco usage or history of. Smoking status: unknown. Screenin:27 Abuse screen: Denies threats or abuse. Denies injuries from another. Nutritional hb screening: No deficits noted. Tuberculosis screening: No symptoms or risk factors identified. Fall Risk Total Sibley Fall Scale indicates High Risk Score (45 or more points). Fall prevention measures have been instituted. Side Rails Up X 2 Frequent Obs/Assessments Occuring As available patient and family educated on Fall Prevention Program and Strategies. 12:30 Patient has been NPO before screening. The patient is alert, able to follow commands. ph The patient is exhibiting difficulty speaking. Provider notified of indication for Speech Therapy consult. The patient does not exhibit difficulty understanding words. The patient is able to swallow own secretions with no drooling or need for suction. The patient failed the bedside swallow screening. The patient will be kept NPO until cleared by Speech Therapy or Physician. Provider notified of bedside swallow screening results: Bora DONATO. Assessment: 10:55 Reassessment: PT TO CT VIA STRETCHER WITH MOON CHRIS. hb 12:50 Reassessment: Patient appears in no apparent distress at this time. No changes from ph previously documented assessment. Patient and/or family updated on plan of care and expected duration. Pain level reassessed. Pt awake and alert, able to follow commands but unable to speak. 14:00 Reassessment: Patient appears in no apparent distress at this time. No changes from ph previously documented assessment. 15:31 Reassessment: Patient appears in no apparent distress at this time. Patient and/or ph family updated on plan of care and expected duration. Pain level reassessed. 16:45 Reassessment: Patient appears in no apparent distress at this time. No changes from ph previously documented assessment. Report called to Tana CHRIS. Vital Signs: 10:54 BP 122 / 78; Pulse 81; Resp 16; Temp 98.1; Pulse Ox 93% on R/A; hb 11:20 BP 122 / 78; Pulse 64; Resp 16; Pulse Ox 95% on R/A; ph 11:52 BP 131 / 62; Pulse 77; Resp 16; Pulse Ox 99% on R/A; ph 12:50 BP 119 / 87; Pulse 62; Resp 16; Pulse Ox 98% on R/A; ph 14:00 BP 120 / 76; Pulse 75; Resp 22; Pulse Ox 98% on R/A; ph 15:30 BP 119 / 68; Pulse 82; Resp 26; Temp 97.8(TE); Pulse Ox 100% on Nebulizer Mask; ph 16:45 BP 123 / 62; Pulse 76; Resp 28; Temp 97.8; Pulse Ox 97% on R/A; ph NIH Stroke Scale Scores: 14:06 NIHSS Score: 11 jr8 ED Course: 10:56 Patient arrived in ED. iw 10:57 Bora Carrillo PA is PHCP. jr8 10:57 Prateek Christian MD is Attending Physician. jr8 11:03 CT Head Brain wo Cont In Process Unspecified. EDMS 11:06 Triage completed. hb 11:23 Arm band placed on. hb 11:28 Patient has correct armband on for positive identification. Placed in gown. Bed in low ph position. Call light in reach. Side rails up X2. air sampling and monitoring on. Pulse ox on. NIBP on. Noise minimized. Warm blanket given. 11:36 EKG done, by weed science research technician. reviewed by Prateek Christian MD. tc 11:37 XRAY Chest (1 view) In Process Unspecified. EDMS 14:21 Walter Marroquin DO is Hospitalizing Provider. jr8 15:30 No provider procedures requiring assistance completed. [place] cath inserted, using ph sterile technique, 16 Fr., by ca, balloon inflated, to gravity drainage, urine specimen collected. returned joselyn urine. Patient tolerated well. Maintain EMS IV. Gauge \T\ site: 20 LAC. Patient admitted, IV remains in place. Administered Medications: 14:00 Drug: Aspirin Suppository 300 mg Route: AK; ph 16:09 Follow up: Response: No adverse reaction ph 15:23 Drug: Lasix 40 mg Route: IVP; Site: left antecubital; ph 16:10 Follow up: Response: No adverse reaction ph 15:24 Drug: Albuterol 2.5 mg Route: Inhalation; ph 15:30 Drug: foLIC Acid 1 mg Route: IVPB; Site: left antecubital; ph 16:09 Follow up: Response: No adverse reaction; IV Status: Completed infusion ph 15:44 Drug: Albuterol 2.5 mg Route: Inhalation; ph 16:09 Drug: Albuterol 2.5 mg Route: Inhalation; ph 17:07 Drug: Rocephin 1 grams Route: IV; Rate: calculated rate; Site: left antecubital; ph 17:23 Follow up: Response: No adverse reaction; IV Status: Completed infusion ph Outcome: 14:22 Decision to Hospitalize by Provider. jr8 17:20 Admitted to Med/surg accompanied by tech, via stretcher, with chart. ph 17:20 Condition: stable 17:20 Instructed on the need for admit. 17:24 Patient left the ED. NIH Stroke Scale - NIH Stroke Score Date: 01/30/2020 Time: 14:06 Total Score = 11 1a. Level of Consciousness (LOC) - 0(Alert) 1b. Level of Consciousness (LOC) (Year \T\ Age) - 2(Neither) 1c. LOC Commands (Open \T\ Closes Eyes/Administrative Intern) - 2(Neither) 2. Best Gaze (Lateral Gaze Paresis) - 0(Normal) 3. Visual Field Loss - 1(Partial hemianopia) 4. Facial Palsy - 0(Normal) 5a. Left Arm: Motor (10-second hold) - 0(No drift) 5b. Right Arm: Motor (10-second hold) - 1(Drift) 6a. Left Leg: Motor (5-second hold - always test supine) - 0(No drift) 6b. Right Leg: Motor (5-second hold - always test supine) - 1(Drift) 7. Limb Ataxia (finger/nose \T\ heel/ignacio - test with eyes open) - 0(Absent) 8. Sensory Loss (pinprick arms/legs/face) - 0(Normal) 9. Best Language: Aphasia (description/naming/reading) - 2(Severe aphasia) 10. Dysarthria (speech clarity - read or repeat words) - 2(Severe) 11. Extinction and Inattention (visual/tactile/auditory/spatial/personal) - 0(No abnormality) Initials: jr8 Signatures: Dispatcher [employer] EDMS Katherine Moseley RN RN Bora Carrillo PA PA jr8 Darshana Durán, model maker EKG [facility] Vika Damico RN RN Moon Giraldo RN RN Corrections: (The following items were deleted from the chart) 11:23 10:54 Acuity: TYRELL 3 hb hb 15:32 12:50 Reassessment: Patient appears in no apparent distress at this time. ph Patient and/or family updated on plan of care and expected duration. Pain level reassessed. Patient is alert, oriented x 3, equal unlabored respirations, skin warm/dry/pink. ph
[2020-01-30] MEDS ORDERED: ASPIRIN 600 MG/SUPP PR ONE (15:08)
[2020-01-30] MEDS ORDERED: ALBUTEROL 2.5 MG/3 ML NEB SOL ONE (15:08)
[2020-01-30] MEDS ORDERED: FUROSEMIDE 40 MG/4 ML VIAL ONE (15:08)
[2020-01-30] MEDS ORDERED: ACETAMINOPHEN 650MG/RECT SUPP PR ONE (15:19)
[2020-01-30] MEDS ORDERED: FOLIC ACID 5 MG/ML VIAL ONE (15:35)
[2020-01-30 15:43] LABS: Barbiturates NEGATIVE (NEGATIVE); Benzodiazepines NEGATIVE (NEGATIVE); Cocaine NEGATIVE (NEGATIVE); METHAMPHETAM NEGATIVE (NEGATIVE); Methadone NEGATIVE (NEGATIVE); Opiates POSITIVE (NEGATIVE); Phencyclidine NEGATIVE (NEGATIVE); THC Cannibis NEGATIVE (NEGATIVE)
[2020-01-30 15:55] LABS: Urine Bacteria 20-50 /HPF (<20); Urine Culture Reflex Order REFLEXED; Urine Mucus 2+ /HPF (NONE SEEN); Urine RBC <5 /HPF (NONE SEEN)
--- NOTE | 2020-01-30 16:08 | P.HP ---
Certification for Inpatient Patient admitted to: Inpatient With expected LOS: >2 Midnights Patient will require the following post-hospital care: None Practitioner: I am a practitioner with admitting privileges, knowledge of patient current condition, hospital course, and medical plan of care. Services: Services provided to patient in accordance with Admission requirements found in Title 42 Section 412.3 of the Code of Federal Regulations Patient History Date of Service: 01/30/20 Primary Care Provider: Dr. Bowers; Cardiology-Dr. Abdullahi/Pat Reason for admission: Aphasia History of Present Illness: 74-year-old female with multiple medical problems including prior CVA with right-sided residual weakness, systolic CHF with prior ejection fraction 30%, pacemaker, CAD, diabetes, hypertension and hyperlipidemia. Patient presented with aphasia. Most of the information came from the ER and son. The patient was apparently well last night. Patient with history of CVA with right-sided residual weakness. She mainly uses a walker to move around. Son reports the patient has had poor appetite over the past week. There was no mention of fever, chills. This morning the patient was found to have a aphasia. This was a change from her baseline. Son further reports patient had been recently seen by Cardiology. Cardiology was concerned about her pacemaker. There was some question that it needed to be possibly replaced due to worsening CHF. In the ER patient was evaluated. Patient presented with aphasia. Not able to communicate. White count 6.2, hemoglobin 11. Platelet count 284. Sodium 138, potassium 5.3. BUN of 54, creatinine 1.8, GFR of 34. Glucose 178. Tsh 5.1. Free T4 1.3. Troponin elevated at 1.19. BMP also elevated above 9 seen 1000. Chest x-ray showed mild Valium overload. CT head showed no acute changes but chronic changes noted Patient was admitted for further evaluation and treatment. When I saw the patient ER, she appeared stable. She did not appear septic. Patient with aphasia and right-sided weakness. Allergies No Known Allergies Allergy (Verified 06/11/18 15:56) Home medications list reviewed: Yes Home Medications: Atorvastatin Calcium [Lipitor*] 10 mg PO DAILY 06/11/18 Glipizide [Glipizide Xl] 5 mg PO DAILY 06/11/18 Pantoprazole Sodium 40 mg PO DAILY 06/11/18 Thyroid Tab [[place] Thyroid*] 15 mg PO DAILY 06/11/18 Aspirin [Aspirin EC 81 MG] 81 mg PO DAILY #30 tablet. 06/17/18 Albuterol Sulfate [Proair Digihaler] 2 puff IH Q6H PRN 10/19/19 B-Complex with Vitamin C [Vitamin B-Complex with Vit C] 1 tab PO DAILY 10/19/19 Turmeric Root Extract [Turmeric] 1 tab PO DAILY 10/19/19 carvediloL [Coreg*] 12.5 mg PO BID 6AM 6PM 10/19/19 Furosemide [Lasix*] 40 mg PO DAILYPRN PRN #30 tab 10/20/19 Cranberry Fruit Extract 400 mg PO BID #60 cap 11/14/19 Docusate/Senna [Senokot-S*] 2 tab PO BEDTIME #60 tab 11/14/19 Escitalopram [Lexapro*] 20 mg PO DAILY #30 tab 11/14/19 Gabapentin [Neurontin*] 100 mg PO BID #60 cap 11/14/19 Hydrocodone 10/APAP 325 [[place] 10/325*] 1 tab PO Q6H PRN #30 tab 11/14/19 Iron/FA/Vit B-Com W/C [Hemocyte Plus*] 1 tab PO DAILY WITH BREAKFAST #30 tab 11/14/19 Lidocaine 4% Patch [Lidoderm 5% Patch*] 1 patch TOP DAILY patch 11/14/19 Melatonin 5 mg PO BEDTIME tablet 11/14/19 Vitamin B Complex [Vitamin B Complex*] 1 cap PO DAILY #30 cap 11/14/19 - Past Medical/Surgical History Diabetic: Yes -: Diabetes mellitus type 2 -: Hypothyroidism -: HTN -: History of CVA with residual right upper extremity weakness -: Coronary artery disease -: Obesity -: Depression with anxiety -: Hyperlipidemia -: Pacemaker -: Cholecystectomy -: Back sx -: Hysterectomy -: Cataract surgery -: pacemaker (10/01/2015) Psychosocial/ Personal History: Patient is a . She has children. She does not work. - Family History Brother -: Heart disease Mother -: Diabetes - Social History Smoking Status: Never smoker Alcohol use: No CD- Drugs: No Caffeine use: Yes Place of Residence: Home Review of Systems is unable to be obtained Physical Examination - Physical Exam General: Alert, Other (Patient with aphasia. Patient not able to follow commands. Previous right-sided residual weakness noted.) HEENT: Atraumatic, Normocephalic Neck: Supple Respiratory: Clear to auscultation bilaterally, Normal air movement Cardiovascular: Normal pulses, Regular rate/rhythm Gastrointestinal: Normal bowel sounds, Soft and benign, Non-distended, No tenderness, No masses, No rebound, No guarding Integumentary: No erythema, No warmth, No cyanosis, Tenderness/swelling (Some lower extremity edema noted) Neurological: Other (Patient with aphasia. Decreased strength to the right side.), Abnormal speech, Abnormal strength - Studies Laboratory Data (last 24 hrs) 01/30/20 11:15: PT 11.9, INR 1.01 01/30/20 11:15: WBC 6.2, Hgb 11.0 L, Hct 35.3 L, Plt Count 288 01/30/20 11:15: Sodium 138, Potassium 5.3 H, BUN 54 H, Creatinine 1.50 H, Glucose 178 H, Magnesium 1.8, Total Bilirubin 0.9, AST 24, ALT 17, Alkaline Phosphatase 92 Assessment and Plan - Plan Impression: Aphasia suspect CVA with history of prior CVA with right-sided residual weakness Encephalopathy likely related to above and possible underlying UTI Elevated troponin/ BNP suspect acute on chronic systolic CHF with underlying CAD History of pacemaker Acute on chronic renal disease stage 3 with hyperkalemia Hypertension Diabetes mellitus type 2 Hypothyroidism Hyperlipidemia Plan: Aphasia suspect CVA with history of prior CVA with right-sided residual weakness: Patient will be admitted for further evaluation. Neurology consulted to further evaluate. Will obtain echocardiogram and carotid Doppler. Not able to get MRI due to pacemaker. Patient previously on aspirin. Will continue with aspirin and start Plavix. Physical therapy, occupational therapy, speech therapy to evaluate. Patient currently NPO. Patient may require Dobhoff to initiate feeding. Will continue to add to reassess and monitor. Will provide DVT prophylaxis-heparin. Will continue to monitor closely. Spoke with son concerning current issues. Advanced directives addressed. Son to discuss further with family. Son reports patient has been declining in health over the past several months. May need to Re discuss advanced directives in detail and possible long-term options. Encephalopathy likely related to above and possible underlying UTI: Will start Rocephin. Obtain blood and urine culture. Elevated troponin/ BNP suspect acute on chronic systolic CHF with underlying CAD: Monitor cardiac enzymes. Cardiology consulted. Continue home medication. Continue IV Lasix peer History of pacemaker: Patient seen by Cardiology recently. There has been report that the pacemaker needed to be re-evaluated. Will have pacemaker interrogated Acute on chronic renal disease stage 3 with hyperkalemia: Nephrology consulted. Hyperkalemia to be treated in the emergency room. Hypertension: Continue blood pressure medication Diabetes mellitus type 2: Will provide sliding scale. Monitor Accu-Cheks. Hypothyroidism: Continue home medication Hyperlipidemia: Continue home medication. Will monitor lipid panel. Discharge Plan: Home Plan to discharge in: Greater than 2 days - Advance Directives Does patient have a Living Will: No Does patient have a Durable POA for Healthcare: No - Code Status/Comfort Care Code Status Assessed: Yes (Family unsure. Will readdress) Time Spent Managing Pts Care (In Minutes): 60
--- NOTE | 2020-01-30 16:16 | EKG ---
Test Date: 2020-01-30 Test Time: 11:14:56 Green Building Design Specialist: JIM MEASUREMENT RESULTS: Intervals: Rate: 81 WI: 158 QRSD: 176 QT: 444 QTc: 515 [place]: P: -6 WI: 158 QRS: -38 T: 127 INTERPRETIVE STATEMENTS: Normal sinus rhythm with sinus arrhythmia Left axis deviation Left bundle branch block Abnormal ECG Compared to ECG 11/21/2019 17:46:10 Left-axis deviation now present Left bundle-branch block now present Ventricular-paced complex(es) or rhythm no longer present Electronically Signed On 01-30-20 16:16:19 CDT by Andrew Jordan
[2020-01-30] MEDS ORDERED: CEFTRIAXONE/SWI 1gm 1 GM/10 ML SYR ONE (16:56)
[2020-01-30] MEDS ORDERED: ACETAMINOPHEN 650MG/RECT SUPP PR PRN (16:58)
[2020-01-30] MEDS ORDERED: ONDANSETRON 4 MG/2 ML VIAL IV PRN (16:58)
[2020-01-30] MEDS ORDERED: METOPROLOL TARTRATE 5 MG/5 ML INJ IV PRN (16:58)
[2020-01-30] MEDS: CEFTRIAXONE/SWI 1gm 1 GM/10 ML SYR IVP SCH (17:00)
[2020-01-30] MEDS: INSULIN -REGULAR HUMAN 50 UNIT/0.5 ML ML SQ SCH ×2 (17:47→23:26)
[2020-01-30] MEDS ORDERED: FUROSEMIDE 40 MG/4 ML VIAL IV SCH (18:00)
[2020-01-30 18:41] VITALS: BMI 23.8
[2020-01-30 20:19] LABS: CKMB Creatine Kinase MB 3.3 ng/mL (0.3-3.6); Uric Acid 10.1 mg/dL (2.6-6.0)
[2020-01-30 20:21] LABS: CKMB Creatine Kinase MB 3.5 ng/mL (0.3-3.6)
[2020-01-30 20:32] LABS: Troponin I 0.79 ng/mL (0.0-0.045)
--- NOTE | 2020-01-30 20:38 | RAD REPORT ---
EXAM DESCRIPTION: US - Renal Ultrasound-Complete - 01/30/2020 8:23 pm CLINICAL HISTORY: ckd Flank pain COMPARISON: Renal Ultrasound-Complete dated 06/15/2018 FINDINGS: Both kidneys are normal in size, shape and echotexture. Mild cortical thinning is present. The right kidney measures 9.0 x 4.4 x 3.7 cm. No hydronephrosis, focal mass or perinephric fluid. The left kidney measures 8.4 x 4.7 x 4.3 cm. No hydronephrosis, focal mass or perinephric fluid. The urinary bladder is incompletely distended without gross abnormality seen. IMPRESSION: Unremarkable renal sonogram.
--- NOTE | 2020-01-30 20:40 | RAD REPORT ---
EXAM DESCRIPTION: - - 01/30/2020 8:23 pm CLINICAL HISTORY: Aphasia Headache, drowsiness COMPARISON: Head C Spine Mpr Wo Con dated 12/11/2019; Head Brain Wo Cont dated 01/30/2020 TECHNIQUE: Real-time sonographic evaluation of both carotid systems was performed. Doppler interroga tion was performed with waveform tracing bilaterally. FINDINGS: Normal high resistance waveforms are noted in both external carotid arteries. The common c arotid arteries and internal carotid arteries show normal low resistance waveforms. Mild to moderate hard plaquing is seen in both proximal internal carotid arteries. Peak systolic and end diastolic velocity values and the ICA/CCA ratios are in the non-hemodynamically significant range . Antegrade flow seen in both vertebral arteries. IMPRESSION: Mild to moderate hard plaque is present in both internal carotid arteries. No evidence of a hemodynamically significant stenosis.
--- NOTE | 2020-01-30 20:46 | CON ---
Date of Consultation: 01/30/2020 Patient admitted on 01/30/[address] Marroquin' service. I saw the patient on 01/30/2020. Reason For Consultation: Elevated troponin and history of CHF and a new onset CVA. History Of Present Illness: Ms. Galeana is a 74-year-old woman, has a very complex past medical histor y. She recently had a CVA. She has just left the fifth floor rehab unit in November 2019. Has had a h istory of coronary artery disease, pacemaker, hypothyroidism. She has chronic systolic congestive he art failure with an ejection fraction of 30%, 4-chamber dilatation, severe pulmonary hypertension colleen ing back to September of 2019. She had diabetes, depression, COPD and dyslipidemia. She came in with aphasia and altered mental status, was found to have an elevated troponin of 1.19 and I was consulted . CT of her head shows chronic ischemic changes and severe atrophy. Her EKG shows sinus rhythm with left bundle-branch block. Patient is aphasic and with altered mental status, difficult to get a goo d history, but there was no report of palpitation, chest pain or syncope. No report of fever or chill s. No nausea, vomiting, diaphoresis, PND, orthopnea. Has had pedal edema. Past Medical History: As stated above. Allergies: NONE. Review of Systems: Negative. Social History: Negative. Family History: Noncontributory. Medications: Inhalers, Protonix, aspirin, Synthroid, Lipitor, Lexapro, Lasix and glipizide. Physical Examination: General: She was aphasic and confused, sinus rhythm, afebrile. Vital Signs: Overall stable. HEENT: Negative. Neck: Supple without any bruit, lymphadenopathy, JVD, or thyromegaly. Chest: Clear to auscultation and percussion. Cardiac: Paced rhythm with no murmurs, gallops, or rub s. Abdomen: Benign. Extremities: No clubbing, cyanosis. She had 1+ bilateral edema. Neurologic: She was aphasic. Skin: Dry and intact. Pulses were present distally bilaterally. Diagnostic Data: Her creatinine is 1.50. Troponin is 1.19. Her BNP is 19,007. She has EKG, showed left bundle-branch block. Chest x-ray shows CHF. CT of her head shows chronic ischemic changes wit h atrophy. Echocardiogram in September of 2019 showed an ejection fraction of 30%, pacemaker, 4-chambe r dilatation, severe pulmonary hypertension. Impression And Plan: 1.Acute cerebrovascular accident. 2.Acute on chronic systolic congestive heart failure. 3.Status post pacemaker placement. 4.Severe pulmonary hypertension. 5.Left bundle-branch block. 6.Elevated troponin and BNP secondary to congestive heart failure. 7.Chronic renal insufficiency. Nephrology has been consulted. 8.Dyslipidemia, on Lipitor. 9.Depression, on Lexapro. 10.Diabetes, on glipizide. 11.Gastroesophageal reflux disease. 12.Hypothyroidism. 13.Chronic obstructive pulmonary disease. I think we need to continue her present regimen. I agree with use of aspirin and Plavix for her stro ke. I agree with IV Lasix. Neurology has been consulted. Nephrology has been consulted. I think c onsidering her severe cardiomyopathy with an ejection fraction of 30% and a pacemaker placement and h er stroke, certainly, aspirin and Plavix are adequate. One might make a case for even further antico agulation with Heri. I will leave that up to Dr. Leonard. The case was discussed in detail with Dr. Marroquin. I will continue to follow her. KIERSTEN/BROWN Voice ID: [id number] Report ID: [id number]
[2020-01-30] MEDS: ATORVASTATIN 80 MG TAB PO SCH (21:00)
[2020-01-30] MEDS: HEPARIN 5000 UNIT/ML 1 ML VIAL SQ SCH (21:33)
[2020-01-31 00:01] LABS: UR PROTEIN < 5 mg/dL (<11.9); Urine Protein/Creatinine Ratio ND ratio (<0.15)
[2020-01-31 03:43] LABS: Absolute Lymphocytes (CBC) 0.9 K/uL (0.7-4.9); Hematocrit 36.9 % (36.0-45.0); Lymphocytes % 18.2 % (15.3-44.8); MPV 8.2 fL (7.6-11.3); RBC Red Blood Cell Count 4.44 M/uL (3.86-4.86)
[2020-01-31 03:50] LABS: Magnesium 1.8 mg/dL (1.8-2.4); Potassium 4.9 mmol/L (3.5-5.1)
[2020-01-31 04:04] LABS: CKMB Creatine Kinase MB 2.5 ng/mL (0.3-3.6)
[2020-01-31 04:11] LABS: Troponin I 0.73 ng/mL (0.0-0.045)
[2020-01-31] MEDS ORDERED: MAGNESIUM SULFATE 1 gm IVPB 1 GM/100 ML BAG IV ONE (05:00)
[2020-01-31] MEDS: INSULIN -REGULAR HUMAN 50 UNIT/0.5 ML ML SQ SCH ×3 (06:00→17:30)
[2020-01-31] MEDS: ASPIRIN EC 81 MG TAB PO SCH (08:50)
[2020-01-31] MEDS: HEPARIN 5000 UNIT/ML 1 ML VIAL SQ SCH (08:50)
[2020-01-31] MEDS: CEFTRIAXONE/SWI 1gm 1 GM/10 ML SYR IVP SCH (08:50)
[2020-01-31] MEDS ORDERED: CLOPIDOGREL 75 MG TABLET PO SCH (09:00)
[2020-01-31] MEDS ORDERED: FUROSEMIDE 40 MG/4 ML VIAL IV SCH (09:00)
[2020-01-31] MEDS ORDERED: D5 0.45 NS 1,000 ML IV SCH (13:00)
[2020-01-31] MEDS: D5 0.45 NS 500 ML IV SCH ×2 (13:00→23:00)
--- NOTE | 2020-01-31 13:33 | ECHO ---
HEIGHT: 4 ft 11 in WEIGHT: 118 lb 0 oz DATE OF STUDY: 01/31/[address]: Walter Marroquin DO 2-DIMENSIONAL: YES M.MODE: YES DOPPLER: YES COLOR FLOW: YES TDS: NO PORTABLE: NO DEFINITY: NO BUBBLE STUDY: NO DIAGNOSIS: APHASIA CARDIAC HISTORY: CATHERIZATION: NO SURGERY: NO PROSTHETIC VALVE: NO PACEMAKER: YES MEASUREMENTS (cm) DIASTOLIC (NORMALS) SYSTOLIC (NORMALS) IVSd 1.1 (0.6-1.2) LA Diam 4.8 (1.9-4.0) LVEF 32% LVIDd 5.6 (3.5-5.7) LVIDs 4.8 (2.0-3.5) %FS 15% LVPWd 1.1 (0.6-1.2) Ao Diam 2.9 (2.0-3.7) 2 DIMENSIONAL ASSESSMENT: RIGHT ATRIUM: NORMAL LEFT ATRIUM: DILATED RIGHT VENTRICLE: PACEMAKER LEFT VENTRICLE: DILATED TRICUSPID VALVE: NORMAL MITRAL VALVE: NORMAL PULMONIC VALVE: NORMAL AORTIC VALVE: NORMAL PERICARDIAL EFFUSION: NONE AORTIC ROOT: NORMAL LEFT VENTRICULAR WALL MOTION: SEVERE GLOBAL HYPOKINESIS. DOPPLER/COLOR FLOW: MILD AORTIC, MITRAL AND TRICUSPID REGURGITATION. COMMENTS: SEVERE GLOBAL HYPOKINESIS. MILD AORTIC, MITRAL AND TRICUSPID REGURGITATION. LEFT VENTRICULAR EJECTION FRACTION 30%. MILD PULMONARY HYPERTENSION. RIGHT VENTRICULAR SYSTOLIC PRESSURE 42 mmHg. NO THROMBUS. PACEMAKER IN RIGHT VENTRICULAR [employer]. TECHNOLOGIST: Homero BRADEN
--- NOTE | 2020-01-31 16:50 | PN ---
Date of Progress Note: 01/31/2020 Ms. Galeana had came in with a new-onset CVA. She has a history of congestive heart failure that is sy stolic, chronic, ejection fraction of 30%. She has a pacemaker. She has diabetes, hypertension, dys lipidemia, COPD, depression, and pulmonary hypertension. She is on aspirin and Plavix right now on I V Lasix. Echocardiogram is pending for this morning. Neurology and Pulmonary have been consulted. Pacemaker check is pending by the company. Ms. Galeana has seen Dr. Stewart and Dr. Abdullahi in the past . She is certainly stable, however, her mental status is poor. Dr. Marroquin is discussing her case wi th the family regarding future plans with hospice or intermediate placement. I do suggest an anticoa gulants in addition to the aspirin or Plavix only because she has very high risk factor with an eject ion fraction of 30%, but I will leave that up to Dr. Marroquin, Neurology, and her family. I will sign off her case for now. KIERSTEN/BROWN Voice ID: [id number] Report ID: [id number]
--- NOTE | 2020-01-31 16:55 | P.PN ---
Subjective Date of Service: 01/31/20 Primary Care Provider: Dr. Bowers; Cardiology-Dr. Abdullahi/Pat Chief Complaint: Aphasia Physical Examination - Vital Signs Temperature: 97.5 F Blood Pressure: 136/71 Pulse: 80 Respirations: 22 Pulse Ox (%): 100 Assessment & Plan Discharge Plan: Home - Code Status/Comfort Care Code Status Assessed: Yes (Addressed with son. Patient is DNR.) Code Status: Do Not Attempt Resuscitat Physician Review Additional Text: Impression: Aphasia suspect CVA with history of prior CVA with right-sided residual weakness Encephalopathy likely related to above and possible underlying UTI Elevated troponin/ BNP suspect acute on chronic systolic CHF with underlying CAD History of pacemaker Acute on chronic renal disease stage 3 with hyperkalemia Hypertension Diabetes mellitus type 2 Hypothyroidism Hyperlipidemia Plan: Aphasia suspect CVA with history of prior CVA with right-sided residual weakness: Still no significant change since yesterday. Echo shows ejection fraction 25%. Will repeat CT scan tomorrow to see if there is any significant changes. Pacemaker to be interrogated. Speech therapy to attempt re-evaluation of dysphagia. Spoke with son at length concerning multiple issues. Advanced directives were readdressed. He express patient would not want to be resuscitated if required. Will change patient to do not resuscitate. If her condition continues to decline will need to address other options including possible need for PEG tube or hospice. I did discuss with cardiology about stopping her Plavix and switching with Eliquis. This was discussed Neurology and he agrees. Encephalopathy likely related to above and possible underlying UTI: Continue R ocephin. Obtain blood and urine culture. Elevated troponin/ BNP suspect acute on chronic systolic CHF with underlying CAD: EF 25%. Echo reviewed with cardiology. Continue Lasix. Cardiology expresses cardiac status as poor. History of pacemaker: Patient seen by Cardiology recently. There has been report that the pacemaker needed to be re-evaluated. Will have pacemaker interrogated Acute on chronic renal disease stage 3 with hyperkalemia: Nephrology consulted. Hyperkalemia to be treated in the emergency room. Hypertension: Continue blood pressure medication Diabetes mellitus type 2: Will provide sliding scale. Monitor Accu-Cheks. Hypothyroidism: Continue home medication Hyperlipidemia: Continue home medication. Will monitor lipid panel. Time Spent Managing Pts Care (In Minutes): 55
--- NOTE | 2020-01-31 17:41 | CON ---
Reason For Consultation: Elevated BUN and creatinine, fluid management . History Of Present Illness: All the information has been obtained from the record as the patient is aphasic, nonverbal. This is a pleasant unfortunate 74-year-old female with significant past medical history of CVA with right-sided weakness, coronary artery disease with CHF with ejection fraction of 30%, diabetes complicated with neuropathy, hypertension, hyperlipidemia. Patient came to the hospital with decreased intake and altered mental status. Patient found to have elevation in BUN and creatinine with marginal . For that reason, we have been consulted. There is no chest pain. Patient had chronic over volume. Over the night, patient was maintained on no fluid and continued on the diuresis. Kidney function is still deteriorating. Past Medical History: 1. CVA with right-sided weakness. 2. Coronary artery disease, complicated with congestive heart failure. Ejection fraction of 30%. 3. Hypertension. 4. Hyperlipidemia. 5. Chronic kidney disease. Baseline creatinine back in October 27.3. GFR of 38. Allergies: NO KNOWN DRUG ALLERGIES. Home Medications: 1. Atorvastatin. 2. Glipizide. 3. Pantoprazole. 4. Aspirin. 5. B complex. 6. Turmeric. 7. Carvedilol. 8. Lasix 40 daily. 9. Docusate. 10. Gabapentin. 11. Hydrocodone. 12. Lidocaine. 13. Namenda. Past Surgical History: ICD placement, cataract surgery, back surgery, hysterectomy, cholecystectomy. Family History: Positive for coronary artery disease and diabetes. Social History: Denies smoking. Active occasional alcohol. Denies drug abuse. Review of Systems: Head and Neck: No red eye. No ear pain. Has facial droop. GI: Decreased intake. : No polyuria. No dysuria. No hematuria. MISSILE MECHANIC: No vaginal discharge. Respiratory: Chronic shortness of breath. Cardiovascular: Orthopnea. Endocrine: No polydipsia. Skin: No rash. Neuro: Right-sided weakness, bedbound. Musculoskeletal: Low back pain. Physical Examination: Vital Signs: When I saw the patient, blood pressure 136/71, pulse of 80, afebrile. Reviewing the record, no low blood pressure before. Chest: Crackles, faint on the base. Heart: S1, S2. Systolic murmur. Abdomen: Soft, nontender. Extremities: Trace edema. Neuro: Right-sided weakness, nonverbal. Laboratory Data: Sodium 140, potassium 4.9, bicarb 20, BUN 54, creatinine 1.4, calcium 10.3, magnesium 1.8. WBC 5.2, H and H 11.5/36.9, platelets 280. Reviewing the record back in October, H and H 9.6/30.8. Chest x-ray: Cardiomegaly with congestion. Medications: Current medications in the hospital include aspirin, ceftriaxone, Plavix, atorvastatin, metoprolol, Lasix 40 b.i.d. Assessment And Plan: 1. Acute kidney injury on chronic kidney disease, mostly secondary to overdiuresis superimposed with poor intake. Looks to me on the normal side right now. I am going to hold Lasix for the time being. We will start the patient on gentle hydration of only 500 and we will send for the workup. 2. Hypertension, control optimal with the presence of acute kidney injury. Hold the diuresis. 3. Hypercalcemia secondary to overdiuresis. Hold Lasix. Hold any vitamin supplement. 4. Congestive heart failure, currently normal volume. We will hold Lasix. 5. Hypomagnesemia. We will supplement. WEST Voice ID: [id number] Report ID: [id number] BUTCH
[2020-01-31] MEDS: ATORVASTATIN 80 MG TAB PO SCH (21:00)
[2020-01-31] MEDS: APIXABAN 5 MG TABLET PO SCH (21:00)
[2020-01-31] MEDS: VANCOMYCIN 1 GM in NA CHLORIDE 0.9% 500 ML IVPB ONE (22:00)
[2020-02-01] MEDS: VANCOMYCIN 1 GM in NA CHLORIDE 0.9% 500 ML IVPB ONE (00:15)
[2020-02-01] MEDS ORDERED: VANCOMYCIN 1 GM/VIAL ONE (00:18)
[2020-02-01] MEDS ORDERED: NA CHLORIDE 0.9% 250 ML ONE (00:18)
[2020-02-01] MEDS: INSULIN -REGULAR HUMAN 50 UNIT/0.5 ML ML SQ SCH ×4 (05:47→17:32)
[2020-02-01 06:04] LABS: Basophils % 0.8 % (0-1.3); Hematocrit 36.4 % (36.0-45.0); Lymphocytes % 16.8 % (15.3-44.8); MPV 7.9 fL (7.6-11.3); RBC Red Blood Cell Count 4.34 M/uL (3.86-4.86)
[2020-02-01 06:35] LABS: Magnesium 1.9 mg/dL (1.8-2.4); Phosphorus 3.7 mg/dL (2.5-4.9)
[2020-02-01 07:23] LABS: Thyroid Stimulating Hormone 5.61 uIU/mL (0.360-3.740)
[2020-02-01 07:30] LABS: Anisocytosis 1+; Blood Morphology Comment NOTED (NOT SEEN); Platelet Estimate ADEQ; Urine White Blood Cell Casts OK
[2020-02-01] MEDS: APIXABAN 5 MG TABLET PO SCH ×2 (08:23→21:04)
[2020-02-01] MEDS: ASPIRIN EC 81 MG TAB PO SCH (08:23)
[2020-02-01] MEDS: CEFTRIAXONE/SWI 1gm 1 GM/10 ML SYR IVP SCH (08:25)
[2020-02-01] MEDS: D5 0.45 NS 500 ML IV SCH (08:25)
[2020-02-01] MEDS ORDERED: MORPHINE 2 MG/ML SYR IV ONE (13:51)
--- NOTE | 2020-02-01 14:31 | P.PN ---
Subjective Date of Service: 02/01/20 Primary Care Provider: Dr. Bowers; Cardiology-Dr. Abdullahi/Pat Chief Complaint: Aphasia Subjective: Worsening Subjective 74-year-old with CVA with right-sided residual weakness, systolic CHF EF 30%, CAD, diabetes, hypertension presented with AMS and decreased po intake today ' AMS today , plan to repeat CT Cr up to 1.8 Will switch fluid to D5NS will rpt CXR tomorrow will send for serology W/U Physical exam general: iopen eyes, unsure if can follow commands Neck; Supple, No elevated JVD hear: Sysytolic murmur Chest: CTAB, no rales or wheezes Abdomen: Soft , Nt Extremities No edema or ulcer A/P JESUS ALBERTO possibly due to prerenal azotemia US no hydrom, UA no prot will change fluid to DWNS will rpt CXR CHFlooks dry to euvolemic will rpt CXR tomorrow AMS CVA? F/U repeated CT DM as per primary UTI cot Abx f/u culture results Total time spent 35 min Physical Examination - Vital Signs Temperature: 97.6 F Blood Pressure: 119/72 Pulse: 67 Respirations: 18 Pulse Ox (%): 98
[2020-02-01] MEDS ORDERED: D5 0.9 NS 1,000 ML IV SCH (15:00)
--- NOTE | 2020-02-01 15:29 | RAD REPORT ---
EXAM DESCRIPTION: RAD - Barium Swallow Modified - 02/01/2020 3:20 pm CLINICAL HISTORY: dysphagia/CVA/cough/choking FINDINGS: laryngeal penetration: not cleared with tsp of nectar aspiration: no cough silent aspiration of tsp thin before the swallow pharyngeal residue: mild vallecular , pyriform , posterior wall other: there is poor bolus retrieval and poor ability to form a bolus. linguel coordination for anter ior to posterior transfer is poor . prespillage of thin liquid occurs to the level of the pyriforms a nd there is immediate silent aspiration before the swallow . There is poor base of tongue retraction , laryngeal elevation protraction and reduced contraction of the pharyngeal wall. there is penetration of nectar thick liquid that did not clear and was likely to be asipirated by gravity. Pt could not imitate a throat clear or cough to eject material. pureed bolus was held in the mouth fo r greater than 30 sec . pt wasnt able to form a bolus or move posteriorly . pureed bolus was removed from oral cavity . No add consistencies given secondary to increased risk of choking or aspiration fluoro time 5 min 16 fluoroscopic spot series obtained
--- NOTE | 2020-02-01 16:41 | RAD REPORT ---
EXAM DESCRIPTION: Head Brain Wo Cont ADDENDUM #1 THIS REPORT CONTAINS FINDINGS THAT MAY BE CRITICAL TO PATIENT CARE: Notification that the physician was unable to speak on the phone occurred at 02/01/2020 5:53 AM CDT. I discussed the findings with Jennifer Nash who agreed to take the results on the phone on behalf of the physician, and acknowledges th eir critical nature. Electronically signed by: Luna Durham MD 02/01/2020 5:53 AM CDT End of Addendum EXAM: CT Head Without Intravenous Contrast CLINICAL HISTORY: The patient is 74 years old and is Female; Reassess for CVA TECHNIQUE: Axial computed tomography images of the head/brain without intravenous contrast. Sagittal and cor onal reformatted images were created and reviewed. This CT exam was performed using one or more of the following dose reduction techniques: automated exposure control, adjustment of the mA and/or kV according to patient size, and/or use of iterative reconstruction technique. COMPARISON: CT of the head January 30, 2020 FINDINGS: BRAIN: There is no intracranial hemorrhage, mass effect, or midline shift. There are no extra-axi al fluid collections. There is diffuse cerebral atrophy present, consistent with this patient's age . There is patchy hypoattenuation of the deep white matter which is non-specific, but most likely o wing to chronic small vessel ischemic change in a patient of this age group. Focal area of low atte nuation along the left insular cortex is redemonstrated. VENTRICLES: Unremarkable. No ventriculomegaly. BONES/JOINTS: No acute fracture. SOFT TISSUES: Unremarkable. SINUSES: Complete opacification of the right maxillary sinus is present. MASTOID AIR CELLS: Unremarkable as visualized. No mastoid effusion. ORBITS: Unremarkable as visualized. IMPRESSION: Subacute infarct in the region of the left insular cortex in the MCA distribution. No intracranial hemorrhage. Electronically signed by: Luna Durham MD 02/01/2020 5:47 AM CDT Due to temporary technical issues with the PACS/Fluency reporting system, reports are being signed by the in house radiologist as a courtesy to ensure prompt reporting. The interpreting radiologist is f ully responsible for the content of the report.
--- NOTE | 2020-02-01 17:02 | RAD REPORT ---
EXAM DESCRIPTION: RAD - Chest Single View - 02/01/2020 4:49 pm CLINICAL HISTORY: Device placement Dobhoff tube placement IMPRESSION: A Dobhoff tube has been placed into the stomach. The tip lies approximately 6 centimeter s from the GE junction
[2020-02-01] MEDS: GLUCERNA 1.2 CAL 1,000 ML BOT RTH SCH (17:24)
--- NOTE | 2020-02-01 18:09 | P.PN ---
Subjective Date of Service: 02/01/20 Primary Care Provider: Dr. Bowers; Cardiology-Dr. Abdullahi/Pat Chief Complaint: Aphasia Subjective: Improving Physical Examination - Vital Signs Temperature: 97.9 F Blood Pressure: 127/79 Pulse: 87 Respirations: 19 Pulse Ox (%): 98 - Physical Exam General: Alert, Other (Patient more alert. Still not able to talk.) Neck: Supple Respiratory: Clear to auscultation bilaterally, Normal air movement Cardiovascular: Normal pulses, Regular rate/rhythm Neurological: Other (Still not able to talk. Still with weakness.) - Studies Medications List Reviewed: Yes Assessment & Plan Discharge Plan: Home Plan to discharge in: Greater than 2 days Physician Review Additional Text: Impression: Aphasia suspect CVA with history of prior CVA with right-sided residual weakness Encephalopathy likely related to above and possible underlying UTI Elevated troponin/ BNP suspect acute on chronic systolic CHF with underlying CAD History of pacemaker Acute on chronic renal disease stage 3 with hyperkalemia Hypertension Diabetes mellitus type 2 Hypothyroidism Hyperlipidemia Plan: Aphasia suspect CVA with history of prior CVA with right-sided residual we akness: Patient more alert today. Case reviewed with son who was able to come and help with speech therapy. Patient still high risk for aspiration. Will provide Doffhoff to initiate feeding. Speech to reassess on Tuesday. Advanced care planning address with son. Will continue to monitor closely. Pacemaker reviewed by Cardiology. Pacemaker portion not working properly. Defibrillator portion working appropriately. This will need to be changed. Will continue to monitor closely. Options for PEG tube versus hospice address in detail. Will continue to monitor closely. Hold for improvement. Will reassess likely in the next couple of days. Encephalopathy likely related to above and possible underlying UTI: Continue Rocephin. Await cultures Elevated troponin/ BNP suspect acute on chronic systolic CHF with underlying CAD: EF 25%. Echo reviewed with cardiology. Continue Lasix. Cardiology expresses cardiac status as poor. History of pacemaker: Patient seen by Cardiology recently. There has been report that the pacemaker needed to be re-evaluated. Will have pacemaker interrogated Acute on chronic renal disease stage 3 with hyperkalemia: Nephrology consulted. Hyperkalemia to be treated in the emergency room. Hypertension: Continue blood pressure medication Diabetes mellitus type 2: Will provide sliding scale. Monitor Accu-Cheks. Hypothyroidism: Continue home medication Hyperlipidemia: Continue home medication. Will monitor lipid panel. Time Spent Managing Pts Care (In Minutes): 55
[2020-02-01] MEDS: ATORVASTATIN 80 MG TAB PO SCH (21:04)
[2020-02-01] MEDS: ACETAMINOPHEN 500 MG TAB PO PRN (21:35)
[2020-02-02] MEDS: INSULIN -REGULAR HUMAN 50 UNIT/0.5 ML ML SQ SCH ×4 (00:46→17:23)
--- NOTE | 2020-02-02 05:43 | PN ---
Date of Progress Note: 02/01/2020 Ms. Galeana had came in with altered mental status, CVA, has a history of biventricular ICD. Yesterday , a [employer] investigation of her pacemaker defibrillator revealed that the left ventricular lead does not capture. Her device was programed to a VVI 40 RV only. There was no LV capture at ma ximum output in any configuration. She was noted only to have 2 episodes of nonsustained ventricular tachycardia, both of them were self converted. The device was left at the VVI at 40. Patient has n ot really had any cardiac issue or complaint since she has been in the hospital. Echocardiogram whic h was done on January 30, 2020 showed an ejection fraction of 32%, which is chronic. She has severe pulmo nary hypertension. She has an acute cerebrovascular accident. She has acute on chronic systolic con gestive heart failure, which has improved. She has chronic renal insufficiency. She has dyslipidemi a, diabetes, depression, hypothyroidism, COPD, and gastroesophageal reflux disease. Neurology and Ne phrology have been following her. Dr. Marroquin is discussing her further care down the road with the melly ritter. No change in her cardiac therapy from our standpoint. KIERSTEN/BROWN Voice ID: [id number] Report ID: [id number]
[2020-02-02 07:22] LABS: Basophils % 0.6 % (0-1.3); Lymphocytes % 12.9 % (15.3-44.8); MPV 8.2 fL (7.6-11.3); RBC Red Blood Cell Count 3.91 M/uL (3.86-4.86)
[2020-02-02 07:39] LABS: Albumin 2.9 g/dL (3.4-5.0); Magnesium 2.1 mg/dL (1.8-2.4); Phosphorus 3.1 mg/dL (2.5-4.9); Potassium 4.1 mmol/L (3.5-5.1)
[2020-02-02] MEDS: APIXABAN 5 MG TABLET PO SCH ×2 (08:58→21:18)
[2020-02-02] MEDS: ASPIRIN 81 MG CHEWABLE TABLET FT SCH (08:58)
[2020-02-02] MEDS ORDERED: NACHLORIDE 0.45% 1,000 ML IV SCH (09:00)
[2020-02-02] MEDS ORDERED: Meropenem 1000 MG/VIAL IV SCH (09:00)
[2020-02-02] MEDS ORDERED: ASPIRIN 81 MG CHEWABLE TABLET PO SCH (09:00)
--- NOTE | 2020-02-02 09:27 | RAD REPORT ---
EXAM DESCRIPTION: RAD - Chest Single View - 02/02/2020 9:04 am CLINICAL HISTORY: F/U CHF COMPARISON: Portable January 31, portable January 29 TECHNIQUE: AP portable chest image was obtained 02/02/2020 9:04 am . FINDINGS: Lung volumes are low. Interstitial and alveolar opacities are present. Findings are simila r to fractionally improved. Any differential is very minimal. Pacemaker defibrillator battery pack ov erlies the lower lung field partially obscuring this region. Feeding tube remains in place. There has been slight retraction. Tip is in the stomach but in close p roximity to the GE junction. This needs monitoring to assure no further retraction. Cardiac silhouett e remains enlarged. Vascular engorgement present. No pneumothorax or large pleural effusion. IMPRESSION: Low lung volume exam showing CHF/ volume overload findings similar to slightly improved from prior imaging. Slight retraction of the feeding tube. Tip remains in the stomach but is in close proximity to the GE junction. This will need monitoring to assure no further retraction.
[2020-02-02] MEDS: Meropenem 1,000 MG in NA CHLORIDE 0.9% 100 ML IV SCH ×2 (10:20→21:18)
[2020-02-02] MEDS ORDERED: HYDROCODONE/APAP 10/325 TAB PO PRN (11:57)
--- NOTE | 2020-02-02 12:04 | P.PN ---
Subjective Date of Service: 02/02/20 Primary Care Provider: Dr. Bowers; Cardiology-Dr. Abdullahi/Pat Chief Complaint: Aphasia Subjective: Other (more alert today but still aphasia.) Physical Examination - Vital Signs Temperature: 97.7 F Blood Pressure: 119/61 Pulse: 61 Respirations: 18 Pulse Ox (%): 98 - Physical Exam General: Alert, Other (still with aphasia) HEENT: Atraumatic Neck: Supple Respiratory: Clear to auscultation bilaterally, Normal air movement Cardiovascular: Normal pulses, Regular rate/rhythm Gastrointestinal: Normal bowel sounds, Soft and benign, Non-distended, No rebound, No guarding Integumentary: No warmth, No cyanosis Neurological: Normal speech, Normal strength at 5/5 x4 extr, Normal tone, Normal affect - Studies Medications List Reviewed: Yes Assessment & Plan Discharge Plan: Other (group home facility verses inpatient rehab) Plan to discharge in: Greater than 2 days Physician Review Additional Text: Impression: Aphasia with Subacute infarct in the region of the left insular cortex in the MCA distribution with history of prior CVA with right-sided residual weakness Encephalopathy likely related to above and possible underlying UTI Elevated troponin/ BNP suspect acute on chronic systolic CHF with underlying CAD History of pacemaker Acute on chronic renal disease stage 3 with hyperkalemia Hypertension Diabetes mellitus type 2 Hypothyroidism Hyperlipidemia Plan: Aphasia with Subacute infarct in the region of the left insular cortex in the MCA distribution with history of prior CVA with right-sided residual weakness: Patient remains alert. Still not able to talk. Case discussed at length with Neurology yesterday. This maybe he her new baseline. Neurology agrees with aspirin and Eliquis. Will have pharmacy monitor and adjust per renal function. Feeding tube placed yesterday. She appears to be tolerating feeds. Will adjust IV fluids. Nephrology to further evaluate and adjust. Patient has E coli-ESBL. This will require PICC line and 7 days of IV antibiotic therapy. Case discussed at length with son. He agrees with current plan of care. Speech to reassess dysphagia on Tuesday. Would like to have family present to help support hurt at that time. Will further discuss other options of care at that time. Pacemaker reviewed with cardiology. Pacemaker portion not working properly. Defibrillator portion working appropriately. This will need to be changed as an outpatient with her shorts sifter. Will continue to monitor closely. Options for PEG tube versus hospice verses rehab will be further discussed on Tuesday after speech pathology evaluation. Continue physical therapy. Toxic Encephalopathy likely related to above and with UTI, urine culture positive for E coli-ESBL: Patient now requires PICC line. Antibiotics adjusted to Merrem. Will need 7 days. Elevated troponin/ BNP suspect acute on chronic systolic CHF with underlying CAD: EF 25%. Echo reviewed with cardiology. Continue medication. History of pacemaker: Patient seen by Cardiology recently. There has been report that the pacemaker needed to be re-evaluated. Will have pacemaker interrogated Acute on chronic renal disease stage 3 with hyperkalemia: Nephrology consulted. Hyperkalemia to be treated in the emergency room. Hypertension: Continue blood pressure medication Diabetes mellitus type 2: Will provide sliding scale. Monitor Accu-Cheks. Hypothyroidism: Continue home medication Hyperlipidemia: Continue home medication. Will monitor lipid panel. Time Spent Managing Pts Care (In Minutes): 55
[2020-02-02] MEDS: Pantoprazole (granules) 40 MG/BLIST PACKET FT SCH (12:43)
[2020-02-02] MEDS: ESCITALOPRAM 20 MG TAB PO SCH (12:44)
[2020-02-02] MEDS ORDERED: PANTOPRAZOLE 40MG TABLET PO SCH (13:00)
[2020-02-02] MEDS ORDERED: GABAPENTIN 100 MG CAP PO SCH (13:00)
[2020-02-02] MEDS: NACHLORIDE 0.45% 1,000 ML IV SCH ×3 (13:04→23:04)
--- NOTE | 2020-02-02 13:49 | PN ---
Date of Progress Note: 02/02/2020 History: Patient was admitted with hypercalcemia, CVA found to have UTI with ESBL. Patient being on hydration her calcium was trending down, patient today is more awake. Physical Examination: Vital Signs: Blood pressure 119/61, pulse of 61, afebrile. Patient has had good urine output of 150 0, negative of 500. Chest: Decreased entry on the left base, crackles on the right. Heart: S1-S2 systolic murmur. Abdomen: Soft, nontender. Extremities: No edema. Neuro: Weakness on the right side. Laboratory Data: WBC 7.9, H and H 10.4/33, platelet 285. Sodium 140, potassium 4.1, bicarb 21, BUN 72, creatinine 1.8, calcium 10.1, phosphorus 3.1, magnesium 2.1, albumin 2.9. PTH of 91. Current Medications: The patient on include; 1.Meropenem. 2.Aspirin. 3.Eliquis. 4.Atorvastatin. 5.Lexapro. 6.Gabapentin. 7.Normal saline at 100 per hour. 8.Hydrocodone. Assessment And Plan: 1.Acute kidney injury secondary to prerenal plateau currently. 2.Urinary tract infection secondary to extended-spectrum beta-lactamases. Continue meropenem. 3.Hypercalcemia with non-suppressed PTH, mostly secondary to primary hyperparathyroidism. I am nish g to start the patient on low dose of Sensipar 30 mg every other days and we will monitor the patient . I do not see that the patient is candidate for any surgery. 4.cerebrovascular accident. Continue supportive care. Follow up with primary. WEST Voice ID: [id number] Report ID: [id number]
[2020-02-02] MEDS: CINACALCET HCL 30 MG TAB PO SCH (14:00)
[2020-02-02] MEDS ORDERED: FUROSEMIDE 20 MG/ 2ML VIAL IV ONE (14:00)
[2020-02-02] MEDS: GLUCERNA 1.2 CAL 1,000 ML BOT RTH SCH (17:12)
[2020-02-02] MEDS: ACETAMINOPHEN 500 MG TAB PO PRN (21:18)
[2020-02-02] MEDS: ATORVASTATIN 80 MG TAB PO SCH (21:19)
[2020-02-03] MEDS: INSULIN -REGULAR HUMAN 50 UNIT/0.5 ML ML SQ SCH ×5 (01:03→23:41)
[2020-02-03 06:41] LABS: Albumin 2.7 g/dL (3.4-5.0); Phosphorus 2.9 mg/dL (2.5-4.9); Potassium 4.1 mmol/L (3.5-5.1)
[2020-02-03] MEDS: NACHLORIDE 0.45% 1,000 ML IV SCH (09:01)
[2020-02-03] MEDS: Meropenem 1,000 MG in NA CHLORIDE 0.9% 100 ML IV SCH ×2 (09:02→21:39)
[2020-02-03] MEDS: APIXABAN 5 MG TABLET PO SCH ×2 (09:02→21:39)
[2020-02-03] MEDS: ASPIRIN 81 MG CHEWABLE TABLET FT SCH (09:02)
[2020-02-03] MEDS: Pantoprazole (granules) 40 MG/BLIST PACKET FT SCH (09:02)
[2020-02-03] MEDS: ESCITALOPRAM 20 MG TAB PO SCH (09:02)
--- NOTE | 2020-02-03 11:33 | P.PN ---
Subjective Date of Service: 02/03/20 Primary Care Provider: Dr. Bowers; Cardiology-Dr. Abdullahi/Pat Chief Complaint: Aphasia Subjective: Other (Patient still not able to talk appropriately. Patient more alert today.) Physical Examination - Vital Signs Temperature: 97.7 F Blood Pressure: 127/71 Pulse: 67 Respirations: 19 Pulse Ox (%): 99 - Physical Exam General: Alert, Other (Still with aphasia) HEENT: Atraumatic Neck: Supple Respiratory: Clear to auscultation bilaterally, Normal air movement Cardiovascular: Normal pulses, Regular rate/rhythm Gastrointestinal: Normal bowel sounds, Soft and benign Musculoskeletal: Other (Could movement with left side.) Neurological: Normal affect, Abnormal speech (aphasia), Abnormal strength (Good movement on the left side. With residual right-sided weakness from prior CVA) - Studies Medications List Reviewed: Yes Assessment & Plan Discharge Plan: Other (group home facility) Plan to discharge in: 48 Hours Physician Review Additional Text: Impression: Aphasia with Subacute infarct in the region of the left insular cortex in the MCA distribution with history of prior CVA with right-sided residual weakness Toxic Encephalopathy related to above, UTI-E coli-ESBL/bacteremia-blood culture positive for Staph hominis Elevated troponin/ BNP suspect acute on chronic systolic CHF with underlying CAD History of pacemaker Acute on chronic renal disease stage 3 with hyperkalemia Hypertension Diabetes mellitus type 2 Hypothyroidism Hyperlipidemia Plan: Aphasia with Subacute infarct in the region of the left insular cortex in the MCA distribution with history of prior CVA with right-sided residual weakness: Patient remains alert. Still not able to talk. Could movement on the left side. Still with residual right-sided weakness from prior CVA. This maybe he her new baseline. Neurology agrees with aspirin and Eliquis. Will have phar krysta monitor and adjust per renal function. Dobhoff in place with feeds. She appears to be tolerating feeds. Nephrology plans to discontinue IV fluids. Patient has E coli-ESBL from the urine and now 2/4 blood cultures positive for Staph hominis. They had difficulty putting an PICC line last night. Will need to see if this can be placed today. Patient remains on meropenem. Will add Levaquin. Will consult infectious disease to further evaluate and make recommendation. Case discussed with son yesterday. Speech to reassess tomorrow. Options for PEG tube versus hospice verses rehab will be further discussed on Tuesday after speech pathology evaluation. Continue physical therapy. Toxic Encephalopathy related to above, UTI-E coli-ESBL/bacteremia-blood culture positive for Staph hominis: Patient requires PICC line. Will see if this can be readdressed today. Patient remains on IV meropenem. Will add IV Levaquin. Infectious disease consulted for further recommendation. Elevated troponin/ BNP suspect acute on chronic systolic CHF with underlying CAD: EF 25%. Echo reviewed with cardiology. Continue medication. History of pacemaker: Patient seen by Cardiology recently. There has been report that the pacemaker needed to be re-evaluated. Will have pacemaker interrogated Acute on chronic renal disease stage 3 with hyperkalemia: Nephrology consulted. Nephrology plans to discontinue IV fluid. Hypertension: Continue blood pressure medication Diabetes mellitus type 2: Will provide sliding scale. Monitor Accu-Cheks. Hypothyroidism: Continue home medication Hyperlipidemia: Continue home medication. Time Spent Managing Pts Care (In Minutes): 55
[2020-02-03] MEDS: Levofloxacin 250mg IV 250 MG/50 ML BAG IV SCH (12:45)
[2020-02-03] MEDS ORDERED: FUROSEMIDE 20 MG/ 2ML VIAL IV ONE (13:00)
--- NOTE | 2020-02-03 16:32 | PN ---
Date of Progress Note: 02/03/2020 Subjective: Patient was admitted with UTI ESBL, altered mental status. Patient more awake today. Physical Examination: Vital Signs: Blood pressure 127/71, pulse of 67, afebrile. Chest: Clear to auscultation. Heart: S1, S2. Systolic murmur. Abdomen: Soft, nontender. Extremities: No edema. Genitourinary: Patient had urine output of 700. Patient positive of 1100. Neurologic: Alert, not oriented, follows simple command. No focality. Laboratory Data: WBC 7.9, H and H 10.4/33, platelets 285. Sodium 140, potassium 4.1, bicarb 21, BUN 79, creatinine 1.8, calcium 9.2, phosphorus 2.9. Chest x-ray, congestion bilateral. Medications: Current medications the patient on include; aspirin, Levaquin 250 daily, meropenem, Sandra gina, metoprolol, atorvastatin, Sensipar 30 every 48 hours, and normal saline. Assessment And Plan: 1.Acute kidney injury secondary to prerenal/toxic acute tubular necrosis, recover. 2.Hypercalcemia, resolved. Continue Sensipar every other day. 3.Urinary tract infection extended spectrum beta-lactamase. Continue current antibiotic. Follow up with the primary. 4.Cerebrovascular accident. Follow up with Neurology. Plan for swallow study tomorrow to decide ab out PEG tube. 5.Congestive heart failure, looked to me started to be on the wet side. I am going to discontinue IV fluid and we will give single dose of Lasix today and we will fol low up. LUKE/BROWN Voice ID: [id number] Report ID: [id number]
[2020-02-03] MEDS: ATORVASTATIN 80 MG TAB PO SCH (21:39)
[2020-02-03] MEDS: GLUCERNA 1.2 CAL 1,000 ML BOT RTH SCH (23:02)
[2020-02-04 04:42] LABS: Albumin 2.7 g/dL (3.4-5.0); Potassium 4.6 mmol/L (3.5-5.1)
[2020-02-04] MEDS: INSULIN -REGULAR HUMAN 50 UNIT/0.5 ML ML SQ SCH ×3 (05:02→17:09)
[2020-02-04] MEDS: ASPIRIN 81 MG CHEWABLE TABLET FT SCH (08:14)
[2020-02-04] MEDS: ESCITALOPRAM 20 MG TAB PO SCH (08:14)
[2020-02-04] MEDS: Pantoprazole (granules) 40 MG/BLIST PACKET FT SCH (08:14)
[2020-02-04] MEDS: Meropenem 1,000 MG in NA CHLORIDE 0.9% 100 ML IV SCH ×2 (08:14→20:59)
[2020-02-04] MEDS: APIXABAN 5 MG TABLET PO SCH ×2 (08:14→20:59)
[2020-02-04 08:45] LABS: Rheumatoid Factor POS (NEG); Rheumatoid Factor Titer 1:4 (32 RF IU/mL)
--- NOTE | 2020-02-04 09:11 | P.PN ---
Subjective Date of Service: 02/04/20 Primary Care Provider: Dr. Bowers; Cardiology-Dr. Abdullahi/Pat Chief Complaint: Aphasia Subjective: No new changes <Abiodun Correa - Last Filed: 02/04/20 09:07> Date of Service: 02/04/20 Subjective: No new changes, Doing well <Walter Marroquin - Last Filed: 02/04/20 15:32> Review of Systems General: Unremarkable Eyes: Unremarkable ENT: Unremarkable Respiratory: Unremarkable Cardiovascular: Unremarkable Gastrointestinal: As per HPI Genitourinary: Unremarkable Neurological: As per HPI <Abiodun Correa Last Filed: 02/04/20 09:07> Physical Examination - Vital Signs Temperature: 96.9 F Blood Pressure: 136/73 Pulse: 85 Respirations: 20 Pulse Ox (%): 98 - Physical Exam General: Alert HEENT: Normocephalic Neck: Supple Respiratory: Clear to auscultation bilaterally, Normal air movement Cardiovascular: No edema Capillary refill: <2 Seconds Gastrointestinal: Normal bowel sounds Musculoskeletal: No clubbing, No swelling Neurological: Other (Aphasia) - Studies Medications List Reviewed: Yes <Abiodun Correa - Last Filed: 02/04/20 09:07> - Physical Exam General: Alert, Other (Patient still with a aphasia) Cardiovascular: Regular rate/rhythm Gastrointestinal: No tenderness, No masses, No rebound, No guarding Musculoskeletal: No warmth Neurological: Other, Abnormal speech (aphasia), Abnormal strength (right sided residual weakness.) - Studies Medications List Reviewed: Yes <Walter Marroquin - Last Filed: 02/04/20 15:32> Assessment & Plan Discharge Plan: [facility] Care Plan to discharge in: 48 Hours Physician Review Additional Text: Impression: Aphasia with Subacute infarct in the region of the left insular cortex in the MCA distribution with history of prior CVA with right-sided residual weakness Toxic Encephalopathy related to above, UTI-E coli-ESBL/bacteremia-blood culture positive for Staph hominis Elevated troponin/ BNP suspect acute on chronic systolic CHF with underlying CAD History of pacemaker Acute on chronic renal disease stage 3 with hyperkalemia Hypertension Diabetes mellitus type 2 Hypothyroidism Hyperlipidemia Plan: Aphasia with Subacute infarct in the region of the left insular cortex in the MCA distribution with history of prior CVA with right-sided residual weakness: Patient remains alert. Still not able to talk. So improvement in motor functi on to the left side. Still with residual right-sided weakness from prior CVA. This maybe he her new baseline. Neurology agrees with aspirin and Eliquis. Will have pharmacy monitor and adjust per renal function. Dobhoff in place with feeds. She appears to be tolerating feeds. Nephrology plans to discontinue IV fluids. Patient has E coli-ESBL from the urine and now 2/4 blood cultures positive for Staph hominis. They had difficulty putting an PICC line last night. Will need to re-attempt placement of PICC line. Patient remains on meropenem. Will add Levaquin. Will consult infectious disease to further evaluate and make recommendation. Case discussed with son yesterday. Speech is to evaluate patient again today, plan is to have family at bedside at this time. Based on the results from swallow study patient will need to have PEG tube placed or be placed on hospice. Continue physical therapy. Toxic Encephalopathy related to above, UTI-E coli-ESBL/bacteremia-blood culture positive for Staph hominis: Patient requires PICC line. Will see if this can be readdressed today. Patient remains on IV meropenem. Levaquin has been added. Infectious disease consulted for further recommendation. Elevated troponin/ BNP suspect acute on chronic systolic CHF with underlying CAD: EF 25%. Echo reviewed with cardiology. Continue medication. History of pacemaker: Patient seen by Cardiology recently. Pacemaker was interrogated, shows that the pacemaker is not functioning but the defibrillator portion is. Patient will need to have this addressed further on an outpatient basis, may need to have leads replaced or device replaced. Acute on chronic renal disease stage 3 with hyperkalemia: Nephrology consulted. Hypertension: Continue blood pressure medication Diabetes mellitus type 2: Will provide sliding scale. Monitor Accu-Cheks. Hypothyroidism: Continue home medication Hyperlipidemia: Continue home medication. Time Spent Managing Pts Care (In Minutes): 55 <Abiodun Correa - Last Filed: 02/04/20 09:07> Discharge Plan: Home Plan to discharge in: 72 Hours Physician Review Additional Text: Patient seen and examined with nurse practitioner. Agree with plan of care. Patient alert. Still with aphasia. Patient still needs to get PICC line for IV antibiotic therapy. Patient with E coli-ESBL and bacteremia. Continue current IV antibiotic therapy. Await recommendations by infectious disease. Speech worked with patient. They recommended modified barium swallow. This was not able to be done today. This will be done tomorrow. Hopefully the patient will be able to the eat, if not will need to consider PEG placement. After this has been evaluated will need to consider options of care including skilled placement facility or long-term care. Will discuss with son later. This can be further addressed tomorrow. I will turn the service over to the hospitalist team tomorrow. I will go over the plan of care with him. <Walter Marroquin - Last Filed: 02/04/20 15:32>
[2020-02-04] MEDS: Levofloxacin 250mg IV 250 MG/50 ML BAG IV SCH (12:25)
[2020-02-04] MEDS: CINACALCET HCL 30 MG TAB PO SCH (13:03)
--- NOTE | 2020-02-04 17:06 | P.CNS ---
Date of Consult: 02/04/20 Subjective: Patient is a 74-year-old female with history of CVA with right- sided residual weakness. Patient presented with aphasia and poor appetite. The patient was found to have E. coli ESBL in the urine and Staph hominis in the blood which I have been consulted for. Patient aphasic. History is obtained from medical record and staff. Past medical/surgical history: CVA with right-sided residual weakness, systolic CHF, pacemaker, CAD, diabetes, hypertension, hyperlipidemia, hypothyroidism, cholecystectomy, back surgery, hysterectomy, and cataract surgery Family history: Brother heart disease. Mother Diabetes Active Medications Acetaminophen (Tylenol -Extra Strength) 500 mg PO Q4HP PRN PRN Reason: TEMP > 101' F Stop: 02/29/20 16:59 Last Admin: 02/02/20 21:18 Dose: 500 mg Documented by: Acetaminophen (Tylenol Suppository) 650 mg RI Q6HP PRN PRN Reason: TEMP > 101' F Stop: 02/29/20 16:59 Last Admin: 01/31/20 03:13 Dose: 650 mg Documented by: Hydrocodone Bitart/Acetaminophen ([place] 10/325) 1 tab PO Q6H PRN PRN Reason: PAIN Stop: 03/03/20 11:58 Last Admin: 02/02/20 15:00 Dose: 1 tab Documented by: Apixaban (Eliquis) 5 mg PO BID SIMON Stop: 03/01/20 21:01 Last Admin: 02/04/20 08:14 Dose: 5 mg Documented by: Aspirin (Aspirin Chewable) 162 mg FT DAILY SIMON Stop: 03/03/20 09:01 Last Admin: 02/04/20 08:14 Dose: 162 mg Documented by: Atorvastatin Calcium (Lipitor) 80 mg PO BEDTIME SIMON Stop: 02/29/20 21:01 Last Admin: 02/03/20 21:39 Dose: 80 mg Documented by: Cinacalcet (Sensipar) 30 mg PO Q48H SIMON Stop: 03/03/20 14:01 Last Admin: 02/04/20 13:03 Dose: 30 mg Documented by: Enteral Nutritional Formula (Glucerna 1.2 Avtar) 0 ml RTH CONT SIMON Stop: 03/02/20 15:01 Last Admin: 02/03/20 23:02 Dose: 1,000 ml Documented by: Escitalopram Oxalate (Lexapro) 20 mg PO DAILY [facility] Stop: 03/03/20 13:01 Last Admin: 02/04/20 08:14 Dose: 20 mg Documented by: Meropenem 1,000 mg/ Sodium (Chloride) 100 mls @ 100 mls/hr IV Q12HR [facility] Stop: 03/03/20 09:01 Last Admin: 02/04/20 08:14 Dose: 100 mls Documented by: Levofloxacin/Dextrose (Levaquin 250mg/50 Ml Ivpb) 250 mg in 50 mls @ 50 mls/hr IV Q24H [facility]; Protocol Stop: 03/04/20 12:01 Last Admin: 02/04/20 12:25 Dose: 50 mls Documented by: Insulin Human Regular (Novolin -R) 0 unit SQ Q6HR [facility]; Protocol Stop: 02/29/20 18:01 Last Admin: 02/04/20 12:33 Dose: 2 unit Documented by: Metoprolol Tartrate (Lopressor 1 Mg/Ml Inj) 5 mg IV Q6H PRN PRN Reason: IF SBP GREATER THAN 170 Stop: 02/29/20 16:59 Ondansetron HCl (Zofran) 4 mg IV Q6HP PRN PRN Reason: NAUSEA / VOMITING Stop: 02/29/20 16:59 Pantoprazole Sodium (Protonix Packet (For Suspension)) 40 mg FT DAILY [facility]; Protocol Stop: 03/03/20 13:01 Last Admin: 02/04/20 08:14 Dose: 40 mg Documented by: Sodium Chloride (Normal Saline Flush) 10 ml IV BID [facility] Stop: 02/29/20 21:01 Last Admin: 02/04/20 08:14 Dose: 10 ml Documented by: Allergy/AdvReac Type Severity Reaction Status Date / Time No Known Allergies Allergy Verified 01/31/20 01:30 Objective: Temp Pulse Resp BP Pulse Ox 98.7 F 80 22 H 133/71 98 02/04/20 12:00 02/04/20 12:00 02/04/20 12:00 02/04/20 12:00 02/04/20 12:00 Labs: Na 140, BUN 20, Creat 1.90, WBC 7.9, PLT 285 ROS: General: Awake, lying in bed. right-sided facial droop CV: S1, S2 RESP: Good breath sounds ABD: flat, soft, nontender : Stroud catheter Extremities: 2+ pedal pulses Assessment and plan: Urine positive for E.coli ESBL, Continue Merrem for total of 7 days Blood positive for Staph Hominis, Continue Levaquin for total of 2 weeks after negative blood culture Diabetes mellitis, monitor glycemic control Procal malnourishment, Continue NGT with feedings Will continue to monitor Thank you for consult Patient discussed with Dr. Vargas
[2020-02-04] MEDS: ATORVASTATIN 80 MG TAB PO SCH (20:59)
[2020-02-04] MEDS ORDERED: NA CHLORIDE 0.9% 250 ML ONE (21:01)
--- NOTE | 2020-02-04 21:38 | CON ---
Reason For Consultation: Consultation called because of stroke. History Of Present Illness: Ms. 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 Her CT scan showed a subacute left insular cortex middle cerebral artery distribution and stroke without hem orrhagic conversion. The patient did have problems with expression and comprehension. She had a bar ium swallow study which she failed aspirating all consistencies. She has however been working hard w [facility] speech therapy and there is a planned repeat barium swallow study nightly to see if the patient's diet can be advanced. However, in the initial barium swallow study, she did aspirate all consistenc ies, did not initiate a cough reflex response when there is consistencies that were held for a prolon ged period in the oropharynx. Her stroke workup did show a carotid artery ultrasound finding mild-to -moderate hard plaque in both carotid arteries, however, not noted to be hemodynamically significant. Her echocardiogram showed ejection fraction of 32% with severe global hypokinesis, mild aortic, randolph ral, tricuspid regurgitation. There is left ventricular ejection fraction of 30%. Mild pulmonary hy pertension. Right ventricular systolic pressure was elevated at 42. There is no thrombus on the pac emaker noted in the right ventricular apex. Past Medical History: As indicated in addition to hypothyroidism, obesity, depression, anxiety. Past Surgical History: Pacemaker placement, cholecystectomy, back surgery, hysterectomy, cataract cárdenas rgery. Social History: The patient has children, , and not working. Family History: Heart disease in brother and diabetes in mother. Social History: No alcohol, tobacco, or IV drug use. Allergies: NO KNOWN DRUG ALLERGIES. Medications: At home, pantoprazole sodium 40 mg daily, Chokio Thyroid 15 mg daily, aspirin 81 mg dolly ly, ProAir Digihaler 2 puffs every 6 hours as needed, turmeric extract 1 tab daily, Coreg 12.5 mg twi ce daily, Lasix 40 mg daily, cranberry extract 400 mg twice daily, Senokot-S 2 tablets at bedtime, es citalopram 20 mg daily, gabapentin 100 mg twice daily, [place] 10/325 one tablet every 6 hours as neede d, iron supplements as Hemocyte Plus 1 tablet daily, lidocaine patch 4% apply twice daily, melatonin 5 mg at night, super B-complex 1 daily. Review of Systems: Not quite reliable as patient does have an aphasia. Physical Examination: Vital Signs: Blood pressure 133/71, pulse 80, respiratory rate 16 to 20, temperature 98.7, oxygen sa turation 98%. Weight 143 pounds, height 5 feet 2 inches, BMI 21. General: Ms. Galeana is resting comfortably. She is alert and does have some difficulty with communic ation with gesturing. She does follow simple commands. Difficulty following complex commands. Lungs: No significant abnormalities. Abdomen: No significant abnormalities. Extremities: No significant abnormalities. Neurological: Alert and does follow simple commands, requires some coaxing and cuing to follow compl ex commands. Cranial nerve examination, she has a slight decrease in the right nasolabial fold, slig ht weakness in the right upper versus left upper lower extremity and right lower versus left lower ex tremity. There is some weakness. There is apparent decreased sensation in the right upper and lower extremities, left upper and lower extremities. Coordination appears intact. Reflexes are brisk in the right upper and lower extremity compared to the left side. The patient will be ambulated with [facility] physical therapists. Laboratory Studies: Complete blood count with differential shows white blood cell count of 7.9, hemo globin 10.4, hematocrit 33, platelets 285. Chemistry, sodium 140, potassium 4.6, chloride 109, carbo n dioxide 20, BUN 82, creatinine 1.9, glucose ranged from 187 to 236, calcium 9.5, phosphorus 3.0. P arathyroid hormone is elevated to 91. TSH elevated at 5.61 and free T4 normal at 1.42. Her LDL chol esterol is 33, HDL cholesterol 46. Her cholesterol to HDL ratio is 2.07, triglycerides 79, total cho lesterol 95. She has vitamin D panel pending. Assessment: Ms. Galeana is a 74-year-old patient with subacute left insular stroke with right-sided de ficits and aphasia. She has multiple stroke risk factors as indicated and has significant dysphagia with some dysarthria and aphasia and barium swallow study did show the patient is aspirating all cons istencies. However, she is working well with the speech therapy and a repeat barium swallow is order ed for today. Plan: Continue with Eliquis 5 mg twice daily given her stroke risk. Also, aspirin 81 mg daily, Lipi tor 80 mg at bedtime, and folic acid 1 mg daily. Recommend continued speech and physical and occupat ional therapy. GUME/BROWN Voice ID: [id number] Report ID: [id number]
[2020-02-04] MEDS: ENOXAPARIN 60 MG/0.6 ML SQ SCH (22:58)
--- NOTE | 2020-02-05 00:15 | PN ---
Date of Progress Note: 02/04/2020 Chief Complaint: Acute kidney injury secondary to prerenal azotemia complicated by acute tubular nec rosis. Nonoliguric renal function has improved. Patient has history of hypercalcemia and she was on Sensipar. Calcium level stabilized. Review of Systems: Denies new complaints. Physical Examination: Lungs: Clear to auscultation bilaterally. Heart: S1, S2. 2/6 systolic murmur, left lower sternal border. Abdomen: Soft, benign, nontender. Extremities: No edema. Laboratory Data: Hemoglobin 10.4, WBC 7.9, platelet count 285,000. Sodium 140, potassium 4.6, chlor castillo 109, CO2 of 20, BUN 82, creatinine 1.9, glucose 236. Calcium 9.5. Phosphorus is 3.0. Impression/plan: 1.Acute on chronic kidney function. Renal function has stabilized, although over the 48 hours, BUN has elevated from 61 to 82. Patient has prerenal azotemia. Continue to adjust hydration and conside r IV fluids if patient does have inadequate p.o. fluid intake. Patient remains asymptomatic, althoug h she has CVA and has been followed by neurologist. Patient is to have swallow test and PEG placemen t. 2.Congestive heart failure. Patient was started on Lasix yesterday for some fluid overload. At thi s point, plan is to continue to monitor fluid balance and consider to adjust Lasix if renal function does not improve over next 24 hours. 3.Urinary tract infection. Patient is on antibiotics for UTI ESBL. Adjust antibiotics to renal function. 4.Hypercalcemia, improved. Continue Sensipar 30 mg every 48 hours. EB/MODL Voice ID: [id number] Report ID: [id number]
[2020-02-05 05:04] LABS: Albumin 2.8 g/dL (3.4-5.0); Magnesium 2.1 mg/dL (1.8-2.4); Phosphorus 3.9 mg/dL (2.5-4.9); Potassium 5.5 mmol/L (3.5-5.1)
[2020-02-05] MEDS: INSULIN -REGULAR HUMAN 50 UNIT/0.5 ML ML SQ SCH ×4 (05:21→18:00)
[2020-02-05] MEDS: ASPIRIN 81 MG CHEWABLE TABLET FT SCH (09:00)
[2020-02-05] MEDS: ESCITALOPRAM 20 MG TAB PO SCH (09:00)
[2020-02-05] MEDS: Pantoprazole (granules) 40 MG/BLIST PACKET FT SCH (09:00)
[2020-02-05] MEDS: Meropenem 1,000 MG in NA CHLORIDE 0.9% 100 ML IV SCH (09:11)
[2020-02-05] MEDS ORDERED: SOD POLYSTYREN SUL 15 GM/60 ML UCUP PO ONE (09:34)
[2020-02-05] MEDS ORDERED: D5W 1,000 ML with NA BICARB 8.4% 50 MEQ IV SCH ×2 (10:00)
--- NOTE | 2020-02-05 11:00 | RAD REPORT ---
EXAM DESCRIPTION: RAD - Chest Single View - 02/05/2020 10:13 am CLINICAL HISTORY: COPD Chest pain. COMPARISON: Chest Single View dated 02/02/2020; Chest Single View dated 02/01/2020; Chest Single View da nas 01/30/2020; Chest Single View dated 11/02/2019 FINDINGS: Portable technique limits examination quality. Mild interstitial pulmonary edema. The heart is significantly enlarged with a multilead pacer/ defibr illator device. No displaced fractures. IMPRESSION: Mild CHF.
[2020-02-05] MEDS: Levofloxacin 250mg IV 250 MG/50 ML BAG IV SCH (12:48)
--- NOTE | 2020-02-05 13:54 | PN ---
Date of Progress Note: 02/05/2020 Subjective: Patient is seen and examined. Chart reviewed and case discussed with RN. Patient is ap hasic due to her stroke. Does not appear to be in any acute distress. Medications: List reviewed. Code Status: Do not resuscitate. Physical Examination: Vital Signs: Temperature 97.2, heart rate 76, blood pressure 130/74, respirations 18, O2 100% on prudence m air. General: Awake, alert, elderly female, does not appear to be any acute distress. Follows command. CV: S1, S2. Regular rate and rhythm. Peripheral pulses present. Respiratory: Moving air well bilaterally. No wheezing or stridor. Gastrointestinal: Abdomen is soft, nontender, nondistended. Positive bowel sounds. Extremities: No clubbing, cyanosis, or edema. Neuro: The patient has right-sided weakness as well as aphasia. Laboratory Data: Sodium 143, potassium 5.5, chloride 110, CO2 of 17, BUN of 91, creatinine 2.19, glu cose 132, calcium 9.7, phosphorus 3.9, magnesium 2.1, albumin 2.8. Urine culture growing out ESBL E coli. Blood culture growing out Staphylococcus hominis. Repeat urine culture also growing out ESBL E coli. Assessment: A 74-year-old female with: 1.Subacute cerebrovascular accident with aphasia. Cerebrovascular accidents in the left insular cor ignacio middle cerebral artery distribution. Patient has history of prior cerebrovascular accident with right-sided residual weakness. Continue with stroke guidelines. Patient pulled her Dobhoff yesterda y. We will need to have a modified barium swallow study done today to see if she is able to tolerate a diet. Otherwise, patient may need to have a PEG tube placed or placed on hospice. We will contin ue with PT/OT. Patient not really a candidate for inpatient rehab. Unable to do 3 hours of therapy a day. 2.Toxic encephalopathy related to above. 3.Acute cystitis without hematuria secondary to extended-spectrum beta-lactamase Escherichia coli an d continue with meropenem. We will need at least 2 to 4 weeks of IV antibiotics. We will obtain PIC C line. 4.Bacteremia with Staphylococcus hominis. Continue Levaquin. ID has been consulted. 5.Acute on chronic systolic congestive heart failure with underlying coronary artery disease, elevat ed troponin level. Ejection fraction is 25%. We will continue medications. 6.Hyperkalemia. We will give Kayexalate and monitor. 7.History of pacemaker. Pacemaker was interrogated. It is not functioning but the defibrillator po rtion is. This will need to be addressed on an outpatient basis to have leads replaced or device rep laced. 8.Acute on chronic kidney disease stage 3. Nephrology on board. Creatinine somewhat elevated from yesterday at 2.19. Continue to monitor. Patient has been given medications for hyperkalemia. 9.Essential hypertension. 10.Diabetes mellitus type 2. Continue sliding scale insulin with history of chronic kidney disease. Monitor Accu-Cheks. 11.Hypothyroidism, stable. Continue home medications. 12.Mixed hyperlipidemia. Continue home medications. Plan: Follow up on a modified barium swallow study. PICC line placement depending on swallow study results. May need PEG tube placement. We will discuss with family versus hospice versus SNF. /BROWN Voice ID: [id number] Report ID: [id number]
--- NOTE | 2020-02-05 15:29 | P.PN ---
Date of Service: 02/05/20 Subjective: Patient is a 74-year-old female with history of CVA with right- sided residual weakness. Patient presented with aphasia and poor appetite. The patient was found to have E. coli ESBL in the urine and Staph hominis in the blood which I have been consulted for. Past medical/surgical history: CVA with right-sided residual weakness, systolic CHF, pacemaker, CAD, diabetes, hypertension, hyperlipidemia, hypothyroidism, cholecystectomy, back surgery, hysterectomy, and cataract surgery Patient examined at bedside. Aphasic s/p CVA. Per nurse patient pulled out NGT last night. Objective: Temp Pulse Resp BP Pulse Ox 97 F 84 18 144/74 H 96 02/05/20 12:00 02/05/20 12:00 02/05/20 12:00 02/05/20 12:00 02/05/20 12:00 Labs: Na 143, K 5.5, BUN 91, Creat 1.90, WBC 2.19, PLT 285, albumin 2.8 ROS: General: Awake, lying in bed. right-sided facial droop, more alert CV: S1, S2 RESP: Good breath sounds ABD: flat, soft, nontender : Stroud catheter Extremities: 2+ pedal pulses Assessment and plan: Urine positive for E.coli ESBL, Continue Merrem for total of 7 days Blood positive for Staph Hominis, Continue Levaquin for total of 2 weeks after negative blood culture Diabetes mellitis, monitor glycemic control Procal malnourishment, failed MBS, recommend peg tube for nutrition Will continue to monitor Patient discussed with Dr. Vargas
[2020-02-05] MEDS: D5W 1,000 ML with NA BICARB 8.4% 50 MEQ IV SCH ×2 (15:35)
--- NOTE | 2020-02-05 15:35 | RAD REPORT ---
EXAM DESCRIPTION: RAD - Barium Swallow Modified - 02/05/2020 3:22 pm CLINICAL HISTORY: dysphagia COMPARISON: Modified study may be TECHNIQUE: The patient was given liquid, semi-solid and solid forms of barium. Lateral view fluorosc opic imaging was performed in conjunction with speech pathology service. FINDINGS: Cineloop acquisitions: 40 Fluoro time: 6 minutes 45 seconds Pharyngeal residue - vallecular, pyriform, moderate - significant posterior wall there is poor bolus retreival with all consistencies. there is poor labial / lingual strength, rom, and coordination. anterior spillage is present. pt is unable to form a bolus and all liquids and foods in mouth. initial oral hold ranged from 50 seconds to grater than 93 seconds with honey. pt was unable to move the pureed bolus posteriorly and this was removed from the oral cavity. there is a mild delay in swallow of approximately 2 seconds. pre spillage of liquid occurs to the vallecular and pyriforms. base of tongue retraction is reduced and there is reduced laryngeal elevation / protraction and reduc ed contration of the posterior pharyngeal wall. there was no penetration or aspiration observed. fatigue was a factor and trial of nectar and thin was removed from the oral cavity with a toothette. there was moderate to significant residue in the vallecular and pyriforms after the swallow. patient was unable to elicit a reswallow to clear. IMPRESSION: Modified barium swallow as summarized above and fully detailed on speech pathology aura cabezas
--- NOTE | 2020-02-05 16:28 | P.OP ---
Preoperative diagnosis: Need for IV Access Postoperative diagnosis: Need for IV Access Primary procedure: Placement of LEFT femoral Triple lumen central venous catheter Anesthesia: 1% lidocaine Estimated blood loss: <5cc Specimen: none Findings: non-pulsatile dark red blood Complications: None Implants: triple lumen central catheter Transferred to: Other (room) Condition: Good
[2020-02-05] MEDS ORDERED: MORPHINE 2 MG/ML SYR IV ONE (18:35)
--- NOTE | 2020-02-05 18:39 | PN ---
Date of Progress Note: 02/05/2020 Subjective: Patient was admitted with CVA and acute kidney injury. Patient planned for a swallow st udy and decision about her prognosis of going to go with PEG tube or hospice. Patient's kidney funct ion is slightly declining. Physical Examination: Vital Signs: Blood pressure 144/74, pulse of 84, afebrile. The patient had still good urine output of 900, total of 1200. Chest: Clear to auscultation. Heart: S1, S2. Regular. Abdomen: Soft, nontender. Extremities: Right hemiparesis. Laboratory Data: WBC 7.9, H and H 10.4/33, platelets of 285. Sodium 143, potassium 5.5, bicarb 17, chloride 110, BUN 91, creatinine 2.1, calcium 9.7, phosphorus 3.9, magnesium 2.1, albumin 2.8. Serum protein electrophoresis is still pending. Current Medications: The patient on include; 1.Levaquin. 2.Meropenem. 3.Atorvastatin. 4.Metoprolol. 5.Citalopram. 6.Sodium bicarb. 7.Pantoprazole. 8.Sensipar. Assessment And Plan: 1.Acute kidney injury, possible secondary to toxic acute tubular necrosis. Normal volume with hyper kalemia. I am going to go ahead and resume IV fluid. Keep holding the Lasix for the time being and we will monitor. 2.Acidosis secondary to renal failure. Patient n.p.o. We will start the patient on bicarb drip. 3.Hyperkalemia secondary to renal failure. Hold all supplement. We will start bicarb drip and we w ill follow up. Patient received Kayexalate already. 4.Congestive heart failure, still looking on the dry side. We will start IV hydration. 5.Urinary tract infection secondary to extended-spectrum beta-lactamase. Continue meropenem. We wi ll follow up with the primary. 6.Cerebrovascular accident. Continue supportive care. Patient is going to do a swallow study today and depending on that we will decide about the PEG tube/hospice. LUKE/BROWN Voice ID: [id number] Report ID: [id number]
[2020-02-05] MEDS: ATORVASTATIN 80 MG TAB PO SCH (20:20)
[2020-02-05] MEDS: Meropenem 500 MG in NA CHLORIDE 0.9% 100 ML IV SCH (20:46)
[2020-02-05] MEDS: ENOXAPARIN 60 MG/0.6 ML SQ SCH (22:21)
--- NOTE | 2020-02-06 01:01 | OP ---
Date of Procedure: 02/05/2020 Surgeon: Tyrell Canales MD, Preoperative Diagnosis: Need for intravenous access. Postoperative Diagnosis: Need for intravenous access. Procedure Performed: Placement of a left femoral triple-lumen central venous catheter. Anesthesia: 1% lidocaine. Estimated Blood Loss: Less than 5 mL. Specimens: None. Findings: Nonpulsatile dark red blood returned. Complications: None. Implants: Triple-lumen central venous catheter. Patient remained in room in good condition. Procedure In Detail: After informed consent was obtained from patient's family and medical power of deputy county attorney, patient was prepped and draped in the usual sterile fashion. After adequate anesthesia was achieved, I anesthetized the left inguinal area using anatomic landmarks. I appropriately anestheti zed the area with 1% lidocaine, using a microintroducer needle, I cannulated the left femoral vein on the first attempt. Dark red, nonpulsatile blood returned as microwire was advanced and a small adalid incision was made over the insertion site. The microintroducer sheath was then placed using Selding er technique. Microwire was removed. Inner cannula was removed. The introducer sheath remained in place with dark red nonpulsatile blood return. A standard wire was then advanced. The microintroduc er sheath removed and using Seldinger technique standard wire was then advanced and using sequential dilatation and Seldinger technique, the standard catheter triple-lumen type was then placed into the left femoral vein without evidence of complication. Dark red nonpulsatile blood was returned from al l ports and flushed quite easily. The wire out was called at this point. The area was copiously genaro ansed and sutured to the skin with the above 2-0 nylon suture. A sterile dressing was placed over to p. Patient tolerated the procedure well without evidence of complication, remained in room throughou t the procedure in good condition. All counts were correct at the end of the case. TK/MODL Voice ID: [id number] Report ID: [id number]
[2020-02-06 04:50] LABS: Absolute Lymphocytes (CBC) 0.8 K/uL (0.7-4.9); Basophils % 0.2 % (0-1.3); Hematocrit 38.8 % (36.0-45.0); Lymphocytes % 12.6 % (15.3-44.8); MPV 8.3 fL (7.6-11.3); RBC Red Blood Cell Count 4.59 M/uL (3.86-4.86)
[2020-02-06 04:53] LABS: Albumin 2.8 g/dL (3.4-5.0); Potassium 4.9 mmol/L (3.5-5.1); Protein, Total 6.5 g/dL (6.4-8.2)
[2020-02-06] MEDS: INSULIN -REGULAR HUMAN 50 UNIT/0.5 ML ML SQ SCH ×4 (05:02→18:03)
--- NOTE | 2020-02-06 05:53 | PN ---
Date of Progress Note: 02/05/2020 History Of Present Illness: Ms. Galeana had been followed by me intermittently. She had been seen [facility] on 01/30/2020 with multiple medical problems including acute cerebrovascular accident, acute o n chronic systolic congestive heart failure. She has a pacemaker, severe pulmonary hypertension. Sh e came in with elevated troponin, chronic renal insufficiency. She has a history of dyslipidemia, de pression, diabetes, gastroesophageal reflux disease, and COPD. She is a do not resuscitate. She had a pacemaker interrogation that revealed that the left ventricle lead does not capture and she kept a programmed VVI device at 40-beat RV only. She has not really had any issues as far as her heart rhy thm is concerned. Apparently, there was a plan to perform a PEG tube and I was asked to clear Ms. Mahendra duong in that regard. I felt that Ms. Galeana is basically a high risk patient considering her problems, especially as far as the pulmonary hypertension is concerned with her acute on chronic systolic aimee estive heart failure. She had had an echocardiogram on 01/30/2020 that revealed an ejection fraction of 32%. Her pulmonary artery pressure then was elevated at 42 mmHg, but she has had previous echos where she had severe pulmonary hypertension. Again, I think she is high risk for any intervention or procedures and I will discuss the case further with primary care physician, Dr. Clark at this point as well as Dr. Downing. KIERSTEN/BROWN Voice ID: [id number] Report ID: [id number]
[2020-02-06] MEDS: ASPIRIN 81 MG CHEWABLE TABLET FT SCH (08:32)
[2020-02-06] MEDS: ESCITALOPRAM 20 MG TAB PO SCH (08:32)
[2020-02-06] MEDS: Pantoprazole (granules) 40 MG/BLIST PACKET FT SCH (08:33)
[2020-02-06] MEDS: D5W 1,000 ML with NA BICARB 8.4% 50 MEQ IV SCH ×2 (08:41)
[2020-02-06] MEDS: Meropenem 500 MG in NA CHLORIDE 0.9% 100 ML IV SCH ×2 (08:41→21:33)
[2020-02-06] MEDS ORDERED: FUROSEMIDE 20 MG/ 2ML VIAL IV ONE (10:27)
--- NOTE | 2020-02-06 10:41 | CON ---
Date of Consultation: 02/05/2020 Brief History Of Present Illness: Patient is a 74-year-old female with multiple medical problems inc luding a prior CVA with right-sided residual weakness, systolic congestive heart failure with prior e jection fraction of 30%, pacemaker placement into the left chest, coronary artery disease, diabetes, hypertension, hyperlipidemia, aphasia. She presented with worsening aphasia back on 01/30/2020. She had been ambulatory prior and had multiple issues as described above. During her course of the hosp italization she has had a difficult time with IV access and as such, a PICC line was considered not a n optimal choice as she had a history of a pacemaker and the above stated issues and as such I was re quested to place a central venous catheter in the patient. Past Medical History: Significant for diabetes, hypothyroidism, hypertension, CVA with right-sided h emiparesis, coronary artery disease, obesity, depression, anxiety, hyperlipidemia. Past Surgical History: Includes a pacemaker placement, pacemaker was placed on 10/01/2015, left ches t, cholecystectomy, back surgery, hysterectomy, cataract surgery. Information is obtained from the ha hilario as the patient is nonverbal. Social History: She is a . She has children who are her medical power of business attorney. There is n egative smoking, alcohol, and recreational drug use by report. Allergies: NO KNOWN DRUG ALLERGIES. Home Medications: Include Lipitor, glipizide, Protonix, [place] Thyroid, aspirin, albuterol, vitamin B complex, turmeric, carvedilol, Lasix, cranberry extract, Senokot, Lexapro, Neurontin, hydrocodone, hemocyte, Lidoderm patch, melatonin, vitamin B complex. Review of Systems: Unable to obtain. Physical Examination: Vital Signs: At the time of my examination, her BMI is 24. Her vital signs were a blood pressure of 116/60, heart rate was 75, respiratory rate 14, temperature was 97.5. General: She is awake and alert, but non-conversive. She responds appropriately to questions with melody iving me a thumbs up on occasion with her left upper extremity, but does not verbalize during the exa mination. HEENT: She is otherwise normocephalic. Chest: Normal expansion and excursion. There is a left-sided pacemaker in place which is easily vis ualized in this thin frail woman. Abdomen: Soft. Extremities: No clubbing, cyanosis, or edema. Laboratory Data: Reveals a sodium of 143, potassium 5.5, chloride 110, carbon dioxide 17, BUN 91, cr eatinine 2.1, glucose is 132. Her phos is 3.9, magnesium 2.1. She had a chest x-ray performed on 02/04 which was officially read as mild CHF. Assessment And Plan: This is a 74-year-old female in need of long-term antibiotics as well as medica tion administration for IV access and durable IV access. As such, I have explained the risks, benefi ts, and alternatives to placement of a likely femoral, possible internal jugular and/or subclavian ce ntral venous access device for the above-stated purpose. The risks included, but were not limited to bleeding, infection, damage to surrounding tissues, pneumothorax, need for further operations and pr ocedures. Medical power of business attorney has given consent for this procedure, as such we will proceed. Thank you for this interesting consult. CHACE/BROWN Voice ID: [id number] Report ID: [id number]
[2020-02-06] MEDS: Levofloxacin 250mg IV 250 MG/50 ML BAG IV SCH (11:32)
[2020-02-06 12:27] LABS: HBsAG Nonreactive (Nonreactive)
--- NOTE | 2020-02-06 12:32 | PN ---
History: Patient is doing well, still weak, aphasic. Physical Examination: Vital Signs: When I saw the patient, blood pressure of 124/66, pulse of 75. Chest: Crackles, more prominent right sided. Heart: S1, S2. Systolic murmur. Abdomen: Soft, nontender. Extremities: Trace edema. Neuro: Aphasic, right-sided weakness. Laboratory Data: WBC 6.3, H and H 12.2/36.3, platelets 195. Sodium 142, potassium 4.9, bicarb 21, B UN 94, creatinine of 2, calcium 8.6. PTH of 91. Current Medications: The patient on include: 1.Levaquin. 2.Meropenem. 3.Lovenox. 4.Atorvastatin. 5.Citalopram. 6.Sodium bicarb. 7.Pantoprazole. 8.Insulin. 9.Sensipar. 10.Hydrocodone. Assessment And Plan: 1.Acute kidney injury secondary to cardiorenal, looked to me slightly on the wet side. I am going t o give extra dose of Lasix today and we will monitor. 2.Hypertension. Controlled, optimal. Continue current treatment. 3.Hypercalcemia secondary to primary hyperparathyroidism, resolved. I am going to go ahead and disc ontinue Sensipar as calcium starts trending down. 4.Urinary tract infection secondary to extended-spectrum beta-lactamases Escherichia coli. Continue meropenem dose appropriate. We will follow up. 5.Cerebrovascular accident. Continue supportive care. WEST Voice ID: [id number] Report ID: [id number]
--- NOTE | 2020-02-06 14:08 | PN ---
Date of Progress Note: 02/06/2020 Subjective: Patient seen and examined. Chart reviewed and case discussed with RN. Medication list reviewed. Spoke with the family at length yesterday along with GI, Dr. Downing, and stem lead former, Jacob Jordan. Patient's family wanted PEG tube placement due to her dysphagia; however, due to patient 's severe pulmonary hypertension, she is very high risk, and GI declined the procedure due to high ri sk and risk of [place]-procedure. Contacted family who will discuss among themselves, the son and the daughter, regarding possible hospice option. Physical Examination: Vital Signs: Temperature 97.1, heart rate 75, blood pressure 124/66, respirations 25, O2 of 97% on r oom air. General: Awake, alert, aphasic, elderly female. CV: S1, S2. Peripheral pulses present. Respiratory: Moving air well bilaterally. No wheezing or stridor. Gastrointestinal: Abdomen is soft, nontender, nondistended. Positive bowel sounds. Extremities: No clubbing, cyanosis, or edema. Neuro: Right-sided weakness, facial asymmetry, and aphasia. Laboratory Data: Sodium 142, potassium 4.9, chloride 109, CO2 of 21, BUN 94, creatinine 2.05, glucos e 218, calcium 8.6, albumin 2.8. WBC 6.3, H and H 12.2 and 38.8, platelets 195. Hepatitis panel is pending. Urine culture growing out ESBL E coli. Blood culture is growing out Staph hominis. Assessment: A 74-year-old female with: 1.Subacute cerebrovascular accident with aphasia in the left insular cortex middle cerebral artery d istribution, right-sided weakness from previous cerebrovascular accident. Continue with stroke guide lines. Patient failed swallow study. Continue PT, OT. Appreciate Neurology input. Not a candidate for rehab. 2.Toxic encephalopathy related to above. 3.Acute cystitis without hematuria secondary to extended-spectrum beta-lactamase Escherichia coli. We will continue with meropenem per ID. They recommend 7 to 10 days of IV meropenem instead of 2 wee ks and then repeat UA and extend if necessary. Patient is unable to have PICC line placed, but centr al line was placed by General Surgery. 4.Bacteremia with Staphylococcus hominis. Continue with Levaquin. Appreciate ID input. 5.Acute on chronic systolic congestive heart failure with underlying coronary artery disease, elevat ed troponin level. EF 25%. Continue medications. 6.Dysphagia. Patient is not a candidate for PEG tube placement due to high risk for surgery with se guero pulmonary hypertension. GI declined procedure due to risk. Cardiology does not recommend proce dure, not cleared from cardiac standpoint. 7.Hyperkalemia. This was corrected. 8.History of pacemaker, not properly functioning, but defibrillator is functioning. We will need to have this addressed as an outpatient basis to have leads replaced or device replaced. 9.Acute on chronic kidney disease stage 3. Creatinine improved from yesterday. Continue to monitor . 10.Essential hypertension, stable. Continue medications. 11.Diabetes mellitus type 2 with hyperglycemia. We will continue sliding scale insulin. Patient al so has a history of chronic kidney disease. We will monitor Accu-Cheks. 12.Hypothyroidism, stable. 13.Mixed hyperlipidemia. Continue statin. 14.Elevated liver enzymes, unclear etiology. Hep panel is pending. May be related to passive conge stion from congestive heart failure or from high-dose statin. May need to reduce dose to 40. Plan: Family deciding on possible hospice care. /BROWN Voice ID: [id number] Report ID: [id number]
--- NOTE | 2020-02-06 14:51 | P.PN ---
Date of Service: 02/06/20 Subjective: Patient is a 74-year-old female with history of CVA with right- sided residual weakness. Patient presented with aphasia and poor appetite. The patient was found to have E. coli ESBL in the urine and Staph hominis in the blood which I have been consulted for. Past medical/surgical history: CVA with right-sided residual weakness, systolic CHF, pacemaker, CAD, diabetes, hypertension, hyperlipidemia, hypothyroidism, cholecystectomy, back surgery, hysterectomy, and cataract surgery Patient examined at bedside. Aphasic s/p CVA. No new changes in the past 24 hours Objective: Temp Pulse Resp BP Pulse Ox 97.0 F 68 24 H 118/64 100 02/06/20 12:00 02/06/20 12:00 02/06/20 12:00 02/06/20 12:02/06/20 12:00 Labs: Na 142, K 4.9, BUN 94, Creat 2.05, WBC 6.3, PLT 195, albumin 2.8 ROS: General: Lethargic, opens eyes to voice CV: S1, S2 RESP: Good breath sounds ABD: flat, soft, nontender : Stroud catheter Extremities: 2+ pedal pulses. CL to left groin Assessment and plan: Urine positive for E.coli ESBL, Continue Merrem for total of 7 days Blood positive for Staph Hominis, Continue Levaquin for total of 2 weeks from negative blood culture on 02/03 Diabetes mellitis, monitor glycemic control Procal malnourishment, Per Cardio and GI, patient is not a candidate for peg tube surgery Family discussing Hospice care Will continue to monitor Patient discussed with Dr. Vargas
[2020-02-06 15:30] LABS: HIV AG/AB 4TH GEN Non-reactive (Non-reactive)
[2020-02-06] MEDS ORDERED: ATORVASTATIN 40 MG TAB PO SCH (21:00)
[2020-02-06 22:12] LABS: Vitamin D 1,25-Dihydroxy Total 21 pg/mL (18-72); Vitamin D,1,25-OH2, D2 <8 pg/mL
[2020-02-07] MEDS: D5W 1,000 ML with NA BICARB 8.4% 50 MEQ IV SCH ×4 (01:08→08:00)
[2020-02-07] MEDS: INSULIN -REGULAR HUMAN 50 UNIT/0.5 ML ML SQ SCH ×4 (01:09→18:00)
[2020-02-07] MEDS ORDERED: SODIUM BICARB 50 MEQ/50ML VIAL ONE (01:13)
[2020-02-07] MEDS ORDERED: D5W 1,000 ML IV ONE (01:14)
[2020-02-07 05:21] LABS: Absolute Lymphocytes (CBC) 0.9 K/uL (0.7-4.9); Basophils % 0.2 % (0-1.3); Hematocrit 36.2 % (36.0-45.0); Lymphocytes % 19.4 % (15.3-44.8); MPV 8.7 fL (7.6-11.3); RBC Red Blood Cell Count 4.36 M/uL (3.86-4.86)
[2020-02-07 05:37] LABS: Albumin 2.5 g/dL (3.4-5.0); Bilirubin Total 1.1 mg/dL (0.2-1.0); Potassium 4.2 mmol/L (3.5-5.1)
[2020-02-07 08:02] LABS: Anisocytosis 1+; Blood Morphology Comment NOTED (NOT SEEN); Burr Cells 1+; Macrocytosis 1+; Ovalocytes 1+; Platelet Estimate ADEQ
[2020-02-07] MEDS: ASPIRIN 81 MG CHEWABLE TABLET FT SCH (09:00)
[2020-02-07] MEDS: Pantoprazole (granules) 40 MG/BLIST PACKET FT SCH (09:00)
[2020-02-07] MEDS: ESCITALOPRAM 20 MG TAB PO SCH (09:00)
[2020-02-07] MEDS: ENOXAPARIN 30 MG/0.3 ML SQ SCH (09:10)
[2020-02-07] MEDS: Meropenem 500 MG in NA CHLORIDE 0.9% 100 ML IV SCH ×2 (09:10→22:18)
[2020-02-07] MEDS ORDERED: FUROSEMIDE 20 MG/ 2ML VIAL IV ONE (09:34)
[2020-02-07] MEDS: Levofloxacin 250mg IV 250 MG/50 ML BAG IV SCH (12:16)
--- NOTE | 2020-02-07 14:16 | PN ---
Date of Progress Note: 02/07/2020 Subjective: Patient was admitted with CVA. Patient had acute kidney injury with UTI secondary to ES BL and hypercalcemia. Patient was hydrated. Kidney function started improving. Physical Examination: Vital Signs: Blood pressure 119/67, pulse of 71. Patient had good urine output of 1000. Yesterday, patient received Lasix. Chest: Crackles bilateral. Heart: S1, S2. Systolic murmur. Abdomen: Soft, nontender. Extremities: Trace edema. Neuro: Right-sided hemiparesis. Nonverbal. Laboratory Data: WBC 4.9, H and H 11.5/36.2, platelets 189. Sodium 142, potassium 4.2, bicarb 24, B UN 89, creatinine 1.8, calcium 8.2. Current Medications: The patient on include sodium bicarb, aspirin, meropenem, Levaquin, Lovenox, at orvastatin, metoprolol, citalopram. Assessment And Plan: 1.Acute kidney injury secondary to cardiorenal/toxic acute tubular necrosis secondary to urinary tra ct infection. Over volume. I am going to discontinue bicarb drip. We will give the patient extra d ose of Lasix today and we will continue to monitor. 2.Hypertension, controlled, optimal. Continue current treatment. 3.Urinary tract infection with extended-spectrum beta-lactamase. Continue meropenem. 4.Cerebrovascular accident. Continue supportive treatment. Apparently, patient's family decided for hospice care. We will sign off. Please call us as needed. WEST Voice ID: [id number] Report ID: [id number]
[2020-02-07 21:25] LABS: Vitamin D 1,25-Dihydroxy Total 11 pg/mL (18-72); Vitamin D,1,25-OH2, D2 <8 pg/mL
--- NOTE | 2020-02-08 03:21 | DS ---
Date of service 02/07/2020 Consultants: 1. Infectious Disease, Dr. Vargas. 2. Dr. Canales with General Surgery. 3. Dr. Leonard with Neurology. 4. Dr. Jordan with Cardiology. 5. Dr. Meyers and Dr. Mcclelland as well as Dr. Esquivel with Nephrology. 6. Dr. Downing, with GI. Admitting Diagnoses: 1. Aphasia with suspect cerebrovascular accident. 2. Encephalopathy, likely related to urinary tract infection. 3. Elevated troponin. 4. Acute on chronic systolic congestive heart failure. 5. Coronary artery disease, eek artery, eek heart, without angina. 6. History of pacemaker defibrillator. 7. Acute on chronic renal disease stage III with hyperkalemia. 8. Essential hypertension. 9. Diabetes mellitus type 2. 10. Hypothyroidism. 11. Hyperlipidemia. Discharge Diagnoses: 1. Subacute cerebrovascular accident with aphasia and history of right-sided weakness. The cerebrovascular accident was in the middle cerebral artery distribution. 2. Toxic encephalopathy. 3. Acute cystitis without hematuria secondary to extended-spectrum Beta Lactamase Escherichia coli, treated with Merrem. 4. Bacteremia with Staphylococcus hominis. 5. Acute on chronic systolic congestive heart failure with an ejection fracture of 25%. 6. Coronary artery disease, eek artery, eek heart without angina. 7. Severe pulmonary hypertension. 8. Dysphagia, not a candidate for PEG due to high cardiac risk. 9. Hyperkalemia, corrected. 10. History of pacemaker defibrillator pacemaker not functioning properly, need to have leads replaced or device replaced on an outpatient basis. 11. Acute on chronic kidney disease, stage 3. 12. Essential hypertension, stable. 13. Diabetes mellitus type 2, [id number]-[id number] with hyperglycemia, stable. 14. Hypothyroidism, stable. 15. Mixed hyperlipidemia, on statin. 16. Elevated liver enzymes. Unclear etiology likely passive congestion from congestive heart failure, improving. Hospital Course: Patient is an elderly female, 74-year-old, with past medical history of heart disease, diabetes, hypertension, hypothyroidism, history of previous cerebrovascular accident with right-sided weakness, coronary artery disease, pacemaker defibrillator, comes in with aphasia. Patient was found to have subacute cerebrovascular accident in the MCA distribution. She was started on stroke guidelines. She was also placed on deep vein thrombosis prophylaxis. Patient was seen by Neurology, Dr. Leonard. Carotid artery ultrasound was also done showed idwe-hx-nfoytyae heart plaque in both internal carotid arteries. Hemodynamically significant stenosis. Patient's modified barium swallow study however did show that she had dysphagia and aspiration. Therefore, speech therapy was involved. Patient is not able to be a candidate for any type of diet. PEG tube placement was suggested; however, patient was not a candidate for PEG tube placement as patient's echocardiogram showed low EF and severe pulmonary hypertension was not cleared from cardiac standpoint. She has risk of cardiac adverse events including on the table due to the procedure and GI declined the procedure. Family was informed. Patient did have some acute on chronic systolic heart failure as well. Her encephalopathy was likely due to infection in her urine and blood. She was found to be positive for ESBL E coli in the urine and had positive blood cultures of Staph hominis. ID was consulted and recommended 7 days of meropenem. Patient was unable to receive a PICC line, which was attempted due to her pacemaker. Therefore, General Surgeon, Dr. Canales, was consulted, put in a central line. Initially, plan was to transfer the patient to a [facility] facility. She was too weak for rehab, but after the inability of PEG tube placement, the patient was then referred to hospice after family agreed. Son and daughter are the decision makers and they agreed to hospice care for her. They wished for the patient to finish her Merrem for the extended spectrum beta-lactamases infection and she will be on oral antibiotics for her Staph bacteremia. The patient was also seen by Cardiology, Dr. Jordan. Apparently, her leads in the pacemaker were not picking up, but the defibrillator was doing okay. Otherwise, her other medical conditions remained stable. She was seen by Nephrology for her chronic kidney disease and creatinine remained stable. Patient was then accepted by hospice and will be discharged home with home hospice in a fair condition. Speaking with the speech pathologist, she recommended some pleasure feedings and nectar thick liquids. Family understands that the patient has aspiration events and may succumb to pneumonia from aspiration. However, as this is for care and comfort reasons, the patient can have pleasure feeding. Medications: As per medication reconciliation list. Patient is being discharged under hospice under care and comfort measures. Family understands that they can revoke hospice at any time. Physical Examination: General: Awake, alert, aphasic. CV: S1, S2. Respiratory: Moving air well bilaterally. Abdomen: Abdomen is soft, nontender, nondistended. Positive bowel sounds. Extremities: No clubbing, cyanosis, edema. Neuro: Right-sided weakness, aphasia, facial asymmetry. Total time spent discharging patient was 42 minutes. STEFFEN Voice ID: [id number] Report ID: [id number] MTDD
[2020-02-08 05:35] LABS: Alpha-1-Globulins 0.4 g/dL (0.2-0.3); Alpha-2-Globulins 0.8 g/dL (0.5-0.9); INTERPRETATION REPORT
[2020-02-08] MEDS: INSULIN -REGULAR HUMAN 50 UNIT/0.5 ML ML SQ SCH ×4 (06:00→18:00)
[2020-02-08] MEDS: ASPIRIN 81 MG CHEWABLE TABLET FT SCH (09:00)
[2020-02-08] MEDS: ESCITALOPRAM 20 MG TAB PO SCH (09:00)
[2020-02-08] MEDS: Pantoprazole (granules) 40 MG/BLIST PACKET FT SCH (09:00)
[2020-02-08] MEDS: ENOXAPARIN 30 MG/0.3 ML SQ SCH (09:34)
[2020-02-08] MEDS: Meropenem 500 MG in NA CHLORIDE 0.9% 100 ML IV SCH ×2 (09:34→16:56)
[2020-02-08 10:41] VITALS: O2SAT 99
[2020-02-08] MEDS: Levofloxacin 250mg IV 250 MG/50 ML BAG IV SCH (12:38)
--- NOTE | 2020-02-08 13:54 | P.PN ---
Subjective Date of Service: 02/08/20 Primary Care Provider: Dr. Bowers; Cardiology-Dr. Abdullahi/Pat Chief Complaint: Aphasia Subjective 74-year-old with CVA with right-sided residual weakness, systolic CHF EF 30%, CAD, diabetes, hypertension presented with AMS and decreased po intake today ' Cr stable plan to discharge to hospice will sign off call us prn Physical exam general: iopen eyes, unsure if can follow commands Neck; Supple, No elevated JVD hear: Sysytolic murmur Chest: CTAB, no rales or wheezes Abdomen: Soft , Nt Extremities No edema or ulcer A/P JESUS ALBERTO now cr stable renal dose meds AMS CVA HTN controlled DM as per primary UTI cot Abx f/u culture results Total time spent 35 min Poor prognosis plan to discharge to hospice will sign off Physical Examination - Vital Signs Temperature: 97.3 F Blood Pressure: 122/63 Pulse: 83 Respirations: 28 Pulse Ox (%): 93 - Studies Medications List Reviewed: Yes
--- NOTE | 2020-02-08 16:00 | PN ---
Date of Progress Note: 02/08/2020 Subjective: Patient seen and examined. Chart reviewed and case discussed with RN. Patient to be discharged yesterday with hospice; however, hospice will not be able to complete her antibiotics with a central line. Therefore, patient would be kept until today and will receive her last dose of Merrem to complete the treatment for her ESBL at 5 p.m. and then can be released with hospice. Medications List: Reviewed. Physical Examination: Vital Signs: Temperature 96.9, heart rate 65, blood pressure 122/68, respirations 24, O2 99% on room air. General: Awake, alert, elderly female, aphasic, follows simple commands. CV: S1, S2. Peripheral pulses present. Respiratory: Moving air well bilaterally. No wheezing. Gastrointestinal: Abdomen is soft, nontender, nondistended. Positive bowel sounds. Extremities: No clubbing, cyanosis, or edema. Neuro: Right-sided weakness, aphasia, facial asymmetry. Laboratory Data: Glucose 161. Urine culture, ESBL E coli. Blood cultures, Staph hominis. Assessment: A 74-year-old female with: 1. Subacute cerebrovascular accident with aphasia and history of right-sided weakness in the middle cerebral artery distribution. 2. Toxic encephalopathy, resolved. 3. Acute cystitis without hematuria secondary to extended spectrum beta- lactamase Escherichia coli. We will finish off Merrem today. 4. Bacteremia with Staphylococcus hominis. We will continue oral antibiotics. 5. Acute on chronic systolic congestive heart failure with EF of 25%, improved. 6. Coronary artery disease, [place] artery and [place] heart without angina. 7. Severe pulmonary hypertension. 8. Dysphagia, not a candidate for PEG tube due to high cardiac risk. 9. Hyperkalemia, corrected. 10. History of pacemaker defibrillator with pacemaker not properly functioning, needs to have leads replaced or device replaced on outpatient basis. 11. Acute on chronic kidney disease stage 3, stable. 12. Essential hypertension, stable. 13. Diabetes mellitus type 2, [id number]-alxdgeymu with hyperglycemia, stable. 14. Hypothyroidism, stable. 15. Mixed hyperlipidemia, statin. 16. Elevated liver enzymes, possibly from her high-dose statin versus passive congestion from her congestive heart failure. Patient is unable to tolerate high-dose statin. For her stroke, she will be back to her home dose of 10 mg once her liver function enzymes normalized. Regardless, patient will be going home with hospice. We will discharge after last dose of meropenem today. STEFFEN Voice ID: [id number] Report ID: [id number]
[2020-02-08 20:38] VITALS: BP 122/56; TEMP 96.8
== END 2020-02-08 20:39 | disposition hospice, home (50) | DRG 64 ==
LOC: ER 10:48 → ERHOLD 14:23 → 2ND 16:52 → 3RD-ICU 02-08 18:45 → 2ND 02-08 19:42
PROVIDERS: ADMIT Family Medicine; ATTEND Family Medicine
PROC: 06HY33Z Insertion of Infusion Device into Lower Vein, Percutaneous Approach (ICD-10-PCS; principal; 2020-02-02)
DX: I63.9 Cerebral infarction, unspecified (principal); G92 Toxic encephalopathy; I50.23 Acute on chronic systolic (congestive) heart failure; N17.0 Acute kidney failure with tubular necrosis; I69.351 Hemiplegia and hemiparesis following cerebral infarction affecting right dominant side; I13.0 Hypertensive heart and chronic kidney disease with heart failure and stage 1 through stage 4 chronic kidney disease, or unspecified chronic kidney disease; Z16.12 Extended spectrum beta lactamase (ESBL) resistance; E87.2 Acidosis; N30.00 Acute cystitis without hematuria; R78.81 Bacteremia; R47.01 Aphasia; Z95.0 Presence of cardiac pacemaker; Z79.84 Long term (current) use of oral hypoglycemic drugs; Z79.82 Long term (current) use of aspirin; Z79.891 Long term (current) use of opiate analgesic; Z79.899 Other long term (current) drug therapy; I25.10 Atherosclerotic heart disease of native coronary artery without angina pectoris; Z90.49 Acquired absence of other specified parts of digestive tract; Z90.710 Acquired absence of both cervix and uterus; N18.3 Chronic kidney disease, stage 3 (moderate); N28.9 Disorder of kidney and ureter, unspecified; E87.5 Hyperkalemia; E03.9 Hypothyroidism, unspecified; I25.2 Old myocardial infarction; R29.711 NIHSS score 11; I27.20 Pulmonary hypertension, unspecified; I44.7 Left bundle-branch block, unspecified; E11.22 Type 2 diabetes mellitus with diabetic chronic kidney disease; F32.9 Major depressive disorder, single episode, unspecified; J44.9 Chronic obstructive pulmonary disease, unspecified; E11.40 Type 2 diabetes mellitus with diabetic neuropathy, unspecified; E83.52 Hypercalcemia; E83.42 Hypomagnesemia; Z66 Do not resuscitate; B96.20 Unspecified Escherichia coli [E. coli] as the cause of diseases classified elsewhere; B95.7 Other staphylococcus as the cause of diseases classified elsewhere; E78.2 Mixed hyperlipidemia; E11.65 Type 2 diabetes mellitus with hyperglycemia
CPT/HCPCS: 36415; 36569; 51702; 70450; 71045; 74230; 76770; 80048; 80053; 80061; 80069; 80076; 80307; 81015; 82435; 82550; 82553; 82570; 82652; 82947; 83520; 83735; 83880; 83970; 84132; 84156; 84165; 84439; 84443; 84484; 84550; 85025; 85610; 86021; 86038; 86160; 86317; 86334; 86430; 86706; 86803; 87040; 87077; 87086; 87088; 87186; 87205; 87340; 87389; 92523; 92526; 92611; 93005; 93306; 93880; 96365; 96367; 96375; 97110; 97112; 97161; 97166; 97530; 99285; J0696; J1644; J1650; J1940; J2270; J3475; J7030; J7040; J7042; J7799; U0002